=== PATIENT | female | born 1965 | race Caucasian/White ===

== ENCOUNTER → 2020-05-15 08:24 | Outpatient (BNVA) | payer BC, SELFPAY | PROVIDERS: PCP Internal Medicine; Referring Provider Internal Medicine; Visit Provider Internal Medicine | DX: M81.0 Age-related osteoporosis without current pathological fracture (principal); E21.3 Hyperparathyroidism, unspecified; E55.9 Vitamin D deficiency, unspecified; E04.2 Nontoxic multinodular goiter; Z79.899 Other long term (current) drug therapy | CPT/HCPCS: Q3014 ==

== ENCOUNTER → 2020-08-14 08:54 | Outpatient (BNVA) | payer BC, SELFPAY | PROVIDERS: PCP Internal Medicine; Visit Provider Internal Medicine ==

== ENCOUNTER 2020-11-10 07:48 | Inpatient (IN) | payer OTHER, SELFPAY ==
[2020-11-10] VITALS (10 sets, daily range): BP systolic 96–147; BP diastolic 57–72; PULSE 60–102; RESP 16–22; TEMP 36–37.1; O2SAT 90–99; BMI 20.1
--- NOTE | ~2020-11-10 | CT_ITS ---
EXAMINATION: CT ANGIOGRAM OF THE CHEST WITH AND WITHOUT CONTRAST (CT PULMONARY ANGIOGRAM FOR PE) CLINICAL INFORMATION: Reason for Exam pt c sob/cough ? pe COMPARISON: Chest x-ray from earlier the same day TECHNIQUE: Prior to contrast administration, noncontrast localization images were obtained. Subsequently, multidetector volumetric imaging was performed from the thoracic inlet to below the diaphragms following the administration of 65 mL Omnipaque 350 intravenous contrast. No contrast reaction reported Sagittal, coronal, and MIP oblique sagittal reformatted images were obtained on the CT workstation, uploaded to PACS, and reviewed. This CT examination was performed using dose optimization techniques as appropriate, variously including the following: *Automated exposure control *Adjustment of mA and/or kV according to patient size (this includes techniques or standardized protocols for targeted exams where dose is matched to indication/reason for exam; i.e. extremities or head) *Use of iterative reconstruction technique Total exam dose-length product 146 mGy-cm FINDINGS: QUALITY OF STUDY/CONTRAST BOLUS: Satisfactory. PULMONARY ARTERIES: No central or segmental pulmonary emboli. THORACIC AORTA: No aneurysm or dissection. LUNG: There is evidence of emphysema. There is a 0.9 x 1.1 cm right upper lobe nodule axial image 75 series 7. There is a 4 mm right lower lobe nodule axial image 266 series 7. There is a 3 mm peripheral or subpleural right lower lobe nodule axial image 341 series 7. There is a 2 mm peripheral or subpleural right lower lobe nodule axial image 355 series 7. There is subsegmental atelectasis seen in the inferior segment of the lingula. There are scattered areas of mild bronchial wall thickening. PLEURA: No pleural effusion or pneumothorax. MEDIASTINUM: Normal heart size. No pericardial effusion. No hilar or mediastinal lymphadenopathy. No evidence of septal bowing or right heart strain. CHEST WALL/AXILLA: No axillary or internal mammary lymphadenopathy. OSSEOUS STRUCTURES: No acute or suspicious osseous abnormality. There are mild degenerative changes of the spine. UPPER ABDOMEN: Unremarkable. No reflux of contrast into the hepatic veins to suggest elevated right heart pressures. CT/CT angio chest PE protocol IMPRESSION: No evidence of pulmonary embolism. Emphysema. 1 cm right upper lobe nodule worrisome for neoplasm. PET CT scan or tissue sampling should be considered. Scattered areas of mild bronchial wall thickening suggestive of bronchitis. VTE: negative
--- NOTE | ~2020-11-10 | XR_ITS ---
EXAMINATION: XR CHEST CLINICAL INFORMATION: Cough and shortness of breath COMPARISON: None TECHNIQUE: 2 views of the chest were obtained. FINDINGS: The cardiac and mediastinal contours are normal. The lungs are well inflated. There is a 1 cm nodular density projecting over the right lung apex and right clavicle and first rib. This may represent superimposition of bone and vascular structures. No corresponding abnormality is seen on the lateral view. The lungs are otherwise clear. There is no pleural effusion or pneumothorax. There are mild degenerative changes of the spine. XR/XR chest 2V IMPRESSION: Well-inflated lungs. 1 cm nodular density at the right lung apex. This may be related to overlapping bone and vascular structures. Follow-up apical lordotic view of the chest recommended.
--- NOTE | 2020-11-10 08:55 | ECG_ITS ---
Test Reason : SOB Blood Pressure : / mmHG Vent. Rate : 061 BPM Atrial Rate : 061 BPM P-R Int : 126 ms QRS Dur : 076 ms QT Int : 446 ms P-R-T Axes : 072 087 060 degrees QTc Int : 448 ms Normal sinus rhythm Possible Left atrial enlargement Borderline ECG No previous ECGs available Referred By: Urslua Melgar Electronically Signed By:CORRY PSOT MD
--- NOTE | 2020-11-10 09:13 | PHA.MEDREC ---
Pharmacy Consult ? Medication Reconciliation Pharmacy has completed the medication reconciliation. No remarkable issues requiring provider's attention. Martha So, EmmanuelleD
[2020-11-10 09:41] LABS: MANUAL DIFF FLAG NO
[2020-11-10 09:45] LABS: Basophils Percent Auto 0.4 % (0-2); Eosinophils Absolute Auto 0.1 X10*3/uL (0.0-0.4); Eosinophils Percent Auto 0.8 % (0-4); Hemoglobin 14.9 g/dl (12.0-16.0); Imm Gran Abs Auto 0.01 X10*3/uL (0.00-0.03); Imm Gran Pct Auto 0.1 % (0.0-0.4); Lymphocytes Absolute Auto 2.9 X10*3/uL (1.2-4.9); Lymphocytes Percent Auto 34.4 % (20-40); Mean Corpuscular HGB Conc 33.9 g/dl (31.0-35.0); Mean Corpuscular Hemoglobin 30.2 pg (27.0-33.0); Mean Corpuscular Volume 89.2 fL (80-98); Mean Platelet Volume 10.3 fL (9.4-12.3); Monocytes Absolute Auto 0.5 X10*3/uL (0.1-1.2); Monocytes Percent Auto 6.2 % (2-11); Neutrophils Absolute Auto 4.9 X10*3/uL (2.0-8.3); Neutrophils Percent Auto 58.1 % (45-73); Platelet Count 328 X10*3/uL (160-400); Red Blood Count 4.93 X10*6/uL (4.20-5.50); Red Cell Distribution Width 13.6 % (11.0-16.0); White Blood Count 8.4 X10*3/uL (4.8-10.8)
[2020-11-10 09:52] LABS: Prothrombin Time 11.8 SEC (9.9-13.0)
--- NOTE | 2020-11-10 10:13 | ED.SOB ---
HPI - SOB/Dyspnea General Chief Complaint: Dyspnea Stated Complaint: DIFF BREATHING CONGESTION Time Seen by Provider: 11/10/20 08:47 Source: patient and family Mode of arrival: ambulatory Limitations: no limitations History of Present Illness HPI Narrative: 55-year-old female with a past medical history of hyperparathyroidism, multi nodular thyroid, osteoporosis and vitamin-D deficiency who is a daily smoker presenting to the ED with complaints of chest congestion, intermittent productive cough, shortness of breath, orthopnea and night sweats over the past 2 weeks worse since last night. patient reports the symptoms started 2 weeks after her moderna vaccine. She denies any dizziness, lightheadedness, change in vision, nausea / vomiting, chest pain, dyspnea on exertion, palpitations, abdominal pain, back pain, lower extremity edema, diarrhea, constipation, recent travel or sick contacts or any other symptoms complaints or concerns at this time. MD elicited complaint: shortness of breath, cough and pain with inspiration Onset (ago): week(s) ( Two weeks now worsening) Timing: constant and progressively worsening Severity: severe Exacerbating factors: lying flat, movement, coughing, inspiration, talking and deep breaths Relieving factors: rest and upright position Associated symptoms: pain with inspiration, cough and sputum production Treatment prior to arrival: none Related Data Home oxygen amount: none Home Medications Medication Instructions Recorded Confirmed cholecalciferol (vitamin D3) 25 25 mcg PO DAILY 05/15/20 11/10/20 mcg (1,000 unit) capsule guaifenesin [Robitussin] 200 mg PO Q4H PRN 11/10/20 11/10/20 Allergies Allergy/AdvReac Type Severity Reaction Status Date / Time N.K.D.A. Allergy Unknown Unknown Uncoded 08/14/20 09:05 Review of Systems Review of Systems: Constitutional : No Weight loss, No Fever, No Chills, No Night Sweats, No Fatigue, No Malaise ENT/Mouth : No Hearing loss, No Ear Pain, No Nasal Congestion, No Sinus Pain, No Hoarseness, No sore throat, No Rhinorrhea, No Swallowing Difficulty Eyes: No Eye Pain, No Swelling, No Redness, No Foreign Body, No Discharge, No Vision Changes Cardiovascular : Positive SOB, Positive Orthopnea, No Chest pain only chest tighness, no Dyspnea on Exertion, No Edema, No extremity swelling, No Palpitations Respiratory : Positive Cough/Sputum, No Wheezing Gastrointestinal : No Nausea, No Vomiting, No Diarrhea, No abdominal Pain, No Hematochezia, No Melena Genitourinary : No irregular bleeding, No Dysuria, No Urinary Frequency, No Hematuria, No Urinary Incontinence, No Urgency, No Flank Pain, No Urinary Flow Changes, No Hesitancy Musculoskeletal : No joint pain, No Myalgias, No Joint Swelling Skin : No Skin Lesions, No rash Neuro : No Weakness, No Numbness, No Paresthesias, No Loss of Consciousness, No Dizziness, No Headache Psych : No Anxiety/Panic, No Depression, No SI/HI/AH/VH Heme/Lymph: No Bruising, No Bleeding,No Lymphadenopathy Endocrine : No Polyuria, No Polydipsia, No Temperature Intolerance Yes all other systems are reviewed and are negative [facility] Past Medical History Attestation statement: The following information was validated with the patient. Medical History Hyperparathyroidism Multinodular thyroid Osteoporosis Vitamin D deficiency Family History Family History Mother Pancreatic cancer Father COPD (chronic obstructive pulmonary disease) Social History Social History Alcohol intake: never Patient Tobacco Use Status: Current someday Tobacco user Cigarette Packs Per Day: 1 Years Smoked: 40 Use of substances other than those prescribed or required for medical reasons: No Substance Use Type: Marijuana Advance Directives: Yes Advance Directives Information Provided: Yes Advance Directives on File: No Physical Exam Vital Signs: Vital Signs: Last Vital Signs Temp 98.7 F 11/10/20 13:46 Pulse 81 11/10/20 13:46 Resp 20 11/10/20 13:46 BP 115/62 11/10/20 13:46 Pulse Ox 94 11/10/20 13:46 Body Mass Index 20.1 vital signs have been reviewed as normal and appeared to be correct. Blood pressure hypertensive 147/72. Heart rate normal. Respiration rate Tachypneic at 22. Temperature normal. Oxygen saturation hypoxic low 90s on 1 L nasal cannula oxygen now at 97% on 1 L nasal cannula oxygen. Appearance: Alert. Oriented X3. mild respiratory distress. Head: Normal external exam. Normocephalic. Atraumatic. Eyes: PERRLA. EOMI. Conjunctiva and sclera normal. Eyelids normal. ENT: EAC normal. TM's Normal. Pharynx normal. Uvula midline. Moist mucous membranes. No trismus noted. No drooling noted. No muffled voice noted. Neck: Normal inspection. Neck supple. FROM. No adenopathy. Thyroid Normal. No meningeal signs. No neck mass noted. CVS: Normal heart rate and rhythm. Heart sound normal. Pulses normal throughout. No murmurs/rales/gallops. Respiratory: mild respiratory distress with decreased breath sounds and rhonchi noted at the bases. no wheezes/ rales noted at this time. Chest is nontender. Patient is using accessory muscles /tracheal tugging / retractions. Abdomen: Soft and nontender. Bowel sounds normal in all 4 quadrants. No distention noted. No organomegaly noted. No visible injury noted. Back: Full range of motion noted. No rashes/lesion/induration/fluctuance or signs of infection noted. Skin: Skin warm and dry. Normal skin color. Normal skin turgor. No rashes/lesions/lacerations noted. Extremities: No lower extremity edema. no calf tenderness noted. Extremities exhibit normal range of motion. Extremities nontender. Neuro: Oriented X 3. No motor deficit. No sensory deficit. Reflexes normal. Normal steady gait. No focal neuro deficits noted. Vascular: + radial pulses/+ 2 distal pedal pulses/+2 dorsalis pedis b/l. Normal cap refill. No cyanosis noted to upper extremity nails and lower extremity toes nails. Course Course Course Narrative: 8:55am - 55-year-old female with a past medical history of hyperparathyroidism, multi nodular thyroid, osteoporosis and vitamin-D deficiency who is a daily smoker presenting to the ED with complaints of chest congestion, intermittent productive cough, shortness of breath, orthopnea and night sweats over the past 2 weeks worse since last night. Patient reports the symptoms started 2 weeks after her moderna vaccine October 10. Plan: Labs, chest x-ray, EKG, respiratory panel, blood cultures, lactic acid , CTA of chest for PE. provided breathing treatment then re-evaluate. Reevaluation(s) Reevaluation #1: - all labs within normal limits. Patient negative for entire respiratory panel. EKG normal sinus rhythm left atrial enlargement no acute ischemic changes were noted. Chest x-ray obtained and revealed 1 cm nodular density at the right lung apex otherwise no other acute processes were noted. Therefore CTA of chest for PE was obtained which revealed no evidence for PE although revealed emphysema and again 1 cm right upper lobe nodule worrisome for neoplasm. PET CT scan or tissue sampling should be considered. Scattered areas of mild bronchial wall thickening suggestive of bronchitis. - Consulted with the hospitalist Dr. Shepard at this time to admit. Time: 12:55 MDM - SOB/Dyspnea Differential Diagnosis Differential diagnosis: Likely acute exacerbation of chronic obstructive airways disease, congestive heart failure, pneumonia, pulmonary embolism, pleural effusion and sleep apnea Medical Records Attestation: I reviewed the patient's medical records. Lab Data Attestation: I reviewed the patient's lab results. Result diagrams: 11/10/20 09:33 11/10/20 09:33 Labs: Lab Results 11/10/20 11/10/20 11/10/20 Range/Units 09:33 09:33 09:33 WBC 8.4 (4.8-10.8) X10*3/uL RBC 4.93 (4.20-5.50) X10*6/uL Hgb 14.9 (12.0-16.0) g/dl Hct 44.0 (37-47) % MCV 89.2 (80-98) fL MCH 30.2 (27.0-33.0) pg MCHC 33.9 (31.0-35.0) g/dl RDW 13.6 (11.0-16.0) % Plt Count 328 (160-400) X10*3/uL MPV 10.3 (9.4-12.3) fL Immature Gran % (Auto) 0.1 (0.0-0.4) % Neut % (Auto) 58.1 (45-73) % Lymph % (Auto) 34.4 (20-40) % [place] % (Auto) 6.2 (2-11) % Eos % (Auto) 0.8 (0-4) % Baso % (Auto) 0.4 (0-2) % Lymph # (Auto) 2.9 (1.2-4.9) X10*3/uL [place] # (Auto) 0.5 (0.1-1.2) X10*3/uL Eos # (Auto) 0.1 (0.0-0.4) X10*3/uL Baso # (Auto) 0.0 (0.0-0.2) X10*3/uL Abs Immat Gran (auto) 0.01 (0.00-0.03) X10*3/uL Absolute Neuts (auto) 4.9 (2.0-8.3) X10*3/uL Absolute Nucleated RBC 0.000 (0.0-0.012) X10*3/uL Nucleated RBC % (auto) 0.0 (0.0-0.2) /100WBC PT 11.8 (9.9-13.0) SEC INR 1.0 (0.9-1.1) Sodium (135-145) mmol/L Potassium (3.3-5.1) mmol/L Chloride (96-108) mmol/L Carbon Dioxide (22-29) mmol/L Anion Gap (12-20) BUN (9-16) mg/dL Creatinine (0.5-1.4) mg/dL Estim Creat Clear Calc Estimated GFR Random Glucose (60-115) mg/dL Lactic Acid (0.5-2.0) mmol/L Calcium (8.4-10.2) mg/dL Magnesium 2.3 (1.6-2.6) mg/dL Total Bilirubin (0.0-1.0) mg/dL AST (5-31) U/L ALT (0-31) U/L Alkaline Phosphatase (39-117) U/L Troponin I High Sens (<3.5-17.0) ng/L B-Natriuretic Peptide (<100) pg/mL Total Protein (6.5-8.0) g/dL Albumin (3.5-5.0) g/dL Urine Color Urine Appearance Urine pH (5.0-8.0) Ur Specific [place] (1.005-1.025) Urine Protein (NEG-TRACE) MG/DL Urine Glucose (UA) (NEG) MG/DL Urine Ketones (NEG) MG/DL Urine Blood (NEG) Urine Nitrite (NEG) Ur Leukocyte Esterase (NEG) Urine RBC (0) /HPF Urine WBC (0-4) /HPF Ur Squamous Epith Cells /LPF Urine Bacteria /LPF Respiratory Panel [place] Adenovirus (Rapid PCR) (Not Detect.) B.pert (TEM-PCR) (Not Detect.) B.parapertussis DNA PCR (Not Detect.) C. pneumoniae DNA (PCR) (Not Detect.) Coronavirus OC43 (PCR) (Not Detect.) Coronavirus HKU1 (PCR) (Not Detect.) Coronavirus 229E (PCR) (Not Detect.) Coronavirus NL63 (PCR) (Not Detect.) Human Metapneumovir PCR (Not Detect.) Influenza A (RT-PCR) (Not Detect.) Influenza B (RT-PCR) (Not Detect.) M. pneumoniae (PCR) (Not Detect.) Parainfluenza 1 (PCR) (Not Detect.) Parainfluenza 2 (PCR) (Not Detect.) Parainfluenza 3 (PCR) (Not Detect.) Parainfluenza 4 (PCR) (Not Detect.) RSV (PCR) (Not Detect.) Entero/Rhino (PCR) (Not Detect.) SARS-CoV-2 RNA (RT-PCR) (Not Detect.) 11/10/20 11/10/20 11/10/20 Range/Units 09:33 09:33 09:33 WBC (4.8-10.8) X10*3/uL RBC (4.20-5.50) X10*6/uL Hgb (12.0-16.0) g/dl Hct (37-47) % MCV (80-98) fL MCH (27.0-33.0) pg MCHC (31.0-35.0) g/dl RDW (11.0-16.0) % Plt Count (160-400) X10*3/uL MPV (9.4-12.3) fL Immature Gran % (Auto) (0.0-0.4) % Neut % (Auto) (45-73) % Lymph % (Auto) (20-40) % [place] % (Auto) (2-11) % Eos % (Auto) (0-4) % Baso % (Auto) (0-2) % Lymph # (Auto) (1.2-4.9) X10*3/uL [place] # (Auto) (0.1-1.2) X10*3/uL Eos # (Auto) (0.0-0.4) X10*3/uL Baso # (Auto) (0.0-0.2) X10*3/uL Abs Immat Gran (auto) (0.00-0.03) X10*3/uL Absolute Neuts (auto) (2.0-8.3) X10*3/uL Absolute Nucleated RBC (0.0-0.012) X10*3/uL Nucleated RBC % (auto) (0.0-0.2) /100WBC PT (9.9-13.0) SEC INR (0.9-1.1) Sodium 141 (135-145) mmol/L Potassium 4.4 (3.3-5.1) mmol/L Chloride 109 H (96-108) mmol/L Carbon Dioxide 24 (22-29) mmol/L Anion Gap 12 (12-20) BUN 8 L (9-16) mg/dL Creatinine 0.75 (0.5-1.4) mg/dL Estim Creat Clear Calc 67.5 Estimated GFR > 60 Random Glucose 94 (60-115) mg/dL Lactic Acid 0.9 (0.5-2.0) mmol/L Calcium 10.0 (8.4-10.2) mg/dL Magnesium (1.6-2.6) mg/dL Total Bilirubin 0.4 (0.0-1.0) mg/dL AST 21 (5-31) U/L ALT 15 (0-31) U/L Alkaline Phosphatase 111 (39-117) U/L Troponin I High Sens < 3.5 (<3.5-17.0) ng/L B-Natriuretic Peptide 35 (<100) pg/mL Total Protein 7.5 (6.5-8.0) g/dL Albumin 4.5 (3.5-5.0) g/dL Urine Color Urine Appearance Urine pH (5.0-8.0) Ur Specific [place] (1.005-1.025) Urine Protein (NEG-TRACE) MG/DL Urine Glucose (UA) (NEG) MG/DL Urine Ketones (NEG) MG/DL Urine Blood (NEG) Urine Nitrite (NEG) Ur Leukocyte Esterase (NEG) Urine RBC (0) /HPF Urine WBC (0-4) /HPF Ur Squamous Epith Cells /LPF Urine Bacteria /LPF Respiratory Panel [place] Adenovirus (Rapid PCR) (Not Detect.) B.pert (TEM-PCR) (Not Detect.) B.parapertussis DNA PCR (Not Detect.) C. pneumoniae DNA (PCR) (Not Detect.) Coronavirus OC43 (PCR) (Not Detect.) Coronavirus HKU1 (PCR) (Not Detect.) Coronavirus 229E (PCR) (Not Detect.) Coronavirus NL63 (PCR) (Not Detect.) Human Metapneumovir PCR (Not Detect.) Influenza A (RT-PCR) (Not Detect.) Influenza B (RT-PCR) (Not Detect.) M. pneumoniae (PCR) (Not Detect.) Parainfluenza 1 (PCR) (Not Detect.) Parainfluenza 2 (PCR) (Not Detect.) Parainfluenza 3 (PCR) (Not Detect.) Parainfluenza 4 (PCR) (Not Detect.) RSV (PCR) (Not Detect.) Entero/Rhino (PCR) (Not Detect.) SARS-CoV-2 RNA (RT-PCR) (Not Detect.) 11/10/20 11/10/20 Range/Units 10:54 14:53 WBC (4.8-10.8) X10*3/uL RBC (4.20-5.50) X10*6/uL Hgb (12.0-16.0) g/dl Hct (37-47) % MCV (80-98) fL MCH (27.0-33.0) pg MCHC (31.0-35.0) g/dl RDW (11.0-16.0) % Plt Count (160-400) X10*3/uL MPV (9.4-12.3) fL Immature Gran % (Auto) (0.0-0.4) % Neut % (Auto) (45-73) % Lymph % (Auto) (20-40) % [place] % (Auto) (2-11) % Eos % (Auto) (0-4) % Baso % (Auto) (0-2) % Lymph # (Auto) (1.2-4.9) X10*3/uL [place] # (Auto) (0.1-1.2) X10*3/uL Eos # (Auto) (0.0-0.4) X10*3/uL Baso # (Auto) (0.0-0.2) X10*3/uL Abs Immat Gran (auto) (0.00-0.03) X10*3/uL Absolute Neuts (auto) (2.0-8.3) X10*3/uL Absolute Nucleated RBC (0.0-0.012) X10*3/uL Nucleated RBC % (auto) (0.0-0.2) /100WBC PT (9.9-13.0) SEC INR (0.9-1.1) Sodium (135-145) mmol/L Potassium (3.3-5.1) mmol/L Chloride (96-108) mmol/L Carbon Dioxide (22-29) mmol/L Anion Gap (12-20) BUN (9-16) mg/dL Creatinine (0.5-1.4) mg/dL Estim Creat Clear Calc Estimated GFR Random Glucose (60-115) mg/dL Lactic Acid (0.5-2.0) mmol/L Calcium (8.4-10.2) mg/dL Magnesium (1.6-2.6) mg/dL Total Bilirubin (0.0-1.0) mg/dL AST (5-31) U/L ALT (0-31) U/L Alkaline Phosphatase (39-117) U/L Troponin I High Sens (<3.5-17.0) ng/L B-Natriuretic Peptide (<100) pg/mL Total Protein (6.5-8.0) g/dL Albumin (3.5-5.0) g/dL Urine Color YELLOW Urine Appearance CLEAR Urine pH 6.0 (5.0-8.0) Ur Specific [place] <= 1.005 (1.005-1.025) Urine Protein NEG (NEG-TRACE) MG/DL Urine Glucose (UA) NEG (NEG) MG/DL Urine Ketones 5 (NEG) MG/DL Urine Blood TRACE (NEG) Urine Nitrite NEG (NEG) Ur Leukocyte Esterase NEG (NEG) Urine RBC 0-2 (0) /HPF Urine WBC 0 (0-4) /HPF Ur Squamous Epith Cells TRACE /LPF Urine Bacteria NONE /LPF Respiratory Panel [place] See Note Adenovirus (Rapid PCR) Not Detected (Not Detect.) B.pert (TEM-PCR) Not Detected (Not Detect.) B.parapertussis DNA PCR Not Detected (Not Detect.) C. pneumoniae DNA (PCR) Not Detected (Not Detect.) Coronavirus OC43 (PCR) Not Detected (Not Detect.) Coronavirus HKU1 (PCR) Not Detected (Not Detect.) Coronavirus 229E (PCR) Not Detected (Not Detect.) Coronavirus NL63 (PCR) Not Detected (Not Detect.) Human Metapneumovir PCR Not Detected (Not Detect.) Influenza A (RT-PCR) Not Detected (Not Detect.) Influenza B (RT-PCR) Not Detected (Not Detect.) M. pneumoniae (PCR) Not Detected (Not Detect.) Parainfluenza 1 (PCR) Not Detected (Not Detect.) Parainfluenza 2 (PCR) Not Detected (Not Detect.) Parainfluenza 3 (PCR) Not Detected (Not Detect.) Parainfluenza 4 (PCR) Not Detected (Not Detect.) RSV (PCR) Not Detected (Not Detect.) Entero/Rhino (PCR) Not Detected (Not Detect.) SARS-CoV-2 RNA (RT-PCR) Not Detected (Not Detect.) Imaging Data Chest x-ray: Attestation: I personally reviewed and interpreted this imaging study as follows: Radiologist's impression: FINDINGS: The cardiac and mediastinal contours are normal. The lungs are well inflated. There is a 1 cm nodular density projecting over the right lung apex and right clavicle and first rib. This may represent superimposition of bone and vascular structures. No corresponding abnormality is seen on the lateral view. The lungs are otherwise clear. There is no pleural effusion or pneumothorax. There are mild degenerative changes of the spine. XR/XR chest 2V IMPRESSION: Well-inflated lungs. 1 cm nodular density at the right lung apex. This may be related to overlapping bone and vascular structures. Follow-up apical lordotic view of the chest recommended. CTA of chest for PE: Attestation: I personally reviewed and interpreted this imaging study as follows: Radiologist's impression: FINDINGS: QUALITY OF STUDY/CONTRAST BOLUS: Satisfactory. PULMONARY ARTERIES: No central or segmental pulmonary emboli. THORACIC AORTA: No aneurysm or dissection. LUNG: There is evidence of emphysema. There is a 0.9 x 1.1 cm right upper lobe nodule axial image 75 series 7. There is a 4 mm right lower lobe nodule axial image 266 series 7. There is a 3 mm peripheral or subpleural right lower lobe nodule axial image 341 series 7. There is a 2 mm peripheral or subpleural right lower lobe nodule axial image 355 series 7. There is subsegmental atelectasis seen in the inferior segment of the lingula. There are scattered areas of mild bronchial wall thickening. PLEURA: No pleural effusion or pneumothorax. MEDIASTINUM: Normal heart size. No pericardial effusion. No hilar or mediastinal lymphadenopathy. No evidence of septal bowing or right heart strain. CHEST WALL/AXILLA: No axillary or internal mammary lymphadenopathy. OSSEOUS STRUCTURES: No acute or suspicious osseous abnormality. There are mild degenerative changes of the spine. UPPER ABDOMEN: Unremarkable. No reflux of contrast into the hepatic veins to suggest elevated right heart pressures. CT/CT angio chest PE protocol IMPRESSION: No evidence of pulmonary embolism. Emphysema. 1 cm right upper lobe nodule worrisome for neoplasm. PET CT scan or tissue sampling should be considered. Scattered areas of mild bronchial wall thickening suggestive of bronchitis. VTE: negative ECG Data Attestation: I personally reviewed and interpreted this ECG as follows: ECG interpretation date: 11/10/20 ECG interpretation time: 09:14 Interpretation: normal sinus rhythm with a ventricular rate of 61 with left atrial enlargement no acute ischemic changes are noted. No prior EKG in our system to compare to at this time. Critical Care Time Critical Care Time Critical Care Time: Yes Total Critical Care Time: 60 Attestation: I personally attest to this time spent taking care of the patient Discharge Plan Discharge Clinical Impression: Emphysema of lung, Lung nodule, Bronchitis Patient Disposition: Admitted As Inpatient
[2020-11-10 10:14] LABS: Lactic Acid 0.9 mmol/L (0.5-2.0)
[2020-11-10 10:19] LABS: Alanine Aminotransferase 15 U/L (0-31); Albumin Level 4.5 g/dL (3.5-5.0); Alkaline Phosphatase 111 U/L (39-117); Anion Gap 12 (12-20); Aspartate Amino Transferase 21 U/L (5-31); Bilirubin Total 0.4 mg/dL (0.0-1.0); Blood Urea Nitrogen 8 mg/dL (9-16); Carbon Dioxide 24 mmol/L (22-29); Chloride 109 mmol/L (96-108); Creatinine Clr Calc Pharmacy 67.5; Estimated Glomerular Filt Rate > 60; Glucose Random 94 mg/dL (60-115); Magnesium 2.3 mg/dL (1.6-2.6); Potassium 4.4 mmol/L (3.3-5.1); Sodium 141 mmol/L (135-145); Total Protein 7.5 g/dL (6.5-8.0)
[2020-11-10 10:23] LABS: B Type Natriuretic Peptide 35 pg/mL (<100); Troponin-I High Sensitivity < 3.5 ng/L (<3.5-17.0)
[2020-11-10] MEDS: methylPREDNISolone Sod Succ 125 MG/2 ML VIAL IVPUSH (10:48)
[2020-11-10] MEDS: iohexoL 350 MG/ML 100 ML INFUS..BTL IV (10:51)
[2020-11-10 11:06] LABS: Adenovirus PCR Not Detected (Not Detect.); Bordetella parapertussis PCR Not Detected (Not Detect.); Bordetella pertussis PCR Not Detected (Not Detect.); Chlamydia pneumoniae PCR Not Detected (Not Detect.); Coronavirus 229E PCR Not Detected (Not Detect.); Coronavirus HKU1 PCR Not Detected (Not Detect.); Coronavirus NL63 PCR Not Detected (Not Detect.); Coronavirus OC43 PCR Not Detected (Not Detect.); Human metapneumovirus PCR Not Detected (Not Detect.); Influenza A PCR Not Detected (Not Detect.); Influenza B PCR Not Detected (Not Detect.); Mycoplasma pneumoniae PCR Not Detected (Not Detect.); Parainfluenza 1 PCR Not Detected (Not Detect.); Parainfluenza 2 PCR Not Detected (Not Detect.); Parainfluenza 3 PCR Not Detected (Not Detect.); Parainfluenza 4 PCR Not Detected (Not Detect.); RSV PCR Not Detected (Not Detect.); Rhino/Enterovirus PCR Not Detected (Not Detect.); SARS-CoV-2 PCR Not Detected (Not Detect.)
[2020-11-10] MEDS: Albuterol Sulfate (0.083%) 2.5 MG/3 ML VIAL.NEB 10 MG INHALE (11:30)
[2020-11-10] MEDS: Cholecalciferol (Vitamin D3) 25 MCG TABLET PO (12:55)
[2020-11-10] MEDS: cefTRIAXone sodium 2 GM in 0.9 % Sodium Chloride 50 ML IV (13:04)
[2020-11-10 15:03] LABS: Glucose Urine UA NEG (NEG); Leukocyte Esterase Urine NEG (NEG); Nitrite Urine NEG (NEG); Specific Gravity - Urine <= 1.005 (1.005-1.025); Urine Blood TRACE (NEG); Urine Ketones 5 MG/DL (NEG); Urine Protein NEG (NEG-TRACE)
[2020-11-10 15:04] LABS: Appearance Urine CLEAR; Color Urine YELLOW
[2020-11-10 15:12] LABS: RBC Urine 0-2 /HPF (0); Squamous Epithelial Cell Urine TRACE /LPF; WBC Urine 0 /HPF (0-4)
--- NOTE | 2020-11-10 15:16 | PM.IMHP ---
History of Present Illness Date of Service: 11/10/20 Chief Complaint: shortness of breath, PNDs a 55 years old lady with PMH of emphysema, multinodular thyroid, osteoporosis among others who presented to the hospital complaining of worsening shortness of breath and dyspnea for the last 2 weeks. The patient reports that she received a 2nd dose of her mother new vaccine on the 10 of October. Two weeks after that she started feeling shortness of breath that started suddenly mainly when she is in the bed sleeping were she wakes up and started coughing and trying to bring out thick secretions. She denies any fever, chills but feels generalized weakness. Patient reports smoking for almost 40 years. In the emergency CT scan showed no evidence of PE or infiltrate. Showed multiple small nodules with 1 of them of 1 cm. Admitted for further evaluation and treatment. Review of Systems Review of Systems: No fever, chills but reports generalized weakness No chest pain, palpitation PNDs, dyspnea on exertion, No abdominal pain, nausea or vomiting No urinary symptoms No any rash or wounds [facility] Medical History Hyperparathyroidism Multinodular thyroid Osteoporosis Vitamin D deficiency Family History Mother Pancreatic cancer Father COPD (chronic obstructive pulmonary disease) Social History Alcohol intake: never Patient Tobacco Use Status: Current someday Tobacco user Cigarette Packs Per Day: 1 Years Smoked: 40 Use of substances other than those prescribed or required for medical reasons: No Substance Use Type: Marijuana Advance Directives: Yes Advance Directives Information Provided: Yes Advance Directives on File: No Meds Allergies Allergy/AdvReac Type Severity Reaction Status Date / Time N.K.D.A. Allergy Unknown Unknown Uncoded 08/14/20 09:05 Active Medications: Current Medications Generic Name Dose Route Start Last Admin Trade Name Freq PRN Reason Stop Dose Admin Guaifenesin 5 ml 11/10/20 11:45 Guaifenesin 100 Mg/5 Ml Liquid PO Q4H PRN Cough Pharmacy Consult 1 each 11/10/20 08:55 Consult Rx Perform Med Rec MISCELLANE ONCE PRN Consult order Vitamin D 25 mcg 11/10/20 11:45 11/10/20 12:55 Cholecalciferol (Vitamin D3) 25 Mcg Tablet PO 25 mcg DAILY CATALINO Administration Home Medications Medication Instructions Recorded Confirmed Last Taken Type cholecalciferol (vitamin D3) 25 25 mcg PO DAILY 05/15/20 11/10/20 11/09/20 History mcg (1,000 unit) capsule guaifenesin [Robitussin] 200 mg PO Q4H PRN 11/10/20 11/10/20 11/09/20 History Physical Exam Vital Signs and Narrative: Vital Signs: Last Vital Signs Temp 98.7 F 11/10/20 13:46 Pulse 81 11/10/20 13:46 Resp 20 11/10/20 13:46 BP 115/62 11/10/20 13:46 Pulse Ox 94 11/10/20 13:46 Body Mass Index 20.1 Const: Other: Constitutional : Alert, oriented, in mild respiratory distress, on oxygen supplement Neck : Normal inspection, Supple Cardiovascular : RRR, S1 S2, no lower extremity edema Respiratory : decreased bilateral air entry, no crackles, bilateral scattered wheezes Gastrointestinal: soft, lax, Normal bowel sounds, Non tender Skin : Warm/Dry, No rash Neurological : Alert & oriented x3, No focal deficit Results Labs CBC and Chem 7: 11/10/20 09:33 11/10/20 09:33 Labs: Laboratory Results - last 24 hr 11/10/20 11/10/20 11/10/20 09:33 09:33 09:33 MCV 89.2 MCH 30.2 MCHC 33.9 RDW 13.6 Plt Count 328 MPV 10.3 Immature Gran % (Auto) 0.1 Neut % (Auto) 58.1 Lymph % (Auto) 34.4 Stokes % (Auto) 6.2 Eos % (Auto) 0.8 Baso % (Auto) 0.4 Lymph # (Auto) 2.9 Stokes # (Auto) 0.5 Eos # (Auto) 0.1 Baso # (Auto) 0.0 Abs Immat Gran (auto) 0.01 Absolute Neuts (auto) 4.9 Absolute Nucleated RBC 0.000 Nucleated RBC % (auto) 0.0 PT 11.8 INR 1.0 Anion Gap Estim Creat Clear Calc Estimated GFR Random Glucose Lactic Acid Calcium Magnesium 2.3 Total Bilirubin AST ALT Alkaline Phosphatase Troponin I High Sens B-Natriuretic Peptide Total Protein Albumin Urine Color Urine Appearance Urine pH Ur Specific Hickman Urine Protein Urine Glucose (UA) Urine Ketones Urine Blood Urine Nitrite Ur Leukocyte Esterase Urine RBC Urine WBC Ur Squamous Epith Cells Urine Bacteria Respiratory Panel Morrissey Adenovirus (Rapid PCR) B.pert (TEM-PCR) B.parapertussis DNA PCR C. pneumoniae DNA (PCR) Coronavirus OC43 (PCR) Coronavirus HKU1 (PCR) Coronavirus 229E (PCR) Coronavirus NL63 (PCR) Human Metapneumovir PCR Influenza A (RT-PCR) Influenza B (RT-PCR) M. pneumoniae (PCR) Parainfluenza 1 (PCR) Parainfluenza 2 (PCR) Parainfluenza 3 (PCR) Parainfluenza 4 (PCR) RSV (PCR) Entero/Rhino (PCR) SARS-CoV-2 RNA (RT-PCR) 11/10/20 11/10/20 11/10/20 09:33 09:33 09:33 MCV MCH MCHC RDW Plt Count MPV Immature Gran % (Auto) Neut % (Auto) Lymph % (Auto) Stokes % (Auto) Eos % (Auto) Baso % (Auto) Lymph # (Auto) Stokes # (Auto) Eos # (Auto) Baso # (Auto) Abs Immat Gran (auto) Absolute Neuts (auto) Absolute Nucleated RBC Nucleated RBC % (auto) PT INR Anion Gap 12 Estim Creat Clear Calc 67.5 Estimated GFR > 60 Random Glucose 94 Lactic Acid 0.9 Calcium 10.0 Magnesium Total Bilirubin 0.4 AST 21 ALT 15 Alkaline Phosphatase 111 Troponin I High Sens < 3.5 B-Natriuretic Peptide 35 Total Protein 7.5 Albumin 4.5 Urine Color Urine Appearance Urine pH Ur Specific Hickman Urine Protein Urine Glucose (UA) Urine Ketones Urine Blood Urine Nitrite Ur Leukocyte Esterase Urine RBC Urine WBC Ur Squamous Epith Cells Urine Bacteria Respiratory Panel Morrissey Adenovirus (Rapid PCR) B.pert (TEM-PCR) B.parapertussis DNA PCR C. pneumoniae DNA (PCR) Coronavirus OC43 (PCR) Coronavirus HKU1 (PCR) Coronavirus 229E (PCR) Coronavirus NL63 (PCR) Human Metapneumovir PCR Influenza A (RT-PCR) Influenza B (RT-PCR) M. pneumoniae (PCR) Parainfluenza 1 (PCR) Parainfluenza 2 (PCR) Parainfluenza 3 (PCR) Parainfluenza 4 (PCR) RSV (PCR) Entero/Rhino (PCR) SARS-CoV-2 RNA (RT-PCR) 11/10/20 11/10/20 10:54 14:53 MCV MCH MCHC RDW Plt Count MPV Immature Gran % (Auto) Neut % (Auto) Lymph % (Auto) Stokes % (Auto) Eos % (Auto) Baso % (Auto) Lymph # (Auto) Stokes # (Auto) Eos # (Auto) Baso # (Auto) Abs Immat Gran (auto) Absolute Neuts (auto) Absolute Nucleated RBC Nucleated RBC % (auto) PT INR Anion Gap Estim Creat Clear Calc Estimated GFR Random Glucose Lactic Acid Calcium Magnesium Total Bilirubin AST ALT Alkaline Phosphatase Troponin I High Sens B-Natriuretic Peptide Total Protein Albumin Urine Color YELLOW Urine Appearance CLEAR Urine pH 6.0 Ur Specific Hickman <= 1.005 Urine Protein NEG Urine Glucose (UA) NEG Urine Ketones 5 Urine Blood TRACE Urine Nitrite NEG Ur Leukocyte Esterase NEG Urine RBC 0-2 Urine WBC 0 Ur Squamous Epith Cells TRACE Urine Bacteria NONE Respiratory Panel Morrissey See Note Adenovirus (Rapid PCR) Not Detected B.pert (TEM-PCR) Not Detected B.parapertussis DNA PCR Not Detected C. pneumoniae DNA (PCR) Not Detected Coronavirus OC43 (PCR) Not Detected Coronavirus HKU1 (PCR) Not Detected Coronavirus 229E (PCR) Not Detected Coronavirus NL63 (PCR) Not Detected Human Metapneumovir PCR Not Detected Influenza A (RT-PCR) Not Detected Influenza B (RT-PCR) Not Detected M. pneumoniae (PCR) Not Detected Parainfluenza 1 (PCR) Not Detected Parainfluenza 2 (PCR) Not Detected Parainfluenza 3 (PCR) Not Detected Parainfluenza 4 (PCR) Not Detected RSV (PCR) Not Detected Entero/Rhino (PCR) Not Detected SARS-CoV-2 RNA (RT-PCR) Not Detected Imaging Radiologist's Impressions: Impressions Chest X-Ray 11/10/20 08:56 IMPRESSION: Well-inflated lungs. 1 cm nodular density at the right lung apex. This may be related to overlapping bone and vascular structures. Follow-up apical lordotic view of the chest recommended. Chest CTA 11/10/20 10:15 IMPRESSION: No evidence of pulmonary embolism. Emphysema. 1 cm right upper lobe nodule worrisome for neoplasm. PET CT scan or tissue sampling should be considered. Scattered areas of mild bronchial wall thickening suggestive of bronchitis. VTE: negative Assessment and Plan (1) Emphysema of lung: Status: Acute (2) Lung nodule: Status: Acute (3) COPD exacerbation: Status: Acute a 55 years old lady with PMH of emphysema, multinodular thyroid, osteoporosis among others who presented to the hospital complaining of worsening shortness of breath and dyspnea for the last 2 weeks. Hypoxia Acute COPD Exacerbation / bronchitis Needs oxygen supplement to keep O2 sat in 90s CTA negative for PE Start azithromycin, IV steroids Duo nebs ATC Albuterol p.r.n. next Lyme to use cough medication Wean oxygen down as tolerated Pulmonary nodules CTA showed multiple small nodules less than 0.5 cm There is 1 nodule of 1 cm right upper lobe worrisome for neoplasm PET CT scan or tissue sampling should be considered, to refer to PCP DVT PPX Xarelto Quality Stroke Does the patient have a stroke diagnosis?: No VTE Prior VTE?: No VTE Risk Level:: Medical - moderate - high VTE Device Contraindication: Treatment Not Indicated VTE Drug Contraindication: N/A - Med Ordered
[2020-11-10] MEDS: 0.9 % Sodium Chloride Flush 3 ML SYRINGE IVFLUSH ×2 (16:43→21:59)
[2020-11-10] MEDS: Azithromycin 500 MG TABLET PO (17:16)
[2020-11-10] MEDS: methylPREDNISolone Sod Succ 40 MG/ML VIAL IVPUSH (20:15)
[2020-11-10] MEDS: guaiFENesin 100 MG/5 ML LIQUID PO (20:15)
[2020-11-10] MEDS: guaiFENesin LA 600 MG TAB.ER.12H PO (20:15)
[2020-11-10] MEDS: Acetaminophen 325 MG TABLET 650 MG PO (20:15)
[2020-11-10] MEDS: Albuterol/Iprat 2.5/0.5MG 3 ML AMPUL.NEB INHALE (20:22)
[2020-11-11 03:44] VITALS: BP 121/58; PULSE 70; RESP 16; TEMP 36; O2SAT 100
[2020-11-11 07:28] LABS: Anion Gap 15 (12-20); Blood Urea Nitrogen 10 mg/dL (9-16); Calcium 9.9 mg/dL (8.4-10.2); Carbon Dioxide 23 mmol/L (22-29); Chloride 108 mmol/L (96-108); Creatinine Clr Calc Pharmacy 71.3; Estimated Glomerular Filt Rate > 60; Glucose Random 122 mg/dL (60-115); Sodium 141 mmol/L (135-145)
[2020-11-11] MEDS: Albuterol/Iprat 2.5/0.5MG 3 ML AMPUL.NEB INHALE ×2 (07:48→11:33)
[2020-11-11 07:49] VITALS: BP 125/56; PULSE 72; RESP 19; TEMP 36.2; O2SAT 100
[2020-11-11 07:50] VITALS: PULSE 72; O2SAT 99
[2020-11-11] MEDS: methylPREDNISolone Sod Succ 40 MG/ML VIAL IVPUSH (08:49)
[2020-11-11] MEDS: Rivaroxaban 10 MG TABLET PO (08:49)
[2020-11-11] MEDS: guaiFENesin LA 600 MG TAB.ER.12H PO (08:49)
[2020-11-11] MEDS: Cholecalciferol (Vitamin D3) 25 MCG TABLET PO (08:49)
[2020-11-11] MEDS: guaiFENesin 100 MG/5 ML LIQUID PO (08:49)
[2020-11-11] MEDS: 0.9 % Sodium Chloride Flush 3 ML SYRINGE IVFLUSH (08:51)
[2020-11-11] MEDS: Acetaminophen 325 MG TABLET 650 MG PO (08:56)
--- NOTE | 2020-11-11 09:01 | MHC.CM.PN ---
FEMALE 55 DX COPD EXACERBATION HYPOXIA SHE LIVES WITH . SHE IS INDEPENDENT ALL FUNCTIONAL MOBILITY. DP HOME NO SERVICES WITH FAMILY TRANSPORTATION.
[2020-11-11 11:26] VITALS: BP 122/59; PULSE 84; RESP 18; TEMP 36.2; O2SAT 98
[2020-11-11 11:35] VITALS: PULSE 84; O2SAT 98
--- NOTE | 2020-11-11 12:02 | MHC.CM.PN ---
Patient is discharged to home no services. Family providing transportation.
--- NOTE | 2020-11-11 12:05 | P.DS_ITS ---
DS: Providers Provider Date of Service: 11/11/20 Date of admission: 11/10/20 15:15 Primary care physician: Tatiana Rhoades MD DS: Diagnosis Discharge Diagnosis (1) Emphysema of lung: Status: Acute (2) Lung nodule: Status: Acute (3) COPD exacerbation: Status: Acute (4) Hypoxia: Status: Acute DS: Medications Discharge Medications Home Medications: Home Medications Medication Instructions Recorded Confirmed cholecalciferol (vitamin D3) 25 25 mcg PO DAILY 05/15/20 11/10/20 mcg (1,000 unit) capsule guaifenesin 200 mg PO Q4H PRN 11/10/20 11/10/20 Previous Rx's Medication Instructions Recorded albuterol sulfate 2 puff INHALATION Q6H PRN 30 Days 11/11/20 g azithromycin 500 mg PO Q24H 3 Days #3 tab 11/11/20 budesonide 1 inh INHALATION BID #1 ea 11/11/20 guaifenesin [Mucinex] 600 mg PO BID 5 Days #10 tab 11/11/20 nicotine 1 patch TRANSDERMAL DAILY #28 ea 11/11/20 prednisone 40 mg PO DAILY #6 tab 11/11/20 DS: Summary Hospital Course Hospital Course: admission note HPI a 55 years old lady with PMH of emphysema, multinodular thyroid, osteoporosis among others who presented to the hospital complaining of worsening shortness of breath and dyspnea for the last 2 weeks. The patient reports that she received a 2nd dose of her mother new vaccine on the 10 of October. Two weeks after that she started feeling shortness of breath that started suddenly mainly when she is in the bed sleeping were she wakes up and started coughing and trying to bring out thick secretions. She denies any fever, chills but feels generalized weakness. Patient reports smoking for almost 40 years. In the emergency CT scan showed no evidence of PE or infiltrate. Showed multiple small nodules with 1 of them of 1 cm. Admitted for further evaluation and treatment. Hospital course Patient was admitted for treatment of COPD exacerbation and evidence of hypoxia of below 90% on room. Chest x-ray and CT a were negative for any acute PE or infiltrate. Treated mainly with bronchodilator nebulizers, IV steroids and azithromycin with good response over the course of hospital stay as she was weaned off oxygen and was able to ambulate on room air maintaining oxygen s aturation about 96%. Her CTA was also significant for multiple small nodules and 1 enlarged nodule 1 cm concerning for possible malignancy. Patient will need to do a PET scan as outpatient when she follows with her primary care. To be discharged on steroid inhaler, albuterol inhaler, prednisone and azithromycin for the next few days. She was advised to quit smoking completely and nicotine patches were prescribed. Time Spent with Patient Time attestation: Total time spent providing and/or coordinating discharge servi antoni: Discharge coordination time: Greater than 30 minutes Quality: Stroke Does the patient have a stroke diagnosis?: No Physical Exam Vital Signs: Vital Signs: Last Vital Signs Temp 97.1 F 11/11/20 11:26 Pulse 84 11/11/20 11:35 Resp 18 11/11/20 11:26 BP 122/59 L 11/11/20 11:26 Pulse Ox 98 11/11/20 11:26 Body Mass Index 20.1 Const: Other: Constitutional : Alert, oriented, not in distress Neck : Normal inspection, Supple Cardiovascular : RRR, S1 S2, no lower extremity edema Respiratory : fair bilateral air entry, no crackles, no wheezes or rhonchi Gastrointestinal: soft, lax, Normal bowel sounds, Non tender Skin : Warm/Dry, No rash Neurological : Alert & oriented x3, No focal deficit DS: Data Data Completed and Pending Labs on day of discharge: Laboratory Results - last 24 hr 11/10/20 11/10/20 11/11/20 10:54 14:53 06:00 Sodium 141 Potassium 5.0 Chloride 108 Carbon Dioxide 23 Anion Gap 15 BUN 10 Creatinine 0.71 Estim Creat Clear Calc 71.3 Estimated GFR > 60 Random Glucose 122 H Calcium 9.9 Urine Color YELLOW Urine Appearance CLEAR Urine pH 6.0 Ur Specific Russell <= 1.005 Urine Protein NEG Urine Glucose (UA) NEG Urine Ketones 5 Urine Blood TRACE Urine Nitrite NEG Ur Leukocyte Esterase NEG Urine RBC 0-2 Urine WBC 0 Ur Squamous Epith Cells TRACE Urine Bacteria NONE Respiratory Panel Morrissey See Note Adenovirus (Rapid PCR) Not Detected B.pert (TEM-PCR) Not Detected B.parapertussis DNA PCR Not Detected C. pneumoniae DNA (PCR) Not Detected Coronavirus OC43 (PCR) Not Detected Coronavirus HKU1 (PCR) Not Detected Coronavirus 229E (PCR) Not Detected Coronavirus NL63 (PCR) Not Detected Human Metapneumovir PCR Not Detected Influenza A (RT-PCR) Not Detected Influenza B (RT-PCR) Not Detected M. pneumoniae (PCR) Not Detected Parainfluenza 1 (PCR) Not Detected Parainfluenza 2 (PCR) Not Detected Parainfluenza 3 (PCR) Not Detected Parainfluenza 4 (PCR) Not Detected RSV (PCR) Not Detected Entero/Rhino (PCR) Not Detected SARS-CoV-2 RNA (RT-PCR) Not Detected Preliminary micro results at discharge 11/10/20 09:43 Blood Culture - Preliminary Blood - Venous No growth after 24 hours. 11/10/20 09:35 Blood Culture - Preliminary Blood - Venous No growth after 24 hours. Discharge Plan Discharge Patient Disposition: Home, Self-Care Discharge Diagnosis: acute COPD exacerbation Lung nodules Referrals: Tatiana Rhoades MD [Primary Care Provider] - 1 Week Discharge Medications: New azithromycin 500 mg Tablet 500 mg PO Q24H 3 Days Qty: 3 RF: 0 guaifenesin [Mucinex] 600 mg Tablet Extended Release 12hr 600 mg PO BID 5 Days Qty: 10 RF: 0 prednisone 20 mg tablet 40 mg PO DAILY Qty: 6 RF: 0 albuterol sulfate 90 mcg/actuation HFA aerosol inhaler 2 puff inhalation Q6H PRN (Reason: shortness of breath or wheezing) 30 Days R F: 1 budesonide 90 mcg/actuation aerosol powdr breath activated 1 inh inhalation BID Qty: 1 RF: 1 nicotine 14 mg/24 hr patch 24 hour 1 patch transdermal DAILY Qty: 28 RF: 2 Continued guaifenesin 100 mg/5 mL Liquid 200 mg PO Q4H PRN (Reason: Cough) RF: 0 cholecalciferol (vitamin D3) 25 mcg (1,000 unit) capsule 25 mcg PO DAILY RF: 0 Discharge Orders: Discharge Order (Routine); Ordered 11/11/20 Ordered By: Jennie Alejandro Diet: advance to usual diet Activity on Discharge: As tolerated Stand Alone Forms: Patient Portal Discharge page Care Plan Goals: Read below Health Concerns: Read below Plan of Treatment: you were admitted to the hospital for evaluation of difficulty breathing. Found to have low oxygen levels. Treated for COPD exacerbation with IV steroids, bronchodilator nebulizers and antibiotic with good response over the course of hospital Assessment: We advise you to quit smoking completely use nicotine patches as prescribed Continue prednisone for the next few days Start budesonide inhaler twice Daily To use albuterol inhaler as needed To follow-up with your primary care physician regarding further evaluation of the pulmonary nodules seen on the CT scan.
== END 2020-11-11 14:22 | disposition home or self-care (01) | DRG 140 ==
LOC: HO.ED 13:06 → HO.EDOVER 15:30 → HO.S3 15:35
PROVIDERS: Physician Assistant Medical; Admitting Provider Student in an Organized Health Care Education/Training Program; Emergency Provider Emergency Medicine Emergency Medical Services; PCP Internal Medicine; Visit Provider Student in an Organized Health Care Education/Training Program
DX: J43.9 Emphysema, unspecified (principal); E03.9 Hypothyroidism, unspecified; J20.9 Acute bronchitis, unspecified; M81.0 Age-related osteoporosis without current pathological fracture; F17.210 Nicotine dependence, cigarettes, uncomplicated; R09.02 Hypoxemia; R91.1 Solitary pulmonary nodule; Z20.822 Contact with and (suspected) exposure to COVID-19; Z79.899 Other long term (current) drug therapy
CPT/HCPCS: 36415; 71046; 71275; 80048; 80053; 81001; 81003; 83605; 83735; 83880; 84484; 85025; 85610; 87040; 87633; 93005; 94640; 94644; 99285; J0696; J2920; J2930; Q9967

== ENCOUNTER 2020-12-02 01:42 | Emergency (ER) | payer OTHER, SELFPAY ==
--- NOTE | ~2020-12-02 | CT_ITS ---
EXAMINATION: CT ABDOMEN AND PELVIS WITH CONTRAST CLINICAL INFORMATION: Suprapubic and left lower quadrant pain COMPARISON: None TECHNIQUE: Multidetector volumetric images were obtained from the superior aspect of the liver through the pubic symphysis following administration 85 mL of Omnipaque 350 intravenous contrast. Sagittal and coronal reformatted images were obtained on the technologist's workstation. Oral contrast: No This CT examination was performed using dose optimization techniques as appropriate, variously including the following: *Automated exposure control *Adjustment of mA and/or kV according to patient size (this includes techniques or standardized protocols for targeted exams where dose is matched to indication/reason for exam; i.e. extremities or head) *Use of iterative reconstruction technique DLP: 300 mGy-cm FINDINGS: LUNG BASES: The visualized lung bases are unremarkable. LIVER, GALLBLADDER, AND BILIARY TREE: The liver is normal in size, shape, and attenuation. Tiny hypodensity in the left lobe is too small to characterize. No biliary ductal dilatation is present. The gallbladder is unremarkable with no evidence of radiopaque gallstones, gallbladder wall thickening, or obvious pericholecystic inflammatory changes. PANCREAS: Unremarkable. SPLEEN: Unremarkable. ADRENAL GLANDS: Unremarkable. KIDNEYS AND URETERS: The kidneys are normal in size, shape, and attenuation. Bilateral extrarenal pelvises noted with no obstructing calculus seen. No perinephric stranding. BLADDER: Unremarkable. GASTROINTESTINAL TRACT: There is wall thickening of the colon extending from the mid descending colon to the upper rectum, consistent with colitis. There is fluid distention of several distal small bowel loops in the pelvis. Trace pelvic free fluid is noted. Appendix appears nondilated. ABDOMINAL WALL: No significant hernia is appreciated. LYMPH NODES: Normal. VASCULAR: Scattered atherosclerotic calcifications noted. PELVIC VISCERA: Unremarkable. OSSEOUS STRUCTURES: Mild degenerative changes are noted in the spine. CT/CT abdomen pelvis w con IMPRESSION: 1. Colitis extending from the mid descending colon to the upper rectum, which may be infectious or inflammatory. 2. Several distended fluid-filled small bowel loops in the pelvis, which could reflect partial or developing small bowel obstruction. 3. Trace pelvic free fluid, presumably reactive.
[2020-12-02 02:01] VITALS: BP 111/66; PULSE 56; RESP 18; TEMP 37.2; O2SAT 98; BMI 20.1
--- NOTE | 2020-12-02 02:07 | ED_ITS ---
HPI - Abdominal Pain General Chief Complaint: Abdominal Pain Stated Complaint: severe abd pain Time Seen by Provider: 12/02/20 01:58 Source: patient Mode of arrival: ambulatory Limitations: no limitations History of Present Illness HPI narrative: Patient comes emergency room complaining of left lower quadrant pain and suprapubic pain, and foul-smelling diarrhea for 4 days. Patient states she was recently taking antibiotics for bronchitis. Patient denies vomiting, no fever. No UTI symptoms, no URI symptoms. Related Data Home Medications Medication Instructions Recorded Confirmed cholecalciferol (vitamin D3) 25 25 mcg PO DAILY 05/15/20 11/10/20 mcg (1,000 unit) capsule guaifenesin 200 mg PO Q4H PRN 11/10/20 11/10/20 Previous Rx's Medication Instructions Recorded albuterol sulfate 2 puff INHALATION Q6H PRN 30 Days 11/11/20 g azithromycin 500 mg PO Q24H 3 Days #3 tab 11/11/20 budesonide 1 inh INHALATION BID #1 ea 11/11/20 guaifenesin [Mucinex] 600 mg PO BID 5 Days #10 tab 11/11/20 nicotine 1 patch TRANSDERMAL DAILY #28 ea 11/11/20 prednisone 40 mg PO DAILY #6 tab 11/11/20 ondansetron HCl [Zofran] 4 mg PO Q6H PRN #14 tab 12/02/20 tramadol 50 mg PO Q8H PRN #14 tab 12/02/20 vancomycin 125 mg PO QID 10 Days #40 cap 12/02/20 Allergies Allergy/AdvReac Type Severity Reaction Status Date / Time No Known Allergies Allergy Verified 12/02/20 02:03 Review of Systems Review of Systems Constitutional : No Weight loss, No Fever, No Chills, No Night Sweats, No Fatigue, No Malaise ENT/Mouth : No Hearing loss, No Ear Pain, No Nasal Congestion, No Sinus Pain, No Hoarseness, No sore throat, No Rhinorrhea, No Swallowing Difficulty Eyes: No Eye Pain, No Swelling, No Redness, No Foreign Body, No Discharge, No Vision Changes Cardiovascular : No Chest Pain, No SOB, No Dyspnea on Exertion, No Orthopnea, No Edema, No Palpitations Respiratory : No Cough, No Sputum, No Wheezing, No Smoke Exposure, No Dyspnea Gastrointestinal : No Nausea, No Vomiting, complaining of foul-smelling diarrhea, No Constipation, complaining of suprapubic and left lower quadrant abdominal Pain, No Hematochezia, No Melena Genitourinary : no irregular bleeding, No Dysuria, No Urinary Frequency, No He maturia, No Urinary Incontinence, No Urgency, No Flank Pain, No Urinary Flow Changes, No Hesitancy Musculoskeletal : No joint pain, No Myalgias, No Joint Swelling Skin : No Skin Lesions, No rash Neuro : No Weakness, No Numbness, No Paresthesias, No Loss of Consciousness, No Dizziness, No Headache Psych : No Anxiety/Panic, No Depression, No SI/HI/AH/VH, No Social Issues, Heme/Lymph: No Bruising, No Bleeding,No Lymphadenopathy Endocrine : No Polyuria, No Polydipsia, No Temperature Intolerance Physical Exam Vital Signs: Vital Signs: Last Vital Signs Temp 98.9 F 12/02/20 02:01 Pulse 56 12/02/20 02:01 Resp 16 12/02/20 02:15 BP 111/66 12/02/20 02:01 Pulse Ox 98 12/02/20 02:01 Body Mass Index 20.1 Appearance: Alert. Oriented X3. No acute distress. Eyes: Pupils equal, round and reactive to light. ENT: Pharynx normal. Neck: Normal inspection. Neck supple. No lymph nodes noted. No crepitus CVS: Normal heart rate and rhythm. Pulses normal. Normal S1 and S2 Respiratory: No respiratory distress. Breath sounds normal. No Wheezing. No rales Abdomen: Soft , as above per the left lower quadrant, mild positive rebound the left lower quadrant, guarding, No rigidity. No distention. Skin: Skin warm and dry. Normal skin color. Normal skin turgor. Extremities: No lower extremity edema. No lower extremity edema. No Lacerations. No Rash Neuro: Oriented X 3. No motor deficit. No sensory deficit. Moving all e xtermities. No slurred speech. Course Course Course Narrative: At this time, patient is passing copious amounts of diarrhea, small bowel obstruction is not suspected. I discussed with the patient that we could admit her and treat her for C diff versus sending home with oral vancomycin. Patient states she would prefer to go home. Patient states the pain is improved, she will be sent home with oral vancomycin and pain medication. MDM - Abdominal Pain Lab Data Result diagrams: 12/02/20 02:10 12/02/20 02:10 Labs: Lab Results 12/02/20 12/02/20 12/02/20 Range/Units 02:10 02:10 02:10 WBC 14.6 H (4.8-10.8) X10*3/uL RBC 4.26 (4.20-5.50) X10*6/uL Hgb 12.8 (12.0-16.0) g/dl Hct 37.8 (37-47) % MCV 88.7 (80-98) fL MCH 30.0 (27.0-33.0) pg MCHC 33.9 (31.0-35.0) g/dl RDW 13.2 (11.0-16.0) % Plt Count 281 (160-400) X10*3/uL MPV 10.1 (9.4-12.3) fL Immature Gran % (Auto) 0.3 (0.0-0.4) % Neut % (Auto) 73.5 H (45-73) % Lymph % (Auto) 17.8 L (20-40) % [place] % (Auto) 8.1 (2-11) % Eos % (Auto) 0.1 (0-4) % Baso % (Auto) 0.2 (0-2) % Lymph # (Auto) 2.6 (1.2-4.9) X10*3/uL [place] # (Auto) 1.2 (0.1-1.2) X10*3/uL Eos # (Auto) 0.0 (0.0-0.4) X10*3/uL Baso # (Auto) 0.0 (0.0-0.2) X10*3/uL Abs Immat Gran (auto) 0.05 H (0.00-0.03) X10*3/uL Absolute Neuts (auto) 10.7 H (2.0-8.3) X10*3/uL Absolute Nucleated RBC 0.000 (0.0-0.012) X10*3/uL Nucleated RBC % (auto) 0.0 (0.0-0.2) /100WBC Sodium 138 (135-145) mmol/L Potassium 3.6 D (3.3-5.1) mmol/L Chloride 105 (96-108) mmol/L Carbon Dioxide 24 (22-29) mmol/L Anion Gap 13 (12-20) BUN 7 L (9-16) mg/dL Creatinine 0.72 (0.5-1.4) mg/dL Estim Creat Clear Calc 70.3 Estimated GFR > 60 Random Glucose 104 (60-115) mg/dL Calcium 8.9 D (8.4-10.2) mg/dL Total Bilirubin 0.4 (0.0-1.0) mg/dL Direct Bilirubin 0.2 (0.0-0.5) mg/dL AST 12 D (5-31) U/L ALT 7 (0-31) U/L Alkaline Phosphatase 89 (39-117) U/L Total Protein 6.2 L (6.5-8.0) g/dL Albumin 3.7 (3.5-5.0) g/dL Lipase 8 (8-78) U/L Urine Color Urine Appearance Urine pH (5.0-8.0) Ur Specific [place] (1.005-1.025) Urine Protein (NEG-TRACE) MG/DL Urine Glucose (UA) (NEG) MG/DL Urine Ketones (NEG) MG/DL Urine Blood (NEG) Urine Nitrite (NEG) Ur Leukocyte Esterase (NEG) Urine RBC (0) /HPF Urine WBC (0-4) /HPF Ur Squamous Epith Cells /LPF Urine Bacteria /LPF C. difficile Tox B Gene (Negative) C. difficile Toxin A&B (Negative) C. difficile Interpret 12/02/20 12/02/20 Range/Units 03:42 03:42 WBC (4.8-10.8) X10*3/uL RBC (4.20-5.50) X10*6/uL Hgb (12.0-16.0) g/dl Hct (37-47) % MCV (80-98) fL MCH (27.0-33.0) pg MCHC (31.0-35.0) g/dl RDW (11.0-16.0) % Plt Count (160-400) X10*3/uL MPV (9.4-12.3) fL Immature Gran % (Auto) (0.0-0.4) % Neut % (Auto) (45-73) % Lymph % (Auto) (20-40) % [place] % (Auto) (2-11) % Eos % (Auto) (0-4) % Baso % (Auto) (0-2) % Lymph # (Auto) (1.2-4.9) X10*3/uL [place] # (Auto) (0.1-1.2) X10*3/uL Eos # (Auto) (0.0-0.4) X10*3/uL Baso # (Auto) (0.0-0.2) X10*3/uL Abs Immat Gran (auto) (0.00-0.03) X10*3/uL Absolute Neuts (auto) (2.0-8.3) X10*3/uL Absolute Nucleated RBC (0.0-0.012) X10*3/uL Nucleated RBC % (auto) (0.0-0.2) /100WBC Sodium (135-145) mmol/L Potassium (3.3-5.1) mmol/L Chloride (96-108) mmol/L Carbon Dioxide (22-29) mmol/L Anion Gap (12-20) BUN (9-16) mg/dL Creatinine (0.5-1.4) mg/dL Estim Creat Clear Calc Estimated GFR Random Glucose (60-115) mg/dL Calcium (8.4-10.2) mg/dL Total Bilirubin (0.0-1.0) mg/dL Direct Bilirubin (0.0-0.5) mg/dL AST (5-31) U/L ALT (0-31) U/L Alkaline Phosphatase (39-117) U/L Total Protein (6.5-8.0) g/dL Albumin (3.5-5.0) g/dL Lipase (8-78) U/L Urine Color COLORLESS Urine Appearance CLEAR Urine pH 6.0 (5.0-8.0) Ur Specific [place] <= 1.005 (1.005-1.025) Urine Protein NEG (NEG-TRACE) MG/DL Urine Glucose (UA) NEG (NEG) MG/DL Urine Ketones NEG (NEG) MG/DL Urine Blood TRACE (NEG) Urine Nitrite NEG (NEG) Ur Leukocyte Esterase NEG (NEG) Urine RBC 0 (0) /HPF Urine WBC 0 (0-4) /HPF Ur Squamous Epith Cells TRACE /LPF Urine Bacteria NONE /LPF C. difficile Tox B Gene POSITIVE A* (Negative) C. difficile Toxin A&B Positive A* (Negative) C. difficile Interpret SEE NOTE Imaging Data CT scan - abdomen: Radiologist's impression: CT ABDOMEN AND PELVIS WITH CONTRAST CLINICAL INFORMATION: Suprapubic and left lower quadrant pain COMPARISON: None TECHNIQUE: Multidetector volumetric images were obtained from the superior aspect of the liver through the pubic symphysis following administration 85 mL of Omnipaque 350 intravenous contrast. Sagittal and coronal reformatted images were obtained on the technologist's workstation. Oral contrast: No This CT examination was performed using dose optimization techniques as appropriate, variously including the following: *Automated exposure control *Adjustment of mA and/or kV according to patient size (this includes techniques or standardized protocols for targeted exams where dose is matched to indication/reason for exam; i.e. extremities or head) *Use of iterative reconstruction technique DLP: 300 mGy-cm FINDINGS: LUNG BASES: The visualized lung bases are unremarkable. LIVER, GALLBLADDER, AND BILIARY TREE: The liver is normal in size, shape, and attenuation. Tiny hypodensity in the left lobe is too small to characterize. No biliary ductal dilatation is present. The gallbladder is unremarkable with no evidence of radiopaque gallstones, gallbladder wall thickening, or obvious pericholecystic inflammatory changes. PANCREAS: Unremarkable. SPLEEN: Unremarkable. ADRENAL GLANDS: Unremarkable. KIDNEYS AND URETERS: The kidneys are normal in size, shape, and attenuation. Bilateral extrarenal pelvises noted with no obstructing calculus seen. No perinephric stranding. BLADDER: Unremarkable. GASTROINTESTINAL TRACT: There is wall thickening of the colon extending from the mid descending colon to the upper rectum, consistent with colitis. There is fluid distention of several distal small bowel loops in the pelvis. Trace pelvic free fluid is noted. Appendix appears nondilated. ABDOMINAL WALL: No significant hernia is appreciated. LYMPH NODES: Normal. VASCULAR: Scattered atherosclerotic calcifications noted. PELVIC VISCERA: Unremarkable. OSSEOUS STRUCTURES: Mild degenerative changes are noted in the spine. CT/CT abdomen pelvis w con IMPRESSION: 1. Colitis extending from the mid descending colon to the upper rectum, which may be infectious or inflammatory. 2. Several distended fluid-filled small bowel loops in the pelvis, which could reflect partial or developing small bowel obstruction. 3. Trace pelvic free fluid, presumably reactive. Discharge Plan Discharge Clinical Impression: Clostridium difficile colitis Patient Disposition: Home, Self-Care Instructions: C. Diff (Clostridioides Difficile) Infection (ED) Additional Instructions: Please follow-up with your primary care physician tomorrow. If you have any worsening or new symptoms, please return to the emergency room or call 911 Prescriptions: New vancomycin 125 mg capsule 125 mg PO QID 10 Days Qty: 40 RF: 0 ondansetron HCl [Zofran] 4 mg tablet 4 mg PO Q6H PRN (Reason: nausea and vomiting) Qty: 14 RF: 0 tramadol 50 mg tablet 50 mg PO Q8H PRN (Reason: pain) Qty: 14 RF: 0 No Action guaifenesin 100 mg/5 mL Liquid 200 mg PO Q4H PRN (Reason: Cough) RF: 0 azithromycin 500 mg Tablet 500 mg PO Q24H 3 Days Qty: 3 RF: 0 guaifenesin [Mucinex] 600 mg Tablet Extended Release 12hr 600 mg PO BID 5 Days Qty: 10 RF: 0 prednisone 20 mg tablet 40 mg PO DAILY Qty: 6 RF: 0 albuterol sulfate 90 mcg/actuation HFA aerosol inhaler 2 puff inhalation Q6H PRN (Reason: shortness of breath or wheezing) 30 Days RF: 1 budesonide 90 mcg/actuation aerosol powdr breath activated 1 inh inhalation BID Qty: 1 RF: 1 nicotine 14 mg/24 hr patch 24 hour 1 patch transdermal DAILY Qty: 28 RF: 2 cholecalciferol (vitamin D3) 25 mcg (1,000 unit) capsule 25 mcg PO DAILY RF: 0 PMFSH Past Medical History Medical History Emphysema of lung Hyperparathyroidism Lung nodule Multinodular thyroid Osteoporosis Vitamin D deficiency Family History Family History Mother Pancreatic cancer Father COPD (chronic obstructive pulmonary disease) Social History Social History Household Members: Spouse Housing: House Alcohol intake: current Alcohol intake frequency: a few times a week Patient Tobacco Use Status: Current someday Tobacco user Tobacco use type: Cigarette Cigarette Packs Per Day: 1 Cigarettes Per Day: 15 Years Smoked: 40 Use of substances other than those prescribed or required for medical reasons: Yes Substance Use Type: Marijuana Advance Directives: No Advance Directives Information Provided: No Patient : No service: No Current occupational status: employed
[2020-12-02 02:13] LABS: MANUAL DIFF FLAG NO
[2020-12-02 02:14] LABS: Basophils Percent Auto 0.2 % (0-2); Eosinophils Percent Auto 0.1 % (0-4); Hematocrit 37.8 % (37-47); Hemoglobin 12.8 g/dl (12.0-16.0); Imm Gran Abs Auto 0.05 X10*3/uL (0.00-0.03); Imm Gran Pct Auto 0.3 % (0.0-0.4); Lymphocytes Absolute Auto 2.6 X10*3/uL (1.2-4.9); Lymphocytes Percent Auto 17.8 % (20-40); Mean Corpuscular HGB Conc 33.9 g/dl (31.0-35.0); Mean Corpuscular Volume 88.7 fL (80-98); Mean Platelet Volume 10.1 fL (9.4-12.3); Monocytes Absolute Auto 1.2 X10*3/uL (0.1-1.2); Monocytes Percent Auto 8.1 % (2-11); Neutrophils Absolute Auto 10.7 X10*3/uL (2.0-8.3); Neutrophils Percent Auto 73.5 % (45-73); Platelet Count 281 X10*3/uL (160-400); Red Blood Count 4.26 X10*6/uL (4.20-5.50); Red Cell Distribution Width 13.2 % (11.0-16.0); White Blood Count 14.6 X10*3/uL (4.8-10.8)
[2020-12-02 02:15] VITALS: RESP 16
[2020-12-02] MEDS: ondansetron HCL 4 MG/2 ML VIAL IVPUSH (02:15)
[2020-12-02] MEDS: 0.9 % Sodium Chloride 1,000 ML 999 ML IVCONT (02:15)
[2020-12-02] MEDS: Morphine Sulfate 4 MG/ML CARTRIDGE IVPUSH (02:15)
[2020-12-02 02:39] LABS: Alanine Aminotransferase 7 U/L (0-31); Albumin Level 3.7 g/dL (3.5-5.0); Alkaline Phosphatase 89 U/L (39-117); Anion Gap 13 (12-20); Aspartate Amino Transferase 12 U/L (5-31); Bilirubin Direct 0.2 mg/dL (0.0-0.5); Bilirubin Total 0.4 mg/dL (0.0-1.0); Blood Urea Nitrogen 7 mg/dL (9-16); Calcium 8.9 mg/dL (8.4-10.2); Carbon Dioxide 24 mmol/L (22-29); Chloride 105 mmol/L (96-108); Creatinine Clr Calc Pharmacy 70.3; Estimated Glomerular Filt Rate > 60; Glucose Random 104 mg/dL (60-115); Lipase 8 U/L (8-78); Potassium 3.6 mmol/L (3.3-5.1); Sodium 138 mmol/L (135-145); Total Protein 6.2 g/dL (6.5-8.0)
[2020-12-02] MEDS: iohexoL 350 MG/ML 100 ML INFUS..BTL 85 ML IV (03:25)
[2020-12-02 03:48] LABS: Glucose Urine UA NEG (NEG); Leukocyte Esterase Urine NEG (NEG); Nitrite Urine NEG (NEG); Specific Gravity - Urine <= 1.005 (1.005-1.025); Urine Blood TRACE (NEG); Urine Ketones NEG (NEG); Urine Protein NEG (NEG-TRACE)
[2020-12-02 03:50] LABS: Appearance Urine CLEAR; Color Urine COLORLESS
[2020-12-02 04:00] LABS: RBC Urine 0 /HPF (0); Squamous Epithelial Cell Urine TRACE /LPF; WBC Urine 0 /HPF (0-4)
[2020-12-02 04:40] LABS: CDiff Gene PCR POSITIVE (Negative)
[2020-12-02 05:20] LABS: CDiff Toxin Positive (Negative)
[2020-12-02 05:22] LABS: CDIFF Internal ctrl Dots and bkg OK (V)
[2020-12-02] MEDS: vancomycin HCL 125 MG CAPSULE PO (05:59)
[2020-12-02] MEDS: oxyCODONE HCl Immed Release 5 MG TABLET PO (06:00)
== END 2020-12-02 06:06 | disposition home or self-care (01) ==
PROVIDERS: Emergency Provider Emergency Medicine
DX: A04.72 Enterocolitis due to Clostridium difficile, not specified as recurrent (principal); R10.30 Lower abdominal pain, unspecified
CPT/HCPCS: 36415; 74177; 80048; 80076; 81001; 83690; 85025; 87324; 87493; 96361; 96374; 96375; 99284; J2270; J2405; Q9967

== ENCOUNTER → 2020-12-25 14:44 | Outpatient (BNVA) | payer OTHER, MEDICAID, SELFPAY | PROVIDERS: PCP Internal Medicine; Visit Provider Hospitalist | DX: J43.9 Emphysema, unspecified (principal); R91.8 Other nonspecific abnormal finding of lung field; E04.2 Nontoxic multinodular goiter | CPT/HCPCS: 99202 ==

== ENCOUNTER 2021-01-02 08:15 | Outpatient (REF) | payer OTHER, MEDICAID, SELFPAY ==
--- NOTE | ~2021-01-02 | PE_ITS ---
EXAMINATION: Fluorine-18 FDG PET/CT Scan CLINICAL INDICATION: Initial treatment management. Pulmonary nodules. PROCEDURE: 60 minutes following the intravenous administration of 16.9 mCi of fluorine 18 FDG, images from the base of the skull to the mid thighs were obtained using a combined PET/CT scanner with CT scan based attenuation correction. No oral contrast was administered. No intravenous contrast was administered. Transverse, coronal, sagittal, and volume reconstruction projections were obtained. The patient's blood glucose as determined by a finger stick, was 96 mg/dl immediately prior to injection. Total CT exam dose-length product 296.57 mGy-cm * These CT images were obtained using dose optimization techniques as appropriate, variously including the following: Automated exposure control * Adjustment of mA and/or kV according to patient size (this includes techniques or standardized protocols for targeted exams where dose is matched to indication/reason for exam; i.e. extremities or head) * Use of iterative reconstruction technique COMPARISON: No previous PET/CT scan is available for comparison. The diagnostic CT scan of the abdomen and pelvis, dated 12/02/2020, is available for comparison. CTA the chest dated 11/10/2020 is also available for comparison. FINDINGS: (Slice numbers described in this report are numbered superiorly to inferiorly with slice #1 in the head) NECK AND VISUALIZED HEAD: No foci of abnormal FDG activity are noted. The distribution of FDG activity is physiological. There is no cervical lymphadenopathy. THORAX: FDG avid subpleural right apical pulmonary nodule is noted showing SUVmax 4.6, slice 62/267. On the corresponding CT images this measures 1.2 x 1.1 cm in largest transverse dimensions, and approximately 1.2 cm cephalocaudad. This is not appear significantly changed from the diagnostic CT scan dated 11/10/2020. Several additional small subcentimeter nodules visualized on the diagnostic 11/10/2020 CT scan are not apparent on these nondiagnostic CT images. The largest of those, not visualized on this study, was a 0.4 cm right lower lobe nodule. There are no additional nodules visualized on these current nondiagnostic CT images. No additional foci of abnormal FDG activity are present in the chest. There is no mediastinal, supraclavicular, or axillary lymphadenopathy. There is no pleural or pericardial fluid, or pneumothorax. ABDOMEN AND PELVIS: No foci of abnormal FDG activity are present in the abdomen or pelvis. There is mild FDG activity throughout the gastrointestinal tract without a suspicious focal component. There is diverticulosis without evidence of diverticulitis. The hollow viscera are otherwise unremarkable. Colitis extending from the mid descending colon to the upper rectum on the 12/02/[address] scan is not evident on the current study. The liver and spleen are unremarkable except for a few punctate calcifications likely due to granulomatous in both organs. The gallbladder, kidneys, adrenal glands and pancreas are unremarkable with bilateral extrarenal pelves present unchanged from 12/02/2020. There is no retroperitoneal, mesenteric, pelvic or inguinal lymphadenopathy. The pelvic organs are unremarkable. MUSCULOSKELETAL: No foci of abnormal FDG activity are present in the osseous structures. There are mild degenerative changes in the spine, predominantly in the midthoracic spine, but no suspicious sclerotic or lytic lesions are visualized. VASCULAR: Scattered vascular calcifications including coronary are noted. PET/PET CT fusion skull to thigh IMPRESSION: 1. A right apical pulmonary nodule is FDG avid and most likely malignant in etiology. 2. No additional abnormalities suspicious for metastatic or other malignant lesions are noted.
== END 2021-01-02 08:16 | disposition home or self-care (01) ==
LOC: HO.PET 08:15
PROVIDERS: PCP Internal Medicine; Visit Provider Hospitalist
DX: Z13.89 Encounter for screening for other disorder (principal)

== ENCOUNTER → 2021-01-05 10:52 | Outpatient (BNVA) | payer OTHER, SELFPAY | PROVIDERS: PCP Internal Medicine; Visit Provider Surgery | DX: R91.1 Solitary pulmonary nodule (principal); F17.210 Nicotine dependence, cigarettes, uncomplicated; Z79.899 Other long term (current) drug therapy | CPT/HCPCS: 99212 ==

== ENCOUNTER 2021-01-12 09:43 | Outpatient (REF) | payer OTHER, SELFPAY ==
--- NOTE | 2021-01-12 14:38 | PFT_ITS ---
Forced vital capacity and FEV1 are normal. FEV1/FVC ratio is moderately decreased. [id number] is markedly decreased. MVV normal. Post bronchodilator therapy, no significant change. Total lung capacity and residual volume are both moderately increased. Diffusion capacity is moderately decreased. CONCLUSION: [id number] degree of obstructive airway disorder with some air trapping. No significant response to bronchodilator therapy. Clinical correlation recommended. MD KEYON Carrion/ARNULFOL / [id number]
== END 2021-01-12 09:44 | disposition home or self-care (01) ==
LOC: HO.RESP 09:43
PROVIDERS: PCP Internal Medicine; Visit Provider Hospitalist
DX: R06.00 Dyspnea, unspecified (principal); R91.8 Other nonspecific abnormal finding of lung field; J44.9 Chronic obstructive pulmonary disease, unspecified
CPT/HCPCS: 94060; 94727; 94729

== ENCOUNTER 2021-01-20 09:25 | Outpatient (REF) | payer OTHER, SELFPAY ==
[2021-01-20 14:29] LABS: Estimated Average Glucose 111 mg/dL; Hemoglobin A1c % 5.5 %
== END 2021-01-20 09:26 | disposition home or self-care (01) ==
LOC: HO.LAB 09:25
PROVIDERS: PCP Internal Medicine; Visit Provider Internal Medicine
DX: Z01.818 Encounter for other preprocedural examination (principal)
CPT/HCPCS: 36415; 83036

== ENCOUNTER → 2021-01-26 08:04 | Outpatient (REF) | payer OTHER, SELFPAY ==
--- NOTE | 2021-01-26 08:09 | ECG_ITS ---
Test Reason : preop Blood Pressure : / mmHG Vent. Rate : 090 BPM Atrial Rate : 090 BPM P-R Int : 120 ms QRS Dur : 076 ms QT Int : 366 ms P-R-T Axes : 075 089 073 degrees QTc Int : 447 ms Normal sinus rhythm with sinus arrhythmia Normal ECG When compared with ECG of 10-NOV-2020 09:14, No significant change was found Referred By: Tatiana Rhoades Electronically Signed By:GERRI FLORES
== END ==
LOC: HO.CARD 08:04
PROVIDERS: PCP Internal Medicine; Visit Provider Internal Medicine
DX: Z01.818 Encounter for other preprocedural examination (principal)
CPT/HCPCS: 93005

== ENCOUNTER → 2021-02-01 14:35 | Outpatient (BNVA) | payer OTHER, SELFPAY | PROVIDERS: PCP Internal Medicine; Visit Provider Hospitalist | DX: E04.2 Nontoxic multinodular goiter (principal); J43.9 Emphysema, unspecified; R91.8 Other nonspecific abnormal finding of lung field | CPT/HCPCS: 99212 ==

== ENCOUNTER 2021-03-02 09:14 | Outpatient (REF) | payer OTHER, SELFPAY ==
[2021-03-02 09:29] LABS: MANUAL DIFF FLAG NO
[2021-03-02 09:47] LABS: Basophils Percent Auto 0.5 % (0-2); Eosinophils Percent Auto 0.5 % (0-4); Hematocrit 38.2 % (37-47); Hemoglobin 12.8 g/dl (12.0-16.0); Imm Gran Abs Auto 0.02 X10*3/uL (0.00-0.03); Imm Gran Pct Auto 0.2 % (0.0-0.4); Lymphocytes Absolute Auto 3.1 X10*3/uL (1.2-4.9); Lymphocytes Percent Auto 35.4 % (20-40); Mean Corpuscular HGB Conc 33.5 g/dl (31.0-35.0); Mean Corpuscular Hemoglobin 29.8 pg (27.0-33.0); Mean Platelet Volume 9.6 fL (9.4-12.3); Monocytes Absolute Auto 0.6 X10*3/uL (0.1-1.2); Monocytes Percent Auto 6.8 % (2-11); Neutrophils Absolute Auto 4.9 X10*3/uL (2.0-8.3); Neutrophils Percent Auto 56.6 % (45-73); Platelet Count 544 X10*3/uL (160-400); Red Blood Count 4.29 X10*6/uL (4.20-5.50); Red Cell Distribution Width 13.6 % (11.0-16.0); White Blood Count 8.7 X10*3/uL (4.8-10.8)
[2021-03-02 10:09] LABS: Alanine Aminotransferase 19 U/L (0-31); Albumin Level 4.3 g/dL (3.5-5.0); Alkaline Phosphatase 99 U/L (39-117); Anion Gap 11 (12-20); Aspartate Amino Transferase 20 U/L (5-31); Bilirubin Total 0.3 mg/dL (0.0-1.0); Blood Urea Nitrogen 7 mg/dL (9-16); Carbon Dioxide 27 mmol/L (22-29); Chloride 106 mmol/L (96-108); Estimated Glomerular Filt Rate > 60; Glucose Random 91 mg/dL (60-115); Potassium 4.8 mmol/L (3.3-5.1); Sodium 139 mmol/L (135-145); Total Protein 7.2 g/dL (6.5-8.0)
[2021-03-02 10:29] LABS: ~HepC Num1 0.06 S/CO (0.00-0.79); ~Hepatitis C Antibody Nonreactive (Nonreactive)
[2021-03-02 10:35] LABS: HBc Num1 0.05 S/CO (0.00-0.79); HBsAGNum1 0.15 S/CO (0.00-0.99); Hepatitis A Antibody IgM 0.17 Index (0-0.79); Hepatitis B Core Antibody Nonreactive (Nonreactive); Hepatitis B Surface Antigen Negative (Negative); ~Hepatitis A Antibody IgM Nonreactive (Nonreactive); ~Hepatitis B Surface Antibody NONREACTIVE (Nonreactive)
[2021-03-02 10:50] LABS: Total Volume 24 Hour Urine 1700 mL
[2021-03-02 11:03] LABS: Creatinine, 24Hr Urine 0.8 G/Day (1.0-2.0); Creatinine, mg/dL 47.43
[2021-03-02 12:29] LABS: Creatinine (CrCl) 0.71 mg/dL (0.5-1.4); Creatinine Clearance 78.8 mL/min (85-125)
== END 2021-03-02 09:15 | disposition home or self-care (01) ==
LOC: HO.LAB 09:14
PROVIDERS: PCP Internal Medicine; Visit Provider Internal Medicine Medical Oncology
DX: C34.11 Malignant neoplasm of upper lobe, right bronchus or lung (principal)
CPT/HCPCS: 36415; 80053; 82575; 85025; 86704; 86706; 86709; 86803; 87340

== ENCOUNTER → 2021-03-26 11:28 | Outpatient (BNVA) | payer OTHER, SELFPAY | PROVIDERS: PCP Internal Medicine; Visit Provider Internal Medicine | DX: E21.3 Hyperparathyroidism, unspecified (principal); E55.9 Vitamin D deficiency, unspecified; E04.2 Nontoxic multinodular goiter; M81.0 Age-related osteoporosis without current pathological fracture | CPT/HCPCS: 99212 ==

== ENCOUNTER 2021-03-28 12:56 | Outpatient (REF) | payer OTHER, SELFPAY ==
[2021-03-28 14:21] LABS: Alanine Aminotransferase 65 U/L (0-31); Albumin Level 4.2 g/dL (3.5-5.0); Alkaline Phosphatase 86 U/L (39-117); Anion Gap 14 (12-20); Aspartate Amino Transferase 27 U/L (5-31); Bilirubin Total 0.4 mg/dL (0.0-1.0); Blood Urea Nitrogen 15 mg/dL (9-16); Calcium 9.4 mg/dL (8.4-10.2); Carbon Dioxide 26 mmol/L (22-29); Chloride 102 mmol/L (96-108); Estimated Glomerular Filt Rate > 60; Glucose Random 73 mg/dL (60-115); Phosphorus 4.2 mg/dL (2.7-4.5); Potassium 3.9 mmol/L (3.3-5.1); Sodium 138 mmol/L (135-145); Total Protein 6.7 g/dL (6.5-8.0)
[2021-03-28 14:50] LABS: Free T4 (Free Thyroxine) 0.84 ng/dL (0.71-1.85); Thyroid Stimulating Hormone 1.14 uIU/mL (0.32-4.0); Vitamin D 25-OH Total 24.4 ng/mL (>30)
[2021-03-30 13:41] LABS: Calcium (PTHI) 9.5 mg/dL (8.6-10.4); PTHI 91 pg/mL (14-64)
== END 2021-03-28 12:57 | disposition home or self-care (01) ==
LOC: HO.HMGCLDS 12:56
PROVIDERS: PCP Internal Medicine; Visit Provider Internal Medicine
DX: E21.3 Hyperparathyroidism, unspecified (principal); E04.2 Nontoxic multinodular goiter; E55.9 Vitamin D deficiency, unspecified; M81.0 Age-related osteoporosis without current pathological fracture
CPT/HCPCS: 36415; 80053; 82306; 83970; 84100; 84439; 84443

== ENCOUNTER 2021-04-06 09:27 | Outpatient (REF) | payer OTHER, SELFPAY ==
[2021-04-06 11:03] LABS: MANUAL DIFF FLAG NO
[2021-04-06 11:06] LABS: Basophils Percent Auto 0.3 % (0-2); Eosinophils Percent Auto 0.1 % (0-4); Hemoglobin 12.3 g/dl (12.0-16.0); Imm Gran Abs Auto 0.03 X10*3/uL (0.00-0.03); Imm Gran Pct Auto 0.3 % (0.0-0.4); Lymphocytes Absolute Auto 2.2 X10*3/uL (1.2-4.9); Lymphocytes Percent Auto 24.5 % (20-40); Mean Corpuscular HGB Conc 33.2 g/dl (31.0-35.0); Mean Corpuscular Hemoglobin 29.8 pg (27.0-33.0); Mean Corpuscular Volume 89.6 fL (80.0-98.0); Mean Platelet Volume 10.2 fL (9.4-12.3); Monocytes Absolute Auto 0.6 X10*3/uL (0.1-1.2); Monocytes Percent Auto 6.2 % (2-11); Neutrophils Absolute Auto 6.2 x10*3/uL (2.0-8.3); Neutrophils Percent Auto 68.6 % (45-73); Platelet Count 385 X10*3/uL (160-400); Red Blood Count 4.13 X10*6/uL (4.20-5.50); Red Cell Distribution Width 13.7 % (11.0-16.0)
[2021-04-06 12:06] LABS: Free T4 (Free Thyroxine) 0.93 ng/dL (0.71-1.85); Vitamin D 25-OH Total 24.8 ng/mL (>30)
[2021-04-06 12:12] LABS: Alanine Aminotransferase 20 U/L (0-31); Alkaline Phosphatase 100 U/L (39-117); Aspartate Amino Transferase 20 U/L (5-31); Bilirubin Direct < 0.2 mg/dL (0.0-0.5); Bilirubin Total 0.3 mg/dL (0.0-1.0); Calcium 9.3 mg/dL (8.4-10.2); Estimated Glomerular Filt Rate > 60; Phosphorus 3.4 mg/dL (2.7-4.5); Total Protein 6.5 g/dL (6.5-8.0)
== END 2021-04-06 09:28 | disposition home or self-care (01) ==
LOC: HO.HMGCLDS 09:27
PROVIDERS: PCP Internal Medicine; Referring Provider Internal Medicine Medical Oncology; Visit Provider Internal Medicine
DX: C34.11 Malignant neoplasm of upper lobe, right bronchus or lung (principal); E21.3 Hyperparathyroidism, unspecified; E55.9 Vitamin D deficiency, unspecified; M81.0 Age-related osteoporosis without current pathological fracture; E04.2 Nontoxic multinodular goiter
CPT/HCPCS: 36415; 80076; 82040; 82306; 82310; 82565; 84100; 84439; 85025

== ENCOUNTER 2021-04-13 09:21 | Outpatient (REF) | payer OTHER, SELFPAY ==
[2021-04-13 11:54] LABS: MANUAL DIFF FLAG NO
[2021-04-13 12:00] LABS: Basophils Percent Auto 0.4 % (0-2); Eosinophils Percent Auto 0.2 % (0-4); Hematocrit 38.3 % (37.0-47.0); Hemoglobin 12.8 g/dl (12.0-16.0); Imm Gran Abs Auto 0.03 X10*3/uL (0.00-0.03); Imm Gran Pct Auto 0.4 % (0.0-0.4); Lymphocytes Absolute Auto 2.1 X10*3/uL (1.2-4.9); Mean Corpuscular HGB Conc 33.4 g/dl (31.0-35.0); Mean Corpuscular Hemoglobin 30.3 pg (27.0-33.0); Mean Corpuscular Volume 90.5 fL (80.0-98.0); Mean Platelet Volume 10.2 fL (9.4-12.3); Monocytes Absolute Auto 0.5 X10*3/uL (0.1-1.2); Monocytes Percent Auto 5.5 % (2-11); Neutrophils Absolute Auto 5.8 x10*3/uL (2.0-8.3); Neutrophils Percent Auto 68.5 % (45-73); Platelet Count 366 X10*3/uL (160-400); Red Blood Count 4.23 X10*6/uL (4.20-5.50); Red Cell Distribution Width 13.9 % (11.0-16.0); White Blood Count 8.5 X10*3/uL (4.8-10.8)
[2021-04-13 12:19] LABS: Alanine Aminotransferase 17 U/L (0-31); Albumin Level 4.2 g/dL (3.5-5.0); Alkaline Phosphatase 109 U/L (39-117); Anion Gap 13 (12-20); Aspartate Amino Transferase 21 U/L (5-31); Bilirubin Total 0.5 mg/dL (0.0-1.0); Blood Urea Nitrogen 7 mg/dL (9-16); Calcium 9.3 mg/dL (8.4-10.2); Carbon Dioxide 25 mmol/L (22-29); Chloride 106 mmol/L (96-108); Estimated Glomerular Filt Rate > 60; Glucose Random 81 mg/dL (60-115); Potassium 4.7 mmol/L (3.3-5.1); Sodium 139 mmol/L (135-145); Total Protein 6.9 g/dL (6.5-8.0)
== END 2021-04-13 09:22 | disposition home or self-care (01) ==
LOC: HO.HMGCLDS 09:21
PROVIDERS: PCP Internal Medicine Medical Oncology; Visit Provider Internal Medicine Medical Oncology
DX: C34.11 Malignant neoplasm of upper lobe, right bronchus or lung (principal)
CPT/HCPCS: 36415; 80053; 85025

== ENCOUNTER 2021-04-30 08:01 | Outpatient (REF) | payer OTHER, SELFPAY ==
[2021-04-30 11:28] LABS: MANUAL DIFF FLAG NO
[2021-04-30 11:39] LABS: Basophils Percent Auto 0.6 % (0-2); Hematocrit 38.1 % (37.0-47.0); Hemoglobin 12.5 g/dl (12.0-16.0); Imm Gran Abs Auto 0.02 X10*3/uL (0.00-0.03); Imm Gran Pct Auto 0.4 % (0.0-0.4); Lymphocytes Absolute Auto 2.8 X10*3/uL (1.2-4.9); Lymphocytes Percent Auto 51.6 % (20-40); Mean Corpuscular HGB Conc 32.8 g/dl (31.0-35.0); Mean Corpuscular Hemoglobin 29.7 pg (27.0-33.0); Mean Corpuscular Volume 90.5 fL (80.0-98.0); Mean Platelet Volume 9.8 fL (9.4-12.3); Monocytes Absolute Auto 0.7 X10*3/uL (0.1-1.2); Monocytes Percent Auto 13.4 % (2-11); Neutrophils Absolute Auto 1.9 x10*3/uL (2.0-8.3); Platelet Count 358 X10*3/uL (160-400); Red Blood Count 4.21 X10*6/uL (4.20-5.50); Red Cell Distribution Width 14.2 % (11.0-16.0); White Blood Count 5.4 X10*3/uL (4.8-10.8)
[2021-04-30 11:47] LABS: Albumin Level 4.1 g/dL (3.5-5.0)
[2021-04-30 11:55] LABS: Alanine Aminotransferase 23 U/L (0-31); Albumin Level 4.1 g/dL (3.5-5.0); Alkaline Phosphatase 97 U/L (39-117); Anion Gap 11 (12-20); Aspartate Amino Transferase 22 U/L (5-31); Bilirubin Total 0.2 mg/dL (0.0-1.0); Blood Urea Nitrogen 5 mg/dL (9-16); Calcium 9.2 mg/dL (8.4-10.2); Carbon Dioxide 26 mmol/L (22-29); Chloride 107 mmol/L (96-108); Estimated Glomerular Filt Rate > 60; Glucose Random 91 mg/dL (60-115); Phosphorus 3.2 mg/dL (2.7-4.5); Potassium 5.5 mmol/L (3.3-5.1); Sodium 138 mmol/L (135-145); Total Protein 6.7 g/dL (6.5-8.0)
[2021-05-01 11:42] LABS: Calcium (PTHI) 9.1 mg/dL (8.6-10.4); PTHI 120 pg/mL (14-64)
== END 2021-04-30 08:02 | disposition home or self-care (01) ==
LOC: HO.HMGCLDS 08:01
PROVIDERS: Absent Provider Internal Medicine Medical Oncology; PCP Internal Medicine; Visit Provider Internal Medicine
DX: M81.0 Age-related osteoporosis without current pathological fracture (principal); C34.11 Malignant neoplasm of upper lobe, right bronchus or lung; J34.9 Unspecified disorder of nose and nasal sinuses; E04.2 Nontoxic multinodular goiter; G89.12 Acute post-thoracotomy pain; F17.210 Nicotine dependence, cigarettes, uncomplicated
CPT/HCPCS: 36415; 80053; 82040; 83970; 84100; 85025; 99212

== ENCOUNTER 2021-05-31 08:00 | Outpatient (REF) | payer OTHER, SELFPAY ==
[2021-05-31 11:18] LABS: MANUAL DIFF FLAG NO
[2021-05-31 11:36] LABS: Basophils Absolute Auto 0.1 X10*3/uL (0.0-0.2); Basophils Percent Auto 0.8 % (0-2); Eosinophils Percent Auto 0.1 % (0-4); Hematocrit 37.1 % (37.0-47.0); Hemoglobin 11.9 g/dl (12.0-16.0); Imm Gran Abs Auto 0.02 X10*3/uL (0.00-0.03); Imm Gran Pct Auto 0.3 % (0.0-0.4); Lymphocytes Absolute Auto 2.5 X10*3/uL (1.2-4.9); Lymphocytes Percent Auto 31.8 % (20-40); Mean Corpuscular HGB Conc 32.1 g/dl (31.0-35.0); Mean Corpuscular Hemoglobin 29.5 pg (27.0-33.0); Mean Corpuscular Volume 92.1 fL (80.0-98.0); Mean Platelet Volume 9.9 fL (9.4-12.3); Monocytes Absolute Auto 0.7 X10*3/uL (0.1-1.2); Monocytes Percent Auto 8.5 % (2-11); Neutrophils Absolute Auto 4.7 x10*3/uL (2.0-8.3); Neutrophils Percent Auto 58.5 % (45-73); Platelet Count 347 X10*3/uL (160-400); Red Blood Count 4.03 X10*6/uL (4.20-5.50); Red Cell Distribution Width 15.4 % (11.0-16.0)
[2021-05-31 11:58] LABS: Alanine Aminotransferase 16 U/L (0-31); Albumin Level 3.9 g/dL (3.5-5.0); Alkaline Phosphatase 79 U/L (39-117); Anion Gap 12 (12-20); Aspartate Amino Transferase 19 U/L (5-31); Bilirubin Total 0.2 mg/dL (0.0-1.0); Blood Urea Nitrogen 9 mg/dL (9-16); Calcium 8.9 mg/dL (8.4-10.2); Carbon Dioxide 24 mmol/L (22-29); Chloride 108 mmol/L (96-108); Estimated Glomerular Filt Rate > 60; Glucose Random 99 mg/dL (60-115); Potassium 4.6 mmol/L (3.3-5.1); Sodium 139 mmol/L (135-145); Total Protein 6.4 g/dL (6.5-8.0)
== END 2021-05-31 08:01 | disposition home or self-care (01) ==
LOC: HO.HMGCLDS 08:00
PROVIDERS: Visit Provider Internal Medicine Medical Oncology
DX: C34.11 Malignant neoplasm of upper lobe, right bronchus or lung (principal)
CPT/HCPCS: 36415; 80053; 85025

== ENCOUNTER 2021-07-10 09:21 | Outpatient (REF) | payer OTHER, SELFPAY ==
--- NOTE | ~2021-07-10 | MM_ITS ---
EXAMINATION: MM SCREENING DIGITAL BREAST TOMOSYNTHESIS, BILATERAL CLINICAL INFORMATION: Screening. Asymptomatic. The lifetime risk of breast cancer based on the Tyrer-Cuzick Model is 6%. COMPARISON: Mammography: 11/07/2017, 07/13/2015 TECHNIQUE: Digital breast tomosynthesis is performed in both the craniocaudal and mediolateral oblique views along with computer-aided detection (CAD). Synthesized 2D images are generated from the tomosynthesis. FINDINGS: There are scattered areas of fibroglandular density (ACR BI-RADS breast composition Category b). There are no significant masses, abnormal calcifications, or other abnormalities. Parenchymal pattern is similar to prior studies. There are no significant changes. MM/MM tomosynthesis screening BI IMPRESSION: No mammographic evidence of malignancy. ASSESSMENT: BI-RADS 1: Negative RECOMMENDATION: Routine annual mammography screening. This patient's information was entered into a reminder system with a target due date for their next mammogram.
== END 2021-07-10 09:22 | disposition home or self-care (01) ==
LOC: HO.MAMMO 09:21
PROVIDERS: Visit Provider Internal Medicine
DX: Z12.31 Encounter for screening mammogram for malignant neoplasm of breast (principal)
CPT/HCPCS: 77063; 77067

== ENCOUNTER 2021-07-30 09:23 | Outpatient (REF) | payer OTHER, SELFPAY ==
[2021-07-30 11:43] LABS: MANUAL DIFF FLAG NO
[2021-07-30 11:59] LABS: Basophils Percent Auto 0.4 % (0-2); Eosinophils Absolute Auto 0.2 X10*3/uL (0.0-0.4); Eosinophils Percent Auto 3.1 % (0-4); Hematocrit 37.3 % (37.0-47.0); Hemoglobin 12.2 g/dl (12.0-16.0); Imm Gran Abs Auto 0.02 X10*3/uL (0.00-0.03); Imm Gran Pct Auto 0.3 % (0.0-0.4); Lymphocytes Absolute Auto 2.2 X10*3/uL (1.2-4.9); Lymphocytes Percent Auto 29.9 % (20-40); Mean Corpuscular HGB Conc 32.7 g/dl (31.0-35.0); Mean Corpuscular Hemoglobin 30.6 pg (27.0-33.0); Mean Corpuscular Volume 93.5 fL (80.0-98.0); Mean Platelet Volume 10.4 fL (9.4-12.3); Monocytes Absolute Auto 0.6 X10*3/uL (0.1-1.2); Monocytes Percent Auto 7.5 % (2-11); Neutrophils Absolute Auto 4.4 x10*3/uL (2.0-8.3); Neutrophils Percent Auto 58.8 % (45-73); Platelet Count 331 X10*3/uL (160-400); Red Blood Count 3.99 X10*6/uL (4.20-5.50); Red Cell Distribution Width 14.3 % (11.0-16.0); White Blood Count 7.5 X10*3/uL (4.8-10.8)
[2021-07-30 12:05] LABS: Alanine Aminotransferase 16 U/L (0-31); Albumin Level 4.3 g/dL (3.5-5.0); Alkaline Phosphatase 70 U/L (39-117); Anion Gap 12 (12-20); Aspartate Amino Transferase 18 U/L (5-31); Bilirubin Total 0.3 mg/dL (0.0-1.0); Blood Urea Nitrogen 10 mg/dL (9-16); Calcium 9.5 mg/dL (8.4-10.2); Carbon Dioxide 24 mmol/L (22-29); Chloride 106 mmol/L (96-108); Estimated Glomerular Filt Rate > 60; Glucose Random 91 mg/dL (60-115); Potassium 4.8 mmol/L (3.3-5.1); Sodium 137 mmol/L (135-145); Total Protein 6.9 g/dL (6.5-8.0)
[2021-07-30 12:31] LABS: Erythrocyte Sedimentation Rate 14 MM/HR (0-20)
[2021-07-31 15:41] LABS: Calcium (PTHI) 9.6 mg/dL (8.6-10.4); PTHI 30 pg/mL (16-77)
== END 2021-07-30 09:24 | disposition home or self-care (01) ==
LOC: HO.HMGCLDS 09:23
PROVIDERS: Visit Provider Internal Medicine Medical Oncology
DX: C34.11 Malignant neoplasm of upper lobe, right bronchus or lung (principal); E21.3 Hyperparathyroidism, unspecified
CPT/HCPCS: 36415; 80053; 83970; 85025; 85652

== ENCOUNTER → 2021-08-01 09:53 | Outpatient (BNVA) | payer OTHER, SELFPAY | PROVIDERS: PCP Internal Medicine; Visit Provider Hospitalist | DX: J43.9 Emphysema, unspecified (principal); E04.2 Nontoxic multinodular goiter; C34.91 Malignant neoplasm of unspecified part of right bronchus or lung; G89.12 Acute post-thoracotomy pain | CPT/HCPCS: 99212 ==

== ENCOUNTER 2021-08-02 08:39 | Outpatient (REF) | payer OTHER, SELFPAY ==
--- NOTE | ~2021-08-02 | CT_ITS ---
EXAMINATION: CT CHEST WITH CONTRAST CLINICAL INFORMATION: Right upper lobe lung cancer. COMPARISON: Previous chest CTA November 2020. TECHNIQUE: Multidetector volumetric CT imaging of the chest was obtained after the administration of 71 mL of Omnipaque 350 intravenous contrast without immediate adverse reactions. Axial MIP volume rendering provided. Sagittal and coronal reformatted images were obtained. This CT examination was performed using dose optimization techniques as appropriate, variously including the following: *Automated exposure control *Adjustment of mA and/or kV according to patient size (this includes techniques or standardized protocols for targeted exams where dose is matched to indication/reason for exam; i.e. extremities or head) *Use of iterative reconstruction technique DLP: 75 mGy-cm FINDINGS: WAREHOUSE ORDER PICKER: There are new postsurgical changes from right upper lobe lobectomy. LUNGS There is evidence of emphysema. New postsurgical changes from right upper lobe lobectomy. There is a surgical staple line along the pleural fissure. There is triangular-shaped low-attenuation in the right upper chest may represent loculated fluid along the fissure. There is a 6 mm right lower lobe nodule axial image 82 series 7. This measured 5 mm on November 2020 exam and may be minimally increased in size. There is a 5 mm peripheral or subpleural right lower lobe nodule axial image 124 series 7 that is stable. There is question of a tiny 3 mm left upper lobe nodule axial image 56 series 7. This is not seen on prior exam. No endobronchial or endotracheal lesion is seen. MEDIASTINUM: There are several left thyroid nodules. Largest measures 2 cm. No increased uptake in the thyroid gland on PET/CT is seen. There are no enlarged hilar or mediastinal lymph nodes. The heart does not appear enlarged. There is minimal coronary artery calcification. There is no pericardial effusion. The thoracic aorta is normal in caliber. PLEURA: Probable small amount of loculated fluid along the right pleural fissure in the right upper lung. AXILLA: No lymphadenopathy. UPPER ABDOMEN: Unremarkable OSSEOUS STRUCTURES: There are degenerative changes of the spine. CT/CT chest w con IMPRESSION: New postsurgical changes following right upper lobe lobectomy. Small amount of probable loculated fluid along the fissure in the right upper lung. Emphysema. Small pulmonary nodules. Question slight interval increase in size in the central right lower lobe nodule measuring 6 mm compared to 5 mm November 2020 exam. Left thyroid nodules. These did not demonstrate increased uptake on PET CT scan however by size criteria, further evaluation with thyroid ultrasound should be considered. Fleischner guidelines were followed.
[2021-08-02] MEDS: iohexoL 350 MG/ML 100 ML INFUS..BTL 65 ML IV (09:27)
== END 2021-08-02 08:40 | disposition home or self-care (01) ==
LOC: HO.CT 08:39
PROVIDERS: Visit Provider Internal Medicine Medical Oncology
DX: C34.91 Malignant neoplasm of unspecified part of right bronchus or lung (principal)
CPT/HCPCS: 71260; Q9967

== ENCOUNTER → 2021-08-10 08:57 | Outpatient (BNVA) | payer OTHER, SELFPAY | PROVIDERS: PCP Internal Medicine; Visit Provider Surgery | DX: C34.11 Malignant neoplasm of upper lobe, right bronchus or lung (principal); F17.210 Nicotine dependence, cigarettes, uncomplicated; Z92.3 Personal history of irradiation | CPT/HCPCS: 99212 ==

== ENCOUNTER 2021-09-12 07:55 | Outpatient (REF) | payer OTHER, SELFPAY ==
[2021-09-12 11:55] LABS: Alanine Aminotransferase 12 U/L (0-31); Albumin Level 4.3 g/dL (3.5-5.0); Alkaline Phosphatase 68 U/L (39-117); Anion Gap 13 (12-20); Aspartate Amino Transferase 18 U/L (5-31); Bilirubin Total 0.5 mg/dL (0.0-1.0); Blood Urea Nitrogen 7 mg/dL (9-16); Calcium 9.9 mg/dL (8.4-10.2); Carbon Dioxide 26 mmol/L (22-29); Chloride 104 mmol/L (96-108); Estimated Glomerular Filt Rate > 60; Free T4 (Free Thyroxine) 1.18 ng/dL (0.71-1.85); Glucose Random 99 mg/dL (60-115); Phosphorus 3.7 mg/dL (2.7-4.5); Potassium 4.5 mmol/L (3.3-5.1); Sodium 138 mmol/L (135-145); Thyroid Stimulating Hormone 0.08 uIU/mL (0.32-4.0); Total Protein 7.1 g/dL (6.5-8.0); Vitamin D 25-OH Total 33.5 ng/mL (>30)
[2021-09-12 12:53] LABS: Creatinine, mg/dL 41.63
[2021-09-12 14:05] LABS: Creatinine, 24Hr Urine 0.8 G/Day (1.0-2.0); Total Volume 24 Hour Urine 1900 mL
[2021-09-13 13:05] LABS: Calcium (PTHI) 9.3 mg/dL (8.6-10.4); PTHI 80 pg/mL (16-77)
[2021-09-14 17:37] LABS: Calcium, 24 Hr Urine 11 mg/24 h; Calcium/Creatinine Ratio 14 mg/g creat (30-275); Creatinine 24Hr Urine 0.84 g/24 h (0.50-2.15)
[2021-09-15 17:16] LABS: Alkaline Phosphatase Bone 9.5 mcg/L (5.6-29.0)
[2021-09-17 20:31] LABS: N-Telopeptide 12 (see note); NTXCreaRU 36 mg/dL (20-275)
== END 2021-09-12 07:56 | disposition home or self-care (01) ==
LOC: HO.HMGCLDS 07:55
PROVIDERS: PCP Internal Medicine; Visit Provider Internal Medicine
DX: M81.0 Age-related osteoporosis without current pathological fracture (principal); E21.3 Hyperparathyroidism, unspecified; E55.9 Vitamin D deficiency, unspecified
CPT/HCPCS: 36415; 80053; 82306; 82340; 82523; 82570; 83970; 84075; 84100; 84439; 84443

== ENCOUNTER → 2021-09-19 10:29 | Outpatient (BNVA) | payer OTHER, MEDICAID, SELFPAY | PROVIDERS: PCP Internal Medicine; Visit Provider Internal Medicine | DX: Z13.89 Encounter for screening for other disorder (principal) ==

== ENCOUNTER 2021-09-24 09:41 | Outpatient (REF) | payer OTHER, SELFPAY ==
[2021-09-24 12:11] LABS: Free T4 (Free Thyroxine) 0.93 ng/dL (0.71-1.85); Thyroid Stimulating Hormone 0.08 uIU/mL (0.32-4.0)
[2021-09-25 07:06] LABS: Triiodothyronine T3 Total 123 ng/dL (76-181)
[2021-09-25 09:42] LABS: Thyroglobulin Antibodies <1 IU/mL (< or = 1); Thyroid Peroxidase Antibodies <1 IU/mL (<9)
[2021-09-27 14:45] LABS: Thyroid Stimulating Immunoglob <89 % baseline (<140)
[2021-09-27 20:55] LABS: Thyrotropin Receptor Antibody <1.00 IU/L (<=2.00)
== END 2021-09-24 09:42 | disposition home or self-care (01) ==
LOC: HO.HMGCLDS 09:41
PROVIDERS: Visit Provider Internal Medicine
DX: E04.2 Nontoxic multinodular goiter (principal)
CPT/HCPCS: 36415; 83520; 84439; 84443; 84445; 84480; 86376; 86800

== ENCOUNTER → 2021-10-04 10:02 | Outpatient (BNVA) | payer OTHER, SELFPAY | PROVIDERS: PCP Internal Medicine; Visit Provider Hospitalist | DX: J43.9 Emphysema, unspecified (principal) | CPT/HCPCS: 94010; 99211 ==

== ENCOUNTER 2021-10-19 08:26 | Outpatient (REF) | payer OTHER, SELFPAY ==
--- NOTE | ~2021-10-19 | US_ITS ---
EXAMINATION: US THYROID CLINICAL INFORMATION: Thyrotoxicosis, unspecified without thyrotoxic crisis or storm. History of previous thyroid biopsy 2017 COMPARISON: Ultrasound soft tissue head/neck thyroid most recent dated 12/16/2019 and 11/04/2019. TECHNIQUE: Linear transducer grayscale and color Doppler examination with attention to the region of the thyroid. FINDINGS: SIZE: Measurements of the thyroid lobes and nodules are given in sagittal, anteroposterior and transverse dimensions respectively. Right Thyroid Lobe: 5.69 x 1.52 x 1.53 cm, volume 6.93 mL. Previously 5.5 x 1.7 x 1.7 cm, volume 8.3 mL. Parenchyma: The gland echotexture is homogeneous. Thyroid vascularity is increased. Left Thyroid Lobe: 6.28 x 2.31 x 2.6 cm, volume 20.5 mL. Previously 6.2 x 2.2 x 2.7 cm, volume 19.3 mL. Parenchyma: The gland echotexture is heterogeneous. Thyroid vascularity is increased. Isthmus: 0.29 cm in maximum AP dimension. Previously 0.30 cm. There are multiple bilateral nodules. The largest nodules are measured. Estimated total number of nodules greater than or equal to 1 cm: 4. 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 Location: Right inferior. Size: 1.1 x 0.7 x 0.8 cm, volume 0.28 mL. Previously: 1.2 x 0.5 x 0.9 cm, volume 0.28 mL. Nodule characteristics: Composition: Solid/almost completely solid (2). Echogenicity: Hypoechoic (2). Shape: Not taller than wide (0). Margins: Smooth (0). Echogenic Foci: Punctate echogenic foci (3). ACR TI-RADS total points: 7 ACR TI-RADS category: 5 Significant change in size (>/= 20% in 2 dimensions and minimal increase of 2 mm or 50% or greater increase in volume): Change in features: Change in ACR TI-RADS risk category: 2. Location: Right inferior. Size: 0.5 x 0.7 x 0.13 cm, volume 0.71 mL. Previously: 1.4 x 0.64 x 0.9 cm, volume 0.42 mL. Nodule characteristics: Composition: Cystic(0). ACR TI-RADS total points: 0 ACR TI-RADS category: 1 Significant change in size (>/= 20% in 2 dimensions and minimal increase of 2 mm or 50% or greater increase in volume): Change in features: Change in ACR TI-RADS risk category: 3. Location: Left superior. Size: 0.85 x 0.63 x 0.9 cm, volume 0.25 mL. Previously: 0.6 x 0.5 x 0.7 cm, volume 0.11 mL. Nodule characteristics: Composition: Spongiform (0). Echogenicity: Anechoic (0). Shape: Not taller than wide (0). Margins: Smooth (0). Echogenic Foci: None (0). ACR TI-RADS total points: 0 ACR TI-RADS category: 1 Significant change in size (>/= 20% in 2 dimensions and minimal increase of 2 mm or 50% or greater increase in volume): Change in features: Change in ACR TI-RADS risk category: 4. Location: Left mid. Size: 2.8 x 1.8 x 1.9 cm, volume 4.92 mL. Previously: 3.4 x 1.9 x 2.2 cm, volume 7.4 mL. Nodule characteristics: Composition: Mixed cystic and solid (1). Echogenicity: Hypoechoic (2). Shape: Not taller than wide (0). Margins: Smooth (0). Echogenic Foci: Punctate echogenic foci (3). ACR TI-RADS total points: 6 ACR TI-RADS category: 4 Significant change in size (>/= 20% in 2 dimensions and minimal increase of 2 mm or 50% or greater increase in volume): Change in features: Change in ACR TI-RADS risk category: 5. Location: Left inferior. Size: 2.3 x 1.7 x 2.1 cm, volume 4.3 mL. Previously: 2.2 x 1.6 x 2.1 cm, volume 3.9 mL. Nodule characteristics: Composition: Mixed cystic and solid (1). Echogenicity: Hypoechoic (2). Shape: Not taller than wide (0). Margins: Smooth (0). Echogenic Foci: None (0). ACR TI-RADS total points: 3 ACR TI-RADS category: 3 Significant change in size (>/= 20% in 2 dimensions and minimal increase of 2 mm or 50% or greater increase in volume): Change in features: Change in ACR TI-RADS risk category: NODES: No lymphadenopathy is seen in the tissue surrounding the thyroid gland. US/US thyroid IMPRESSION: Heterogeneous hypervascular thyroid gland. The left lobe is enlarged. Multiple bilateral thyroid nodules. Left mid nodule may be slightly decreased in size from previous exam. Otherwise thyroid nodules do not appear appreciably changed. Several nodules meet the TI RADS criteria for fine-needle aspiration.. ACR TI-RADS RECOMMENDATION REFERENCE: Ultrasound-guided fine-needle aspiration, followup ultrasound, no further follow up. * TR1 (0 point) and TR 2 (2 points): No FNA or follow up * TR3 (3 points): FNA if more than or equal to 2.5 cm in maximum dimension, followup ultrasound in 1, 3 and 5 years if 1.5 to 2.4 cm in maximum dimension. * TR4 (4-6 points): FNA if more than or equal to 1.5 cm in maximum dimension, followup ultrasound in 1, 2, 3 and 5 years if 1 to 1.4 cm in maximum dimension. * TR5 (more than or equal to 7 points): FNA if more than or equal to 1 cm in maximum dimension, followup ultrasound every year for 5 years if 0.5 to 0.9 cm in maximum dimension. * TR3, TR4 or TR5 nodules that are below the size threshold for follow up receive no follow up.
== END 2021-10-19 08:27 | disposition home or self-care (01) ==
LOC: HO.HMGCX 08:26
PROVIDERS: PCP Internal Medicine; Visit Provider Internal Medicine
DX: E05.90 Thyrotoxicosis, unspecified without thyrotoxic crisis or storm (principal)
CPT/HCPCS: 76536

== ENCOUNTER → 2021-10-31 10:21 | Outpatient (REF) | payer OTHER, SELFPAY ==
--- NOTE | ~2021-10-31 | NM_ITS ---
EXAMINATION: THYROID UPTAKE AND SCAN CLINICAL INFORMATION: Thyrotoxicosis. COMPARISON: No previous radionuclide thyroid scan is available for comparison. Thyroid ultrasound dated 10/19/2021 is available for comparison. TECHNIQUE: Following the oral administration of 267 microcuries of I-123 sodium iodide, thyroid uptake was performed and expressed as a percentage of the administrated dose. Gamma scintillation camera images of the thyroid in the anterior and right and left anterior oblique views were obtained using a pinhole collimator following the administration of 10 mCi Tc-99m pertechnetate. FINDINGS: The uptake is 8.6% at 4 hours and 16.8% at 24 hours (Normal radioiodine uptake at 24 hours is 10% to 30%). The radioiodine uptake is normal. The radiopertechnetate thyroid scintigram there is marked heterogeneity within the thyroid gland. There is a prominent ovoid shaped focus of markedly increased activity at the lower pole of the left thyroid lobe. This has some medial central photopenia. A much smaller ovoid shaped focus of increased activity is present in the upper pole of the left lobe. There is only very faint activity visualized in the right lobe which has some heterogeneity but no definite focal abnormality. A single anterior radioiodine image obtained at the time of the 24-hour uptake measurement is similar to the radio pertechnetate image. The thyroid ultrasound shows a multinodular thyroid gland. The largest nodule is present in the lower pole of the left lobe measuring 2.3 x 1.7 x 2.1 cm on the ultrasound study and appears to correspond in size and location to the dominant left lower pole nodule described above on this radionuclide thyroid scan. Several additional thyroid nodules are visualized bilaterally on the ultrasound study, but only a small nodule in the upper pole of the left lobe is visualized on this radionuclide scan. NM/NM thyroid w uptake IMPRESSION: These findings are most consistent with a toxic multinodular goiter (Angeles's disease), with a dominant functioning (hot) nodule present in the lower pole of the left lobe. Significant extra nodular suppression is present, most prominently diffusely in the right lobe.
== END ==
LOC: HO.NUCMED 10:21
PROVIDERS: Visit Provider Internal Medicine
DX: E05.90 Thyrotoxicosis, unspecified without thyrotoxic crisis or storm (principal)
CPT/HCPCS: 78014; A9512; A9516

== ENCOUNTER 2021-11-14 10:48 | Outpatient (REF) | payer OTHER, SELFPAY ==
[2021-11-14 14:34] LABS: Free T4 (Free Thyroxine) 0.85 ng/dL (0.71-1.85); Thyroid Stimulating Hormone 0.28 uIU/mL (0.32-4.0)
[2021-11-15 18:27] LABS: Triiodothyronine T3 Total 98 ng/dL (76-181)
== END 2021-11-14 10:49 | disposition home or self-care (01) ==
LOC: HO.HMGCLDS 10:48
PROVIDERS: Visit Provider Internal Medicine
DX: E04.2 Nontoxic multinodular goiter (principal); E05.90 Thyrotoxicosis, unspecified without thyrotoxic crisis or storm
CPT/HCPCS: 36415; 84439; 84443; 84480

== ENCOUNTER 2022-01-28 11:07 | Outpatient (REF) | payer OTHER, SELFPAY ==
[2022-01-28 13:59] LABS: MANUAL DIFF FLAG NO
[2022-01-28 14:08] LABS: Basophils Percent Auto 0.4 % (0-2); Eosinophils Percent Auto 0.1 % (0-4); Hematocrit 43.1 % (37.0-47.0); Hemoglobin 14.5 g/dl (12.0-16.0); Imm Gran Abs Auto 0.02 X10*3/uL (0.00-0.03); Imm Gran Pct Auto 0.2 % (0.0-0.4); Lymphocytes Absolute Auto 2.9 X10*3/uL (1.2-4.9); Lymphocytes Percent Auto 25.9 % (20-40); Mean Corpuscular HGB Conc 33.6 g/dl (31.0-35.0); Mean Corpuscular Hemoglobin 30.4 pg (27.0-33.0); Mean Corpuscular Volume 90.4 fL (80.0-98.0); Mean Platelet Volume 10.8 fL (9.4-12.3); Monocytes Absolute Auto 0.7 X10*3/uL (0.1-1.2); Monocytes Percent Auto 5.8 % (2-11); Neutrophils Absolute Auto 7.5 x10*3/uL (2.0-8.3); Neutrophils Percent Auto 67.6 % (45-73); Platelet Count 343 X10*3/uL (160-400); Red Blood Count 4.77 X10*6/uL (4.20-5.50); Red Cell Distribution Width 13.1 % (11.0-16.0); White Blood Count 11.2 X10*3/uL (4.8-10.8)
[2022-01-28 14:28] LABS: Alanine Aminotransferase 16 U/L (0-31); Albumin Level 4.7 g/dL (3.5-5.0); Alkaline Phosphatase 80 U/L (39-117); Anion Gap 16 (12-20); Aspartate Amino Transferase 19 U/L (5-31); Bilirubin Total 0.3 mg/dL (0.0-1.0); Blood Urea Nitrogen 11 mg/dL (9-16); Calcium 10.2 mg/dL (8.4-10.2); Carbon Dioxide 25 mmol/L (22-29); Chloride 102 mmol/L (96-108); Estimated Glomerular Filt Rate > 60; Glucose Random 90 mg/dL (60-115); Potassium 4.4 mmol/L (3.3-5.1); Sodium 139 mmol/L (135-145); Total Protein 7.6 g/dL (6.5-8.0)
[2022-01-28 14:38] LABS: Thyroid Stimulating Hormone 0.42 uIU/mL (0.32-4.0); Vitamin D 25-OH Total 36.4 ng/mL (>30)
[2022-01-28 15:15] LABS: Erythrocyte Sedimentation Rate 10 MM/HR (0-20)
[2022-01-29 12:47] LABS: Calcium (PTHI) 10.2 mg/dL (8.6-10.4); PTHI 43 pg/mL (16-77)
== END 2022-01-28 11:08 | disposition home or self-care (01) ==
LOC: HO.HMGCLDS 11:07
PROVIDERS: PCP Internal Medicine; Visit Provider Internal Medicine Medical Oncology
DX: C34.11 Malignant neoplasm of upper lobe, right bronchus or lung (principal); R63.6 Underweight; E21.3 Hyperparathyroidism, unspecified; D75.839 Thrombocytosis, unspecified
CPT/HCPCS: 36415; 80053; 82306; 83970; 84443; 85025; 85652

== ENCOUNTER → 2022-01-30 09:47 | Outpatient (BNVA) | payer OTHER, SELFPAY | PROVIDERS: PCP Internal Medicine; Visit Provider Hospitalist | DX: J43.9 Emphysema, unspecified (principal); E04.2 Nontoxic multinodular goiter; C34.91 Malignant neoplasm of unspecified part of right bronchus or lung; G89.12 Acute post-thoracotomy pain | CPT/HCPCS: 99212 ==

== ENCOUNTER 2022-02-04 07:54 | Outpatient (REF) | payer OTHER, SELFPAY ==
--- NOTE | ~2022-02-04 | CT_ITS ---
EXAMINATION: CT CHEST WITH CONTRAST CLINICAL INFORMATION: Right upper lobe lung cancer post right upper lobe lobectomy and chemotherapy COMPARISON: Previous chest CT most recent July 2021 TECHNIQUE: Multidetector volumetric CT imaging of the chest was obtained after the administration of 65 mL of Omnipaque 350 intravenous contrast without immediate adverse reactions. Axial MIP volume rendering provided. Sagittal and coronal reformatted images were obtained. This CT examination was performed using dose optimization techniques as appropriate, variously including the following: *Automated exposure control *Adjustment of mA and/or kV according to patient size (this includes techniques or standardized protocols for targeted exams where dose is matched to indication/reason for exam; i.e. extremities or head) *Use of iterative reconstruction technique DLP: 65 mGy-cm FINDINGS: LUNGS: There is evidence of emphysema. There are stable postsurgical changes following right upper lobe lobectomy. There is some volume loss or atelectasis of the right middle lobe. There is decreasing density along the superior aspect of the right middle lobe along the fissure for example sagittal image 58 series 9. This may represent resolving pleural fluid. There is a 6 mm right lower lobe nodule axial image 23 series 3 that is stable. There is a 5 mm peripheral or subpleural right lower lobe nodule axial image 36 series 3 that is stable. There is a 3 left upper lobe nodule axial image that is stable. There is peripheral or subpleural scarring or atelectasis in the lateral right lower lobe at the right lung base that appears decreased axial image 41 series 3. No new pulmonary nodule. MEDIASTINUM: There is stable left thyroid nodules. No imaging follow-up. There are small mediastinal and bilateral hilar lymph nodes. There are no enlarged hilar or mediastinal lymph nodes are the heart size is normal. There is trace pericardial fluid or thickening that is stable. CORONARY ARTERY CALCIFICATION: None visualized on this study. PLEURA: Question decreased loculated pleural fluid at the right lung apex along the right middle lobe and superior aspect of the fissure. No other pleural effusion or pneumothorax. AXILLA: No lymphadenopathy. UPPER ABDOMEN: Unremarkable OSSEOUS STRUCTURES: There are degenerative changes of the spine. CT/CT chest w IV con IMPRESSION: Emphysema. Stable postsurgical changes following right upper lobe lobectomy. Interval decrease in loculated pleural fluid at the right lung apex. Stable small pulmonary nodules. Stable left thyroid nodules.. Fleischner guidelines were followed.
[2022-02-04] MEDS: iohexoL 350 MG/ML 100 ML INFUS..BTL 65 ML IV (08:55)
== END 2022-02-04 07:55 | disposition home or self-care (01) ==
LOC: HO.CT 07:54
PROVIDERS: Visit Provider Internal Medicine Medical Oncology
DX: C34.11 Malignant neoplasm of upper lobe, right bronchus or lung (principal)
CPT/HCPCS: 71260; Q9967

== ENCOUNTER → 2022-02-15 11:04 | Outpatient (BNVA) | payer OTHER, SELFPAY | PROVIDERS: PCP Internal Medicine; Visit Provider Surgery | DX: C34.91 Malignant neoplasm of unspecified part of right bronchus or lung (principal) | CPT/HCPCS: 99212 ==

== ENCOUNTER 2022-02-21 08:53 | Outpatient (REF) | payer OTHER, SELFPAY ==
--- NOTE | 2022-02-21 11:16 | PFT_ITS ---
INDICATION: COPD. SPIROMETRY: The FEV1 to FVC 61% with an FEV1 of 1.87 L which is 75% predicted, and an FVC of 3.07 L which is 96% predicted. Post bronchodilators, there was a significant response to the FEV1 by 13% and maximum voluntary ventilation 62% predicted. LUNG VOLUMES: Total lung capacity 101% predicted with residual volume of 102% predicted. DIFFUSION CAPACITY: DLCO 51% predicted. COMPARISONS: None. INTERPRETATION: There is an obstructive ventilatory defect consistent with moderate COPD. There is a significant response to bronchodilators noted and there is also moderate decrease in maximum voluntary ventilation secondary to likely deconditioning. Lung volumes are within normal limits. The patient does have a moderate diffusion impairment. Clinical correlation warranted. MD GEOFFREY Connolly/JENNIFER / [id number]
== END 2022-02-21 08:54 | disposition home or self-care (01) ==
LOC: HO.RESP 08:53
PROVIDERS: Visit Provider Hospitalist
DX: J43.9 Emphysema, unspecified (principal)
CPT/HCPCS: 94060; 94727; 94729

== ENCOUNTER → 2022-03-20 12:23 | Outpatient (BNVA) | payer OTHER, SELFPAY | PROVIDERS: PCP Internal Medicine; Visit Provider Internal Medicine | DX: M81.0 Age-related osteoporosis without current pathological fracture (principal); E21.3 Hyperparathyroidism, unspecified; E04.2 Nontoxic multinodular goiter; E55.9 Vitamin D deficiency, unspecified | CPT/HCPCS: 99212 ==

== ENCOUNTER 2022-05-31 06:22 | Outpatient (REF) | payer OTHER, SELFPAY ==
[2022-05-31 12:54] LABS: Cholesterol 266 mg/dL; HDL Cholesterol 95 mg/dL; LDL Cholesterol Calculated 154 mg/dl; Triglycerides 86 mg/dL
== END 2022-05-31 06:23 | disposition home or self-care (01) ==
LOC: HO.HMGCLDS 06:22
PROVIDERS: PCP Internal Medicine; Visit Provider Internal Medicine
DX: Z00.01 Encounter for general adult medical examination with abnormal findings (principal); Z13.220 Encounter for screening for lipoid disorders
CPT/HCPCS: 36415; 80061

== ENCOUNTER 2022-06-04 14:03 | Outpatient (REF) | payer OTHER, SELFPAY ==
[2022-06-07 02:24] LABS: HPV mRNA E6/E7 rflx Not Detected (Not Detected)
== END 2022-06-04 14:04 | disposition home or self-care (01) ==
LOC: HO.LNP 14:03
PROVIDERS: Visit Provider Internal Medicine
DX: Z12.4 Encounter for screening for malignant neoplasm of cervix (principal); Z11.51 Encounter for screening for human papillomavirus (HPV)
CPT/HCPCS: 87624; 88142

== ENCOUNTER 2022-07-11 10:20 | Outpatient (REF) | payer OTHER, SELFPAY ==
[2022-07-11 12:26] LABS: Alanine Aminotransferase 15 U/L (0-31); Albumin Level 4.4 g/dL (3.5-5.0); Alkaline Phosphatase 80 U/L (39-117); Anion Gap 13 (12-20); Aspartate Amino Transferase 19 U/L (5-31); Bilirubin Total 0.3 mg/dL (0.0-1.0); Blood Urea Nitrogen 14 mg/dL (9-16); Calcium 9.1 mg/dL (8.4-10.2); Carbon Dioxide 27 mmol/L (22-29); Chloride 101 mmol/L (96-108); Estimated Glomerular Filt Rate > 60; Glucose Random 84 mg/dL (60-115); Phosphorus 3.3 mg/dL (2.7-4.5); Potassium 4.3 mmol/L (3.3-5.1); Sodium 137 mmol/L (135-145); Total Protein 7.1 g/dL (6.5-8.0)
[2022-07-11 12:27] LABS: Free T4 (Free Thyroxine) 0.83 ng/dL (0.71-1.85); Thyroid Stimulating Hormone 1.41 uIU/mL (0.32-4.0); Vitamin D 25-OH Total 36.9 ng/mL (>30)
[2022-07-15 15:54] LABS: Calcium (PTHI) 9.8 mg/dL (8.6-10.4); PTHI 21 pg/mL (16-77)
== END 2022-07-11 10:21 | disposition home or self-care (01) ==
LOC: HO.HMGCLDS 10:20
PROVIDERS: PCP Internal Medicine; Visit Provider Internal Medicine
DX: E04.2 Nontoxic multinodular goiter (principal); E05.90 Thyrotoxicosis, unspecified without thyrotoxic crisis or storm; E55.9 Vitamin D deficiency, unspecified; E21.3 Hyperparathyroidism, unspecified
CPT/HCPCS: 36415; 80053; 82306; 83970; 84100; 84439; 84443

== ENCOUNTER 2022-07-17 09:40 | Outpatient (REF) | payer OTHER, SELFPAY ==
--- NOTE | ~2022-07-17 | MM_ITS ---
EXAMINATION: MM SCREENING DIGITAL BREAST TOMOSYNTHESIS, BILATERAL CLINICAL INFORMATION: Screening. Asymptomatic. The lifetime risk of breast cancer based on the Tyrer-Cuzick Model is 8%. COMPARISON: Mammography: 07/10/2021, 11/07/2017, 07/13/2015. TECHNIQUE: Digital breast tomosynthesis is performed in both the craniocaudal and mediolateral oblique views along with computer-aided detection (CAD). Synthesized 2D images are generated from the tomosynthesis. FINDINGS: There are scattered areas of fibroglandular density (ACR BI-RADS breast composition Category b). Breast tissue composition borders on heterogeneously dense. There are no significant masses, abnormal calcifications, or other abnormalities. Parenchymal pattern is similar to prior studies. There is no developing density or architectural abnormality. The axilla and skin contours are unremarkable. No significant changes. MM/MM tomosynthesis screening BI IMPRESSION: No mammographic evidence of malignancy. ASSESSMENT: BI-RADS 1: Negative RECOMMENDATION: Routine annual mammography screening. This patient's information was entered into a reminder system with a target due date for their next mammogram.
== END 2022-07-17 09:41 | disposition home or self-care (01) ==
LOC: HO.MAMMO 09:40
PROVIDERS: PCP Internal Medicine; Visit Provider Internal Medicine Medical Oncology
DX: Z12.31 Encounter for screening mammogram for malignant neoplasm of breast (principal)
CPT/HCPCS: 77063; 77067

== ENCOUNTER → 2022-07-18 14:31 | Outpatient (BNVA) | payer OTHER, SELFPAY | PROVIDERS: PCP Internal Medicine; Visit Provider Internal Medicine | DX: E21.3 Hyperparathyroidism, unspecified (principal); M81.0 Age-related osteoporosis without current pathological fracture; E04.2 Nontoxic multinodular goiter; E55.9 Vitamin D deficiency, unspecified; Z79.899 Other long term (current) drug therapy | CPT/HCPCS: 99212 ==

== ENCOUNTER 2022-07-22 09:07 | Outpatient (REF) | payer OTHER, SELFPAY ==
[2022-07-22 11:44] LABS: MANUAL DIFF FLAG NO
[2022-07-22 11:48] LABS: Basophils Absolute Auto 0.1 X10*3/uL (0.0-0.2); Basophils Percent Auto 0.6 % (0-2); Hemoglobin 13.2 g/dl (12.0-16.0); Imm Gran Abs Auto 0.03 X10*3/uL (0.00-0.03); Imm Gran Pct Auto 0.3 % (0.0-0.4); Lymphocytes Absolute Auto 2.4 X10*3/uL (1.2-4.9); Lymphocytes Percent Auto 24.6 % (20-40); Mean Corpuscular Hemoglobin 29.9 pg (27.0-33.0); Mean Corpuscular Volume 90.5 fL (80.0-98.0); Mean Platelet Volume 10.5 fL (9.4-12.3); Monocytes Absolute Auto 0.7 X10*3/uL (0.1-1.2); Monocytes Percent Auto 6.6 % (2-11); Neutrophils Absolute Auto 6.7 x10*3/uL (2.0-8.3); Neutrophils Percent Auto 67.9 % (45-73); Platelet Count 374 X10*3/uL (160-400); Red Blood Count 4.42 X10*6/uL (4.20-5.50); Red Cell Distribution Width 13.4 % (11.0-16.0); White Blood Count 9.9 X10*3/uL (4.8-10.8)
[2022-07-22 12:18] LABS: Alanine Aminotransferase 12 U/L (0-31); Albumin Level 4.1 g/dL (3.5-5.0); Alkaline Phosphatase 74 U/L (39-117); Anion Gap 11 (12-20); Aspartate Amino Transferase 17 U/L (5-31); Bilirubin Total 0.3 mg/dL (0.0-1.0); Blood Urea Nitrogen 12 mg/dL (9-16); Calcium 8.7 mg/dL (8.4-10.2); Carbon Dioxide 29 mmol/L (22-29); Chloride 106 mmol/L (96-108); Estimated Glomerular Filt Rate > 60; Glucose Random 104 mg/dL (60-115); Potassium 4.7 mmol/L (3.3-5.1); Sodium 141 mmol/L (135-145); Total Protein 6.5 g/dL (6.5-8.0)
== END 2022-07-22 09:08 | disposition home or self-care (01) ==
LOC: HO.HMGCLDS 09:07
PROVIDERS: PCP Internal Medicine; Visit Provider Internal Medicine Medical Oncology
DX: C34.11 Malignant neoplasm of upper lobe, right bronchus or lung (principal)
CPT/HCPCS: 36415; 80053; 85025

== ENCOUNTER 2022-07-29 08:43 | Outpatient (REF) | payer OTHER, SELFPAY ==
--- NOTE | ~2022-07-29 | CT_ITS ---
EXAMINATION: CT CHEST WITH CONTRAST CLINICAL INFORMATION: Malignant neoplasm of upper lobe right bronchus. COMPARISON: None available. TECHNIQUE: Multidetector volumetric CT imaging of the chest was obtained after the administration of 50 mL of Omnipaque 350 intravenous contrast without immediate adverse reactions. Axial MIP volume rendering provided. Sagittal and coronal reformatted images were obtained. This CT examination was performed using dose optimization techniques as appropriate, variously including the following: *Automated exposure control *Adjustment of mA and/or kV according to patient size (this includes techniques or standardized protocols for targeted exams where dose is matched to indication/reason for exam; i.e. 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 LUNGS: There is a right upper lobectomy with a thick scar along the right major fissure. There is loss of right lung volume. There is a persistent thickening of superior right major fissure of the lung apex, stable. There is 5 mm nodule right lower lobe axial image 20/4, previously 6 mm, subpleural based 5 mm nodule right lower lobe axial image 33/4 is stable. 3 mm nodule left upper lobe is stable. There is mild centrilobular emphysema. No acute consolidation seen. MEDIASTINUM: There is interval removal of left thyroid lobe. The right thyroid lobe is unremarkable. Central trachea and the bronchi are widely patent. No abnormal size mediastinal or hilar lymph nodes seen. Heart size and the great vessels are normal caliber. No pericardial effusion. There are no coronary artery calcifications. PLEURA: There is no pleural effusion. No pleural mass or thickening. AXILLA: No lymphadenopathy. UPPER ABDOMEN: The liver is diffusely attenuated but normal size and contour. No focal lesion. Visualized spleen, pancreas and bilateral adrenal glands are unremarkable. OSSEOUS STRUCTURES: No grossly lytic or sclerotic process seen. CT/CT chest w IV con IMPRESSION: 1. Postsurgical changes right upper lobe with loss of right lung volume and scarring along the right major fissure. 2. Bilateral pulmonary nodules are stable. No new nodules seen. 3. No abnormal mediastinal or axillary lymphadenopathy. 4. Centrilobular emphysema without acute process. Fleischner guidelines were followed.
[2022-07-29] MEDS: iohexoL 350 MG/ML 100 ML INFUS..BTL IV (09:17)
== END 2022-07-29 08:44 | disposition home or self-care (01) ==
LOC: HO.CT 08:43
PROVIDERS: PCP Internal Medicine; Visit Provider Internal Medicine Medical Oncology
DX: C34.11 Malignant neoplasm of upper lobe, right bronchus or lung (principal)
CPT/HCPCS: 71260; Q9967

== ENCOUNTER → 2022-08-14 09:03 | Outpatient (BNVA) | payer OTHER, SELFPAY | PROVIDERS: PCP Internal Medicine; Visit Provider Hospitalist | DX: J43.9 Emphysema, unspecified (principal); C34.91 Malignant neoplasm of unspecified part of right bronchus or lung; E04.2 Nontoxic multinodular goiter; G89.12 Acute post-thoracotomy pain | CPT/HCPCS: 99212 ==

== ENCOUNTER → 2022-08-16 08:52 | Outpatient (BNVA) | payer OTHER, SELFPAY | PROVIDERS: PCP Internal Medicine; Visit Provider Surgery | DX: C34.91 Malignant neoplasm of unspecified part of right bronchus or lung (principal); R91.8 Other nonspecific abnormal finding of lung field; G89.12 Acute post-thoracotomy pain | CPT/HCPCS: 99212 ==

== ENCOUNTER 2022-10-31 08:43 | Outpatient (REF) | payer OTHER, SELFPAY ==
[2022-10-31 11:16] LABS: MANUAL DIFF FLAG NO
[2022-10-31 11:33] LABS: Basophils Absolute Auto 0.1 X10*3/uL (0.0-0.2); Basophils Percent Auto 0.5 % (0-2); Eosinophils Percent Auto 0.1 % (0-4); Hematocrit 44.6 % (37.0-47.0); Hemoglobin 14.8 g/dl (12.0-16.0); Imm Gran Abs Auto 0.08 X10*3/uL (0.00-0.03); Imm Gran Pct Auto 0.8 % (0.0-0.4); Lymphocytes Absolute Auto 2.6 X10*3/uL (1.2-4.9); Mean Corpuscular HGB Conc 33.2 g/dl (31.0-35.0); Mean Corpuscular Hemoglobin 30.1 pg (27.0-33.0); Mean Corpuscular Volume 90.7 fL (80.0-98.0); Mean Platelet Volume 10.3 fL (9.4-12.3); Monocytes Absolute Auto 0.6 X10*3/uL (0.1-1.2); Monocytes Percent Auto 5.9 % (2-11); Neutrophils Absolute Auto 6.6 x10*3/uL (2.0-8.3); Neutrophils Percent Auto 66.7 % (45-73); Platelet Count 382 X10*3/uL (160-400); Red Blood Count 4.92 X10*6/uL (4.20-5.50); Red Cell Distribution Width 13.7 % (11.0-16.0); White Blood Count 9.9 X10*3/uL (4.8-10.8)
[2022-10-31 11:54] LABS: Alanine Aminotransferase 15 U/L (0-31); Albumin Level 4.5 g/dL (3.5-5.0); Alkaline Phosphatase 76 U/L (39-117); Anion Gap 12 (12-20); Aspartate Amino Transferase 20 U/L (5-31); Bilirubin Total 0.4 mg/dL (0.0-1.0); Blood Urea Nitrogen 10 mg/dL (9-16); Calcium 9.4 mg/dL (8.4-10.2); Carbon Dioxide 27 mmol/L (22-29); Chloride 105 mmol/L (96-108); Estimated Glomerular Filt Rate > 60; Glucose Random 107 mg/dL (60-115); Potassium 4.3 mmol/L (3.3-5.1); Sodium 140 mmol/L (135-145)
[2022-10-31 12:20] LABS: Free T4 (Free Thyroxine) 1.06 ng/dL (0.71-1.85); Thyroid Stimulating Hormone 1.34 uIU/mL (0.32-4.0)
[2022-11-04 14:32] LABS: Calcium (PTHI) 9.5 mg/dL (8.6-10.4); PTHI 25 pg/mL (16-77)
== END 2022-10-31 08:44 | disposition home or self-care (01) ==
LOC: HO.HMGCLDS 08:43
PROVIDERS: PCP Internal Medicine Medical Oncology; Visit Provider Internal Medicine Medical Oncology
DX: C34.11 Malignant neoplasm of upper lobe, right bronchus or lung (principal); R63.6 Underweight; E21.3 Hyperparathyroidism, unspecified
CPT/HCPCS: 36415; 80053; 83970; 84439; 84443; 85025

== ENCOUNTER 2023-01-23 06:53 | Outpatient (REF) | payer OTHER, SELFPAY ==
[2023-01-23 11:37] LABS: MANUAL DIFF FLAG NO
[2023-01-23 11:52] LABS: Basophils Absolute Auto 0.1 X10*3/uL (0.0-0.2); Basophils Percent Auto 0.7 % (0-2); Eosinophils Absolute Auto 0.3 X10*3/uL (0.0-0.4); Eosinophils Percent Auto 3.1 % (0-4); Hematocrit 41.9 % (37.0-47.0); Hemoglobin 13.8 g/dl (12.0-16.0); Imm Gran Abs Auto 0.02 X10*3/uL (0.00-0.03); Imm Gran Pct Auto 0.2 % (0.0-0.4); Lymphocytes Percent Auto 33.6 % (20-40); Mean Corpuscular HGB Conc 32.9 g/dl (31.0-35.0); Mean Corpuscular Hemoglobin 30.3 pg (27.0-33.0); Mean Corpuscular Volume 91.9 fL (80.0-98.0); Mean Platelet Volume 10.6 fL (9.4-12.3); Monocytes Absolute Auto 0.7 X10*3/uL (0.1-1.2); Monocytes Percent Auto 8.1 % (2-11); Neutrophils Absolute Auto 4.8 x10*3/uL (2.0-8.3); Neutrophils Percent Auto 54.3 % (45-73); Platelet Count 368 X10*3/uL (160-400); Red Blood Count 4.56 X10*6/uL (4.20-5.50); Red Cell Distribution Width 13.7 % (11.0-16.0); White Blood Count 8.9 X10*3/uL (4.8-10.8)
[2023-01-23 12:34] LABS: Alanine Aminotransferase 12 U/L (0-31); Albumin Level 4.1 g/dL (3.5-5.0); Alkaline Phosphatase 69 U/L (39-117); Anion Gap 12 (12-20); Aspartate Amino Transferase 17 U/L (5-31); Bilirubin Total 0.3 mg/dL (0.0-1.0); Blood Urea Nitrogen 10 mg/dL (9-16); Calcium 9.1 mg/dL (8.4-10.2); Carbon Dioxide 26 mmol/L (22-29); Chloride 106 mmol/L (96-108); Cholesterol 248 mg/dL (<200); Estimated Glomerular Filt Rate > 60; Glucose Fasting 92 mg/dL (60-99); HDL Cholesterol 79 mg/dL (>40); LDL Cholesterol Calculated 153 mg/dL (<100); Potassium 4.4 mmol/L (3.3-5.1); Sodium 140 mmol/L (135-145); Triglycerides 83 mg/dL (<150)
[2023-01-23 12:37] LABS: Free T4 (Free Thyroxine) 0.91 ng/dL (0.71-1.85); Thyroid Stimulating Hormone 1.58 uIU/mL (0.32-4.0); Vitamin D 25-OH Total 88.8 ng/mL (>30)
[2023-01-27 13:59] LABS: Calcium (PTHI) 9.2 mg/dL (8.6-10.4); PTHI 35 pg/mL (16-77)
== END 2023-01-23 06:54 | disposition home or self-care (01) ==
LOC: HO.HMGCLDS 06:53
PROVIDERS: PCP Internal Medicine; Visit Provider Internal Medicine Medical Oncology
DX: C34.11 Malignant neoplasm of upper lobe, right bronchus or lung (principal); E21.3 Hyperparathyroidism, unspecified
CPT/HCPCS: 36415; 80053; 80061; 82306; 83970; 84439; 84443; 85025

== ENCOUNTER 2023-01-30 09:16 | Outpatient (REF) | payer OTHER, SELFPAY ==
--- NOTE | ~2023-01-30 | CT_ITS ---
EXAMINATION: CT CHEST WITH CONTRAST CLINICAL INFORMATION: Malignant neoplasm right COMPARISON: Previous chest CT scans most recent 2022 TECHNIQUE: Multidetector volumetric CT imaging of the chest was obtained after the administration of 65 mL of Omnipaque 350 intravenous contrast without immediate adverse reactions. Axial MIP volume rendering provided. Sagittal and coronal reformatted images were obtained. This CT examination was performed using dose optimization techniques as appropriate, variously including the following: *Automated exposure control *Adjustment of mA and/or kV according to patient size (this includes techniques or standardized protocols for targeted exams where dose is matched to indication/reason for exam; i.e. extremities or head) *Use of iterative reconstruction technique DLP: 68 mGy-cm FINDINGS: LUNGS: Emphysema. Stable postsurgical changes following right upper lobe lobectomy. Stable 6 mm right lower lobe nodule axial image 74 series 5 Stable 5 mm peripheral or subpleural right lower lobe nodule axial image 120 series 5. Stable 3 mm left upper lobe nodule axial image 89 series 5. Mild bronchial wall thickening the lung bases. MEDIASTINUM: Normal heart size. No pericardial effusion. Mild coronary artery bilateral hilar nodes. PLEURA: There is no pleural effusion. No pleural mass or thickening. AXILLA: No lymphadenopathy. UPPER ABDOMEN: Unremarkable OSSEOUS STRUCTURES: Unremarkable. CT/CT chest w IV con IMPRESSION: Emphysema. Stable postsurgical changes following right upper lobectomy. Stable pulmonary nodules. No new pulmonary nodule. Chest CT follow-up as per protocol. Fleischner guidelines were followed.
[2023-01-30] MEDS: iohexoL 350 MG/ML 100 ML INFUS..BTL 65 ML IV (10:05)
== END 2023-01-30 09:17 | disposition home or self-care (01) ==
LOC: HO.CT 09:16
PROVIDERS: PCP Internal Medicine Medical Oncology; Visit Provider Internal Medicine Medical Oncology
DX: C34.11 Malignant neoplasm of upper lobe, right bronchus or lung (principal)
CPT/HCPCS: 71260; Q9967

== ENCOUNTER 2023-02-07 09:07 | Outpatient (AMB) | payer OTHER, SELFPAY ==
--- NOTE | 2023-02-07 09:18 | A.OFFVIS_ITS ---
Intake Vital Signs 02/07/23 09:31 Height 5 ft 2 in Weight 105 lb BMI 19.2 BP 100/70 Blood Pressure Location Lt brachial Position Sitting Pulse 100 Intake Visit Reasons: CT 6 month follow up Allergies erythromycin base Allergy (Severe, Verified 02/07/23 09:32) Diarrhea and C-Diff Medication List - Last Reconciled 02/07/23 by Abhishek Otero MD acetaminophen mg PO calcium citrate-vitamin D3 200 mg-6.25 mcg (250 unit) (Citracal-D3 Petites) 2 tabs PO BID 30 days cholecalciferol (vitamin D3) 50 mcg PO DAILY 30 days gabapentin Take 1 capsule in the AM and 2 capsules at bedtime; 30 days ondansetron HCl 8 mg PO PRN umeclidinium-vilanterol 62.5-25 mcg/actuation (Anoro Ellipta) 1 inh inhalation DAILY Ventolin HFA 90 mcg/actuation (albuterol sulfate) 2 puffs inhalation Q6H PRN NS HPI CT 6 month follow up HPI Details 57-year-old woman long-time former smoker who I mary ellen ramos met in November after CT sc an showing a 1.2 c m right upper lobe spiculated nodule . She did have a PET scan on which showed i ncreased uptake in the nodule and no increased uptake elsewhere. she underwent Davinci right uppe r lobe wedge with completion right u pper lobectomy and mediastinal lymph adenectomy for sta ge I B adenocarcin tyson with some visc eral pleural invas ion. She did get chemotherapy posto peratively and has been followed wit h serial CT scans since then. She d id have a portion of her thyroid gla nd and parathyroid s removed since ou r last visit and s he said that seems to be going well. Her most recent CT scan compared w ith 6 months ago w as done on 01/31/20 which shows no evidence of recurr ence or new diseas e. There is a pul monary nodule that is stable measuri ng 5 mm in the rig ht lower lobe. Sh e is seeing her on cologist Dr. Villanueva who is planning a six-month follow- up CT scan. She d enies significant shortness of breat h cough or hemopty sis. She denies a ny unintentional w eight loss decreas ed appetite fevers chills or soaking sweats. She meg es any new neurolo gic symptoms. She does still occasi onally have numbne ss and discomfort over her right ant erior chest at see ms to be dependent somewhat on what she is doing on th at particular day. She is on gabape ntin already and d oes not think she needs anything mor e. [facility] Medical History Annual visit for general adult medical examination with abnormal findings Hyperparathyroidism Toxic multinodular goiter Vitamin D deficiency Hyperthyroidism Post-thoracotomy pain syndrome Primary adenocarcinoma of right lung (~2020) Right upper lobe pulmonary nodule Personal history of nicotine dependence Clostridium difficile colitis (~11/2020) Pulmonary nodules/lesions, multiple Emphysema of lung Osteoporosis (~2019) Hyperparathyroidism Vitamin D deficiency Multinodular thyroid Surgical History Hx of partial thyroidectomy History of lobectomy of lung (~2020) S/P thyroid biopsy (~2017) History of colonoscopy (~2018) Family History Mother Pancreatic cancer Father COPD (chronic obstructive pulmonary disease) Social History Housing: House Alcohol intake: former Patient Tobacco Use Status: Former Tobacco user Years Smoked: 35 years e-Cigarette/Vaping Use: Never Used Second Hand Smoke Exposure: No Substance Use Type: Marijuana service: No Current occupational status: disabled Cognitive needs: No Hearing needs: No Vision needs: Yes Physical Exam Vital Signs: Last Vital Signs Pulse 100 02/07/23 09:31 BP 100/70 02/07/23 09:31 BMI result Body Mass Index 19.2 General: No acute distress HEENT: Moist mucous membranes, normocephalic, pupils equal round and reactive to light. Neck: No thyromegaly, supple, no JVD Lymph: No cervical, supraclavicular, or other lymphadenopathy Chest: No chest wall abnormalities or deformities wounds are well healed Heart: Regular rate and rhythm Lungs: Clear to auscultation bilaterally Abdomen: Soft, nontender, normal bowel sounds Extremities: No edema, cyanosis, or clubbing. Full range of motion Neuro: Grossly intact, alert and oriented x3, and nonfocal Skin: Warm and dry no rashes Affect: Normal Assessment & Plan Assessment & Plan (1) Primary adenocarcinoma of right lung: Onset Date: ~2020 Comment: (Stage IB Adenocarcinoma - s/p RUL Lobectomy 02/06/21- s/p chemo compete 06/04/21) Code(s): C34.91 - Malignant neoplasm of unspecified part of right bronchus or lung Plan: 57-year-old woman with stage I lung cancer resected with Davinci right upper lobectomy and mediastinal lymphadenectomy 2 years ago doing quite well from a clinical standpoint without evidence of recurrent or new disease on CT scan or clinically. I did have a discussion with her about the findings on the CT scan which he seemed understand was quite pleased with. She is planning to see her oncologist in 6 months and he is arranging for her to have a CT scan at that time. I did explain the surveillance protocol again and she will follow-up with me in the [facility] office after she has her [address] scan done at [place] at her request. Her oncologist is the [address] scan and she should see me towards the end of July or early August. All questions were answered. (2) Post-thoracotomy pain syndrome: Code(s): G89.12 - Acute post-thoracotomy pain Plan: This is not limiting her in any way but she still has some numbness over the right anterior chest with occasional pain. Coding Level of Care Code Est Pt Level 4 (11633) Diagnoses Primary adenocarcinoma of right lung C34.91 Post-thoracotomy pain syndrome G89.12
[2023-02-07 09:31] VITALS: BP 100/70; PULSE 100; BMI 19.2
== END 2023-02-07 09:54 | disposition home or self-care (01) ==
PROVIDERS: PCP Internal Medicine; Visit Provider Surgery
DX: C34.91 Malignant neoplasm of unspecified part of right bronchus or lung (principal); G89.12 Acute post-thoracotomy pain

== ENCOUNTER → 2023-02-07 09:07 | Outpatient (BNVA) | payer OTHER, SELFPAY | PROVIDERS: Visit Provider Surgery | DX: C34.91 Malignant neoplasm of unspecified part of right bronchus or lung (principal); G89.12 Acute post-thoracotomy pain | CPT/HCPCS: 99212 ==

== ENCOUNTER 2023-02-12 13:03 | Inpatient (IN) | payer OTHER, SELFPAY ==
--- NOTE | ~2023-02-12 | XR_ITS ---
EXAMINATION: XR CHEST CLINICAL INFORMATION: Shortness of breath COMPARISON: CT chest 01/30/2023 Chest radiograph 11/10/2020 TECHNIQUE: Frontal view of the chest was obtained. FINDINGS: The heart and pulmonary vessels appear normal. Patient status post partial pneumonectomy on the right with volume loss in the right hemithorax. There is some increased reticular nodular interstitial prominence on the right. No focal consolidations. No pleural effusions. XR/XR chest 1V IMPRESSION: No acute intrathoracic disease. Status post partial pneumonectomy on the right.
[2023-02-12 13:15] VITALS: BP 135/85; PULSE 125; RESP 26; TEMP 37.3; O2SAT 81; BMI 19.2
--- NOTE | 2023-02-12 13:15 | ED_ITS ---
HPI - General Adult General Chief complaint: Dyspnea Stated complaint: lung cancer / multiple symptoms Time Seen by Provider: 02/12/23 13:28 Source: patient and old records reviewed Mode of arrival: ambulatory Limitations: no limitations History of Present Illness HPI narrative: 57 yo female with PMH of hyperthyroidism, 2020 adenocarcinoma of R lung s/p wedge resection and completed 4 cycles of chemo - recent CT scan which Dr. Villanueva is going to monitor. She comes in with c/o not feeling well x 2 days - has a headache, cough with sputum production, myalgias, subjective fevers. She arrived tachypneic and 84% on arrival - she does not use oxygen at home. She denies travel or sick contacts. She is vaccinated for COVID x 2 and flu. She coughed so hard she vomited and she has had loose stools. She has had c diff with antibiotics before. MD complaint: cough, fevers, not feeling well. Onset (ago): day(s) (2) Radiation: non-radiation Severity: moderate Quality: aching and dull Pain Consistency: intermittent Relieving factors: none Exacerbating factors: movement Associated symptoms: cough, fever/chills, headaches, loss of appetite, malaise, nausea/vomiting and shortness of breath Treatments prior to arrival: none Related Data Home Medications Medication Instructions Recorded Confirmed ondansetron HCl 8 mg tablet 8 mg PO PRN nausea and vomiting 03/26/21 02/07/23 acetaminophen 325 mg tablet mg PO 04/30/21 02/07/23 Previous Rx's Medication Instructions Recorded cholecalciferol (vitamin D3) 50 50 mcg PO DAILY 30 days #30 caps 06/21/22 mcg (2,000 unit) capsule Ventolin HFA 90 mcg/actuation 2 puff inhalation Q6H PRN 08/14/22 aerosol inhaler (albuterol sulfate) shortness of breath or wheezing #18 grams gabapentin 300 mg capsule See Rx Instructions PO BEDTIME 30 08/14/22 days #90 caps umeclidinium 62.5 mcg-vilanterol 1 inh inhalation DAILY #60 ea 08/14/22 25 mcg/actuation powdr for inhalation (Anoro Ellipta) calcium citrate 200 mg 2 tab PO BID 30 days #120 tabs 09/04/22 calcium-vitamin D3 6.25 mcg (250 unit) tablet (Citracal-D3 Petites) Allergies Allergy/AdvReac Type Severity Reaction Status Date / Time erythromycin base Allergy Severe Diarrhea Verified 02/07/23 09:32 and C-Diff Review of Systems 2 Review of Systems: Constitutional : pos Fever, pos Chills ENT/Mouth : No Hoarseness, No sore throat, No Rhinorrhea Eyes: No Redness, No Discharge, No Vision Changes Cardiovascular : No Chest Pain, positive SOB, positive Dyspnea on Exertion, No Edema Respiratory : positive Cough, pos Sputum, noWheezing, Gastrointestinal : No Nausea, No Vomiting, No Diarrhea, No abdominal Pain Genitourinary : No Dysuria, No Hematuria Musculoskeletal : No joint pain, pos Myalgias Skin : No rash Neuro : pos Weakness, No Numbness, pos Headache Psych : No anxiety, depression Heme/Lymph: No Bruising, No Bleeding Endocrine : No Polyuria, No Polydipsia All other systems reviewed and are negative [facility] Past Medical History Attestation statement: The following information was validated with the patient. Medical History Annual visit for general adult medical examination with abnormal findings Hyperparathyroidism Toxic multinodular goiter Vitamin D deficiency Hyperthyroidism Post-thoracotomy pain syndrome Primary adenocarcinoma of right lung (~2020) Right upper lobe pulmonary nodule Personal history of nicotine dependence Clostridium difficile colitis (~11/2020) Pulmonary nodules/lesions, multiple Emphysema of lung Osteoporosis (~2019) Hyperparathyroidism Vitamin D deficiency Multinodular thyroid Surgical History Hx of partial thyroidectomy History of lobectomy of lung (~2020) S/P thyroid biopsy (~2017) History of colonoscopy (~2018) Family History Family History Mother Pancreatic cancer Father COPD (chronic obstructive pulmonary disease) Social History Social History Housing: House Alcohol intake: former Patient Tobacco Use Status: Former Tobacco user Years Smoked: 35 years e-Cigarette/Vaping Use: Never Used Second Hand Smoke Exposure: No Substance Use Type: Marijuana Advance Directives: No Advance Directives Information Provided: Yes service: No Current occupational status: disabled Cognitive needs: No Hearing needs: No Vision needs: Yes Physical Exam ED Vital Signs: Vital Signs - 24 hr 10/04/23 13:15 02/12/23 13:49 02/12/23 14:29 Temperature 99.1 F 98.5 F Pulse Rate 125 H 104 H 113 H Respiratory Rate 26 H 22 H 30 H Blood Pressure 135/85 100/55 L Pulse Oximetry 81 L 91 L Oxygen Delivery Method Room Air Room Air BMI result Body Mass Index 19.2 Appearance: Alert. Oriented X3. Mild acute distress. Eyes: Pupils equal, round and reactive to light. ENT: Pharynx dry MM Neck: Normal inspection. Neck supple. CVS: tachycardic heart rate and rhythm. Pulses normal. Respiratory: Mild respiratory distress - tachypnea. Breath sounds diminished throughout some rhonchi noted Abdomen: Soft and nontender. Skin: Skin warm and dry. Normal skin color. Normal skin turgor. Extremities: No lower extremity edema. No calf ttp Neuro: Oriented X 3. No motor deficit. No sensory deficit. Course Course Course Narrative: RME: 57yo F w/PMHx hyperparathyroid, lung CA s/p lobesctomy, not currently on chemo or radiation, c/o cough, SOB, chest pain, sore throat, headache, myalgias x 2 days. hypoxic 81% on RA, tachypneic, SOB, tachycardic EKG, labs, CXR, COVID/flu/RSV, lactic/blood cultures, ED bronch protocol ordered Patient will be brought back to main immediately Full HPI, ROS and PE to be performed by primary ED provider. Medications Administered Generic Name Dose Route Start Last Admin Trade Name Freq PRN Reason Stop Dose Admin Doxycycline Hyclate 100 mg/ 250 mls @ 166.67 mls/hr 02/12/23 13:58 02/12/23 14:44 Sodium Chloride IV 02/12/23 15:27 166.67 mls/hr ONCE ONE Administration Discontinued Medications Generic Name Dose Route Start Last Admin Trade Name Freq PRN Reason Stop Dose Admin Acetaminophen 650 mg 02/12/23 13:34 02/12/23 14:04 Acetaminophen 325 Mg Tablet PO 02/12/23 13:35 650 mg ONCE ONE Administration Albuterol Sulfate 2.5 mg/ 5 mg 02/12/23 13:45 02/12/23 13:49 Albuterol Sulfate 2.5 mg INHALE 02/12/23 13:46 5 mg ONCE ONE Administration Ceftriaxone Sodium 1 gm/ 50 mls @ 100 mls/hr 02/12/23 13:34 02/12/23 14:06 Sodium Chloride IV 02/12/23 14:03 100 mls/hr ONCE ONE Administration Sodium Chloride 1,428.81 mls @ 1,428.81 mls/hr 02/12/23 13:39 02/12/23 14:46 Ns 30 ml/kg infuse over 1 hr (1428.81 ml) 02/12/23 14:38 Infused IV Infusion .Q1H STA Methylprednisolone Sodium Succinate 60 mg 02/12/23 13:34 02/12/23 13:51 Methylprednisolone Sod Succ 125 Mg/2 Ml Vial IVPUSH 02/12/23 13:35 60 mg ONCE ONE Administration Morphine Sulfate 2 mg 02/12/23 14:35 02/12/23 14:44 Morphine Sulfate 2 Mg/Ml Cartridge IVPUSH 02/12/23 14:36 2 mg ONCE ONE Administration Protocol Ondansetron HCl 4 mg 02/12/23 13:34 02/12/23 14:04 Ondansetron Hcl 4 Mg/2 Ml Vial IVPUSH 02/12/23 13:35 4 mg ONCE ONE Administration Medical Decision Making Medical Decision Making MDM Narrative: 57 yo female with PMH of hyperthyroidism, 2020 adenocarcinoma of R lung s/p wedge resection and completed 4 cycles of chemo here with myalgias, headaches, coughing, sputum, fevers and dyspnea with sat 84% - her symptoms seem infectious could be pneumonia/viral at this time labs, cultures, lactic acid, CXR and start on steroids given hx of inhaler use and reactive airway disease, ceftriaxone, doxycycline for presumed pneumonia, neb ordered. Anticipate admission given hypoxia off of O2. She does not have chest pain and her symptoms seem more infectious in nature - VTE less likely. Differential Diagnosis Differential Diagnoses: The differential diagnosis associated with the presentation includes viral illness, pneumonia Admission/Observation Consideration of admission/observation: Escalation of care including admission/observation considered admission given hypoxia Consult Healthcare Provider Management of the patient was discussed with: Hospitalist (agrees to admit) Lab Data MDM Lab Attestation statement: I reviewed the patient's lab results. 02/12/23 13:40 02/12/23 13:40 Labs: Lab Results 02/12/23 02/12/23 Range/Units 13:40 14:01 WBC 22.1 H (4.8-10.8) X10*3/uL RBC 4.20 (4.20-5.50) X10*6/uL Hgb 12.8 (12.0-16.0) g/dl Hct 36.5 L (37.0-47.0) % MCV 86.9 (80.0-98.0) fL MCH 30.5 (27.0-33.0) pg MCHC 35.1 H (31.0-35.0) g/dl RDW 13.1 (11.0-16.0) % Plt Count 276 (160-400) X10*3/uL MPV 10.0 (9.4-12.3) fL Immature Gran % (Auto) Cancelled Neut % (Auto) Cancelled Lymph % (Auto) Cancelled [place] % (Auto) Cancelled Eos % (Auto) Cancelled Baso % (Auto) Cancelled Lymph # (Auto) Cancelled [place] # (Auto) Cancelled Eos # (Auto) Cancelled Baso # (Auto) Cancelled Abs Immat Gran (auto) Cancelled Absolute Neuts (auto) Cancelled Absolute Nucleated RBC 0.000 (0.0-0.012) X10*3/uL Nucleated RBC % (auto) 0.0 (0.0-0.2) /100WBC Neutrophils % (Manual) 80 H (45-73) % Band Neutrophils % 15 H (3-5) % Lymphocytes % (Manual) 4 L (20-40) % Monocytes % (Manual) 1 L (2-11) % Abs Neuts (Manual) 21.0 H (2.0-8.3) X10*3/uL Lymphocytes # (Manual) 0.9 L (1.2-4.9) X10*3/uL Monocytes # (Manual) 0.2 (0.1-1.2) X10*3/uL Toxic Vacuolation PRESENT Platelet Estimate NORMAL (NORMAL) Plt Morphology Comment NORMAL RBC Morphology NOTED Tay Cells 3+ (>5) /OIF Acanthocytes (Spur) 1+ (0-2) /OIF Smear Tech's Comments MANUAL DIFF PT 13.1 (11.1-13.3) SEC INR 1.1 (0.9-1.1) Sodium 132 L (135-145) mmol/L Potassium 3.8 (3.3-5.1) mmol/L Chloride 98 (96-108) mmol/L Carbon Dioxide 23 (22-29) mmol/L Anion Gap 15 (12-20) BUN 11 (9-16) mg/dL Creatinine 0.72 (0.5-1.4) mg/dL Estim Creat Clear Calc 65.5 Estimated GFR > 60 Random Glucose 125 H (60-115) mg/dL Lactic Acid 2.0 (0.5-2.0) mmol/L Calcium 9.2 (8.4-10.2) mg/dL Magnesium 2.0 (1.6-2.6) mg/dL Total Bilirubin 0.5 (0.0-1.0) mg/dL Direct Bilirubin 0.2 (0.0-0.5) mg/dL AST 16 (5-31) U/L ALT 11 (0-31) U/L Alkaline Phosphatase 86 (39-117) U/L Troponin I High Sens < 2.7 (<3.5-17.0) ng/L B-Natriuretic Peptide 38 (<100) pg/mL Total Protein 7.7 (6.5-8.0) g/dL Albumin 3.9 (3.5-5.0) g/dL Independent Interpretation I performed an independent interpretation of an: EKG and Plain X-Ray Interpretation: Rate: 109 Rhythm: sinus tachycardia [place]: normal Normal P waves. Normal JILL. Normal QRS complex. ST T wave : no ANALILIA, inverted t wave V1-V2 qTC: normal prior studies: no acute ischemia The study has been interpreted contemporaneously by me. . Radiology Impression Discussion of test interpretation with radiology: I have reviewed the radiologist's reading. External Record Review External record reviewed: Inpatient record Critical Care Time Critical Care Time Critical Care Time: Yes Total Critical Care Time: 45 Attestation: treatment of hypoxia with O2, nebs, rapid treatment of pneumonia antibiotics and sepsis protocol 30cc/kg bolus I attest to this time spent taking care of the patient Discharge Plan Discharge Clinical Impression: Hypoxia Pneumonia Qualifiers: Pneumonia type: due to unspecified organism Laterality: right Lung location: l ower lobe of lung Qualified Code(s): J18.9 - Pneumonia, unspecified organism Leukocytosis Qualifiers: Leukocytosis type: bandemia Qualified Code(s): D72.825 - Bandemia Patient Disposition: Admitted As Inpatient
--- NOTE | 2023-02-12 13:17 | ECG_ITS ---
Test Reason : HYPOXIA Blood Pressure : / mmHG Vent. Rate : 109 BPM Atrial Rate : 109 BPM P-R Int : 122 ms QRS Dur : 084 ms QT Int : 322 ms P-R-T Axes : 064 090 061 degrees QTc Int : 433 ms Sinus tachycardia Possible Left atrial enlargement Rightward axis Borderline ECG When compared with ECG of 26-JAN-2021 08:15, No significant change was found Referred By: Nadira Arce Electronically Signed By:GERRI FLORES
[2023-02-12 13:49] VITALS: PULSE 104; RESP 22; O2SAT 99
[2023-02-12] MEDS: Albuterol Sulfate 2.5 MG, Albuterol Sulfate (0.083%) 2.5 MG 5 MG INHALE (13:49)
[2023-02-12 13:50] LABS: Hematocrit 36.5 % (37.0-47.0); Hemoglobin 12.8 g/dl (12.0-16.0); Mean Corpuscular HGB Conc 35.1 g/dl (31.0-35.0); Mean Corpuscular Hemoglobin 30.5 pg (27.0-33.0); Mean Corpuscular Volume 86.9 fL (80.0-98.0); Platelet Count 276 X10*3/uL (160-400); Red Cell Distribution Width 13.1 % (11.0-16.0); White Blood Count 22.1 X10*3/uL (4.8-10.8)
[2023-02-12] MEDS: methylPREDNISolone Sod Succ 125 MG/2 ML VIAL 60 MG IVPUSH (13:51)
[2023-02-12 13:55] LABS: INTERNATIONAL NORM RATIO 1.1 (0.9-1.1); Prothrombin Time 13.1 SEC (11.1-13.3)
[2023-02-12] MEDS: Acetaminophen 325 MG TABLET 650 MG PO ×2 (14:04→22:02)
[2023-02-12] MEDS: ondansetron HCL 4 MG/2 ML VIAL IVPUSH (14:04)
[2023-02-12 14:06] LABS: Alanine Aminotransferase 11 U/L (0-31); Albumin Level 3.9 g/dL (3.5-5.0); Alkaline Phosphatase 86 U/L (39-117); Anion Gap 15 (12-20); Aspartate Amino Transferase 16 U/L (5-31); Bilirubin Direct 0.2 mg/dL (0.0-0.5); Bilirubin Total 0.5 mg/dL (0.0-1.0); Blood Urea Nitrogen 11 mg/dL (9-16); Calcium 9.2 mg/dL (8.4-10.2); Carbon Dioxide 23 mmol/L (22-29); Chloride 98 mmol/L (96-108); Creatinine Clr Calc Pharmacy 65.5; Estimated Glomerular Filt Rate > 60; Glucose Random 125 mg/dL (60-115); Potassium 3.8 mmol/L (3.3-5.1); Sodium 132 mmol/L (135-145); Total Protein 7.7 g/dL (6.5-8.0)
[2023-02-12] MEDS: cefTRIAXone sodium 1 GM in 0.9 % Sodium Chloride 50 ML IV (14:06)
[2023-02-12] MEDS: 0.9 % Sodium Chloride 1,428.81 ML 1428.81 ML IV (14:06)
[2023-02-12 14:09] LABS: B Type Natriuretic Peptide 38 pg/mL (<100)
[2023-02-12 14:18] LABS: SLIDE REVIEW MANUAL DIFF
[2023-02-12 14:24] LABS: Neutrophils Percent Manual 80 % (45-73)
[2023-02-12 14:27] LABS: Band Neutrophils Percent 15 % (3-5); Lymphocytes Absolute Manual 0.9 X10*3/uL (1.2-4.9); Lymphocytes Percent Manual 4 % (20-40); Monocytes Absolute Manual 0.2 X10*3/uL (0.1-1.2); Monocytes Percent Manual 1 % (2-11)
[2023-02-12 14:29] VITALS: BP 100/55; PULSE 113; RESP 30; TEMP 36.9; O2SAT 91
[2023-02-12 14:29] LABS: Acanthocytes 1+ (0-2) /OIF; RBC Morphology NOTED
[2023-02-12 14:30] LABS: Burr Cells 3+ (>5) /OIF; Platelet Estimate NORMAL (NORMAL); Platelet Morphology Comment NORMAL; Toxic Vacuolation PRESENT
[2023-02-12 14:41] LABS: Troponin-I High Sensitivity < 2.7 ng/L (<3.5-17.0)
[2023-02-12] MEDS: Morphine Sulfate 2 MG/ML CARTRIDGE IVPUSH (14:44)
[2023-02-12] MEDS: Doxycycline Hyclate 100 MG in 0.9 % Sodium Chloride 250 ML 166.67 MG IV (14:44)
[2023-02-12 15:33] LABS: Influenza A PCR NEGATIVE (Negative); Influenza B PCR NEGATIVE (Negative); Resp Syncy Virus RNA Qual PCR NEGATIVE (Negative); SARS COV2 PCR INHOUSE NEGATIVE (Negative)
[2023-02-12 15:44] VITALS: BP 113/66; PULSE 104; RESP 18; O2SAT 95
--- NOTE | 2023-02-12 16:08 | PHA.MEDREC ---
Addendum entered by Martha So RPh 02/12/23 16:19: Patient would prefer to use her prescription for Calcium citrate/vit D instead of our formulary medications. Original Note: Pharmacy Consult ? Medication Reconciliation Pharmacy has completed the medication reconciliation. Patient reported medications. Martha So, PharmD
--- NOTE | 2023-02-12 16:20 | P.HPHOSP_ITS ---
History of Present Illness Date of Service: 02/12/23 Chief Complaint: Shortness of breath 57 yo female with PMH of hyperthyroidism, adenocarcinoma of R lung diagnosed in 2020, s/p wedge resection and completed 4 cycles of chemo, recent CT chest January 30 showed emphysema no new pulmonary nodules being followed closely by Dr. Villanueva, presented to [facility] ED due to not feeling well x 2 days, symptoms started Friday evening with intermittent fevers chills, headache, cough with sputum production, myalgias, nausea , diarrhea and dizziness , patient denies recent history of travel, no sick contacts lives at home alone, not on home oxygen in the emergency room patient noted to be tachypneic, tachycardic elevated WBC count of 22,000 with bandemia, pulse ox 81% on room air improved to 95% with 2 L of oxygen , patient treated in the emergency room with IV fluids, IV ceftriaxone and doxycycline, updraft treatment and 1 dose of IV Solu Medrol 60 mg at present patient is feeling better but complaining of persistent headache, nausea burning of eyes and generalized discomfort, chest x-ray showed no acute consolidation but showed some increased reticular nodular interstitial prominence on the right, question early pneumonia /viral infection, will be admitted to [facility] with a diagnosis of sepsis. Review of Systems 2 Review of Systems: General complaining of headache ,dizziness , fever chills. CVS chest pain with coughing, no palpitation. Musculoskeletal myalgias Gastrointestinal + nausea, no vomiting, no abdominal pain, positive diarrhea no urgency, no frequency Skin no rash PMFSH Medical History Annual visit for general adult medical examination with abnormal findings Hyperparathyroidism Toxic multinodular goiter Vitamin D deficiency Hyperthyroidism Post-thoracotomy pain syndrome Primary adenocarcinoma of right lung (~2020) Right upper lobe pulmonary nodule Personal history of nicotine dependence Clostridium difficile colitis (~11/2020) Pulmonary nodules/lesions, multiple Emphysema of lung Osteoporosis (~2019) Hyperparathyroidism Vitamin D deficiency Multinodular thyroid Family History Mother Pancreatic cancer Father COPD (chronic obstructive pulmonary disease) Surgical History Hx of partial thyroidectomy History of lobectomy of lung (~2020) S/P thyroid biopsy (~2017) History of colonoscopy (~2018) Social History Household Members: None Housing: House Do you presently have visiting nurse or other home services: No Alcohol intake: current Alcohol intake frequency: a few times a month Patient Tobacco Use Status: Former Tobacco user Years Smoked: 35 years Smoked in Last 30 Days: No e-Cigarette/Vaping Use: Never Used Second Hand Smoke Exposure: No Use of substances other than those prescribed or required for medical reasons: Yes Substance Use Type: Marijuana Substance Use Frequency: Occasionally Last Used Substance: Weeks (ago) Currently Displaying Signs/Symptoms of Drug Intoxication Withdrawal: No Any prior treatment program specific to substance use: No Have you been hit, kicked, punched, or otherwise hurt by someone within the past year? If so, by whom?: No Do you feel safe in your current relationship?: No Current Relationship Is there a partner from a previous relationship who is making you feel unsafe now?: No Are you made to feel afraid or neglected: No Advance Directives: No Advance Directives Information Provided: Yes Do you have thoughts of harming others: None Do you have a plan to hurt others: No Plan Recently lost weight without trying: No How much weight loss: Not applicable Eating poorly because of decreased appetite: No Nutrition screen score: 0 Nutrition Risks: No Nutritional Risk Patient : No : No Poor oral hygiene: No service: No Current occupational status: disabled Cognitive needs: No Hearing needs: No Vision needs: Yes Meds Allergies Allergy/AdvReac Type Severity Reaction Status Date / Time erythromycin base Allergy Severe Diarrhea Verified 02/07/23 09:32 and C-Diff Active Medications: Current Medications Acetaminophen (Acetaminophen 325 Mg Tablet) 650 mg PO Q6H PRN PRN Reason: Pain, Mild (Pain Scale 1-3) Albuterol/Ipratropium (Albuterol/Iprat 2.5/0.5mg 3 Ml Ampul.Neb) 3 ml INHALE RQID CATALINO Albuterol/Ipratropium (Albuterol/Iprat 2.5/0.5mg 3 Ml Ampul.Neb) 3 ml INHALE Q3H PRN PRN Reason: Shortness of Breath/Wheezing Benzonatate (Benzonatate 100 Mg Capsule) 100 mg PO TID PRN PRN Reason: Cough Enoxaparin Sodium (Enoxaparin Sodium 40 Mg/0.4 Ml Syringe) 40 mg SUBCUT Q24H [facility] Gabapentin (Gabapentin 300 Mg Capsule) 300 mg PO DAILY PRN PRN Reason: NEUROPATHY Gabapentin (Gabapentin 300 Mg Capsule) 600 mg PO BEDTIME [facility] Guaifenesin/Dextromethorphan (Guaifenesin Dm 200/20/10 Ml 10 Ml Syrup) 10 ml PO QID [facility] Doxycycline Hyclate 100 mg/ (Sodium Chloride) 250 mls @ 166.67 mls/hr IV Q12H [facility] Melatonin (Melatonin 3 Mg Tablet) 3 mg PO BEDTIME PRN PRN Reason: Insomnia Methylprednisolone Sodium Succinate (Methylprednisolone Sod Succ 40 Mg/Ml Vial) 40 mg IVPUSH Q12H [facility] Ondansetron HCl (Ondansetron Hcl 4 Mg/2 Ml Vial) 4 mg IVPUSH Q8H PRN PRN Reason: Nausea and Vomiting Sodium Chloride (0.9 % Sodium Chloride Flush 3 Ml Syringe) 3 ml IVFLUSH QSHIFT [facility] Vitamin D (Cholecalciferol (Vitamin D3) 25 Mcg Tablet) 50 mcg PO DAILY [facility] Home Medications Medication Instructions Recorded Confirmed Last Taken Type acetaminophen 325 mg tablet 650 mg PO QID PRN HEADACHE OR PAIN 04/30/21 02/12/23 Unknown History gabapentin 300 mg capsule 300 mg PO DAILY PRN NEUROPATHY 02/12/23 02/12/23 Unknown History gabapentin 300 mg capsule 600 mg PO BEDTIME 02/12/23 02/12/23 Unknown History Physical Exam 2 Vital Signs and Narrative: Vital Signs: Last Vital Signs Temp 98.5 F 02/12/23 14:29 Pulse 104 H 02/12/23 15:44 Resp 18 02/12/23 15:44 BP 113/66 02/12/23 15:44 Pulse Ox 95 02/12/23 15:44 O2 Del Method Nasal Cannula 02/12/23 15:44 O2 Flow Rate 2 02/12/23 15:44 BMI result Body Mass Index 19.2 Const: Other: General frail sick-looking, awake alert x3, no acute distress. HEENT pupil equal round reactive to light and accommodation anicteric sclera Neck supple no JVD. CVS regular rate rhythm, Respiratory lungs clear to auscultation, no respiratory distress, no wheeze, no rhonchi. Gastrointestinal abdomen soft, non tender, bowel sounds audible, no guarding , no rigidity. Extremities no edema. Neuro nonfocal , moving all 4 extremity speech clear. Skin no rash Psych appropriate affect Results Labs 02/13/23 08:47 02/13/23 08:47 Labs: Laboratory Results - last 24 hr 02/12/23 02/12/23 13:40 14:49 MCV 86.9 MCH 30.5 MCHC 35.1 H RDW 13.1 Plt Count 276 MPV 10.0 Immature Gran % (Auto) Cancelled Neut % (Auto) Cancelled Lymph % (Auto) Cancelled [place] % (Auto) Cancelled Eos % (Auto) Cancelled Baso % (Auto) Cancelled Lymph # (Auto) Cancelled [place] # (Auto) Cancelled Eos # (Auto) Cancelled Baso # (Auto) Cancelled Abs Immat Gran (auto) Cancelled Absolute Neuts (auto) Cancelled Absolute Nucleated RBC 0.000 Nucleated RBC % (auto) 0.0 Neutrophils % (Manual) 80 H Band Neutrophils % 15 H Lymphocytes % (Manual) 4 L Monocytes % (Manual) 1 L Abs Neuts (Manual) 21.0 H Lymphocytes # (Manual) 0.9 L Monocytes # (Manual) 0.2 Toxic Vacuolation PRESENT Platelet Estimate NORMAL Plt Morphology Comment NORMAL RBC Morphology NOTED Tay Cells 3+ (>5) Acanthocytes (Spur) 1+ (0-2) Smear Tech's Comments MANUAL DIFF PT 13.1 INR 1.1 Anion Gap 15 Estim Creat Clear Calc 65.5 Estimated GFR > 60 Random Glucose 125 H Lactic Acid 2.0 Calcium 9.2 Magnesium 2.0 Total Bilirubin 0.5 Direct Bilirubin 0.2 AST 16 ALT 11 Alkaline Phosphatase 86 B-Natriuretic Peptide 38 Total Protein 7.7 Albumin 3.9 Influenza Type A (PCR) NEGATIVE Influenza Type B (PCR) NEGATIVE RSV RNA Qual (PCR) NEGATIVE SARS-CoV-2 RNA (RT-PCR) NEGATIVE Imaging Radiologist's Impressions: Impressions Chest X-Ray 02/12/23 14:21 IMPRESSION: No acute intrathoracic disease. Status post partial pneumonectomy on the right. Assessment and Plan (1) Leukocytosis: Qualifiers: Leukocytosis type: bandemia Qualified Code(s): D72.825 - Bandemia Status: Acute (2) Hypoxia: Status: Acute Plan 57 yo female with PMH of hyperthyroidism, adenocarcinoma of R lung diagnosed in 2020, s/p wedge resection and completed 4 cycles of chemo, recent CT chest January 30 showed emphysema no new pulmonary nodules being followed closely by Dr. Villanueva, presented to [facility] ED due to not feeling well x 2 days, symptoms started Friday evening with intermittent fevers chills, headache, cough with sputum production, myalgias, nausea , diarrhea and dizziness , patient denies recent history of travel, no sick contacts lives at home alone, not on home oxygen in the emergency room patient noted to be tachypneic, tachycardic elevated WBC count of 22,000 with bandemia, pulse ox 81% on room air improved to 95% with 2 L of oxygen , patient treated in the emergency room with IV fluids, IV ceftriaxone and doxycycline, updraft treatment and 1 dose of IV Solu Medrol 60 mg at present patient is feeling better but complaining of persistent headache, nausea burning of eyes and generalized discomfort, chest x-ray showed no acute consolidation but showed some increased reticular nodular interstitial prominence on the right, question early pneumonia will be admitted to [facility] with a diagnosis of sepsis. Sepsis likely due to early pneumonia/viral syndrome Noted to be tachypneic tachycardic with leukocytosis Chest x-ray showed right interstitial changes, no consolidation, will check C diff with prior history of C diff infection, check respiratory viral panel. Influenza, COVID and RSV negative [place] [facility] doxy for early pneumonia supportive care with analgesics, antiemetics COPD Mild acute exacerbation placed on DuoNeb, IV steroids Acute hypoxic respiratory failure Due to above continue O2 support wean as tolerated Adeno CA of right lung status post treatment continue outpatient follow-up with Dr. Villanueva. DVT prophylaxis Lovenox subQ Code status full code In my clinical judgment patient will need 2 night inpatient stay due to sepsis requiring IV antibiotics and further workup. Time Spent With Patient Time: Total time managing care of this patient today ____ minutes. Quality Stroke Does the patient have a stroke diagnosis?: No VTE Prior VTE?: No VTE Risk Level:: Medical - moderate - high VTE Device Contraindication: Treatment Not Indicated VTE Drug Contraindication: N/A - Med Ordered
[2023-02-12 19:15] VITALS: BP 99/56; PULSE 82; RESP 18; TEMP 36.9; O2SAT 98
--- NOTE | 2023-02-12 19:15 | PC.NURSE ---
this RN assumed care of the patient at 1900. previous RN scanned in doxycycline antibiotic at 13:58 however never started this infusion. antibiotic found to be sitting on the cart in room unadministered. this RN started the doxycycline antibiotic at 19:15. will call pharmacy to have next dose retimed . pt is resting comfortably on stretcher in no apparent distress, wearing 2L O2 via nasal cannula which she says is not her baseline. pt placed on the 2L on arrival to ED for inc wob/ difficulty breathing at home. pt being admitted to the hospital and bed assigned - however report was not called by previous RN. worklist being updated at this time along with vital signs. this RN will then attempt to all report to RN upstairs. call harris within reach. plan of care ongoing.
[2023-02-12] MEDS: Enoxaparin Sodium 40 MG/0.4 ML SYRINGE SUBCUT (19:20)
--- NOTE | 2023-02-12 19:20 | PC.NURSE ---
URINE / STOOL SAMPLES NEVER COLLECTED PRIOR SHIFT. PT UNABLE TO GO AT THIS TIME. AWARE SAMPLES ARE NEEDED.
--- NOTE | 2023-02-12 19:21 | PC.NURSE ---
sepsis protocol sheet also never completed by previous RN. charge master coordinator's from day and maintenance technician 2nd shift aware.
--- NOTE | 2023-02-12 20:18 | PC.NURSE ---
REPORT CALLED TO SUPPORT ARCHITECT @20:15. PT GOING TO BED [id number]
[2023-02-12] MEDS: guaiFENesin DM 200/20/10 ML 10 ML SYRUP PO (21:03)
[2023-02-12] MEDS: Gabapentin 300 MG CAPSULE 600 MG PO (21:03)
[2023-02-12 21:13] LABS: Appearance Urine Clear; Color Urine Yellow; Glucose Urine UA Negative (Negative); Leukocyte Esterase Urine Negative (Negative); Nitrite Urine Negative (Negative); Specific Gravity - Urine 1.015 (1.005-1.025); UMIC TRIGGER UACC YES; Urine Blood Small (1+) (Negative); Urine Ketones Negative (Negative); Urine Protein 30 (1+) mg/dL (Neg-Trace)
[2023-02-12 21:16] LABS: Bacteria Urine None Seen (None Seen); Hyaline Casts Urine 0-2 /LPF (0-2); WBC Urine 0-5 /HPF (0-5)
[2023-02-12] MEDS: Albuterol/Iprat 2.5/0.5MG 3 ML AMPUL.NEB INHALE (22:05)
[2023-02-12 22:08] VITALS: PULSE 84; RESP 20; O2SAT 99
[2023-02-13] VITALS (8 sets, daily range): BP systolic 94–101; BP diastolic 54–65; PULSE 60–84; RESP 16–20; TEMP 36.1–36.5; O2SAT 95–99
[2023-02-13] MEDS: methylPREDNISolone Sod Succ 40 MG/ML VIAL IVPUSH (01:14)
[2023-02-13] MEDS: 0.9 % Sodium Chloride Flush 3 ML SYRINGE IVFLUSH (01:14)
[2023-02-13] MEDS: Doxycycline Hyclate 100 MG in 0.9 % Sodium Chloride 250 ML 166.67 MG IV ×2 (06:30→19:29)
[2023-02-13] MEDS: Albuterol/Iprat 2.5/0.5MG 3 ML AMPUL.NEB INHALE (08:13)
[2023-02-13 08:57] LABS: Hematocrit 33.4 % (37.0-47.0); Hemoglobin 11.6 g/dl (12.0-16.0); Mean Corpuscular HGB Conc 34.7 g/dl (31.0-35.0); Mean Corpuscular Hemoglobin 30.9 pg (27.0-33.0); Mean Corpuscular Volume 88.8 fL (80.0-98.0); Mean Platelet Volume 10.5 fL (9.4-12.3); Platelet Count 239 X10*3/uL (160-400); Red Blood Count 3.76 X10*6/uL (4.20-5.50); Red Cell Distribution Width 13.1 % (11.0-16.0); White Blood Count 13.6 X10*3/uL (4.8-10.8)
[2023-02-13 08:58] LABS: MRSA Nasal PCR NEGATIVE (Negative); SA Nasal PCR NEGATIVE (Negative)
--- NOTE | 2023-02-13 09:00 | MHC.CM.PN ---
Pt admitted with acute hypoxic respiratory failure. Pt lives at home alone is self-care. HCP completed with pt and now on file. D/C plan is to return home self-care when medically cleared. Pts sons or sister can transport her home. PCP: Dr. Tatiana Rhoades
[2023-02-13] MEDS: Cholecalciferol (Vitamin D3) 25 MCG TABLET 50 MCG PO (09:02)
[2023-02-13] MEDS: guaiFENesin DM 200/20/10 ML 10 ML SYRUP PO (09:03)
[2023-02-13 09:11] LABS: Anion Gap 15 (12-20); Blood Urea Nitrogen 12 mg/dL (9-16); Calcium 8.3 mg/dL (8.4-10.2); Carbon Dioxide 21 mmol/L (22-29); Chloride 107 mmol/L (96-108); Creatinine Clr Calc Pharmacy 74.9; Estimated Glomerular Filt Rate > 60; Glucose Random 167 mg/dL (60-115); Potassium 3.8 mmol/L (3.3-5.1); Sodium 139 mmol/L (135-145)
[2023-02-13 09:57] LABS: Adenovirus PCR Not Detected (Not Detect.); Bordetella parapertussis PCR Not Detected (Not Detect.); Bordetella pertussis PCR Not Detected (Not Detect.); Chlamydia pneumoniae PCR Not Detected (Not Detect.); Coronavirus 229E PCR Not Detected (Not Detect.); Coronavirus HKU1 PCR Not Detected (Not Detect.); Coronavirus NL63 PCR Not Detected (Not Detect.); Coronavirus OC43 PCR Not Detected (Not Detect.); Human metapneumovirus PCR Not Detected (Not Detect.); Influenza A PCR Not Detected (Not Detect.); Influenza B PCR Not Detected (Not Detect.); Mycoplasma pneumoniae PCR Not Detected (Not Detect.); Parainfluenza 1 PCR Not Detected (Not Detect.); Parainfluenza 2 PCR Not Detected (Not Detect.); Parainfluenza 3 PCR Not Detected (Not Detect.); Parainfluenza 4 PCR Not Detected (Not Detect.); RSV PCR Not Detected (Not Detect.); Rhino/Enterovirus PCR Not Detected (Not Detect.)
[2023-02-13 11:40] LABS: SARS-CoV-2 PCR Not Detected (Not Detect.)
--- NOTE | 2023-02-13 13:43 | HO.PM.IMPN ---
Subjective Subjective Date of Service: 02/13/23 Interval History: Feeling better this morning, less shortness of breath and cough, no recurrent fevers, no headaches, no further bouts of diarrhea, no dizziness, no acute issues overnight, tolerating diet. Review of Systems All other systems reviewed and negative. Physical Exam Vital Signs: Vital Signs: Last Vital Signs Temp 97.7 F 02/13/23 07:40 Pulse 73 02/13/23 11:38 Resp 16 02/13/23 11:38 BP 94/54 L 02/13/23 07:40 Pulse Ox 99 02/13/23 07:40 O2 Del Method Room Air 02/13/23 07:40 O2 Flow Rate 2 02/13/23 03:15 BMI result Body Mass Index 19.2 Const: Other: General awake alert x3, no acute distress. Neck supple no JVD. CVS regular rate rhythm, Respiratory lungs clear to auscultation, no respiratory distress, no wheeze, no rhonchi. Gastrointestinal abdomen soft, non tender, bowel sounds audible, no guarding , no rigidity. Extremities no edema. Neuro nonfocal , moving all 4 extremity speech clear. Skin no rash Psych appropriate affect Objective Data Active Medications Acetaminophen (Acetaminophen 325 Mg Tablet) 650 mg PO Q6H PRN PRN Reason: Pain, Mild (Pain Scale 1-3) Last Admin: 02/13/23 11:56 Dose: 650 mg Documented By: BABAR Albuterol/Ipratropium (Albuterol/Iprat 2.5/0.5mg 3 Ml Ampul.Neb) 3 ml INHALE RQID [facility] Last Admin: 02/13/23 11:36 Dose: 3 ml Documented By: NIRMAL Albuterol/Ipratropium (Albuterol/Iprat 2.5/0.5mg 3 Ml Ampul.Neb) 3 ml INHALE Q3H PRN PRN Reason: Shortness of Breath/Wheezing Benzonatate (Benzonatate 100 Mg Capsule) 100 mg PO TID PRN PRN Reason: Cough Calcium Carbonate/Cholecalciferol (Calcium + Vitamin D 250 Mg Tablet) 500 mg PO BID [facility] Enoxaparin Sodium (Enoxaparin Sodium 40 Mg/0.4 Ml Syringe) 40 mg SUBCUT Q24H [facility] Last Admin: 02/12/23 19:20 Dose: 40 mg Documented By: HANNAH Gabapentin (Gabapentin 300 Mg Capsule) 300 mg PO DAILY PRN PRN Reason: NEUROPATHY Gabapentin (Gabapentin 300 Mg Capsule) 600 mg PO BEDTIME [facility] Last Admin: 02/12/23 21:03 Dose: 600 mg Documented By: KLARISSA Guaifenesin/Dextromethorphan (Guaifenesin Dm 200/20/10 Ml 10 Ml Syrup) 10 ml PO QID [facility] Last Admin: 02/13/23 09:03 Dose: 10 ml Documented By: TERESO Doxycycline Hyclate 100 mg/ (Sodium Chloride) 250 mls @ 166.67 mls/hr IV Q12H [facility] Last Infusion: 02/13/23 08:09 Dose: Infused Documented By: TERESO Melatonin (Melatonin 3 Mg Tablet) 3 mg PO BEDTIME PRN PRN Reason: Insomnia Methylprednisolone Sodium Succinate (Methylprednisolone Sod Succ 40 Mg/Ml Vial) 40 mg IVPUSH Q12H [facility] Last Admin: 02/13/23 01:14 Dose: 40 mg Documented By: KLARISSA Ondansetron HCl (Ondansetron Hcl 4 Mg/2 Ml Vial) 4 mg IVPUSH Q8H PRN PRN Reason: Nausea and Vomiting Oxycodone HCl (Oxycodone Hcl Immed Release 5 Mg Tablet) 5 mg PO Q6H PRN PRN Reason: Pain, Moderate(Pain Scale 4-6) Sodium Chloride (0.9 % Sodium Chloride Flush 3 Ml Syringe) 3 ml IVFLUSH QSHIFT [facility] Last Admin: 02/13/23 08:09 Dose: Not Given Documented By: TERESO Non-Admin Reason: Previously Administered Vitamin D (Cholecalciferol (Vitamin D3) 25 Mcg Tablet) 50 mcg PO DAILY [facility] Last Admin: 02/13/23 09:02 Dose: 50 mcg Documented By: TERESO Labs 02/13/23 08:47 02/13/23 08:47 Labs: Laboratory Results - last 24 hr 02/12/23 02/12/23 02/12/23 13:40 14:49 21:03 MCV 86.9 MCH 30.5 MCHC 35.1 H RDW 13.1 Plt Count 276 MPV 10.0 Immature Gran % (Auto) Cancelled Neut % (Auto) Cancelled Lymph % (Auto) Cancelled [place] % (Auto) Cancelled Eos % (Auto) Cancelled Baso % (Auto) Cancelled Lymph # (Auto) Cancelled [place] # (Auto) Cancelled Eos # (Auto) Cancelled Baso # (Auto) Cancelled Abs Immat Gran (auto) Cancelled Absolute Neuts (auto) Cancelled Absolute Nucleated RBC 0.000 Nucleated RBC % (auto) 0.0 Neutrophils % (Manual) 80 H Band Neutrophils % 15 H Lymphocytes % (Manual) 4 L Monocytes % (Manual) 1 L Abs Neuts (Manual) 21.0 H Lymphocytes # (Manual) 0.9 L Monocytes # (Manual) 0.2 Toxic Vacuolation PRESENT Platelet Estimate NORMAL Plt Morphology Comment NORMAL RBC Morphology NOTED [place] Cells 3+ (>5) Acanthocytes (Spur) 1+ (0-2) Smear Tech's Comments MANUAL DIFF PT 13.1 INR 1.1 Anion Gap 15 Estim Creat Clear Calc 65.5 Estimated GFR > 60 Random Glucose 125 H Lactic Acid 2.0 Calcium 9.2 Magnesium 2.0 Total Bilirubin 0.5 Direct Bilirubin 0.2 AST 16 ALT 11 Alkaline Phosphatase 86 B-Natriuretic Peptide 38 Total Protein 7.7 Albumin 3.9 Urine Color Yellow Urine Appearance Clear Urine pH 6.0 Ur Specific [place] 1.015 Urine Protein 30 (1+) H Urine Glucose (UA) Negative Urine Ketones Negative Urine Blood Small (1+) H Urine Nitrite Negative Ur Leukocyte Esterase Negative Urine RBC 6-10 H Urine WBC 0-5 Ur Squamous Epith Cells 6-10 Urine Bacteria None Seen Hyaline Casts 0-2 Nasal Screen MRSA (PCR) Nasal S. aureus Screen Nasal MRSA/S.aureus Interp Respiratory Panel [place] Adenovirus (Rapid PCR) B.pert (TEM-PCR) B.parapertussis DNA PCR C. pneumoniae DNA (PCR) Coronavirus OC43 (PCR) Coronavirus HKU1 (PCR) Coronavirus 229E (PCR) Coronavirus NL63 (PCR) Human Metapneumovir PCR Influenza A (RT-PCR) Influenza Type A (PCR) NEGATIVE Influenza B (RT-PCR) Influenza Type B (PCR) NEGATIVE M. pneumoniae (PCR) Parainfluenza 1 (PCR) Parainfluenza 2 (PCR) Parainfluenza 3 (PCR) Parainfluenza 4 (PCR) RSV (PCR) RSV RNA Qual (PCR) NEGATIVE Entero/Rhino (PCR) SARS-CoV-2 RNA (RT-PCR) NEGATIVE 02/13/23 02/13/23 01:23 08:47 MCV 88.8 MCH 30.9 MCHC 34.7 RDW 13.1 Plt Count 239 MPV 10.5 Immature Gran % (Auto) Neut % (Auto) Lymph % (Auto) [place] % (Auto) Eos % (Auto) Baso % (Auto) Lymph # (Auto) [place] # (Auto) Eos # (Auto) Baso # (Auto) Abs Immat Gran (auto) Absolute Neuts (auto) Absolute Nucleated RBC 0.000 Nucleated RBC % (auto) 0.0 Neutrophils % (Manual) Band Neutrophils % Lymphocytes % (Manual) Monocytes % (Manual) Abs Neuts (Manual) Lymphocytes # (Manual) Monocytes # (Manual) Toxic Vacuolation Platelet Estimate Plt Morphology Comment RBC Morphology [place] Cells Acanthocytes (Spur) Smear Tech's Comments PT INR Anion Gap 15 Estim Creat Clear Calc 74.9 Estimated GFR > 60 Random Glucose 167 H Lactic Acid Calcium 8.3 L D Magnesium Total Bilirubin Direct Bilirubin AST ALT Alkaline Phosphatase B-Natriuretic Peptide Total Protein Albumin Urine Color Urine Appearance Urine pH Ur Specific [place] Urine Protein Urine Glucose (UA) Urine Ketones Urine Blood Urine Nitrite Ur Leukocyte Esterase Urine RBC Urine WBC Ur Squamous Epith Cells Urine Bacteria Hyaline Casts Nasal Screen MRSA (PCR) NEGATIVE Nasal S. aureus Screen NEGATIVE Nasal MRSA/S.aureus Interp SEE NOTE Respiratory Panel [place] See Note Adenovirus (Rapid PCR) Not Detected B.pert (TEM-PCR) Not Detected B.parapertussis DNA PCR Not Detected C. pneumoniae DNA (PCR) Not Detected Coronavirus OC43 (PCR) Not Detected Coronavirus HKU1 (PCR) Not Detected Coronavirus 229E (PCR) Not Detected Coronavirus NL63 (PCR) Not Detected Human Metapneumovir PCR Not Detected Influenza A (RT-PCR) Not Detected Influenza Type A (PCR) Influenza B (RT-PCR) Not Detected Influenza Type B (PCR) M. pneumoniae (PCR) Not Detected Parainfluenza 1 (PCR) Not Detected Parainfluenza 2 (PCR) Not Detected Parainfluenza 3 (PCR) Not Detected Parainfluenza 4 (PCR) Not Detected RSV (PCR) Not Detected RSV RNA Qual (PCR) Entero/Rhino (PCR) Not Detected SARS-CoV-2 RNA (RT-PCR) Not Detected Assessment and Plan (1) Leukocytosis: Status: Acute (2) Hypoxia: Status: Acute (3) Pneumonia: Status: Acute Plan 57 yo female with PMH of hyperthyroidism, adenocarcinoma of R lung diagnosed in 2020, s/p wedge resection and completed 4 cycles of chemo, recent CT chest January 30 showed emphysema no new pulmonary nodules being followed closely by Dr. Villanueva, presented to [place] ED due to not feeling well x 2 days, symptoms started Friday evening with intermittent fevers chills, headache, cough with sputum production, myalgias, nausea , diarrhea and dizziness , patient denies recent history of travel, no sick contacts lives at home alone, not on home oxygen in the emergency room patient noted to be tachypneic, tachycardic elevated WBC count of 22,000 with bandemia, pulse ox 81% on room air improved to 95% with 2 L of oxygen , patient treated in the emergency room with IV fluids, IV ceftriaxone and doxycycline, updraft treatment and 1 dose of IV Solu Medrol 60 mg at present patient is feeling better but complaining of persistent headache, nausea burning of eyes and generalized discomfort, chest x-ray showed no acute consolidation but showed some increased reticular nodular interstitial prominence on the right, question early pneumonia will be admitted to [facility] with a diagnosis of sepsis. Sepsis likely due to early pneumonia/viral syndrome Tachypnea tachycardia resolved WBC trending down , Chest x-ray showed right interstitial changes, no consolidation, no further bout of diarrhea, C diff not collected respiratory viral panel negative Influenza, COVID and RSV negative Continue IV doxy day 2 for early pneumonia continue supportive care with analgesics, antiemetics COPD Mild acute exacerbation on DuoNeb, wean IV steroids. Mild hyperglycemia due to steroids no history of diabetes Mild acute hyponatremia likely due to dehydration resolved status post IV fluid Acute hypoxic respiratory failure oxygenation improved finger oximeter stable on room air [place] CA of right lung status post treatment continue outpatient follow-up with Dr. Villanueva. DVT prophylaxis Lovenox subQ Code status full code In my clinical judgment patient will need continued inpatient stay due to sepsis on IV antibiotic waiting for blood cultures Time Spent With Patient Time: Total time managing care of this patient today ____ minutes. Quality Stroke Does the patient have a stroke diagnosis?: No VTE Prior VTE?: No VTE Risk Level:: Medical - moderate - high VTE Device Contraindication: Treatment Not Indicated VTE Drug Contraindication: N/A - Med Ordered
[2023-02-14] VITALS: BP 110/62; PULSE 68; RESP 16; TEMP 36.1; O2SAT 98
[2023-02-14 03:59] VITALS: BP 98/63; PULSE 74; RESP 16; TEMP 36.4; O2SAT 99
[2023-02-14 07:56] VITALS: BP 106/63; PULSE 66; RESP 16; TEMP 36.4; O2SAT 95
[2023-02-14 07:58] VITALS: PULSE 67; RESP 16; O2SAT 95
--- NOTE | 2023-02-14 11:02 | PM.DS ---
DS: Providers Provider Date of Service: 02/14/23 Date of admission: 02/12/23 16:06 Primary care physician: Tatiana Rhoades MD DS: Diagnosis Discharge Diagnosis (1) Leukocytosis: Status: Acute (2) Hypoxia: Status: Acute (3) Pneumonia: Status: Acute DS: Summary Hospital Course Hospital Course: History of presenting illness: Date of Service: 02/12/23 Chief Complaint: Shortness of breath 57 yo female with PMH of hyperthyroidism, adenocarcinoma of R lung diagnosed in 2020, s/p wedge resection and completed 4 cycles of chemo, recent CT chest January 30 showed emphysema no new pulmonary nodules being followed closely by Dr. Villanueva, presented to [place] ED due to not feeling well x 2 days, symptoms started Friday evening with intermittent fevers chills, headache, cough with sputum production, myalgias, nausea , diarrhea and dizziness , patient denies recent history of travel, no sick contacts lives at home alone, not on home oxygen in the emergency room patient noted to be tachypneic, tachycardic elevated WBC count of 22,000 with bandemia, pulse ox 81% on room air improved to 95% with 2 L of oxygen , patient treated in the emergency room with IV fluids, IV ceftriaxone and doxycycline, updraft treatment and 1 dose of IV Solu Medrol 60 mg at present patient is feeling better but complaining of persistent headache, nausea burning of eyes and generalized discomfort, chest x-ray showed no acute consolidation but showed some increased reticular nodular interstitial prominence on the right, question early pneumonia /viral infection, will be admitted to [facility] with a diagnosis of sepsis. Hospital course Hospital course: Patient admitted with complaints of intermittent fevers, chills, headache, dizziness, cough productive of light yellow colored sputum ,generalized myalgias patient admitted to medical floor with a diagnosis of acute hypoxic respiratory failure with finger oximetry 81% on room air likely due to mild stay acute COPD exacerbation related to early pneumonia/bronchitis, respiratory viral panel negative, influenza, COVID and RSV negative as well, patient treated with IV antibiotics, IV steroids with good response, WBC improved blood cultures x2 is negative patient now on room air with finger oximetry 94 95% therefore she is being discharged home on by doxycycline for 5 days recommend to take cough medication as needed Rest and drink plenty of fluids she is recommended to continue all home inhalers for her COPD. Mild hyperglycemia due to steroids no history of diabetes. Mild acute hyponatremia likely due to dehydration resolved status post IV fluids. [place] CA of right lung status post treatment continue outpatient follow-up with Dr. Villanueva. Time Spent with Patient Time attestation: Total time managing care of this patient today ____ minutes. Discharge coordination time: Greater than 30 minutes Quality: Safe Use of Opioids Does Pt have an Active Cancer Diagnosis on the Problem List?: No Quality: Stroke Does the patient have a stroke diagnosis?: No Physical Exam Vital Signs: Vital Signs: Last Vital Signs Temp 97.5 F 02/14/23 07:56 Pulse 67 02/14/23 07:58 Resp 16 02/14/23 07:58 BP 106/63 02/14/23 07:56 Pulse Ox 95 02/14/23 07:56 O2 Del Method Room Air 02/14/23 07:56 O2 Flow Rate 2 02/13/23 03:15 BMI result Body Mass Index 19.2 Const: Other: General awake alert x3, no acute distress. Neck supple no JVD. CVS regular rate rhythm, Respiratory lungs clear to auscultation, no respiratory distress, no wheeze, no rhonchi. Gastrointestinal abdomen soft, non tender, bowel sounds audible, no guarding , no rigidity. Extremities no edema. Neuro nonfocal , moving all 4 extremity speech clear. Skin no rash Psych appropriate affect DS: Data Data Completed and Pending Labs on day of discharge: Laboratory Results - last 24 hr 02/13/23 01:23 Respiratory Panel [place] See Note Adenovirus (Rapid PCR) Not Detected B.pert (TEM-PCR) Not Detected B.parapertussis DNA PCR Not Detected C. pneumoniae DNA (PCR) Not Detected Coronavirus OC43 (PCR) Not Detected Coronavirus HKU1 (PCR) Not Detected Coronavirus 229E (PCR) Not Detected Coronavirus NL63 (PCR) Not Detected Human Metapneumovir PCR Not Detected Influenza A (RT-PCR) Not Detected Influenza B (RT-PCR) Not Detected M. pneumoniae (PCR) Not Detected Parainfluenza 1 (PCR) Not Detected Parainfluenza 2 (PCR) Not Detected Parainfluenza 3 (PCR) Not Detected Parainfluenza 4 (PCR) Not Detected RSV (PCR) Not Detected Entero/Rhino (PCR) Not Detected SARS-CoV-2 RNA (RT-PCR) Not Detected Preliminary micro results at discharge 02/12/23 14:01 Blood Culture - Preliminary Blood - Venous No growth after 24 hours. 02/12/23 01:00 Blood Culture - Preliminary Blood - Venous No growth after 24 hours. Discharge Plan Discharge Anticipated Discharge Date/Time: 02/14/23 10:57 Patient Disposition: Home, Self-Care Discharge Diagnosis: early pneumonia Mild COPD exacerbation Referrals: Tatiana Rhoades MD [Primary Care Provider] - 1 Week Discharge Medications: New benzonatate 100 mg Capsule 100 mg PO TID PRN (Reason: Cough) Qty: 30 0RF doxycycline hyclate 100 mg capsule 100 mg PO BID Qty: 10 0RF Continued cholecalciferol (vitamin D3) 50 mcg (2,000 unit) capsule 50 mcg PO DAILY 30 Days Qty: 30 11RF calcium citrate-vitamin D3 [Citracal-D3 Petites] 200 mg-6.25 mcg (250 unit) tablet 2 tab PO BID 30 Days Qty: 120 11RF gabapentin 300 mg capsule 300 mg PO DAILY PRN (Reason: NEUROPATHY) gabapentin 300 mg capsule 600 mg PO BEDTIME Rx Instructions: Take 1 capsule in the AM and 2 capsules at bedtime; acetaminophen 325 mg tablet 650 mg PO QID PRN (Reason: HEADACHE OR PAIN) albuterol sulfate [Ventolin HFA] 90 mcg/actuation HFA aerosol inhaler 2 puff inhalation Q6H PRN (Reason: shortness of breath or wheezing) Qty: 18 7RF Anoro Ellipta 62.5-25 mcg/actuation blister with device 1 inh inhalation DAILY Qty: 60 11RF Discharge Orders: Discharge Order (Routine); Ordered 02/14/23 Ordered By: David Shepard Diet: Advance to usual diet Activity on Discharge: As tolerated Stand Alone Forms: Patient Portal Discharge page Care Plan Goals: Take doxycycline 1 tablet twice daily for 5 days take cough medication as needed, rest, take fluids,and vitamin-C Health Concerns: Continue all home medications as before Plan of Treatment: Outpatient follow-up with Assessment: As above
--- NOTE | 2023-02-14 11:26 | MHC.CM.PN ---
Patient is discharged to home today, selfcare. He will self transport home.
--- NOTE | 2023-02-14 11:28 | MHC.CM.PN ---
Patient is discharged to home today self care. She will self transport home.
[2023-02-14 11:50] VITALS: PULSE 64; RESP 16; O2SAT 98
== END 2023-02-14 13:00 | disposition home or self-care (01) | DRG 720 ==
LOC: HO.ED 14:44 → HO.EDOVER 16:13 → HO.S3 16:33
PROVIDERS: Physician Assistant; Admitting Provider Hospitalist; Emergency Provider Emergency Medicine; PCP Internal Medicine; Visit Provider Hospitalist
DX: A41.9 Sepsis, unspecified organism (principal); J96.01 Acute respiratory failure with hypoxia; J18.9 Pneumonia, unspecified organism; E87.1 Hypo-osmolality and hyponatremia; E86.0 Dehydration; J43.9 Emphysema, unspecified; R73.9 Hyperglycemia, unspecified; T38.0X5A Adverse effect of glucocorticoids and synthetic analogues, initial encounter; E03.9 Hypothyroidism, unspecified; Z20.822 Contact with and (suspected) exposure to COVID-19; Z85.118 Personal history of other malignant neoplasm of bronchus and lung; Z92.21 Personal history of antineoplastic chemotherapy; Z90.2 Acquired absence of lung [part of]; Z79.899 Other long term (current) drug therapy
CPT/HCPCS: 0241U; 36415; 71045; 80048; 80076; 81001; 83605; 83735; 83880; 84484; 85007; 85025; 85027; 85610; 87040; 87633; 87640; 87641; 93005; 94640; 99285; J0696; J1650; J2270; J2405; J2920; J2930

== ENCOUNTER → 2023-02-12 16:06 | Outpatient (BNV) | payer OTHER, SELFPAY | PROVIDERS: Admitting Provider Hospitalist; Emergency Provider Emergency Medicine; PCP Internal Medicine; Visit Provider Hospitalist | DX: D72.825 Bandemia (principal); J96.01 Acute respiratory failure with hypoxia; J18.9 Pneumonia, unspecified organism | CPT/HCPCS: 99223; 99233; 99239 ==

== ENCOUNTER 2023-02-21 09:32 | Outpatient (AMB) | payer OTHER, SELFPAY ==
--- NOTE | 2023-02-21 09:37 | A.OFFVIS_ITS ---
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 She started developing worsening respiratory symptoms and cough. Ultimately she was evaluated in the emergency department where she did undergo a CT scan of the chest which demonstrated a 1 cm nodular density in the right upper lobe adjacent to emphysema. The nodule in the is concerning to to his size and her smoking history putting her at high risk for malignancy. While in the hospital the patient was given antibiotics. Unfortunately she did develop C diff colitis she was then seen back in the ER couple weeks later. Patient has had weight loss but she is not sure if it was from the vaccine or the C diff colitis. Patient does have a rescue inhaler which she does not require. 02/01/2021 the patient is here for a pulmonary follow-up visit. since we last spoke the patient did undergo her PET scan demonstrating an active right upper lobe nodular density concerning for cancer. She was referred to thoracic surgery and did undergo pulmonary function studies. Her DLCO is only 50%. However, I reassured her that based on the fact that her emphysema is primarily in the upper lung zone that she should not lose too much lung capacity. However there may be a chance that she may need to rely on supplemental oxygen at least once she recovers. She is currently struggling because she just recently lost her who had been battling liver disease. He was transferred to [place] but he was deemed not a candidate for transplant and he went on hospice home. She understands that her surgery is important in cannot be delayed in therefore is currently scheduled for next week. 04/30/2021 the patient is here for a pulmonary follow-up visit. The patient is status post lobectomy. The pathology was consistent with an invasive adenocarcinoma. The lymph nodes were negative. Unfortunately she appeared to have some pleural invasion. Therefore, the patient was started on chemotherapy and follows closely by her oncologist the patient has been tolerating the chemotherapy well. Patient knows to watch for any worsening respiratory symptoms. she still dealing with the parathyroid issue. Currently she is on medications for calcium. When she is better from her pulmonary issues she will looking to following up with her surgeon regarding her hyperparathyroidism. 08/01/2021 the patient is here for a pulm onary follow-up visit. She continues to do relatively well. She did complete her chemotherapy. She does have a CT scan scheduled for tomorrow. I will have her added to the tumor conference on Friday in order to review her pathology again and also to review her most recent CT scan. She continues to respond well to the gabapentin for the post thoracotomy syndrome and also helps her with sleep. She does well at 600 mg at nighttime. She would also benefit from a little bit in the morning in order to help her with post thoracotomy syndrome. I will resend a prescription to the pharmacy at this time. 01/30/2022 the patient is here for a pulm onary follow-up visit. The patient overall is doing little better. Her chest discomfort has improved with the use of gabapentin. She still struggling with the loss of her . The patient still has shortness of breath. She has been using a rescue inhaler. She would like to hold off on using additional maintenance therapies. We did review her PFTs from 2020 demonstrating COPD in addition to a moderate diffusion impairment. Now that she is status post lung resection and chemotherapy is likely that her respiratory status is a little bit worse. Will have her undergo pulmonary function studies. She does have issues with a thyroid goiter in addition to parathyroid disease. She has been eating up with surgery to figure out about having surgery for this condition. The patient right now will need to be evaluated for preoperative evaluation with pulmonary function studies prior to surgery. The patient is also looking to apply for disability. She is having significant shortness of breath and chest pain. She has a hard time performing her activities of daily living. Will have her undergo a pulmonary function study and 6 minute walk test during on the next month or so. In the meantime to the patient does have a CT scan of the chest from July 2021 demonstrating slight interval increase in the right lower lobe nodule. She does have a CT scan scheduled for the next week or so. She will follow-up with her surgeon after that CT scan. 08/14/2022 the patient is here for a pulmo nessa follow-up visit. Overall the patient is doing better. She is still grieving the loss of her . Her hair is now working back after completing the chemotherapy. She recently had a CT scan of the chest demonstrating stable pulmonary nodules both measure about 4-5 mm in size. They have not changed from her previous although there suspicious in the need to be monitored closely. Therefore should have a repeat CT scan in 6 months time. The patient is having some shortness of breath. She is starting to exercise more regularly. She is using her rescue inhaler all too often. Will go ahead and start her on Anoro in order to provide her maintenance therapy in order for her to increase her exercise capacity and lung capacity. She still having neuropathic pain after having her surgery. She does respond good to the Neurontin. Will go ahead increase her dose a little bit more in order for her to get adequate pain relief in that area. She understands that this may take a long time to recover from. 02/21/2023 the patient is here for hospital follow-up visit. She is feeling better. She was recently hospitalized at the [facility] with worsening respiratory symptoms. She was diagnosed with pneumonia and she was treated with antibiotics in addition to prednisone. The patient now is feeling better. She still has some wheezing on examination. The Anoro inhaler has been helpful. Her last CT scan of the chest was reassuring without any evidence of recurrent cancer. The patient also has pulmonary nodules are be monitor. Her last CT scan was back in November 2022 in therefore will have a CT scan 6 months fr om then. This is being arranged by thoracic surgeon. Otherwise we can order it if it gets delayed. He she also had a chest x-ray demonstrating postoperative changes no clear pneumonia although she did have a lower respiratory infection. The patient does have a cough which is congested in nature. [id number] severity and the patient also has some rhonchi on examination. I do believe that she will benefit from more doxycycline. The patient is concerned about C diff colitis and she is had some in the past but I reassured her that she should be able to tolerate the doxycycline okay. 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 (~2020) Right upper lobe pulmonary nodule Personal history of nicotine dependence Clostridium difficile colitis (~11/2020) Pulmonary nodules/lesions, multiple Emphysema of lung Osteoporosis (~2019) Hyperparathyroidism Vitamin D deficiency Multinodular thyroid Surgical History Hx of partial thyroidectomy History of lobectomy of lung (~2020) S/P thyroid biopsy (~2017) History of colonoscopy (~2018) Family History Mother Pancreatic cancer Father COPD (chronic obstructive pulmonary disease) Social History Household Members: None Housing: House Do you presently have visiting nurse or other home services: No Alcohol intake: current Alcohol intake frequency: a few times a month Patient Tobacco Use Status: Former Tobacco user Years Smoked: 35 years e-Cigarette/Vaping Use: Never Used Second Hand Smoke Exposure: No Substance Use Type: Marijuana service: No Current occupational status: disabled Cognitive needs: No Hearing needs: No Vision needs: Yes Review of Systems Const Denies excessive sweating, Denies fatigue, Denies headache(s), Denies weight gain and Denies weight loss Eyes Denies blurry vision and Denies diplopia ENT Denies change in voice, Denies dysphagia, Denies headache(s) and Denies hoarseness Card Denies chest pain, Denies irregular heart rhythm, Denies dyspnea and Reports other Resp Denies cough and Denies dyspnea GI Denies abdominal pain, Denies change in bowel habits, Denies dysphagia, Denies diarrhea and Denies nausea Musc Denies myalgias, Denies muscle cramps, Denies numbness and Denies tingling Skin/Breast Denies hirsutism and Denies alopecia Neuro Denies headache(s), Denies numbness, Reports radicular pain and Denies tingling Psych Denies anxiety and Denies depression Endo Denies cold intolerance, Denies excessive sweating, Denies fatigue and Denies heat intolerance Vasu/Lymph Denies easy bruising Physical Exam Vital Signs: Last Vital Signs Pulse 87 02/21/23 09:38 BP 100/60 02/21/23 09:38 Pulse Ox 98 02/21/23 09:38 Oxygen Delivery Method Room Air 02/21/23 09:38 BMI result Body Mass Index 19.2 Const General: comfortable HEENT Head: Yes normocephalic Neck Neck: Yes supple Chest Chest palpation & inspection: normal inspection of the chest Resp Effort & Inspection: normal respiratory effort and prolonged expiratory phase Auscultation: rhonchi and diminished lung sounds Cardio Heart sounds: S1 normal heart sound present and S2 normal heart sound present GI Palpation (GI): Soft to palpation Skin General skin exam: no rashes or lesions noted Extrem General: Yes no clubbing, cyanosis or edema Assessment & Plan Assessment & Plan (1) Emphysema of lung: Code(s): J43.9 - Emphysema, unspecified Qualifiers: Emphysema type: centrilobular Qualified Code(s): J43.2 - Centrilobular emphysema (2) Multinodular thyroid: Code(s): E04.2 - Nontoxic multinodular goiter (3) Primary adenocarcinoma of right lung: Onset Date: ~2020 Comment: (Stage IB Adenocarcinoma - s/p RUL Lobectomy 02/06/21- s/p chemo compete 06/04/21) Code(s): C34.91 - Malignant neoplasm of unspecified part of right bronchus or lung (4) Post-thoracotomy pain syndrome: Code(s): G89.12 - Acute post-thoracotomy pain (5) Pneumonia: Code(s): J18.9 - Pneumonia, unspecified organism Qualifiers: Laterality: right Lung location: lower lobe of lung Pneumonia type: due to unspecified organism Qualified Code(s): J18.9 - Pneumonia, unspecified organism Plan short-acting beta agonist as needed CT chest 05/2023 Start doxycycline CXR Gabapentin QHS continue Anoro IRIS as needed Needs Prevnar 20 once better follow-up in 3-4 months Orders: Orders XR chest 2V 02/21/23 J18.9 - Pneumonia, unspecified organism Medications: New benzonatate 200 mg PO BID 30 days PRN 60 caps 5RF cough doxycycline hyclate 100 mg PO BID 7 days 14 caps 0RF Coding Level of Care Code Est Pt Level 4 (35434) Diagnoses Centrilobular emphysema J43.2 Emphysema type: centrilobular Multinodular thyroid E04.2 Primary adenocarcinoma of right lung C34.91 Post-thoracotomy pain syndrome G89.12 Pneumonia J18.9 Laterality: right Lung location: lower lobe of lung Pneumonia type: due to unspecified organism Time Spent (min) 17
[2023-02-21 09:38] VITALS: BP 100/60; PULSE 87; O2SAT 98; BMI 19.2
== END 2023-02-21 10:02 | disposition home or self-care (01) ==
PROVIDERS: PCP Internal Medicine; Visit Provider Hospitalist
DX: J43.2 Centrilobular emphysema (principal); E04.2 Nontoxic multinodular goiter; C34.91 Malignant neoplasm of unspecified part of right bronchus or lung; G89.12 Acute post-thoracotomy pain; J18.9 Pneumonia, unspecified organism
CPT/HCPCS: 99214

== ENCOUNTER → 2023-02-21 09:32 | Outpatient (BNVA) | payer OTHER, SELFPAY | PROVIDERS: Visit Provider Hospitalist | DX: J43.2 Centrilobular emphysema (principal); J18.9 Pneumonia, unspecified organism; E04.2 Nontoxic multinodular goiter; C34.91 Malignant neoplasm of unspecified part of right bronchus or lung; G89.12 Acute post-thoracotomy pain | CPT/HCPCS: 99212 ==

== ENCOUNTER 2023-05-22 09:00 | Outpatient (REF) | payer OTHER, SELFPAY ==
--- NOTE | ~2023-05-22 | XR_ITS ---
EXAMINATION: XR CHEST CLINICAL INFORMATION: Pneumonia COMPARISON: Chest radiograph from 02/12/2023 TECHNIQUE: 2 views of the chest were obtained. FINDINGS: Postsurgical changes status post right upper lobe lobectomy with volume loss of the right hemithorax. No pneumothorax. Trachea is midline. Cardiac mediastinal silhouette is not enlarged. Aorta demonstrates atherosclerotic calcifications. No large pleural effusion. Degenerative changes of the thoracolumbar spine. Soft tissues are unremarkable. XR/XR chest 2V IMPRESSION: Postsurgical changes status post right upper lobe lobectomy with volume loss of the right hemithorax.
== END 2023-05-22 09:01 | disposition home or self-care (01) ==
LOC: HO.HMGCX 09:00
PROVIDERS: PCP Internal Medicine; Visit Provider Hospitalist
DX: J18.9 Pneumonia, unspecified organism (principal)
CPT/HCPCS: 71046

== ENCOUNTER 2023-05-28 08:40 | Outpatient (REF) | payer OTHER, SELFPAY ==
[2023-05-28 09:49] LABS: MANUAL DIFF FLAG NO
[2023-05-28 09:55] LABS: Basophils Absolute Auto 0.1 X10*3/uL (0.0-0.2); Basophils Percent Auto 0.6 % (0-2); Eosinophils Percent Auto 0.2 % (0-4); Hematocrit 40.2 % (37.0-47.0); Hemoglobin 13.7 g/dl (12.0-16.0); Imm Gran Abs Auto 0.02 X10*3/uL (0.00-0.03); Imm Gran Pct Auto 0.2 % (0.0-0.4); Lymphocytes Absolute Auto 2.6 X10*3/uL (1.2-4.9); Lymphocytes Percent Auto 29.7 % (20-40); Mean Corpuscular HGB Conc 34.1 g/dl (31.0-35.0); Mean Corpuscular Hemoglobin 30.3 pg (27.0-33.0); Mean Corpuscular Volume 88.9 fL (80.0-98.0); Mean Platelet Volume 9.6 fL (9.4-12.3); Monocytes Absolute Auto 0.5 X10*3/uL (0.1-1.2); Monocytes Percent Auto 5.9 % (2-11); Neutrophils Absolute Auto 5.6 x10*3/uL (2.0-8.3); Neutrophils Percent Auto 63.4 % (45-73); Platelet Count 352 X10*3/uL (160-400); Red Blood Count 4.52 X10*6/uL (4.20-5.50); Red Cell Distribution Width 13.4 % (11.0-16.0); White Blood Count 8.8 X10*3/uL (4.8-10.8)
[2023-05-28 10:27] LABS: Anion Gap 13 (12-20); Blood Urea Nitrogen 7 mg/dL (9-16); Carbon Dioxide 27 mmol/L (22-29); Chloride 103 mmol/L (96-108); Estimated Glomerular Filt Rate > 60; Glucose Random 91 mg/dL (60-115); Sodium 139 mmol/L (135-145)
[2023-05-28 10:38] LABS: Erythrocyte Sedimentation Rate 10 MM/HR (0-20)
[2023-05-28 10:43] LABS: TSH reflex Free T4 1.02 uIU/mL (0.32-4.0)
== END 2023-05-28 08:41 | disposition home or self-care (01) ==
LOC: HO.LAB 08:40
PROVIDERS: PCP Internal Medicine; Visit Provider Hospitalist
DX: J43.2 Centrilobular emphysema (principal); E05.90 Thyrotoxicosis, unspecified without thyrotoxic crisis or storm; R06.00 Dyspnea, unspecified; C34.91 Malignant neoplasm of unspecified part of right bronchus or lung; G89.12 Acute post-thoracotomy pain; Z23 Encounter for immunization
CPT/HCPCS: 36415; 80048; 84443; 85025; 85652; 90471; 90677; 99212

== ENCOUNTER 2023-05-28 08:40 | Outpatient (AMB) | payer OTHER, SELFPAY ==
[2023-05-28 08:48] VITALS: BP 112/70; PULSE 70; O2SAT 99; BMI 21.0
--- NOTE | 2023-05-28 08:48 | A.OFFVIS_ITS ---
Intake Vital Signs 05/28/23 08:48 Height 5 ft 2 in Weight 114 lb 10.246 oz BMI 21.0 BP 112/70 Blood Pressure Location Lt brachial Position Sitting Pulse 70 Pulse Source Pulse Oximeter Pulse Oximetry (%) 99 Oxygen Delivery Method Room Air Intake Visit Reasons: Dyspnea Allergies erythromycin base Allergy (Severe, Verified 05/28/23 08:52) Diarrhea and C-Diff HPI HPI Comments History of Present Illness Details The patient is a 58-year-old woman with the history of tobacco dependency in addition to a thyroid goiter followed closely by Endocrinology who apparently was in her usual state health until her 2nd dose of the COVID-19 vaccine. She started developing worsening respiratory symptoms and cough. Ultimately she was evaluated in the emergency department where she did undergo a CT scan of the chest which demonstrated a 1 cm nodular density in the right upper lobe adjacent to emphysema. The nodule in the is concerning to to his size and her smoking history putting her at high risk for malignancy. While in the hospital the patient was given antibiotics. Unfortunately she did develop C diff colitis she was then seen back in the ER couple weeks later. Patient has had weight loss but she is not sure if it was from the vaccine or the C diff colitis. Patient does have a rescue inhaler which she does not require. 02/01/2021 the patient is here for a pulmonary follow-up visit. since we last spoke the patient did undergo her PET scan demonstrating an active right upper lobe nodular density concerning for cancer. She was referred to thoracic surgery and did undergo pulmonary function studies. Her DLCO is only 50%. However, I reassured her that based on the fact that her emphysema is primarily in the upper lung zone that she should not lose too much lung capacity. However there may be a chance that she may need to rely on supplemental oxygen at least once she recovers. She is currently struggling because she just recently lost her who had been battling liver disease. He was transferred to [place] but he was deemed not a candidate for transplant and he went on hospice home. She understands that her surgery is important in cannot be delayed in therefore is currently scheduled for next week. 04/30/2021 the patient is here for a pulmonary follow-up visit. The patient is status post lobectomy. The pathology was consistent with an invasive adenocarcinoma. The lymph nodes were negative. Unfortunately she appeared to have some pleural invasion. Therefore, the patient was started on chemotherapy and follows closely by her oncologist the patient has been tolerating the chemotherapy well. Patient knows to watch for any worsening respiratory symptoms. she still dealing with the parathyroid issue. Currently she is on medications for calcium. When she is better from her pulmonary issues she will looking to following up with her surgeon regarding her hyperparathyroidism. 08/01/2021 the patient is here for a pulm onary follow-up visit. She continues to do relatively well. She did complete her chemotherapy. She does have a CT scan scheduled for tomorrow. I will have her added to the tumor conference on Friday in order to review her pathology again and also to review her most recent CT scan. She continues to respond well to the gabapentin for the post thoracotomy syndrome and also helps her with sleep. She does well at 600 mg at nighttime. She would also benefit from a little bit in the morning in order to help her with post thoracotomy syndrome. I will resend a prescription to the pharmacy at this time. 01/30/2022 the patient is here for a pulm onary follow-up visit. The patient overall is doing little better. Her chest discomfort has improved with the use of gabapentin. She still struggling with the loss of her . The patient still has shortness of breath. She has been using a rescue inhaler. She would like to hold off on using additional maintenance therapies. We did review her PFTs from 2020 demonstrating COPD in addition to a moderate diffusion impairment. Now that she is status post lung resection and chemotherapy is likely that her respiratory status is a little bit worse. Will have her undergo pulmonary function studies. She does have issues with a thyroid goiter in addition to parathyroid disease. She has been eating up with surgery to figure out about having surgery for this condition. The patient right now will need to be evaluated for preoperative evaluation with pulmonary function studies prior to surgery. The patient is also looking to apply for disability. She is having significant shortness of breath and chest pain. She has a hard time performing her activities of daily living. Will have her undergo a pulmonary function study and 6 minute walk test during on the next month or so. In the meantime to the patient does have a CT scan of the chest from July 2021 demonstrating slight interval increase in the right lower lobe nodule. She does have a CT scan scheduled for the next week or so. She will follow-up with her surgeon after that CT scan. 08/14/2022 the patient is here for a pulmo nessa follow-up visit. Overall the patient is doing better. She is still grieving the loss of her . Her hair is now working back after completing the chemotherapy. She recently had a CT scan of the chest demonstrating stable pulmonary nodules both measure about 4-5 mm in size. They have not changed from her previous although there suspicious in the need to be monitored closely. Therefore should have a repeat CT scan in 6 months time. The patient is having some shortness of breath. She is starting to exercise more regularly. She is using her rescue inhaler all too often. Will go ahead and start her on Anoro in order to provide her maintenance therapy in order for her to increase her exercise capacity and lung capacity. She still having neuropathic pain after having her surgery. She does respond good to the Neurontin. Will go ahead increase her dose a little bit more in order for her to get adequate pain relief in that area. She understands that this may take a long time to recover from. 02/21/2023 the patient is here for hospital follow-up visit. She is feeling better. She was recently hospitalized at the [facility] with worsening respiratory symptoms. She was diagnosed with pneumonia and she was treated with antibiotics in addition to prednisone. The patient now is feeling better. She still has some wheezing on examination. The Anoro inhaler has been helpful. Her last CT scan of the chest was reassuring without any evidence of recurrent cancer. The patient also has pulmonary nodules are be monitor. Her last CT scan was back in November 2022 in therefore will have a CT scan 6 months from then. This is being arranged by thoracic surgeon. Otherwise we can order it if it gets delayed. He she also had a chest x-ray demonstrating postoperative changes no clear pneumonia although she did have a lower respiratory infection. The patient does have a cough which is congested in nature. [id number]-ro-sqxicytx severity and the patient also has some rhonchi on examination. I do believe that she will benefit from more doxycycline. The patient is concerned about C diff colitis and she is had some in the past but I reassured her that she should be able to tolerate the doxycycline okay. 05/28/2023 the patient is here for pulmon rekha follow-up visit. Overall the patient is feeling better. Her cough is overall better. She completed the course of doxycycline. She continues use her respiratory medicines with good effect. The patient did have repeat chest x-ray demonstrating interval improvement of the airspace disease. She does have some postoperative changes. The patient also concerned about her weight gain. She did have a thyroid surgery. She is wondering her thyroid function is too low. Will go ahead and check her blood work specially since her white count had been elevated. Will go ahead and check her CBC her electrolytes and also her TSH. The patient does have a follow-up with endocrinology. The patient overall is doing very well today she will get her pneumonia vaccine. [facility] Medical History (Updated 05/19/23 @ 06:17 by Tatiana Rhoades MD) Hyperlipidemia Annual visit for general adult medical examination with abnormal findings Hyperparathyroidism Toxic multinodular goiter Vitamin D deficiency Hyperthyroidism Post-thoracotomy pain syndrome Primary adenocarcinoma of right lung (~2020) Right upper lobe pulmonary nodule Personal history of nicotine dependence Clostridium difficile colitis (~11/2020) Pulmonary nodules/lesions, multiple Emphysema of lung Osteoporosis (~2019) Hyperparathyroidism Vitamin D deficiency Multinodular thyroid Surgical History Hx of partial thyroidectomy History of lobectomy of lung (~2020) S/P thyroid biopsy (~2017) History of colonoscopy (~2018) Family History Mother Pancreatic cancer Father COPD (chronic obstructive pulmonary disease) Social History Household Members: None Housing: House Do you presently have visiting nurse or other home services: No Alcohol intake: current Alcohol intake frequency: a few times a month Patient Tobacco Use Status: Former Tobacco user Years Smoked: 35 years e-Cigarette/Vaping Use: Never Used Second Hand Smoke Exposure: No Substance Use Type: Marijuana service: No Current occupational status: disabled Cognitive needs: No Hearing needs: No Vision needs: Yes Review of Systems Const Denies excessive sweating, Denies fatigue, Denies headache(s), Reports weight gain and Denies weight loss Eyes Denies blurry vision and Denies diplopia ENT Denies change in voice, Denies dysphagia, Denies headache(s) and Denies hoarseness Card Denies chest pain, Denies irregular heart rhythm, Denies dyspnea and Reports other Resp Denies cough and Denies dyspnea GI Denies abdominal pain, Denies change in bowel habits, Denies dysphagia, Denies diarrhea and Denies nausea Musc Denies myalgias, Denies muscle cramps, Denies numbness and Denies tingling Skin/Breast Denies hirsutism and Denies alopecia Neuro Denies headache(s), Denies numbness, Reports radicular pain and Denies tingling Psych Denies anxiety and Denies depression Endo Denies cold intolerance, Denies excessive sweating, Denies fatigue and Denies heat intolerance Vasu/Lymph Denies easy bruising Physical Exam Vital Signs: Last Vital Signs Pulse 70 05/28/23 08:48 BP 112/70 05/28/23 08:48 Pulse Ox 99 05/28/23 08:48 Oxygen Delivery Method Room Air 05/28/23 08:48 BMI result Body Mass Index 21.0 Const General: comfortable HEENT Head: Yes normocephalic Neck Neck: Yes supple Chest Chest palpation & inspection: normal inspection of the chest Resp Effort & Inspection: normal respiratory effort Auscultation: no rhonchi and diminished lung sounds Cardio Heart sounds: S1 normal heart sound present and S2 normal heart sound present GI Palpation (GI): Soft to palpation Skin General skin exam: no rashes or lesions noted Extrem General: Yes no clubbing, cyanosis or edema Immunizations pneumoc 20-julio conj-dip cr(PF) 0.5 mL IM syringe Performing Provider: Madhu Vasquez MD Performing Location: [facility] [place] Administered by: Carrie Pelayo LPN on 05/28/23 09:29 Dose Route Admin Location Dispensed Lot Number Expiration Date [facility] Confidential Secretary 0.5 mL IM Left Deltoid 0.5 mL [id number] 07/09/24 9093-8902-08 [employer] VIS Given Date VIS Provided VIS Publication Date 05/28/23 Single Vaccine 22 Eligibility Eligibility Date Funding Source Not [facility] Eligible 05/28/23 Private Results Reviewed Results Reviewed: [facility] [place] [facility] [address] [place] [address] XRay Report Signed Patient: Dorinda Fischer MR#: [id number] : 1965 Acct:[id number] Age/Sex: 57 / F ADM Date: 05/22/23 [facility] [place] Attending Dr: Madhu Vasquez MD Ordering Physician: Madhu Vasquez MD Date of Service: 05/22/23 Procedure(s): XR chest 2V Accession Number(s): [id number] cc: Tatiana Rhoades MD; Madhu Vasquez MD~ EXAMINATION: XR CHEST CLINICAL INFORMATION: Pneumonia COMPARISON: Chest radiograph from 02/12/2023 TECHNIQUE: 2 views of the chest were obtained. FINDINGS: Postsurgical changes status post right upper lobe lobectomy with volume loss of the right hemithorax. No pneumothorax. Trachea is midline. Cardiac mediastinal silhouette is not enlarged. Aorta demonstrates atherosclerotic calcifications. No large pleural effusion. Degenerative changes of the thoracolumbar spine. Soft tissues are unremarkable. XR/XR chest 2V IMPRESSION: Postsurgical changes status post right upper lobe lobectomy with volume loss of the right hemithorax. Dictated By: Vanita Turner MD Signed By: <Electronically signed by Vanita Turner MD in OV> 05/22/23924 DD/ 6 TD/TT: Material Controller: Assessment & Plan Assessment & Plan (1) Emphysema of lung: Code(s): J43.9 - Emphysema, unspecified Qualifiers: Emphysema type: centrilobular Qualified Code(s): J43.2 - Centrilobular emphysema (2) Multinodular thyroid: Code(s): E04.2 - Nontoxic multinodular goiter (3) Primary adenocarcinoma of right lung: Onset Date: ~2020 Comment: (Stage IB Adenocarcinoma - s/p RUL Lobectomy 02/06/21- s/p chemo compete 06/04/21) Code(s): C34.91 - Malignant neoplasm of unspecified part of right bronchus or lung (4) Post-thoracotomy pain syndrome: Code(s): G89.12 - Acute post-thoracotomy pain Plan IRIS as needed CT chest 07/2023 Gabapentin QHS continue Anoro IRIS as needed follow-up in 3-4 months Orders: Orders TSH reflex Free T4 Today E05.90 - Thyrotoxicosis, unspecified without thyrotoxic crisis or storm, J18.9 - Pneumonia, unspecified organism Erythrocyte Sedimentation Rate Today E05.90 - Thyrotoxicosis, unspecified without thyrotoxic crisis or storm, J18.9 - Pneumonia, unspecified organism Complete Blood Count Auto Diff Today E05.90 - Thyrotoxicosis, unspecified without thyrotoxic crisis or storm, J18.9 - Pneumonia, unspecified organism Basic Metabolic Panel Today E05.90 - Thyrotoxicosis, unspecified without thyrotoxic crisis or storm, J18.9 - Pneumonia, unspecified organism Pneumococcal 20 Immunization Today Z23 - Encounter for immunization CT chest wo IV con 08/11/23 C34.91 - Malignant neoplasm of unspecified part of right bronchus or lung Coding Level of Care Code Est Pt Level 4 (60530) Diagnoses Centrilobular emphysema J43.2 Emphysema type: centrilobular Multinodular thyroid E04.2 Primary adenocarcinoma of right lung C34.91 Post-thoracotomy pain syndrome G89.12 Time Spent (min) 17
== END 2023-05-28 09:09 | disposition home or self-care (01) ==
PROVIDERS: PCP Internal Medicine; Visit Provider Hospitalist
DX: J43.2 Centrilobular emphysema (principal); E04.2 Nontoxic multinodular goiter; C34.91 Malignant neoplasm of unspecified part of right bronchus or lung; G89.12 Acute post-thoracotomy pain
CPT/HCPCS: 99214

== ENCOUNTER 2023-06-17 06:17 | Outpatient (REF) | payer OTHER, SELFPAY ==
[2023-06-17 11:12] LABS: MANUAL DIFF FLAG NO
[2023-06-17 11:29] LABS: Basophils Absolute Auto 0.1 X10*3/uL (0.0-0.2); Basophils Percent Auto 0.7 % (0-2); Eosinophils Absolute Auto 0.2 X10*3/uL (0.0-0.4); Eosinophils Percent Auto 2.2 % (0-4); Hematocrit 42.1 % (37.0-47.0); Hemoglobin 13.9 g/dl (12.0-16.0); Imm Gran Abs Auto 0.02 X10*3/uL (0.00-0.03); Imm Gran Pct Auto 0.2 % (0.0-0.4); Lymphocytes Absolute Auto 2.9 X10*3/uL (1.2-4.9); Lymphocytes Percent Auto 26.8 % (20-40); Mean Corpuscular Volume 90.9 fL (80.0-98.0); Mean Platelet Volume 10.4 fL (9.4-12.3); Monocytes Absolute Auto 0.7 X10*3/uL (0.1-1.2); Monocytes Percent Auto 6.9 % (2-11); Neutrophils Absolute Auto 6.8 x10*3/uL (2.0-8.3); Neutrophils Percent Auto 63.2 % (45-73); Platelet Count 370 X10*3/uL (160-400); Red Blood Count 4.63 X10*6/uL (4.20-5.50); Red Cell Distribution Width 13.5 % (11.0-16.0); White Blood Count 10.7 X10*3/uL (4.8-10.8)
[2023-06-17 12:08] LABS: Alanine Aminotransferase 15 U/L (0-31); Albumin Level 4.1 g/dL (3.5-5.0); Alkaline Phosphatase 74 U/L (39-117); Anion Gap 12 (12-20); Aspartate Amino Transferase 19 U/L (5-31); Bilirubin Total 0.2 mg/dL (0.0-1.0); Blood Urea Nitrogen 13 mg/dL (9-16); Calcium 8.9 mg/dL (8.4-10.2); Carbon Dioxide 27 mmol/L (22-29); Chloride 106 mmol/L (96-108); Cholesterol 259 mg/dL (<200); Estimated Glomerular Filt Rate > 60; Free T4 (Free Thyroxine) 0.89 ng/dL (0.71-1.85); Glucose Fasting 78 mg/dL (60-99); HDL Cholesterol 90 mg/dL (>40); Iron 92 mcg/dL (30-160); LDL Cholesterol Calculated 151 mg/dL (<100); Percent Iron Saturation 29 % (15-50); Potassium 4.3 mmol/L (3.3-5.1); Sodium 141 mmol/L (135-145); Thyroid Stimulating Hormone 2.34 uIU/mL (0.32-4.0); Total Iron Binding Capacity 316 mcg/dL (228-428); Total Protein 7.1 g/dL (6.5-8.0); Triglycerides 90 mg/dL (<150); Unsaturated Iron Binding 224 ug/dL; Vitamin D 25-OH Total 103.6 ng/mL (>30)
== END 2023-06-17 06:18 | disposition home or self-care (01) ==
LOC: HO.HMGCLDS 06:17
PROVIDERS: PCP Internal Medicine; Visit Provider Internal Medicine
DX: Z00.01 Encounter for general adult medical examination with abnormal findings (principal); D72.825 Bandemia; E04.2 Nontoxic multinodular goiter; M81.0 Age-related osteoporosis without current pathological fracture; E21.3 Hyperparathyroidism, unspecified; E55.9 Vitamin D deficiency, unspecified; E78.5 Hyperlipidemia, unspecified
CPT/HCPCS: 36415; 80053; 80061; 82306; 83540; 84439; 84443; 85025

== ENCOUNTER 2023-07-15 07:47 | Outpatient (REF) | payer OTHER, SELFPAY ==
[2023-07-15 12:11] LABS: Alanine Aminotransferase 11 U/L (0-31); Albumin Level 4.1 g/dL (3.5-5.0); Alkaline Phosphatase 69 U/L (39-117); Anion Gap 12 (12-20); Aspartate Amino Transferase 16 U/L (5-31); Bilirubin Total 0.2 mg/dL (0.0-1.0); Blood Urea Nitrogen 12 mg/dL (9-16); Calcium 9.1 mg/dL (8.4-10.2); Carbon Dioxide 28 mmol/L (22-29); Chloride 104 mmol/L (96-108); Estimated Glomerular Filt Rate > 60; Glucose Random 94 mg/dL (60-115); Phosphorus 3.5 mg/dL (2.7-4.5); Potassium 4.5 mmol/L (3.3-5.1); Sodium 139 mmol/L (135-145); Total Protein 7.2 g/dL (6.5-8.0)
[2023-07-15 12:31] LABS: Free T4 (Free Thyroxine) 0.85 ng/dL (0.71-1.85); Thyroid Stimulating Hormone 1.57 uIU/mL (0.32-4.0); Vitamin D 25-OH Total 88.5 ng/mL (>30)
[2023-07-22 22:38] LABS: N-Telopeptide 32 (see note); NTXCreaRU 61 mg/dL (20-275)
== END 2023-07-15 07:48 | disposition home or self-care (01) ==
LOC: HO.HMGCLDS 07:47
PROVIDERS: PCP Internal Medicine; Visit Provider Internal Medicine
DX: M81.0 Age-related osteoporosis without current pathological fracture (principal); E04.2 Nontoxic multinodular goiter; E55.9 Vitamin D deficiency, unspecified
CPT/HCPCS: 36415; 80053; 82306; 82523; 84100; 84439; 84443

== ENCOUNTER 2023-07-22 06:27 | Outpatient (REF) | payer OTHER, SELFPAY ==
[2023-07-22 11:07] LABS: MANUAL DIFF FLAG NO
[2023-07-22 11:31] LABS: Basophils Absolute Auto 0.1 X10*3/uL (0.0-0.2); Basophils Percent Auto 0.9 % (0-2); Eosinophils Absolute Auto 0.2 X10*3/uL (0.0-0.4); Eosinophils Percent Auto 2.3 % (0-4); Hematocrit 41.3 % (37.0-47.0); Hemoglobin 13.7 g/dl (12.0-16.0); Imm Gran Abs Auto 0.02 X10*3/uL (0.00-0.03); Imm Gran Pct Auto 0.2 % (0.0-0.4); Lymphocytes Absolute Auto 3.6 X10*3/uL (1.2-4.9); Lymphocytes Percent Auto 40.7 % (20-40); Mean Corpuscular HGB Conc 33.2 g/dl (31.0-35.0); Mean Corpuscular Hemoglobin 30.2 pg (27.0-33.0); Mean Corpuscular Volume 91.2 fL (80.0-98.0); Mean Platelet Volume 10.8 fL (9.4-12.3); Monocytes Absolute Auto 0.7 X10*3/uL (0.1-1.2); Monocytes Percent Auto 8.4 % (2-11); Neutrophils Absolute Auto 4.2 x10*3/uL (2.0-8.3); Neutrophils Percent Auto 47.5 % (45-73); Platelet Count 344 X10*3/uL (160-400); Red Blood Count 4.53 X10*6/uL (4.20-5.50); Red Cell Distribution Width 13.8 % (11.0-16.0); White Blood Count 8.7 X10*3/uL (4.8-10.8)
[2023-07-22 12:03] LABS: Alanine Aminotransferase 13 U/L (0-31); Albumin Level 4.1 g/dL (3.5-5.0); Alkaline Phosphatase 68 U/L (39-117); Anion Gap 11 (12-20); Aspartate Amino Transferase 17 U/L (5-31); Bilirubin Total 0.3 mg/dL (0.0-1.0); Blood Urea Nitrogen 10 mg/dL (9-16); Calcium 8.9 mg/dL (8.4-10.2); Carbon Dioxide 28 mmol/L (22-29); Chloride 107 mmol/L (96-108); Cholesterol 246 mg/dL (<200); Estimated Glomerular Filt Rate > 60; Glucose Fasting 85 mg/dL (60-99); HDL Cholesterol 88 mg/dL (>40); LDL Cholesterol Calculated 140 mg/dL (<100); Potassium 4.4 mmol/L (3.3-5.1); Sodium 142 mmol/L (135-145); Triglycerides 92 mg/dL (<150)
[2023-07-22 12:04] LABS: Free T4 (Free Thyroxine) 0.87 ng/dL (0.71-1.85); Thyroid Stimulating Hormone 2.55 uIU/mL (0.32-4.0)
== END 2023-07-22 06:28 | disposition home or self-care (01) ==
LOC: HO.HMGCLDS 06:27
PROVIDERS: PCP Internal Medicine; Visit Provider Internal Medicine Medical Oncology
DX: C34.11 Malignant neoplasm of upper lobe, right bronchus or lung (principal); E21.3 Hyperparathyroidism, unspecified; R63.6 Underweight
CPT/HCPCS: 36415; 80053; 80061; 84439; 84443; 85025

== ENCOUNTER 2023-07-23 08:54 | Outpatient (AMB) | payer OTHER, SELFPAY ==
[2023-07-23 08:58] VITALS: BP 118/64; PULSE 88; BMI 20.8
--- NOTE | 2023-07-23 08:58 | MHC.OFFVIS ---
Intake Vital Signs 07/23/23 08:58 Height 5 ft 2 in Weight 113 lb 12.136 oz BMI 20.8 BP 118/64 Blood Pressure Location Lt brachial Position Sitting Pulse 88 Pulse Source Pulse Oximeter Intake Visit Reasons: F/U Osteoporosis-confirmed Intake Note: Patient present today for Osteoporosis follow up visit. Previously seen by Dr. Giron on 07/18/22. 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 Required: No Accompanied by: Self / Same As Patient Allergies erythromycin base Allergy (Severe, Verified 07/23/23 09:03) Diarrhea and C-Diff Medication List - Last Reconciled 07/23/23 by Yobani Hinojosa MD acetaminophen 650 mg PO QID PRN benzonatate 100 mg PO TID PRN benzonatate 200 mg PO BID PRN 30 days calcium citrate-vitamin D3 200 mg-6.25 mcg (250 unit) (Citracal-D3 Petites) 2 tabs PO BID 30 days cholecalciferol (vitamin D3) 50 mcg PO DAILY gabapentin 600 mg PO BEDTIME umeclidinium-vilanterol 62.5-25 mcg/actuation (Anoro Ellipta) 1 inh inhalation DAILY Ventolin HFA 90 mcg/actuation (albuterol sulfate) 2 puffs inhalation Q6H PRN NS HPI HPI Comments History of Present Illness Details 58 YO F who is seen in F/U for a NTMNG now S/P a L hemithyroidectomy and Hyperparathyroidism with Osteoporosis, now S/P a 3 gland parathyroidectomy. 1) MNG: She underwent FNA biopsy by Dr. Duckworth of her LLP 1.8 cm nodule, and her LMP 4.0 cm nodule 12/11/17. Cytology for both nodules was Benign. She had a repeat thyroid US 11/04/2019 which reported significant growth of these nodules, as well as multiple other nodules meeting indication for FNA biopsy. 12/16/2019 I repeated the thyroid US myself and visualized the LLP nodule, measuring 1.9 cm and not meeting indication for repeat FNA biopsy as this nodule had not significantly grown in size. The LMP nodule measured 2.5 cm, and also did not meet indication for repeat FNA biopsy as it had significantly shrank from prior. No additional nodules meeting indication for FNA biopsy were visualized. She was referred to Dr. Desai to discuss a L thyroid lobectomy. She was recommended for this, however surgery was put on hold due to her recent diagnosis of lung cancer. She did reestablish care with Dr. Desai 03/08/2022 and did undergo her surgical L thyroid lobectomy and parathyroidectomy 06/05/2022. Official surgical pathology was benign. She reports feeling well today and has no complaints. Her most recent labs show TSH at goal. She is not on any thyroid hormone replacement. 2) Hyperparathyroidism: At her initial visit with me she was noted to have high normal calcium, higher than expected for her age. She underwent biochemical evaluation for hyperparathyroidism 05/10/2019 with Total Calcium 10.3, Albumin 4.8, PTH 44, and Vitamin d 41.7. Labs were repeated 11/09/2019 with Total Calcium 9.7, Albumin 4.3, Vitamin D 25.8, PTH 31, WNL. 24 hour urine calcium was 95, but this was an inadequate collection with a Cr of only 0.8. She did have a DEXA scan which revealed Osteoporosis of the spine and hip, and Osteopenia of the distal forearm. Labs were repeated 12/30/2019 with Calcium 10.1, PTH 38, Vitamin D 27.9 and Albumin 4.6. 24 hour urine collection was WNL as detailed below. She was referred to Dr. Desai who does suspect normocalcemic normohormonal hyperparathyroidism, and did visualize a R inferior parathyroid adenoma on US. He did order a Sestamibi scan, which did not localize. He does recommend a L thyroid lobectomy with parathyroid exploration. She underwent a 3 gland parathyroidectomy (bilateral inferior and L superior) 06/05/2022. Intraoperative PTH declined from 47-13 indicating cure. Labs have remained WNL since that time. She was given 1 dose of IV Reclast by her Oncologist in April 2021. She denies any body aches, constipation, abdominal pain. Denies any history of kidney stones. Fractured her collar bone at the age of 4. This was traumatic. Denies any fragility fractures. She takes Calcium carbonate 1250 mg PO daily. Takes Vitamin D 1000 IU daily. Menopause was age 50. She does still have hot flashes. Menarche was age 13 and she had 3 pregnancies. DEXA 12/06/2019: FINDINGS: AP SPINE L1-L4: BMD 0.857 g/cm2, Z-score -1.4, T-score -2.7, osteoporosis. LEFT FEMUR, NECK: BMD 0.659 g/cm2, Z-score -1.4, T-score -2.7, osteoporosis. LEFT FEMUR, TOTAL: BMD 0.754 g/cm2, Z-score -1.0, T-score -2.0, osteopenia. LEFT FOREARM RADIUS 33%: BMD 0.736 g/cm2, Z-score -1.3, T-score -1.6, osteopenia. Thyroid US 11/04/2019: Right Thyroid Lobe: 5.5 x 1.7 x 1.7 cm, volume 8.3 mL. Previously 5.3 x 2.1 x 1.7 cm, volume 9.7 mL. Parenchyma: The gland echotexture is homogeneous. Thyroid vascularity is increased. Left Thyroid Lobe: 6.2 x 2.2 x 2.7 cm, volume 19.3 mL. Previously 6.7 x 2.5 x 3.3 cm, volume 28.9 mL. Parenchyma: The gland echotexture is heterogeneous. Thyroid vascularity is increased. Isthmus: 0.3 cm in maximum AP dimension. Previously 0.2 cm. RIGHT THYROID LOBE: There are 3 nodules seen. 1. Location: Superior. Size: 0.4 x 0.2 x 0.3 cm. Previous: 0.4 x 0.2 x 0.3 cm. Nodule characteristics: Hypoechoic and cystic, smooth margin, no calcification and minimal peripheral flow.. 2. Location: Middle/inferior. Size: 1.2 x 0.5 x 0.9 cm. Previous: 1.2 x 0.5 x 1.2 cm. Nodule characteristics: Heterogeneous, smooth margin, calcification and positive intranodular flow.. 3. Location: Inferior. Size: 0.6 x 0.3 x 0.5 cm. Previous: 0.6 x 0.3 x 0.4 cm. Nodule characteristics: Heterogeneous, smooth margin, calcification and positive intranodular flow. ISTHMUS: There is 1 nodule seen. 1. Location: Right lower isthmus. Size: 1.4 x 0.6 x 0.9 cm. Previous: New since the previous study. Nodule characteristics: Hypoechoic and cystic, smooth margin, no calcification and no intranodular flow. LEFT THYROID LOBE: There are 3 nodules seen. 1. Location: Middle. Size: 0.6 x 0.5 x 0.7 cm. Previous: Not measured on the previous study. Nodule characteristics: Heterogeneous, smooth margin, no calcification and positive intranodular flow. 2. Location: Middle/inferior. Size: 3.4 x 1.9 x 2.2 cm. Previous: 3.1 x 1.9 x 2.7 cm. Nodule characteristics: Heterogeneous, smooth margin, calcification and positive intranodular flow. 3. Location: Inferior. Size: 2.2 x 1.6 x 2.1 cm. Previous: 2.4 x 1.2 x 1.3 cm. Nodule characteristics: Heterogeneous, smooth margins with hypoechoic rind, no calcification and positive intranodular flow. NODES: No lymphadenopathy is seen in the tissue surrounding the thyroid gland. Labs: Laboratory Tests 07/11/22 07/11/22 10:33 10:33 Creatinine 0.79 Estimated GFR > 60 Calcium 9.1 D Albumin 4.4 25-OH Vitamin D To jesus 36.9 TSH 1.41 Free T4 0.83 PTH Intact 21 Calcium (PTH Intac t) 9.8 She is status post left lobectomy and parathyroidectomy with removal 3 parathyroid glands . She complains of several nonspecific symptoms including weight gain, hair loss and fatigue [facility] Medical History (Updated 05/19/23 @ 06:17 by Tatiana Rhoades MD) Hyperlipidemia Annual visit for general adult medical examination with abnormal findings Hyperparathyroidism Toxic multinodular goiter Vitamin D deficiency Hyperthyroidism Post-thoracotomy pain syndrome Primary adenocarcinoma of right lung (~2020) Right upper lobe pulmonary nodule Personal history of nicotine dependence Clostridium difficile colitis (~11/2020) Pulmonary nodules/lesions, multiple Emphysema of lung Osteoporosis (~2019) Hyperparathyroidism Vitamin D deficiency Multinodular thyroid Surgical History Hx of partial thyroidectomy History of lobectomy of lung (~2020) S/P thyroid biopsy (~2017) History of colonoscopy (~2018) Family History Mother Pancreatic cancer Father COPD (chronic obstructive pulmonary disease) Social History Household Members: None Housing: House Do you presently have visiting nurse or other home services: No Alcohol intake: current Alcohol intake frequency: a few times a month Patient Tobacco Use Status: Former Tobacco user Years Smoked: 35 years e-Cigarette/Vaping Use: Never Used Second Hand Smoke Exposure: No Substance Use Type: Marijuana service: No Current occupational status: disabled Cognitive needs: No Hearing needs: No Vision needs: Yes Physical Exam Vital Signs: Last Vital Signs Pulse 88 07/23/23 08:58 BP 118/64 07/23/23 08:58 BMI result Body Mass Index 20.8 Const Other: Healed scar status post left lobectomy and parathyroidectomy. Right lobe was without the presence of any palpable nodules Assessment & Plan Assessment & Plan (1) Hyperparathyroidism: Code(s): E21.3 - Hyperparathyroidism, unspecified Plan: Status post parathyroidectomy with normalization of calcium (2) Osteoporosis: Onset Date: ~2019 Code(s): M81.0 - Age-related osteoporosis without current pathological fracture Plan: This 58-year-old white female with a history of primary hyperparathyroidism and osteoporosis status post parathyroidectomy with normalization of calcium. Currently on vitamin-D supplementation. Plan is to repeat a DEXA bone density of the hip, spine and distal forearm about 6 months' time. Depending upon the above will need to observe or consider anti resorptive therapy (3) Multinodular thyroid: Code(s): E04.2 - Nontoxic multinodular goiter Plan: Status post left lobectomy. Appears clinically biochemically euthyroid. Right lobe contains the presence of subcentimeter nodule. (4) Weight gain: Code(s): R63.5 - Abnormal weight gain Plan: Will check 24 hour urine free cortisol and creatinine to rule out Cesar's although doubt is responsible for symptoms Orders: Orders Creatinine, 24 Hr Group Today R63.5 - Abnormal weight gain Cortisol, Free 24Hr Urine Today R63.5 - Abnormal weight gain Free T4 (Free Thyroxine) 2 Months E04.2 - Nontoxic multinodular goiter, E05.20 - Thyrotoxicosis with toxic multinodular goiter without thyrotoxic crisis or storm Thyroid Stimulating Hormone 2 Months E04.2 - Nontoxic multinodular goiter, E05.20 - Thyrotoxicosis with toxic multinodular goiter without thyrotoxic crisis or storm XR DEXA axial skeleton Today M81.0 - Age-related osteoporosis without current pathological fracture Medications: Refilled calcium citrate-vitamin D3 200 mg-6.25 mcg (250 unit) (Citracal-D3 Petites) 2 tabs PO BID 30 days 120 tabs 11RF M81.0 - Age-related osteoporosis without current pathological fracture Coding Level of Care Code Est Pt Level 3 (38690) Diagnoses Hyperparathyroidism E21.3 Osteoporosis M81.0 Multinodular thyroid E04.2 Weight gain R63.5
== END 2023-07-23 09:49 | disposition home or self-care (01) ==
PROVIDERS: PCP Internal Medicine; Visit Provider Internal Medicine Endocrinology, Diabetes & Metabolism
DX: E21.3 Hyperparathyroidism, unspecified (principal); M81.0 Age-related osteoporosis without current pathological fracture; E04.2 Nontoxic multinodular goiter; R63.5 Abnormal weight gain
CPT/HCPCS: 99213

== ENCOUNTER → 2023-07-23 08:54 | Outpatient (BNVA) | payer OTHER, SELFPAY | PROVIDERS: Visit Provider Internal Medicine Endocrinology, Diabetes & Metabolism | DX: M81.0 Age-related osteoporosis without current pathological fracture (principal); E21.3 Hyperparathyroidism, unspecified; E04.2 Nontoxic multinodular goiter; R63.5 Abnormal weight gain; E05.20 Thyrotoxicosis with toxic multinodular goiter without thyrotoxic crisis or storm; Z79.899 Other long term (current) drug therapy | CPT/HCPCS: 99212 ==

== ENCOUNTER 2023-08-01 06:15 | Outpatient (REF) | payer OTHER, SELFPAY ==
[2023-08-01 11:05] LABS: Creatinine, mg/dL 32.87
[2023-08-01 14:22] LABS: Creatinine, 24Hr Urine 0.9 G/Day (1.0-2.0); Total Volume 24 Hour Urine 2750 mL
[2023-08-07 16:24] LABS: Cortisol Free, 24 Hr Urine 26.1 mcg/24 h (4.0-50.0); Creatinine, 24 Hr Urine 0.99 g/24 h (0.50-2.15); Total Volume, 24 Hr Urine 2750 mL
== END 2023-08-01 06:16 | disposition home or self-care (01) ==
LOC: HO.HMGCLNP 06:15
PROVIDERS: Visit Provider Internal Medicine Endocrinology, Diabetes & Metabolism
DX: R63.5 Abnormal weight gain (principal)
CPT/HCPCS: 82530; 82570

== ENCOUNTER 2023-08-29 06:17 | Outpatient (REF) | payer OTHER, SELFPAY ==
[2023-08-29 10:31] LABS: MANUAL DIFF FLAG NO
[2023-08-29 10:47] LABS: Basophils Absolute Auto 0.1 X10*3/uL (0.0-0.2); Basophils Percent Auto 0.6 % (0-2); Eosinophils Absolute Auto 0.3 X10*3/uL (0.0-0.4); Eosinophils Percent Auto 2.9 % (0-4); Hematocrit 42.5 % (37.0-47.0); Imm Gran Abs Auto 0.03 X10*3/uL (0.00-0.03); Imm Gran Pct Auto 0.3 % (0.0-0.4); Lymphocytes Absolute Auto 2.7 X10*3/uL (1.2-4.9); Lymphocytes Percent Auto 29.8 % (20-40); Mean Corpuscular HGB Conc 32.9 g/dl (31.0-35.0); Mean Corpuscular Hemoglobin 30.6 pg (27.0-33.0); Mean Corpuscular Volume 92.8 fL (80.0-98.0); Mean Platelet Volume 11.1 fL (9.4-12.3); Monocytes Absolute Auto 0.6 X10*3/uL (0.1-1.2); Monocytes Percent Auto 6.2 % (2-11); Neutrophils Absolute Auto 5.5 x10*3/uL (2.0-8.3); Neutrophils Percent Auto 60.2 % (45-73); Platelet Count 338 X10*3/uL (160-400); Red Blood Count 4.58 X10*6/uL (4.20-5.50)
[2023-08-29 11:49] LABS: Erythrocyte Sedimentation Rate 11 MM/HR (0-20)
[2023-08-29 11:51] LABS: Alanine Aminotransferase 19 U/L (0-31); Albumin Level 4.2 g/dL (3.5-5.0); Alkaline Phosphatase 70 U/L (39-117); Anion Gap 12 (12-20); Aspartate Amino Transferase 21 U/L (5-31); Bilirubin Total 0.3 mg/dL (0.0-1.0); Blood Urea Nitrogen 10 mg/dL (9-16); Calcium 9.3 mg/dL (8.4-10.2); Carbon Dioxide 28 mmol/L (22-29); Chloride 107 mmol/L (96-108); Cholesterol 254 mg/dL (<200); Estimated Glomerular Filt Rate > 60; Glucose Fasting 98 mg/dL (60-99); HDL Cholesterol 83 mg/dL (>40); LDL Cholesterol Calculated 148 mg/dL (<100); Potassium 4.4 mmol/L (3.3-5.1); Sodium 143 mmol/L (135-145); Total Protein 7.2 g/dL (6.5-8.0); Triglycerides 117 mg/dL (<150)
[2023-08-29 11:58] LABS: Free T4 (Free Thyroxine) 0.87 ng/dL (0.71-1.85); Thyroid Stimulating Hormone 1.39 uIU/mL (0.32-4.0)
[2023-08-29 15:00] LABS: Parathyroid Hormone Intact 38.6 pg/mL (8.7-77.1)
== END 2023-08-29 06:18 | disposition home or self-care (01) ==
LOC: HO.HMGCLDS 06:17
PROVIDERS: PCP Internal Medicine; Visit Provider Internal Medicine Medical Oncology
DX: C34.11 Malignant neoplasm of upper lobe, right bronchus or lung (principal); R63.6 Underweight; E21.3 Hyperparathyroidism, unspecified
CPT/HCPCS: 36415; 80053; 80061; 83970; 84439; 84443; 84481; 85025; 85652

== ENCOUNTER 2023-08-29 08:22 | Outpatient (REF) | payer OTHER, SELFPAY | END 2023-08-29 08:23 | disposition home or self-care (01) | LOC: HO.MAMMO 08:22 | PROVIDERS: PCP Internal Medicine; Visit Provider Internal Medicine | DX: Z12.31 Encounter for screening mammogram for malignant neoplasm of breast (principal) | CPT/HCPCS: 77063; 77067 ==

== ENCOUNTER → 2023-08-29 08:30 | Outpatient (BNV) | payer OTHER, SELFPAY | PROVIDERS: PCP Internal Medicine; Visit Provider Radiology Diagnostic Radiology | DX: Z12.31 Encounter for screening mammogram for malignant neoplasm of breast (principal) | CPT/HCPCS: 77063; 77067 ==

== ENCOUNTER 2023-09-09 08:17 | Outpatient (REF) | payer OTHER, SELFPAY ==
--- NOTE | ~2023-09-09 | CT_ITS ---
EXAMINATION: CT CHEST WITH CONTRAST CLINICAL INFORMATION: Right lung cancer COMPARISON: Previous CTs, most recent, 01/30/2023 TECHNIQUE: Multidetector volumetric CT imaging of the chest was obtained after the administration of 65 mL of Omnipaque 350 intravenous contrast without immediate adverse reactions. Axial MIP volume rendering provided. Sagittal and coronal reformatted images were obtained. This CT examination was performed using dose optimization techniques as appropriate, variously including the following: *Automated exposure control *Adjustment of mA and/or kV according to patient size (this includes techniques or standardized protocols for targeted exams where dose is matched to indication/reason for exam; i.e. extremities or head) *Use of iterative reconstruction technique DLP: 94 mGy-cm FINDINGS: CADASTRAL ENGINEER: Unchanged left hemidiaphragmatic tenting and right hemithorax volume loss. LUNGS: Trachea and bronchi are patent. Stable right hemithorax following right upper lobectomy. Underlying centrilobular emphysema. Dependent left lower lobe atelectasis. Unchanged right lower lobe scarring/atelectasis. Stable 6 mm RLL nodule, 7:71. No change 5 mm subpleural RLL nodule, 7:150 Stable 3mm REAGAN, 7:72. No new or enlarging pulmonary nodules. MEDIASTINUM: Unchanged solid right thyroid lobe. No pathologic adenopathy. No pericardial effusion. Nonaneurysmal aorta with atherosclerotic risk patients. Nonenlarged pulmonary arteries with no central filling defects. PLEURA: There is no pleural effusion. No pleural mass or thickening. AXILLA: No lymphadenopathy. UPPER ABDOMEN: Diffuse hypodensity to liver parenchyma. OSSEOUS STRUCTURES: No suspicious lesions. CT/CT chest w IV con IMPRESSION: Stable post right upper lobectomy changes and unchanged pulmonary nodules. No new or enlarging pulmonary nodules. Fleischner guidelines were followed.
[2023-09-09] MEDS: iohexoL 350 MG/ML 100 ML INFUS..BTL IV (08:48)
== END 2023-09-09 08:18 | disposition home or self-care (01) ==
LOC: HO.CT 08:17
PROVIDERS: PCP Internal Medicine; Referring Provider Hospitalist; Visit Provider Internal Medicine Medical Oncology
DX: C34.91 Malignant neoplasm of unspecified part of right bronchus or lung (principal)
CPT/HCPCS: 71260; Q9967

== ENCOUNTER 2023-09-10 09:14 | Outpatient (AMB) | payer OTHER, SELFPAY ==
[2023-09-10 09:21] VITALS: PULSE 75; O2SAT 100; BMI 20.5
--- NOTE | 2023-09-10 09:21 | A.OFFVIS_ITS ---
Vital Signs 09/10/23 09:21 Height 5 ft 2 in Weight 112 lb BMI 20.5 Pulse 75 Pulse Source Pulse Oximeter Pulse Oximetry (%) 100 Oxygen Delivery Method Room Air Intake Visit Reasons: Dyspnea Cryptographic Technician Required: No Allergies erythromycin base Allergy (Severe, Verified 09/10/23 09:22) Diarrhea and C-Diff HPI Comments Details: The patient is a 58-year-old woman with the history of tobacco dependency in addition to a thyroid goiter followed closely by Endocrinology who apparently was in her usual state health until her 2nd dose of the COVID-19 vaccine. She started developing worsening respiratory symptoms and cough. Ultimately she was evaluated in the emergency department where she did undergo a CT scan of the chest which demonstrated a 1 cm nodular density in the right upper lobe adjacent to emphysema. The nodule in the is concerning to to his size and her smoking history putting her at high risk for malignancy. While in the hospital the patient was given antibiotics. Unfortunately she did develop C diff colitis she was then seen back in the ER couple weeks later. Patient has had weight loss but she is not sure if it was from the vaccine or the C diff colitis. Patient does have a rescue inhaler which she does not require. 02/01/2021 the patient is here for a pulmonary follow-up visit. since we last spoke the patient did undergo her PET scan demonstrating an active right upper lobe nodular density concerning for cancer. She was referred to thoracic surgery and did undergo pulmonary function studies. Her DLCO is only 50%. However, I reassured her that based on the fact that her emphysema is primarily in the upper lung zone that she should not lose too much lung capacity. However there may be a chance that she may need to rely on supplemental oxygen at least once she recovers. She is currently struggling because she just recently lost her who had been battling liver disease. He was transferred to [place] but he was deemed not a candidate for transplant and he went on hospice home. She understands that her surgery is important in cannot be delayed in therefore is currently scheduled for next week. 04/30/2021 the patient is here for a pulmonary follow-up visit. The patient is status post lobectomy. The pathology was consistent with an invasive adenocarcinoma. The lymph nodes were negative. Unfortunately she appeared to have some pleural invasion. Therefore, the patient was started on chemotherapy and follows closely by her oncologist the patient has been tolerating the chemotherapy well. Patient knows to watch for any worsening respiratory symptoms. she still dealing with the parathyroid issue. Currently she is on medications for calcium. When she is better from her pulmonary issues she will looking to following up with her surgeon regarding her hyperparathyroidism. 08/01/2021 the patient is here for a pulmonary follow-up visit. She continues to do relatively well. She did complete her chemotherapy. She does have a CT scan scheduled for tomorrow. I will have her added to the tumor conference on Friday in order to review her pathology again and also to review her most recent CT scan. She continues to respond well to the gabapentin for the post thoracotomy syndrome and also helps her with sleep. She does well at 600 mg at nighttime. She would also benefit from a little bit in the morning in order to help her with post thoracotomy syndrome. I will resend a prescription to the pharmacy at this time. 01/30/2022 the patient is here for a pulmonary follow-up visit. The patient anali arroyo is doing little better. Her chest discomfort has improved with the use of gabapentin. She still struggling with the loss of her . The patient still has shortness of breath. She has been using a rescue inhaler. She would like to hold off on using additional maintenance therapies. We did review her PFTs from 2020 demonstrating COPD in addition to a moderate diffusion impairment. Now that she is status post lung resection and chemotherapy is likely that her respiratory status is a little bit worse. Will have her undergo pulmonary function studies. She does have issues with a thyroid goiter in addition to parathyroid disease. She has been eating up with surgery to figure out about having surgery for this condition. The patient right now will need to be evaluated for preoperative evaluation with pulmonary function studies prior to surgery. The patient is also looking to apply for disability. She is having significant shortness of breath and chest pain. She has a hard time performing her activities of daily living. Will have her undergo a pulmonary function study and 6 minute walk test during on the next month or so. In the meantime to the patient does have a CT scan of the chest from July 2021 demonstrating slight interval increase in the right lower lobe nodule. She does have a CT scan scheduled for the next week or so. She will follow-up with her surgeon after that CT scan. 08/14/2022 the patient is here for a pulmonary follow-up visit. Overall the patient is doing better. She is still grieving the loss of her . Her hair is now working back after completing the chemotherapy. She recently had a CT scan of the chest demonstrating stable pulmonary nodules both measure about 4-5 mm in size. They have not changed from her previous although there suspicious in the need to be monitored closely. Therefore should have a repeat CT scan in 6 months time. The patient is having some shortness of breath. She is starting to exercise more regularly. She is using her rescue inhaler all too often. Will go ahead and start her on Anoro in order to provide her maintenance therapy in order for her to increase her exercise capacity and lung capacity. She still having neuropathic pain after having her surgery. She does respond good to the Neurontin. Will go ahead increase her dose a little bit more in order for her to get adequate pain relief in that area. She understands that this may take a long time to recover from. 02/21/2023 the patient is here for hospital follow-up visit. She is feeling better. She was recently hospitalized at the [facility] with worsening respiratory symptoms. She was diagnosed with pneumonia and she was treated with antibiotics in addition to prednisone. The patient now is feeling better. She still has some wheezing on examination. The Anoro inhaler has been helpful. Her last CT scan of the chest was reassuring without any evidence of recurrent cancer. The patient also has pulmonary nodules are be monitor. Her last CT scan was back in November 2022 in therefore will have a CT scan 6 months from then. This is being arranged by thoracic surgeon. Otherwise we can order it if it gets delayed. He she also had a chest x-ray demonstrating postoperative changes no clear pneumonia although she did have a lower respiratory infection. The patient does have a cough which is congested in nature. [id number] severity and the patient also has some rhonchi on examination. I do believe that she will benefit from more doxycycline. The patient is concerned about C diff colitis and she is had some in the past but I reassured her that she should be able to tolerate the doxycycline okay. 05/28/2023 the patient is here for pulmonary follow-up visit. Overall the patient is feeling better. Her cough is overall better. She completed the course of doxycycline. She continues use her respiratory medicines with good effect. The patient did have repeat chest x-ray demonstrating interval improvement of the airspace disease. She does have some postoperative changes. The patient also concerned about her weight gain. She did have a thyroid surgery. She is wondering her thyroid function is too low. Will go ahead and check her blood work specially since her white count had been elevated. Will go ahead and check her CBC her electrolytes and also her TSH. The patient does have a follow-up with endocrinology. The patient overall is doing very well today she will get her pneumonia vaccine. 09/10/2023 the patient is here for a pulmonary follow-up visit. She continues do well. She is starting to exercise more regularly. Her weight seems to be stable after her thyroid surgery. The patient did have a recent CT scan of the chest which I personally reviewed. It appears that her postoperative changes are stable on her right hemithorax. She does have some nodular densities over following. They appear stable when compared to her previous CT scan from the fa ll 2022. I do not see any significant changes. The with a history of lung cancer back in 2020 in her pulmonary nodules she will require CT scans every 6 months for the next 5 years. The patient will follow-up after next CT scan. 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 (~2020) Right upper lobe pulmonary nodule Personal history of nicotine dependence Clostridium difficile colitis (~11/2020) Pulmonary nodules/lesions, multiple Emphysema of lung Osteoporosis (~2019) Hyperparathyroidism Vitamin D deficiency Multinodular thyroid Surgical History Hx of partial thyroidectomy History of lobectomy of lung (~2020) S/P thyroid biopsy (~2017) History of colonoscopy (~2018) Family History Mother Pancreatic cancer Father COPD (chronic obstructive pulmonary disease) Social History Household Members: None Housing: House Do you presently have visiting nurse or other home services: No Alcohol intake: current Alcohol intake frequency: a few times a month Patient Tobacco Use Status: Former Tobacco user Years Smoked: 35 years e-Cigarette/Vaping Use: Never Used Second Hand Smoke Exposure: No Substance Use Type: Marijuana service: No Current occupational status: disabled Cognitive needs: No Hearing needs: No Vision needs: Yes Review of Systems Const Denies excessive sweating, Denies fatigue, Denies headache(s), Reports weight gain and Denies weight loss Eyes Denies blurry vision and Denies diplopia ENT Denies change in voice, Denies dysphagia, Denies headache(s) and Denies hoarseness Card Denies chest pain, Denies irregular heart rhythm, Denies dyspnea and Reports other Resp Denies cough and Denies dyspnea GI Denies abdominal pain, Denies change in bowel habits, Denies dysphagia, Denies diarrhea and Denies nausea Musc Denies myalgias, Denies muscle cramps, Denies numbness and Denies tingling Skin/Breast Denies hirsutism and Denies alopecia Neuro Denies headache(s), Denies numbness, Reports radicular pain and Denies tingling Psych Denies anxiety and Denies depression Endo Denies cold intolerance, Denies excessive sweating, Denies fatigue and Denies heat intolerance Vasu/Lymph Denies easy bruising Physical Exam Vital Signs: Last Vital Signs Pulse 75 09/10/23 09:21 Pulse Ox 100 09/10/23 09:21 Oxygen Delivery Method Room Air 09/10/23 09:21 BMI result Body Mass Index 20.5 Const General: comfortable HEENT Head: Yes normocephalic Neck Neck: Yes supple Chest Chest palpation & inspection: normal inspection of the chest Resp Effort & Inspection: normal respiratory effort Auscultation: no rhonchi and diminished lung sounds Cardio Heart sounds: S1 normal heart sound present and S2 normal heart sound present GI Palpation (GI): Soft to palpation Skin General skin exam: no rashes or lesions noted Extrem General: Yes no clubbing, cyanosis or edema Assessment & Plan Assessment & Plan (1) Emphysema of lung: Code(s): J43.9 - Emphysema, unspecified Category: Medical Qualifiers: Emphysema type: centrilobular Qualified Code(s): J43.2 - Centrilobular emphysema (2) Multinodular thyroid: Code(s): E04.2 - Nontoxic multinodular goiter Category: Medical (3) Primary adenocarcinoma of right lung: Onset Date: ~2020 Comment: (Stage IB Adenocarcinoma - s/p RUL Lobectomy 02/06/21- s/p chemo compete 06/04/21) Code(s): C34.91 - Malignant neoplasm of unspecified part of right bronchus or lung Category: Medical (4) Post-thoracotomy pain syndrome: Code(s): G89.12 - Acute post-thoracotomy pain Category: Medical (5) Pulmonary nodules/lesions, multiple: Code(s): R91.8 - Other nonspecific abnormal finding of lung field Category: Medical Plan IRIS as needed CT chest in 6 months Gabapentin QHS continue Anoro IRIS as needed follow-up in 6 months Orders: Orders CT chest wo IV con 03/12/24 C34.91 - Malignant neoplasm of unspecified part of right bronchus or lung Medications: Refilled gabapentin Take 1 capsule in the AM and 2 capsules at bedtime; 600 mg (2 x 300 mg) PO BEDTIME 60 caps 11RF Coding Level of Care Code Est Pt Level 4 (91802) Diagnoses Centrilobular emphysema J43.2 Emphysema type: centrilobular Multinodular thyroid E04.2 Primary adenocarcinoma of right lung C34.91 Post-thoracotomy pain syndrome G89.12 Pulmonary nodules/lesions, multiple R91.8 Time Spent (min) 18
== END 2023-09-10 09:42 | disposition home or self-care (01) ==
PROVIDERS: PCP Internal Medicine; Visit Provider Hospitalist
DX: J43.2 Centrilobular emphysema (principal); E04.2 Nontoxic multinodular goiter; C34.91 Malignant neoplasm of unspecified part of right bronchus or lung; G89.12 Acute post-thoracotomy pain; R91.8 Other nonspecific abnormal finding of lung field
CPT/HCPCS: 99214

== ENCOUNTER → 2023-09-10 09:14 | Outpatient (BNVA) | payer OTHER, SELFPAY | PROVIDERS: PCP Internal Medicine; Visit Provider Hospitalist | DX: J43.2 Centrilobular emphysema (principal); E04.2 Nontoxic multinodular goiter; G89.12 Acute post-thoracotomy pain; R91.8 Other nonspecific abnormal finding of lung field; C34.91 Malignant neoplasm of unspecified part of right bronchus or lung; Z87.891 Personal history of nicotine dependence | CPT/HCPCS: 99212 ==

== ENCOUNTER 2023-10-29 09:34 | Outpatient (REF) | payer OTHER, SELFPAY ==
[2023-10-29 13:12] LABS: Free T4 (Free Thyroxine) 0.91 ng/dL (0.71-1.85); Thyroid Stimulating Hormone 0.79 uIU/mL (0.32-4.0)
== END 2023-10-29 09:35 | disposition home or self-care (01) ==
LOC: HO.HMGCLDS 09:34
PROVIDERS: PCP Internal Medicine; Visit Provider Internal Medicine Endocrinology, Diabetes & Metabolism
DX: E04.2 Nontoxic multinodular goiter (principal); E05.20 Thyrotoxicosis with toxic multinodular goiter without thyrotoxic crisis or storm
CPT/HCPCS: 36415; 84439; 84443

== ENCOUNTER 2023-12-03 06:33 | Outpatient (REF) | payer MEDICARE, MEDICAID, SELFPAY ==
[2023-12-03 10:16] LABS: MANUAL DIFF FLAG NO
[2023-12-03 10:19] LABS: Basophils Absolute Auto 0.1 X10*3/uL (0.0-0.2); Basophils Percent Auto 0.6 % (0-2); Eosinophils Absolute Auto 0.3 X10*3/uL (0.0-0.4); Eosinophils Percent Auto 2.7 % (0-4); Hematocrit 42.2 % (37.0-47.0); Hemoglobin 14.1 g/dl (12.0-16.0); Imm Gran Abs Auto 0.04 X10*3/uL (0.00-0.03); Imm Gran Pct Auto 0.4 % (0.0-0.4); Lymphocytes Absolute Auto 3.4 X10*3/uL (1.2-4.9); Lymphocytes Percent Auto 34.8 % (20-40); Mean Corpuscular HGB Conc 33.4 g/dl (31.0-35.0); Mean Corpuscular Hemoglobin 30.9 pg (27.0-33.0); Mean Corpuscular Volume 92.3 fL (80.0-98.0); Mean Platelet Volume 10.8 fL (9.4-12.3); Monocytes Absolute Auto 0.8 X10*3/uL (0.1-1.2); Monocytes Percent Auto 7.7 % (2-11); Neutrophils Absolute Auto 5.3 x10*3/uL (2.0-8.3); Neutrophils Percent Auto 53.8 % (45-73); Platelet Count 343 X10*3/uL (160-400); Red Blood Count 4.57 X10*6/uL (4.20-5.50); Red Cell Distribution Width 13.8 % (11.0-16.0); White Blood Count 9.9 X10*3/uL (4.8-10.8)
[2023-12-03 11:08] LABS: Alanine Aminotransferase 19 U/L (0-31); Albumin Level 4.1 g/dL (3.5-5.0); Alkaline Phosphatase 72 U/L (39-117); Anion Gap 12 (12-20); Aspartate Amino Transferase 23 U/L (5-31); Bilirubin Total 0.3 mg/dL (0.0-1.0); Blood Urea Nitrogen 7 mg/dL (9-16); Calcium 9.1 mg/dL (8.4-10.2); Carbon Dioxide 26 mmol/L (22-29); Chloride 110 mmol/L (96-108); Cholesterol 233 mg/dL (<200); Estimated Glomerular Filt Rate > 60; Glucose Fasting 89 mg/dL (60-99); HDL Cholesterol 78 mg/dL (>40); LDL Cholesterol Calculated 134 mg/dL (<100); Potassium 4.8 mmol/L (3.3-5.1); Sodium 143 mmol/L (135-145); Total Protein 6.8 g/dL (6.5-8.0); Triglycerides 108 mg/dL (<150)
== END 2023-12-03 06:34 | disposition home or self-care (01) ==
LOC: HO.HMGCLDS 06:33
PROVIDERS: PCP Internal Medicine; Visit Provider Internal Medicine Medical Oncology
DX: R63.6 Underweight (principal); E21.3 Hyperparathyroidism, unspecified
CPT/HCPCS: 36415; 80053; 80061; 85025

== ENCOUNTER 2023-12-30 08:32 | Outpatient (REF) | payer MEDICARE, MEDICAID, SELFPAY ==
--- NOTE | ~2023-12-30 | MM_ITS ---
EXAMINATION: BONE DENSITOMETRY CLINICAL INDICATION: Age-related osteoporosis without current pathological fracture. COMPARISON: Baseline BD dated 12/01/2019. TECHNIQUE: Using a e(ye)BRAIN DXA System (software version: 13.1) manufactured by [employer], dual-energy x-ray absorptiometry was performed of the lumbar spine, left hip and left forearm radius 33%. The images are of good technical quality. Summary results are attached. FINDINGS: LEFT FEMUR, NECK: Current: BMD 0.736 g/cm2, Z-score -0.7, T-score -2.2, osteopenia. Baseline: BMD 0.659 g/cm2. LEFT FEMUR, TOTAL: Current: BMD 0.781 g/cm2, Z-score -0.6, T-score -1.8, osteopenia, 3.6% increase from baseline (<5% change is not significant). Baseline: BMD 0.754 g/cm2. AP SPINE L1-L4: Current: BMD 0.962 g/cm2, Z-score -0.3, T-score -1.8, osteopenia, 12.3% increase from baseline (<5% change is not significant). Baseline: BMD 0.857 g/cm2. LEFT FOREARM RADIUS 33%: BMD 0.694 g/cm2, Z-score -1.4, T-score -2.1, osteopenia, 5.7% decrease from baseline (<5% change is not significant). Baseline: BMD 0.736 g/cm2. IDENTIFIED RISK FACTORS: Osteoporosis, hyperparathyroidism, low body weight, low calcium intake,secondary osteoporosis (hyperthyroidism), menopause. HISTORY OF FRACTURE: None listed. MEDICATIONS: Calcium supplements or multivitamin, vitamin D. MM/XR DEXA axial skeleton IMPRESSION: 1. DIAGNOSIS: Osteopenia based on the lowest T-score value of -2.2 in the femoral neck applying World Health Organization criteria. 2. 10-YEAR FRACTURE RISK PREDICTION, FRAX: Major osteoporotic fracture (clinical spine, forearm, hip or shoulder) 8.2%. Hip fracture 1.3%. 3. Treatment Recommendations: NOF guidelines recommend consideration for treatment in postmenopausal women and men age 50 and older presenting with the following: -A hip or vertebral (clinical or morphometric) fracture. -T-score less than or equal to -2.5 at the femoral neck or spine after appropriate evaluation to exclude secondary causes. -Low bone mass at the hip or spine and a 10-year fracture probability by FRAX of greater than or equal to 3% for hip fracture or greater than or equal to 20% for major osteoporotic fracture based on the [place] adapted WHO algorithm. 4. Other Recommendations: All treatment decisions require clinical judgment and consideration of individual patient factors, including patient preferences, comorbidities, previous drug use, risk factors not captured in the FRAX model (e.g. frailty, falls, vitamin D deficiency, increased bone turnover, interval significant decline in bone density) and possible under or overestimation of fracture risk by FRAX. Additional medical evaluation for secondary cause of low bone mineral density may be appropriate. FUTURE SCAN RECOMMENDATION: People with diagnosed cases of osteoporosis or at high risk for fracture should have regular bone mineral density tests. For patients eligible for Medicare, routine testing is allowed once every 2 years. The testing frequency can be increased to one year for patients who have rapidly progressing disease, those who are receiving or discontinuing medical therapy to restore bone mass, or have additional risk factors. Electronically signed by: Coleman Medel MD 01/07/2024 08:50 AM EDT
== END 2023-12-30 08:33 | disposition home or self-care (01) ==
LOC: HO.MAMMO 08:32
PROVIDERS: PCP Internal Medicine; Visit Provider Internal Medicine Endocrinology, Diabetes & Metabolism
DX: M81.0 Age-related osteoporosis without current pathological fracture (principal)
CPT/HCPCS: 77080

== ENCOUNTER 2024-02-09 10:27 | Outpatient (AMB) | payer MEDICARE, MEDICAID, SELFPAY ==
--- NOTE | 2024-02-09 10:29 | MHC.OFFVIS ---
Vital Signs 02/09/24 10:33 Height 5 ft 2.9 in Weight 108 lb 11.006 oz BMI 19.3 BP 94/64 Blood Pressure Location Rt brachial Position Sitting Pulse 81 Pulse Source Pulse Oximeter Intake Visit Reasons: f/u osteoporosis/parathyroidectomy/ LVM Intake Note: Patient present today for Osteoporosis follow up. Dry Mop Maker Required: No Accompanied by: Self / Same As Patient Allergies erythromycin base Allergy (Severe, Verified 02/09/24 10:33) Diarrhea and C-Diff Medication List - Last Reconciled 02/09/24 by Yobani Hinojosa MD acetaminophen 650 mg PO QID PRN calcium citrate-vitamin D3 200 mg-6.25 mcg (250 unit) (Citracal-D3 Petites) 2 tabs PO BID 30 days cholecalciferol (vitamin D3) 50 mcg PO DAILY gabapentin 600 mg (2 x 300 mg) PO BEDTIME 30 days umeclidinium-vilanterol 62.5-25 mcg/actuation (Anoro Ellipta) 1 inh inhalation DAILY Ventolin HFA 90 mcg/actuation (albuterol sulfate) 2 puffs inhalation Q6H PRN NS HPI Comments Details: 58 YO F who is seen in F/U for a NTMNG now S/P a L hemithyroidectomy and Hyperparathyroidism with Osteoporosis, now S/P a 3 gland parathyroidectomy. 1) MNG: She underwent FNA biopsy by Dr. Duckworth of her LLP 1.8 cm nodule, and her LMP 4.0 cm nodule 12/11/17. Cytology for both nodules was Benign. She had a repeat thyroid US 11/04/2019 which reported significant growth of these nodules, as well as multiple other nodules meeting indication for FNA biopsy. 12/16/2019 I repeated the thyroid US myself and visualized the LLP nodule, measuring 1.9 cm and not meeting indication for repeat FNA biopsy as this nodule had not significantly grown in size. The LMP nodule measured 2.5 cm, and also did not meet indication for repeat FNA biopsy as it had significantly shrank from prior. No additional nodules meeting indication for FNA biopsy were visualized. She was referred to Dr. Desai to discuss a L thyroid lobectomy. She was recommended for this, however surgery was put on hold due to her recent diagnosis of lung cancer. She did reestablish care with Dr. Desai 03/08/2022 and did undergo her surgical L thyroid lobectomy and parathyroidectomy 06/05/2022. Official surgical pathology was benign. She reports feeling well today and has no complaints. Her most recent labs show TSH at goal. She is not on any thyroid hormone replacement. 2) Hyperparathyroidism: At her initial visit with me she was noted to have high normal calcium, higher than expected for her age. She underwent biochemical evaluation for hyperparathyroidism 05/10/2019 with Total Calcium 10.3, Albumin 4.8, PTH 44, and Vitamin d 41.7. Labs were repeated 11/09/2019 with Total Calcium 9.7, Albumin 4.3, Vitamin D 25.8, PTH 31, WNL. 24 hour urine calcium was 95, but this was an inadequate collection with a Cr of only 0.8. She did have a DEXA scan which revealed Osteoporosis of the spine and hip, and Osteopenia of the distal forearm. Labs were repeated 12/30/2019 with Calcium 10.1, PTH 38, Vitamin D 27.9 and Albumin 4.6. 24 hour urine collection was WNL as detailed below. She was referred to Dr. Desai who does suspect normocalcemic normohormonal hyperparathyroidism, and did visualize a R inferior parathyroid adenoma on US. He did order a Sestamibi scan, which did not localize. He does recommend a L thyroid lobectomy with parathyroid exploration. She underwent a 3 gland parathyroidectomy (bilateral inferior and L superior) 06/05/2022. Intraoperative PTH declined from 47-13 indicating cure. Labs have remained WNL since that time. She was given 1 dose of IV Reclast by her Oncologist in April 2021. She denies any body aches, constipation, abdominal pain. Denies any history of kidney stones. Fractured her collar bone at the age of 4. This was traumatic. Denies any fragility fractures. She takes Calcium carbonate 1250 mg PO daily. Takes Vitamin D 1000 IU daily. Menopause was age 50. She does still have hot flashes. Menarche was age 13 and she had 3 pregnancies. DEXA 12/06/2019: FINDINGS: AP SPINE L1-L4: BMD 0.857 g/cm2, Z-score -1.4, T-score -2.7, osteoporosis. LEFT FEMUR, NECK: BMD 0.659 g/cm2, Z-score -1.4, T-score -2.7, osteoporosis. LEFT FEMUR, TOTAL: BMD 0.754 g/cm2, Z-score -1.0, T-score -2.0, osteopenia. LEFT FOREARM RADIUS 33%: BMD 0.736 g/cm2, Z-score -1.3, T-score -1.6, osteopenia. Thyroid US 11/04/2019: Right Thyroid Lobe: 5.5 x 1.7 x 1.7 cm, volume 8.3 mL. Previously 5.3 x 2.1 x 1.7 cm, volume 9.7 mL. Parenchyma: The gland echotexture is homogeneous. Thyroid vascularity is increased. Left Thyroid Lobe: 6.2 x 2.2 x 2.7 cm, volume 19.3 mL. Previously 6.7 x 2.5 x 3.3 cm, volume 28.9 mL. Parenchyma: The gland echotexture is heterogeneous. Thyroid vascularity is increased. Isthmus: 0.3 cm in maximum AP dimension. Previously 0.2 cm. RIGHT THYROID LOBE: There are 3 nodules seen. 1. Location: Superior. Size: 0.4 x 0.2 x 0.3 cm. Previous: 0.4 x 0.2 x 0.3 cm. Nodule characteristics: Hypoechoic and cystic, smooth margin, no calcification and minimal peripheral flow.. 2. Location: Middle/inferior. Size: 1.2 x 0.5 x 0.9 cm. Previous: 1.2 x 0.5 x 1.2 cm. Nodule characteristics: Heterogeneous, smooth margin, calcification and positive intranodular flow.. 3. Location: Inferior. Size: 0.6 x 0.3 x 0.5 cm. Previous: 0.6 x 0.3 x 0.4 cm. Nodule characteristics: Heterogeneous, smooth margin, calcification and positive intranodular flow. ISTHMUS: There is 1 nodule seen. 1. Location: Right lower isthmus. Size: 1.4 x 0.6 x 0.9 cm. Previous: New since the previous study. Nodule characteristics: Hypoechoic and cystic, smooth margin, no calcification and no intranodular flow. LEFT THYROID LOBE: There are 3 nodules seen. 1. Location: Middle. Size: 0.6 x 0.5 x 0.7 cm. Previous: Not measured on the previous study. Nodule characteristics: Heterogeneous, smooth margin, no calcification and positive intranodular flow. 2. Location: Middle/inferior. Size: 3.4 x 1.9 x 2.2 cm. Previous: 3.1 x 1.9 x 2.7 cm. Nodule characteristics: Heterogeneous, smooth margin, calcification and positive intranodular flow. 3. Location: Inferior. Size: 2.2 x 1.6 x 2.1 cm. Previous: 2.4 x 1.2 x 1.3 cm. Nodule characteristics: Heterogeneous, smooth margins with hypoechoic rind, no calcification and positive intranodular flow. NODES: No lymphadenopathy is seen in the tissue surrounding the thyroid gland. Labs: Laboratory Tests 07/11/22 07/11/22 10:33 10:33 Creatinine 0.79 Estimated GFR > 60 Calcium 9.1 D Albumin 4.4 25-OH Vitamin D Total 36.9 TSH 1.41 Free T4 0.83 PTH Intact 21 Calcium (PTH Intact) 9.8 She is status post left lobectomy and parathyroidectomy with removal 3 parathyroid glands . FORMERLY [facility], [facility]–1983 Medical History (Updated 05/19/23 @ 06:17 by Tatiana Rhoades MD) Hyperlipidemia Annual visit for general adult medical examination with abnormal findings Hyperparathyroidism Toxic multinodular goiter Vitamin D deficiency Hyperthyroidism Post-thoracotomy pain syndrome Primary adenocarcinoma of right lung (~2020) Right upper lobe pulmonary nodule Personal history of nicotine dependence Clostridium difficile colitis (~11/2020) Pulmonary nodules/lesions, multiple Emphysema of lung Osteoporosis (~2019) Hyperparathyroidism Vitamin D deficiency Multinodular thyroid Surgical History Hx of partial thyroidectomy History of lobectomy of lung (~2020) S/P thyroid biopsy (~2017) History of colonoscopy (~2018) Family History Mother Pancreatic cancer Father COPD (chronic obstructive pulmonary disease) Social History Household Members: None Housing: House Do you presently have visiting nurse or other home services: No Alcohol intake: current Alcohol intake frequency: a few times a month Patient Tobacco Use Status: Former Tobacco user Years Smoked: 35 years e-Cigarette/Vaping Use: Never Used Second Hand Smoke Exposure: No Substance Use Type: Marijuana service: No Current occupational status: disabled Cognitive needs: No Hearing needs: No Vision needs: Yes Physical Exam Vital Signs: BMI result Body Mass Index 19.3 Const Other: Healed scar status post left lobectomy and parathyroidectomy. Right lobe was without the presence of any palpable nodules Assessment & Plan Assessment & Plan (1) Hyperparathyroidism: Code(s): E21.3 - Hyperparathyroidism, unspecified Category: Medical Plan: Status post parathyroidectomy with normalization of calcium (2) Osteoporosis: Onset Date: ~2019 Code(s): M81.0 - Age-related osteoporosis without current pathological fracture Category: Medical Plan: This 58-year-old white female with a history of primary hyperparathyroidism and osteoporosis status post parathyroidectomy with normalization of calcium. Currently on vitamin-D supplementation. DEXA bone density showed low bone mass but no evidence of osteoporosis Plan is to continue calcium and vitamin-D supplementation. She will be returned to the care of her primary care provider who can reassess DEXA bone density about 2 years time. Should bone density decline in the osteoporotic range, discussion of treatment options could be undertaken such as use of bisphosphonate with the patient returned back to endocrinology for management of this (3) Multinodular thyroid: Code(s): E04.2 - Nontoxic multinodular goiter Category: Medical Plan: Status post left lobectomy. Appears clinically and biochemically euthyroid. Right lobe contains the presence of subcentimeter nodule. Will have patient follow-up with Dr. Anderson in next 6 months for repeat ultrasound of left lobe (4) Weight gain: Code(s): R63.5 - Abnormal weight gain Plan: No clear endocrine etiology behind patient's symptoms. 24 hour urine for cortisol is normal. Symptoms have improved Coding Level of Care Code Est Pt Level 3 (04088) Diagnoses Hyperparathyroidism E21.3 Osteoporosis M81.0 Multinodular thyroid E04.2 Weight gain R63.5
[2024-02-09 10:33] VITALS: BP 94/64; PULSE 81; BMI 19.3
== END 2024-02-09 10:59 | disposition home or self-care (01) ==
PROVIDERS: PCP Internal Medicine; Visit Provider Internal Medicine Endocrinology, Diabetes & Metabolism
DX: E21.3 Hyperparathyroidism, unspecified (principal); M81.0 Age-related osteoporosis without current pathological fracture; E04.2 Nontoxic multinodular goiter; R63.5 Abnormal weight gain
CPT/HCPCS: 99213

== ENCOUNTER → 2024-02-09 10:27 | Outpatient (BNVA) | payer MEDICARE, MEDICAID, SELFPAY | PROVIDERS: PCP Internal Medicine; Visit Provider Internal Medicine Endocrinology, Diabetes & Metabolism | DX: E21.3 Hyperparathyroidism, unspecified (principal); E04.2 Nontoxic multinodular goiter; M81.0 Age-related osteoporosis without current pathological fracture; R63.5 Abnormal weight gain | CPT/HCPCS: 99212 ==

== ENCOUNTER 2024-02-11 08:22 | Outpatient (AMB) | payer MEDICARE, MEDICAID, SELFPAY ==
[2024-02-11 08:30] VITALS: BP 92/68; PULSE 77; O2SAT 99; BMI 19.0
--- NOTE | 2024-02-11 08:30 | MHC.PC.OV ---
Vital Signs 02/11/24 08:30 Height 5 ft 2 in Weight 104 lb BMI 19.0 BP 92/68 Blood Pressure Location Lt brachial Position Sitting Pulse 77 Pulse Source Pulse Oximeter Pulse Oximetry (%) 99 Oxygen Delivery Method Room Air Intake Visit Reasons: Annual PE Intake Note: Pt is here today for her PE: Last mammogram 08/29/23, papsmear 06/04/22, colonoscopy 02/03/19 Allergies erythromycin base Allergy (Severe, Verified 02/11/24 08:49) Diarrhea and C-Diff Medication List - Last Reconciled 02/11/24 by Tatiana Rhoades MD acetaminophen 650 mg PO QID PRN calcium citrate-vitamin D3 200 mg-6.25 mcg (250 unit) (Citracal-D3 Petites) 2 tabs PO BID 30 days cholecalciferol (vitamin D3) 50 mcg PO DAILY gabapentin 600 mg (2 x 300 mg) PO BEDTIME 30 days umeclidinium-vilanterol 62.5-25 mcg/actuation (Anoro Ellipta) 1 inh inhalation DAILY Ventolin HFA 90 mcg/actuation (albuterol sulfate) 2 puffs inhalation Q6H PRN NS Tobacco use date assessed: 02/11/24 Dental Screening Dental Screen Date: 02/11/24 Did you have a dental visit in the last 12 months?: No Did you have a dental problem in the last 6 months where you did not have access to dental care?: No Was dental information given to patient?: No HPI Annual PE HPI Details 58year-old lady with history of primary adenosis carcinoma of right lung, followed by Oncology, has osteoporosis, multinodular thyroid and hyperparathyroidism, here today for her physical exam. She is up-to-date with her screening mammogram, last done 08/29/23, had her cervical screening, with last papsmear done 06/04/22, and had a screening colonoscopy 02/03/19 showed normal findings, repeat due in 2028. history of primary hyperparathyroidism and osteoporosis status post parathyroidectomy with normalization of calcium. Currently on vitamin-D supplementation. DEXA bone density showed low bone mass but no evidence of osteoporosis PFSH Medical History (Updated 02/12/24 @ 14:34 by Tatiana Rhoades MD) Leukocytosis Immunization due Hyperlipidemia Annual visit for general adult medical examination with abnormal findings Hyperparathyroidism Toxic multinodular goiter Vitamin D deficiency Hyperthyroidism Post-thoracotomy pain syndrome Primary adenocarcinoma of right lung (~2020) Right upper lobe pulmonary nodule Personal history of nicotine dependence Clostridium difficile colitis (~11/2020) Pulmonary nodules/lesions, multiple Emphysema of lung Osteoporosis (~2019) Hyperparathyroidism Vitamin D deficiency Multinodular thyroid Surgical History Hx of partial thyroidectomy History of lobectomy of lung (~2020) S/P thyroid biopsy (~2017) History of colonoscopy (~2018) Family History Mother Pancreatic cancer Father COPD (chronic obstructive pulmonary disease) Social History Household Members: None Housing: House Do you presently have visiting nurse or other home services: No Alcohol intake: current Alcohol intake frequency: a few times a month Patient Tobacco Use Status: Former Tobacco user Years Smoked: 35 years e-Cigarette/Vaping Use: Never Used Second Hand Smoke Exposure: No Substance Use Type: Marijuana service: No Current occupational status: disabled Cognitive needs: No Hearing needs: No Vision needs: Yes Questionnaire PHQ-9 Over the last 2 weeks, how often have you been bothered by any of the following problems? 1. Little interest or pleasure in doing things: not at all 2. Feeling down, depressed, or hopeless: not at all 3. Trouble falling or staying asleep, or sleeping too much: several days 4. Feeling tired or having little energy: several days 5. Poor appetite or overeating: not at all 6. Feeling bad about yourself - or that you are a failure or have let yourself or your family down: not at all 7. Trouble concentrating on things, such as reading the newspaper or watching television: not at all 8. Moving or speaking so slowly that other people could have noticed. Or the opposite - being so fidgety or restless that you have been moving around a lot more than usual: not at all 9. Thoughts that you would be better off or of hurting yourself in some way: not at all Total score: 2 Depression Screening Interpretation: Negative Depression Screening Done: Yes 99690 - PHQ-9 Billing: Yes Source: Developed by Drs. Yobani Cordero, Jeremías John and colleagues, with an educational leonela from [employer]. Thrive Questionnaire Date Thrive assessed: 02/11/24 I am a: Patient What is your living situation today?: I have a steady place to live Within the past 12 months, did the food you bought not last and you didn't have the money to get more?: Never true Within the past 12 months, did you worry whether your food would run out before you got money to buy more?: Never true Do you have trouble paying for medicines?: No Do you have trouble getting transportation to medical appointments?: No Do you have trouble paying your heating and electricity bill?: No Do you have trouble taking care of your child, family member or friend?: No Do you have trouble with day-to-day activities such as bathing, preparing meals, shopping, managing finances, etc.?: No Are you interested in more education?: No Please select the resources that you would like help with: None Currently or been in a relationship where the following occur: No concerns reported THRIVE Score: 0 AUDIT C Alcohol Use Questionnaire (AUDIT-C) 1. How often do you have a drink containing alcohol?: 2-4 times a month 2. How many drinks containing alcohol do you have on a typical day when you are drinking?: 1 or 2 3. How often do you have six or more drinks on one occasion?: Never Total Score: 2 SUSAN-7 AMB Questionnaire SUSAN-7 Date SUSAN - 7 assessed: 02/11/24 Feeling nervous, anxious, or on edge: 0 = Not at all Not being able to stop or control worryin = Not at all Worrying too much about different things: 0 = Not at all Trouble relaxin = Not at all Being so restless that it is hard to sit still: 0 = Not at all Becoming easily annoyed or irritable: 0 = Not at all Feeling afraid as if something awful might happen: 0 = Not at all Total SUSAN-7 score (0-4 normal; 5-9 mild; 10-14 moderate; 15-21 severe): 0 Source: Developed by Joelle Esteban Kurt Kroenke and colleagues, with an educational leonela from [employer]. SUSAN-7 Assessment Billing SUSAN-7 Assessment Tool: SUSAN-7 Assessment 69913 Review of Systems Const Denies excessive sweating, Denies fatigue and Denies headache(s) Eyes Denies blurry vision and Denies diplopia ENT Reports Normal hearing present, Denies change in voice, Denies dysphagia, Denies headache(s) and Denies hoarseness Card Denies chest pain, Denies irregular heart rhythm, Denies dyspnea and Reports other Resp Denies cough and Denies dyspnea GI Denies abdominal pain, Denies change in bowel habits, Denies dysphagia, Denies diarrhea and Denies nausea Reports no additional complaints Musc Denies myalgias, Denies muscle cramps, Denies numbness and Denies tingling Skin/Breast Denies hirsutism and Denies alopecia Neuro Reports Normal hearing present, Denies headache(s), Denies numbness, Reports radicular pain, Denies Sensory deficit (Neuro) and Denies tingling Psych Denies anxiety and Denies depression Endo Denies cold intolerance, Denies excessive sweating, Denies fatigue and Denies heat intolerance Vasu/Lymph Denies easy bruising Aller/Immun Reports no additional complaints Physical exam (Primary Care) Vital Signs: Last Vital Signs Pulse 77 02/11/24 08:30 BP 92/68 02/11/24 08:30 Pulse Ox 99 02/11/24 08:30 Oxygen Delivery Method Room Air 02/11/24 08:30 BMI result Body Mass Index 19.0 Tobacco/Smoking Status: Tobacco use Status Tobacco use date assessed 02/11/24 02/11/24 08:33 Patient Tobacco Use Status Former Tobacco user 02/11/24 08:33 Tobacco use type 02/09/24 10:57 e-Cigarette/Vaping Use Never Used 02/11/24 08:33 PHQ-9: PHQ-9 Score PHQ-9: Total score 2 02/12/24 14:33 Depression Screening Interpretation: Negative Thrive Assessment: Date of Thrive Assessment Date Thrive assessed 02/11/24 02/11/24 08:33 Currently or been in a relationship where the following occur: No concerns reported Advance Care Planning discussion: Exists, not on file Const General: cooperative, no acute distress and alert Orientation/consciousness: patient oriented x3 Limitations: no limitations HENMT Head: Yes normocephalic Ears: hearing grossly normal bilaterally, external ears normal, TM's normal bilaterally and EAC's normal General nose exam: Normal external nose present Face and sinus: Yes face symmetric Mouth: oropharynx normal and moist mucous membranes Eyes Conjunctivae: conjunctivae normal Sclerae: sclerae normal Pupils: Equal, round and reactive pupils present EOM: EOMs intact bilaterally Neck Neck: Yes full ROM and Yes no lymphadenopathy Chest Breast/axilla inspection: normal inspection of the breasts Breast/axilla palpation: normal palpation of the breasts Resp Effort & Inspection: normal respiratory effort and able to speak in complete sentences Auscultation: clear to auscultation bilaterally Cardio Jugular venous distension: no JVD Rate: regular rate Rhythm: regular rhythm Heart sounds: S1 normal heart sound present and S2 normal heart sound present GI Inspection: Yes normal to inspection Palpation (GI): Soft to palpation Auscultation: normal bowel sounds General: Yes no CVA tenderness Back/Spine/Pelvis Back: no CVA tenderness and No back tenderness Skin General skin exam: no rashes or lesions noted Hair: patchy alopecia Neuro General: patient oriented x3, gait normal, moves all extremities, no focal motor deficits and CN's II-XI intact bilaterally Cranial nerves: Yes Equal, round and reactive pupils present and Yes Normal hearing present Cognition (Neuro): normal cognition Gait exam (Neuro): Normal gait present Motor exam (neuro): 5/5 motor strength present throughout Sensory Exam: No Sensory deficit (Neuro) Extrem General: Yes normal to inspection, Yes full ROM, Yes no pedal edema and Yes normal gait Psych Appearance: grossly normal and well kempt Mental Status: mental status grossly normal Speech and movement: Normal speech and movement present Attitude: cooperative Thought process: Normal thought process present Thought content: Normal thought content present Office Procedures Flu Questionnaire Does the patient have a severe egg allergy?: No Does the patient have severe life threatening allergies?: No Does the patient have a fever or illness today?: No Has the patient ever had Guillain-[place] Syndrome?: No Has the patient ever had any past reaction to a flu shot?: No Immunizations Fluarix Triv [id number] (PF) 45 mcg (15 mcg x 3)/0.5 mL IM syringe Performing Provider: Tatiana Rhoades MD [place] Location[place] [facility] Administered by: Raisa Robledo CMA on 02/11/24 09:20 Dose Route Admin Location Dispensed Lot Number Expiration Date NDC Field Hand 0.5 mL IM Right Deltoid 0.5 mL [id number] 11/08/24 44951-936-67 [id number] VIS Given Date VIS Provided VIS Publication Date 02/11/24 Single Vaccine 20 Eligibility Eligibility Date Funding Source Not VFC Eligible 02/11/24 Private Results Reviewed Results Reviewed: Name: Dorinda Fischer Age/Sex: 58/F : 1965 Unit#: [id number] Attend Dr: Yobani Villanueva MD Re12/03/23 Status: DEP REF Location: [facility] Disch: SPEC : [id number] RUI: 12/03/23 STATUS: COMP REQ : [id number] RECD: 12/03/23-[address]: Yobani Villanueva MD COMP: 12/03/23 ENTERED: 12/03/[address]: Tatiana Rhoades MD ORDERED: CBC Auto Diff Test Result Flag Reference WBC 9.9 4.8-10.8 X10*3/uL RBC 4.57 4.20-5.50 X10*6/uL HGB 14.1 12.0-16.0 g/dl HCT 42.2 37.0-47.0 % MCV 92.3 80.0-98.0 fL MCH 30.9 27.0-33.0 pg MCHC 33.4 31.0-35.0 g/dl RDW 13.8 11.0-16.0 % PLT 343 160-400 X10*3/uL MPV 10.8 9.4-12.3 fL Neut Pct Auto 53.8 45-73 % ImGran Pct Auto 0.4 0.0-0.4 % Lymp Pct Auto 34.8 20-40 % [place] Pct Auto 7.7 2-11 % Eos Pct Auto 2.7 0-4 % Baso Pct Auto 0.6 0-2 % NRBC Pct Auto 0.0 0.0-0.2 /100WBC ANC Neut Abs # 5.3 2.0-8.3 x10*3/uL ImGran Abs Auto 0.04 H 0.00-0.03 X10*3/uL Lymph Abs Auto 3.4 1.2-4.9 X10*3/uL [place] Abs Auto 0.8 0.1-1.2 X10*3/uL Eos Abs Auto 0.3 0.0-0.4 X10*3/uL Baso Abs Auto 0.1 0.0-0.2 X10*3/uL NRBC Abs Auto 0.000 0.0-0.012 X10*3/uL Name: Dorinda Fischer Age/Sex: 58/F : 1965 Unit#: [id number] Attend Dr: Yobani Villanueva MD Re12/03/23 Status: DEP [facility] Disch: SPEC : [id number] RUI: 12/03/23 STATUS: COMP REQ : [id number] RECD: 12/03/23-[address]: Yobani Villanueva MD COMP: 12/03/238 ENTERED: 12/03/[address]: Tatiana Rhoades MD ORDERED: CMP Fast, Lipid Panel Test Result Flag Reference Sodium 143 135-145 mmol/L Potassium 4.8 3.3-5.1 mmol/L CL 110 H 96-108 mmol/L CO2 26 22-29 mmol/L Gap 12 12-20 BUN 7 L 9-16 mg/dL Creat 0.83 0.5-1.4 mg/dL EGFR > 60 NOTE: For -L[place]uan[place] individuals, multiply the result by 1.210. Chronic Kidney Disease: Estimated GFR < 60 mL/min/1.73m2 Severe Kidney Disease: Estimated GFR < 15 mL/min/1.73m2 FBS 89 60-99 mg/dL CA 9.1 8.4-10.2 mg/dL Total Bili 0.3 0.0-1.0 mg/dL AST (GOT) 23 5-31 U/L ALT (GPT) 19 0-31 U/L Protein, Total 6.8 6.5-8.0 g/dL Alb 4.1 3.5-5.0 g/dL Triglyceride 108 <150 mg/dL Desirable Triglyceride: less than 150 mg/dL Borderline High Triglyceride 150-199 mg/dL High Triglyceride: 200-499 mg/dL Very High Triglyceride: greater than or equal to 5OO mg/dL Cholesterol 233 H <200 mg/dL Desirable Cholesterol: less than 200 mg/dL Borderline High Cholesterol: 200-239 mg/dL High Cholesterol: greater than 239 mg/dL LDL Calculated 134 H <100 mg/dL Desirable LDL: less than 100 mg/dL Near Optimal/Above Optimal LDL: 110-129 mg/dL Borderline High LDL: 130-159 mg/dL High LDL: 160-189 mg/dL Very High LDL: greater than or equal to 190 mg/dL HDL 78 >40 mg/dL Desirable HDL: greater than 40 mg/dL Note: This HDL assay may give artificially low results in patients with liver disease. Alk Phos 72 39-117 U/L Coding Level of Care Code Est Pt Prev Care 40-64y(11601) Diagnoses Annual visit for general adult medical examination with abnormal findings Z00.01 Hyperlipidemia E78.5 Centrilobular emphysema J43.2 Emphysema type: centrilobular Osteoporosis M81.0 Additional Codes SUSAN-7 Assessment Billing - SUSAN-7 Assessment Tool: SUSAN-7 Assessment 09078 ([id number]) Vital Signs *Quality* - Advance Care Planning discussion: Exists, not on file ([id number]) Assessment & Plan Assessment & Plan (1) Annual visit for general adult medical examination with abnormal findings: Code(s): Z00.01 - Encounter for general adult medical examination with abnormal findings Category: Medical Plan: Will check appropriate labs. Recommended dental visit every 6 months and regular eye exams, at least every 2 years. Take adequate calcium in diet and vitamin-D 3 at 2000 IU per cap once a day, in addition to weight-bearing exercises to help maintain good muscle tone and weight control. Instructed to do self-breast exam, and recommended to get yearly mammogram, She is up-to-date with her screening mammogram, last done 08/29/23, had her cervical screening, with last papsmear done 06/04/22, and had a screening colonoscopy 02/03/19 showed normal findings, repeat due in 2028. Reminded to get her COVID booster, flu vaccine given today (2) Hyperlipidemia: Code(s): E78.5 - Hyperlipidemia, unspecified Category: Medical Plan: recent fasting lipids showed elevated LDL cholesterol at 134 mg/dL. Reinforced importance of following low-cholesterol diet and getting regular exercise. (3) Emphysema of lung: Code(s): J43.9 - Emphysema, unspecified Category: Medical Qualifiers: Emphysema type: centrilobular Qualified Code(s): J43.2 - Centrilobular emphysema Plan: Continue Anoro Ellipta and Ventolin inhaler as needed for episodes of bronchospasm and wheezing (4) Osteoporosis: Onset Date: ~2019 Code(s): M81.0 - Age-related osteoporosis without current pathological fracture Category: Medical Plan: Continued on vitamin-D 3 supplements, followed by endocrine clinic Orders: Orders Influenza [id number] Immunization 02/11/24 Z23 - Encounter for immunization
== END 2024-02-11 10:04 | disposition home or self-care (01) ==
PROVIDERS: PCP Internal Medicine; Visit Provider Internal Medicine
DX: Z00.00 Encounter for general adult medical examination without abnormal findings (principal); E78.5 Hyperlipidemia, unspecified; J43.2 Centrilobular emphysema; M81.0 Age-related osteoporosis without current pathological fracture; Z23 Encounter for immunization

== ENCOUNTER → 2024-02-11 08:22 | Outpatient (BNVA) | payer MEDICARE, MEDICAID, SELFPAY | PROVIDERS: PCP Internal Medicine; Visit Provider Internal Medicine | DX: Z00.01 Encounter for general adult medical examination with abnormal findings (principal); Z23 Encounter for immunization; E78.5 Hyperlipidemia, unspecified; J43.2 Centrilobular emphysema; M81.0 Age-related osteoporosis without current pathological fracture | CPT/HCPCS: 90471; 90656; 96127; 99396 ==

== ENCOUNTER 2024-03-09 06:08 | Outpatient (REF) | payer MEDICARE, MEDICAID, SELFPAY ==
[2024-03-09 10:14] LABS: MANUAL DIFF FLAG NO
[2024-03-09 10:19] LABS: Basophils Absolute Auto 0.1 X10*3/uL (0.0-0.2); Basophils Percent Auto 0.7 % (0-2); Eosinophils Percent Auto 0.2 % (0-4); Hemoglobin 13.7 g/dl (12.0-16.0); Imm Gran Abs Auto 0.02 X10*3/uL (0.00-0.03); Imm Gran Pct Auto 0.2 % (0.0-0.4); Lymphocytes Absolute Auto 3.2 X10*3/uL (1.2-4.9); Lymphocytes Percent Auto 32.5 % (20-40); Mean Corpuscular HGB Conc 33.4 g/dl (31.0-35.0); Mean Corpuscular Hemoglobin 31.1 pg (27.0-33.0); Mean Corpuscular Volume 93.2 fL (80.0-98.0); Mean Platelet Volume 10.7 fL (9.4-12.3); Monocytes Absolute Auto 0.7 X10*3/uL (0.1-1.2); Monocytes Percent Auto 6.8 % (2-11); Neutrophils Absolute Auto 5.9 x10*3/uL (2.0-8.3); Neutrophils Percent Auto 59.6 % (45-73); Platelet Count 341 X10*3/uL (160-400); Red Cell Distribution Width 13.7 % (11.0-16.0); White Blood Count 9.9 X10*3/uL (4.8-10.8)
[2024-03-09 10:57] LABS: Alanine Aminotransferase 24 U/L (0-31); Alkaline Phosphatase 64 U/L (39-117); Anion Gap 11 (12-20); Aspartate Amino Transferase 32 U/L (5-31); Bilirubin Total 0.3 mg/dL (0.0-1.0); Blood Urea Nitrogen 11 mg/dL (9-16); Calcium 8.6 mg/dL (8.4-10.2); Carbon Dioxide 26 mmol/L (22-29); Chloride 109 mmol/L (96-108); Cholesterol 244 mg/dL (<200); Estimated Glomerular Filt Rate > 60; Glucose Fasting 93 mg/dL (60-99); HDL Cholesterol 75 mg/dL (>40); LDL Cholesterol Calculated 142 mg/dL (<100); Potassium 4.2 mmol/L (3.3-5.1); Sodium 142 mmol/L (135-145); Total Protein 6.8 g/dL (6.5-8.0); Triglycerides 136 mg/dL (<150)
[2024-03-09 11:26] LABS: Free T4 (Free Thyroxine) 1.05 ng/dL (0.71-1.85); Thyroid Stimulating Hormone 1.93 uIU/mL (0.32-4.0)
== END 2024-03-09 06:09 | disposition home or self-care (01) ==
LOC: HO.HMGCLDS 06:08
PROVIDERS: PCP Internal Medicine; Visit Provider Internal Medicine Medical Oncology
DX: R63.6 Underweight (principal); C34.11 Malignant neoplasm of upper lobe, right bronchus or lung; E04.2 Nontoxic multinodular goiter; E21.3 Hyperparathyroidism, unspecified; D75.839 Thrombocytosis, unspecified
CPT/HCPCS: 36415; 80053; 80061; 84439; 84443; 85025

== ENCOUNTER 2024-03-15 09:45 | Outpatient (REF) | payer MEDICARE, MEDICAID, SELFPAY ==
--- NOTE | ~2024-03-15 | CT_ITS ---
EXAMINATION: CT CHEST WITH CONTRAST CLINICAL INFORMATION: Right brachial neoplasm. COMPARISON: Most recent CT chest dated 09/09/2023. TECHNIQUE: Multidetector volumetric CT imaging of the chest was obtained after the administration of 65 mL of Omnipaque 350 intravenous contrast without immediate adverse reactions. Axial MIP volume rendering provided. Sagittal and coronal reformatted images were obtained. This CT examination was performed using dose optimization techniques as appropriate, variously including the following: *Automated exposure control *Adjustment of mA and/or kV according to patient size (this includes techniques or standardized protocols for targeted exams where dose is matched to indication/reason for exam; i.e. extremities or head) *Use of iterative reconstruction technique DLP: 181 mGy-cm FINDINGS: EXHIBIT DISPLAY REPRESENTATIVE: Unremarkable. LUNGS: Postsurgical change consistent with right upper lobectomy are redemonstrated. [id number] emphysematous changes are redemonstrated. Stable 0.6 cm nodule within the right lower lobe (axial image 71/195). Stable left upper lobe 0.3 cm nodule (axial image 87/195). No new pulmonary nodule or mass. No focal airspace consolidation. The central airways are patent. MEDIASTINUM: No cardiomegaly. Mild rightward shift of the mediastinum is unchanged. No thoracic aortic dilatation or dissection. No superior mediastinal or hilar lymphadenopathy. Unremarkable right thyroid. Coronary artery calcifications are not present. PLEURA: There is no pleural effusion. No pleural mass or thickening. AXILLA: No lymphadenopathy. UPPER ABDOMEN: Subcentimeter hepatic hypodensities are unchanged. Otherwise, the visualized upper abdominal structures are unremarkable. OSSEOUS STRUCTURES: Unremarkable. CT/CT chest w IV con IMPRESSION: 1. Postsurgical changes consistent with right upper lobectomy are redemonstrated. Emphysematous changes are redemonstrated. 2. Stable bilateral pulmonary nodules measuring up to 0.6 cm within the right lower lobe. No new pulmonary nodule, mass, or airspace consolidation. 3. No new or increasing lymphadenopathy. Fleischner guidelines were followed. Electronically signed by: Josias Germain MD 03/15/2024 01:45 PM [facility] [place] Workstation: [id number]
[2024-03-15] MEDS: iohexoL 350 MG/ML 100 ML INFUS..BTL 65 ML IV (10:40)
== END 2024-03-15 09:46 | disposition home or self-care (01) ==
LOC: HO.CT 09:45
PROVIDERS: PCP Internal Medicine; Visit Provider Internal Medicine Medical Oncology
DX: C34.11 Malignant neoplasm of upper lobe, right bronchus or lung (principal)
CPT/HCPCS: 71260; Q9967

== ENCOUNTER 2024-03-19 09:10 | Outpatient (AMB) | payer MEDICARE, MEDICAID, SELFPAY ==
--- NOTE | 2024-03-19 09:12 | MHC.OFFVIS ---
Vital Signs 03/19/24 09:14 Height 5 ft 2 in Weight 106 lb 14.787 oz BMI 19.6 BP 108/62 Blood Pressure Location Rt brachial Position Sitting Pulse 80 Pulse Source Pulse Oximeter Pulse Oximetry (%) 98 Oxygen Delivery Method Room Air Intake Visit Reasons: Dyspnea Bacon De Rinder Required: No Mortgage Servicing Specialist: Mortgage Servicing Specialist offered & declined Accompanied by: Self / Same As Patient Allergies erythromycin base Allergy (Severe, Verified 03/19/24 09:13) Diarrhea and C-Diff Medication List - Last Reconciled 03/19/24 by Estephanie Mosqueda LPN acetaminophen 650 mg PO QID PRN calcium citrate-vitamin D3 200 mg-6.25 mcg (250 unit) (Citracal-D3 Petites) 2 tabs PO BID 30 days cholecalciferol (vitamin D3) 50 mcg PO DAILY gabapentin 600 mg (2 x 300 mg) PO BEDTIME 30 days umeclidinium-vilanterol 62.5-25 mcg/actuation (Anoro Ellipta) 1 inh inhalation DAILY Ventolin HFA 90 mcg/actuation (albuterol sulfate) 2 puffs inhalation Q6H PRN NS HPI Comments Details: The patient is a 58-year-old woman with the history of tobacco dependency in addition to a thyroid goiter followed closely by Endocrinology who apparently was in her usual state health until her 2nd dose of the COVID-19 vaccine. She started developing worsening respiratory symptoms and cough. Ultimately she was evaluated in the emergency department where she did undergo a CT scan of the chest which demonstrated a 1 cm nodular density in the right upper lobe adjacent to emphysema. The nodule in the is concerning to to his size and her smoking history putting her at high risk for malignancy. While in the hospital the patient was given antibiotics. Unfortunately she did develop C diff colitis she was then seen back in the ER couple weeks later. Patient has had weight loss but she is not sure if it was from the vaccine or the C diff colitis. Patient does have a rescue inhaler which she does not require. 02/01/2021 the patient is here for a pulmonary follow-up visit. since we last spoke the patient did undergo her PET scan demonstrating an active right upper lobe nodular density concerning for cancer. She was referred to thoracic surgery and did undergo pulmonary function studies. Her DLCO is only 50%. However, I reassured her that based on the fact that her emphysema is primarily in the upper lung zone that she should not lose too much lung capacity. However there may be a chance that she may need to rely on supplemental oxygen at least once she recovers. She is currently struggling because she just recently lost her who had been battling liver disease. He was transferred to [place] but he was deemed not a candidate for transplant and he went on hospice home. She understands that her surgery is important in cannot be delayed in therefore is currently scheduled for next week. 04/30/2021 the patient is here for a pulmonary follow-up visit. The patient is status post lobectomy. The pathology was consistent with an invasive adenocarcinoma. The lymph nodes were negative. Unfortunately she appeared to have some pleural invasion. Therefore, the patient was started on chemotherapy and follows closely by her oncologist the patient has been tolerating the chemotherapy well. Patient knows to watch for any worsening respiratory symptoms. she still dealing with the parathyroid issue. Currently she is on medications for calcium. When she is better from her pulmonary issues she will looking to following up with her surgeon regarding her hyperparathyroidism. 08/01/2021 the patient is here for a pulmonary follow-up visit. She continues to do relatively well. She did complete her chemotherapy. She does have a CT scan scheduled for tomorrow. I will have her added to the tumor conference on Friday in order to review her pathology again and also to review her most recent CT scan. She continues to respond well to the gabapentin for the post thoracotomy syndrome and also helps her with sleep. She does well at 600 mg at nighttime. She would also benefit from a little bit in the morning in order to help her with post thoracotomy syndrome. I will resend a prescription to the pharmacy at this time. 01/30/2022 the patient is here for a pulmonary follow-up visit. The patient overall is doing little better. Her chest discomfort has improved with the use of gabapentin. She still struggling with the loss of her . The patient still has shortness of breath. She has been using a rescue inhaler. She would like to hold off on using additional maintenance therapies. We did review her PFTs from 2020 demonstrating COPD in addition to a moderate diffusion impairment. Now that she is status post lung resection and chemotherapy is likely that her respiratory status is a little bit worse. Will have her undergo pulmonary function studies. She does have issues with a thyroid goiter in addition to parathyroid disease. She has been eating up with surgery to figure out about having surgery for this condition. The patient right now will need to be evaluated for preoperative evaluation with pulmonary function studies prior to surgery. The patient is also looking to apply for disability. She is having significant shortness of breath and chest pain. She has a hard time performing her activities of daily living. Will have her undergo a pulmonary function study and 6 minute walk test during on the next month or so. In the meantime to the patient does have a CT scan of the chest from July 2021 demonstrating slight interval increase in the right lower lobe nodule. She does have a CT scan scheduled for the next week or so. She will follow-up with her surgeon after that CT scan. 08/14/2022 the patient is here for a pulmonary follow-up visit. Overall the patient is doing better. She is still grieving the loss of her . Her hair is now working back after completing the chemotherapy. She recently had a CT scan of the chest demonstrating stable pulmonary nodules both measure about 4-5 mm in size. They have not changed from her previous although there suspicious in the need to be monitored closely. Therefore should have a repeat CT scan in 6 months time. The patient is having some shortness of breath. She is starting to exercise more regularly. She is using her rescue inhaler all too often. Will go ahead and start her on Anoro in order to provide her maintenance therapy in order for her to increase her exercise capacity and lung capacity. She still having neuropathic pain after having her surgery. She does respond good to the Neurontin. Will go ahead increase her dose a little bit more in order for her to get adequate pain relief in that area. She understands that this may take a long time to recover from. 02/21/2023 the patient is here for hospital follow-up visit. She is feeling better. She was recently hospitalized at the [facility] with worsening respiratory symptoms. She was diagnosed with pneumonia and she was treated with antibiotics in addition to prednisone. The patient now is feeling better. She still has some wheezing on examination. The Anoro inhaler has been helpful. Her last CT scan of the chest was reassuring without any evidence of recurrent cancer. The patient also has pulmonary nodules are be monitor. Her last CT scan was back in November 2022 in therefore will have a CT scan 6 months from then. This is being arranged by thoracic surgeon. Otherwise we can order it if it gets delayed. He she also had a chest x-ray demonstrating postoperative changes no clear pneumonia although she did have a lower respiratory infection. The patient does have a cough which is congested in nature. [id number] severity and the patient also has some rhonchi on examination. I do believe that she will benefit from more doxycycline. The patient is concerned about C diff colitis and she is had some in the past but I reassured her that she should be able to tolerate the doxycycline okay. 05/28/2023 the patient is here for pulmonary follow-up visit. Overall the patient is feeling better. Her cough is overall better. She completed the course of doxycycline. She continues use her respiratory medicines with good effect. The patient did have repeat chest x-ray demonstrating interval improvement of the airspace disease. She does have some postoperative changes. The patient also concerned about her weight gain. She did have a thyroid surgery. She is wondering her thyroid function is too low. Will go ahead and check her blood work specially since her white count had been elevated. Will go ahead and check her CBC her electrolytes and also her TSH. The patient does have a follow-up with endocrinology. The patient overall is doing very well today she will get her pneumonia vaccine. 09/10/2023 the patient is here for a pulmonary follow-up visit. She continues do well. She is starting to exercise more regularly. Her weight seems to be stable after her thyroid surgery. The patient did have a recent CT scan of the chest which I personally reviewed. It appears that her postoperative changes are stable on her right hemithorax. She does have some nodular densities over following. They appear stable when compared to her previous CT scan from the fall 2022. I do not see any significant changes. The with a history of lung cancer back in 2020 in her pulmonary nodules she will require CT scans every 6 months for the next 5 years. The patient will follow-up after next CT scan. 03/19/2024 the patient is here for a pulmonary follow-up visit. Overall she is doing very well. She is exercising regularly and eating well. She feels healthy. This is reassuring. She still has the neuropathy issue in the post thoracotomy syndrome pain on the right side. She does take gabapentin with good effect. She did recently have a CT scan of the chest in 03/15/2024 which I personally reviewed. Third nodular densities are stable. There appeared to be calcified suggesting potentially previous infection. Will go ahead and check her TB test. She can do that in next 6 months. Clinically she is doing well denies any coughing. She does use the Anoro daily. The rescue inhaler less than 2 times a week. She will continue getting CT scans every 6 months for 5 years after her cancer surgery and then after that she can have CT scans yearly. Will follow-up in a year's time. If she has any issues prior to that she will call for an earlier assessment. [facility] Medical History (Updated 03/19/24 @ 09:32 by Madhu Vasquez MD) Pulmonary nodule Leukocytosis Immunization due Hyperlipidemia Annual visit for general adult medical examination with abnormal findings Hyperparathyroidism Toxic multinodular goiter Vitamin D deficiency Hyperthyroidism Post-thoracotomy pain syndrome Primary adenocarcinoma of right lung (~2020) Right upper lobe pulmonary nodule Personal history of nicotine dependence Clostridium difficile colitis (~11/2020) Pulmonary nodules/lesions, multiple Emphysema of lung Osteoporosis (~2019) Hyperparathyroidism Vitamin D deficiency Multinodular thyroid Surgical History Hx of partial thyroidectomy History of lobectomy of lung (~2020) S/P thyroid biopsy (~2017) History of colonoscopy (~2018) Family History Mother Pancreatic cancer Father COPD (chronic obstructive pulmonary disease) Social History (Updated 03/19/24 @ 09:14 by Estephanie Mosqueda LPN) Household Members: None Housing: House Do you presently have visiting nurse or other home services: No Alcohol intake: current Alcohol intake frequency: a few times a month Patient Tobacco Use Status: Former Tobacco user Years Smoked: 35 years e-Cigarette/Vaping Use: Never Used Second Hand Smoke Exposure: No Substance Use Type: Marijuana service: No Current occupational status: disabled Cognitive needs: No Hearing needs: No Vision needs: Yes Review of Systems Const Denies excessive sweating, Denies fatigue, Denies headache(s), Reports weight gain and Denies weight loss Eyes Denies blurry vision and Denies diplopia ENT Denies change in voice, Denies dysphagia, Denies headache(s) and Denies hoarseness Card Denies chest pain, Denies irregular heart rhythm, Denies dyspnea and Reports other Resp Denies cough and Denies dyspnea GI Denies abdominal pain, Denies change in bowel habits, Denies dysphagia, Denies diarrhea and Denies nausea Musc Denies myalgias, Denies muscle cramps, Denies numbness and Denies tingling Skin/Breast Denies hirsutism and Denies alopecia Neuro Denies headache(s), Denies numbness, Reports radicular pain and Denies tingling Psych Denies anxiety and Denies depression Endo Denies cold intolerance, Denies excessive sweating, Denies fatigue and Denies heat intolerance Vasu/Lymph Denies easy bruising Physical Exam Vital Signs: Last Vital Signs Pulse 80 03/19/24 09:14 BP 108/62 03/19/24 09:14 Pulse Ox 98 03/19/24 09:14 Oxygen Delivery Method Room Air 03/19/24 09:14 BMI result Body Mass Index 19.6 Const General: comfortable HEENT Head: Yes normocephalic Neck Neck: Yes supple Chest Chest palpation & inspection: normal inspection of the chest Resp Effort & Inspection: normal respiratory effort Auscultation: no rhonchi and diminished lung sounds Cardio Heart sounds: S1 normal heart sound present and S2 normal heart sound present GI Palpation (GI): Soft to palpation Skin General skin exam: no rashes or lesions noted Extrem General: Yes no clubbing, cyanosis or edema Assessment & Plan Assessment & Plan (1) Emphysema of lung: Code(s): J43.9 - Emphysema, unspecified Category: Medical Qualifiers: Emphysema type: centrilobular Qualified Code(s): J43.2 - Centrilobular emphysema (2) Multinodular thyroid: Code(s): E04.2 - Nontoxic multinodular goiter Category: Medical (3) Primary adenocarcinoma of right lung: Onset Date: ~2020 Comment: (Stage IB Adenocarcinoma - s/p RUL Lobectomy 02/06/21- s/p chemo compete 06/04/21) Code(s): C34.91 - Malignant neoplasm of unspecified part of right bronchus or lung Category: Medical (4) Post-thoracotomy pain syndrome: Code(s): G89.12 - Acute post-thoracotomy pain Category: Medical (5) Pulmonary nodules/lesions, multiple: Code(s): R91.8 - Other nonspecific abnormal finding of lung field Category: Medical Plan IRIS as needed CT chest in 6 months x5 yrs Gabapentin QHS continue Anoro IRIS as needed follow-up in 8-12 months Orders: Orders T Spot TB 03/19/24 R91.1 - Solitary pulmonary nodule Coding Level of Care Code Est Pt Level 4 (19512) Diagnoses Centrilobular emphysema J43.2 Emphysema type: centrilobular Multinodular thyroid E04.2 Primary adenocarcinoma of right lung C34.91 Post-thoracotomy pain syndrome G89.12 Pulmonary nodules/lesions, multiple R91.8 Time Spent (min) 17
[2024-03-19 09:14] VITALS: BP 108/62; PULSE 80; O2SAT 98; BMI 19.6
== END 2024-03-19 09:38 | disposition home or self-care (01) ==
PROVIDERS: PCP Internal Medicine; Visit Provider Hospitalist
DX: J43.2 Centrilobular emphysema (principal); E04.2 Nontoxic multinodular goiter; C34.91 Malignant neoplasm of unspecified part of right bronchus or lung; G89.12 Acute post-thoracotomy pain; R91.8 Other nonspecific abnormal finding of lung field
CPT/HCPCS: 99214

== ENCOUNTER → 2024-03-19 09:10 | Outpatient (BNVA) | payer MEDICARE, MEDICAID, SELFPAY | PROVIDERS: PCP Internal Medicine; Visit Provider Hospitalist | DX: G89.12 Acute post-thoracotomy pain (principal); R91.8 Other nonspecific abnormal finding of lung field; J43.2 Centrilobular emphysema; E04.2 Nontoxic multinodular goiter; C34.91 Malignant neoplasm of unspecified part of right bronchus or lung | CPT/HCPCS: 99212 ==

== ENCOUNTER 2024-08-10 08:52 | Outpatient (AMB) | payer MEDICARE, MEDICAID, SELFPAY ==
--- NOTE | 2024-08-10 08:55 | A.OFFVIS_ITS ---
Vital Signs 08/10/24 08:59 Height 5 ft 2 in Weight 108 lb 0.424 oz BMI 19.8 BP 116/62 Blood Pressure Location Rt brachial Position Sitting Pulse 78 Pulse Source Pulse Oximeter Pulse Oximetry (%) 99 Oxygen Delivery Method Room Air Intake Visit Reasons: parathyroidectomy Intake Note: Former Patient presents here today to re-establish treatment for post-parathyr oidectomy: Bridges Supervisor Required: No Accompanied by: Self / Same As Patient Allergies erythromycin base Allergy (Severe, Verified 08/10/24 09:00) Diarrhea and C-Diff Medication List - Last Reconciled 08/10/24 by Alise Anderson MD acetaminophen 650 mg PO QID PRN calcium citrate-vitamin D3 200 mg-6.25 mcg (250 unit) 2 tabs PO BID cholecalciferol (vitamin D3) 50 mcg PO DAILY gabapentin 600 mg (2 x 300 mg) PO BEDTIME 30 days umeclidinium-vilanterol 62.5-25 mcg/actuation (Anoro Ellipta) 1 inh inhalation DAILY Ventolin HFA 90 mcg/actuation (albuterol sulfate) 2 puffs inhalation Q6H PRN NS HPI Comments Details: 59 YO F who is seen in F/U for a 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 06/05/[address] Collette Desai at [facility]. Today here for follow up of right-sided thyroid nodules. 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 Duckworth of her LLP 1.8 cm nodule, and her LMP 4.0 cm nodule 12/11/17. Cytology for both nodules was Benign. She had a repeat thyroid US 11/04/2019 which reported significant growth of these nodules, as well as multiple other nodules meeting indication for FNA biopsy. 12/16/2019 Dr. Giron repeated the thyroid US herself and visualized the LLP nodule, measuring 1.9 cm and not meeting indication for repeat FNA biopsy as this nodule had not significantly grown in size. The LMP nodule measured 2.5 cm, and also did not meet indication for repeat FNA biopsy as it had significantly shrank from prior. No additional nodules meeting indication for FNA biopsy were visualized. However in 2021 she was noted to have low TSH levels with normal free T4, c oncerning for subclinical hyperthyroidism, with TSH levels less than 0.1 requiring treatment. She underwent thyroid uptake and scan in October 2021 which showed left-sided toxic adenoma. She was referred to Dr. Desai to discuss a L thyroid lobectomy. She was recommended for this, however surgery was put on hold due to her recent diagnosis of lung cancer. She did reestablish care with Dr. Desai 03/08/2022 and did undergo her surgical L thyroid lobectomy and parathyroidectomy 06/05/2022. Official surgical pathology was benign. Interval history She follows now for right-sided thyroid nodules US thyroid last done 10/31 right inferior 1,1 cm solid hypoechoic with echogenic foci Tr 5 category and another right inferior subcentimeter cyst , she has not had any ultrasound of the thyroid after that. She reports feeling well today and has no complaints. no compressive symptoms Her most recent labs show TSH at goal from Feb 2024 . She is not on any thyroid hormone replacement. She has a history of [id number] right lung cancer status post resection in 2020 as well as chemotherapy, follows with pulmonology. No radiation therapy was given. 2) Hyperparathyroidism and osteoporosis status post 3 gland resection May 2022 At her initial visit with endocrinology was noted to have high normal calcium, higher than expected for her age. She underwent biochemical evaluation for hyperparathyroidism 05/10/2019 with Total Calcium 10.3, Albumin 4.8, PTH 44, and Vitamin d 41.7. Labs were repeated 11/09/2019 with Total Calcium 9.7, Albumin 4.3, Vitamin D 25.8, PTH 31, WNL. 24 hour urine calcium was 95, but this was an inadequate collection with a Cr of only 0.8. She did have a DEXA scan in 2019 which revealed Osteoporosis of the spine and hip, and Osteopenia of the distal forearm. Labs were repeated 12/30/2019 with Calcium 10.1, PTH 38, Vitamin D 27.9 and Albumin 4.6. 24 hour urine collection was WNL . She was referred to Dr. Desai who does suspect normocalcemic normohormonal hyperparathyroidism, and did visualize a R inferior parathyroid adenoma on US. He did order a Sestamibi scan, which did not localize. He recommended a L thyroid lobectomy with parathyroid exploration. She underwent a 3 gland parathyroidectomy (bilateral inferior and L superior) 06/05/2022. Intraoperative PTH declined from 47-13 indicating cure. Labs have remained WNL since that time. She was given 1 dose of IV Reclast by her Oncologist in April 2021. She denies any body aches, constipation, abdominal pain. Denies any history of kidney stones. Fractured her collar bone at the age of 4. This was traumatic. Denies any fragility fractures. Menopause was age 50. Menarche was age 13 and she had 3 pregnancies. Interval history She takes Calcium citrate 500 mg b.i.d.. Takes Vitamin D 2000 IU daily. No fragility fractures DEXA scan done in December 2023 showed osteopenia of the spine with T-score of-1.8 with 12.3% increase in bone density compared to 2019, showed osteopenia of the left femoral neck with T-score of-2.2, osteopenia of the left femur total with T-score of-1.8 with 3.6% increase in bone density, as well as osteopenia of the left forearm with T-score of-2.1 with 5.7% decrease from baseline. Physical exam General: sitting comfortably in no acute distress HEENT: normocephalic/atraumatic, Neck: supple Cardiac: normal heart sounds Pulm: normal breath sounds B/L, no added breath sounds Abd: not distended, no tenderness Extremities: no edema, no signs of myxedema Labs: Laboratory Tests 07/11/22 07/11/22 10:33 10:33 Creatinine 0.79 Estimated GFR > 60 Calcium 9.1 D Albumin 4.4 25-OH Vitamin D Total 36.9 TSH 1.41 Free T4 0.83 PTH Intact 21 Calcium (PTH Intact) 9.8 Laboratory Tests 09/29/18 04/30/19 03/28/21 10:38 11:00 13:08 Creatinine Estimated GFR Calcium Albumin Free T4 0.90 0.92 0.84 TSH 1.14 04/06/21 09/12/21 09/24/21 09:38 08:05 09:50 Creatinine Estimated GFR Calcium Albumin Free T4 0.93 1.18 0.93 TSH 0.08 L 0.08 L 11/14/21 01/28/22 07/11/22 10:55 11:15 10:33 Creatinine Estimated GFR Calcium Albumin Free T4 0.85 0.83 TSH 0.28 L 0.42 1.41 10/31/22 01/23/23 05/28/23 08:55 07:05 09:48 Creatinine Estimated GFR Calcium Albumin Free T4 1.06 0.91 TSH 1.34 1.58 1.02 06/17/23 07/15/23 07/22/23 06:23 07:50 06:40 Creatinine Estimated GFR Calcium Albumin Free T4 0.89 0.85 0.87 TSH 2.34 1.57 2.55 08/29/23 10/29/23 03/09/24 06:39 09:38 06:38 Creatinine 0.88 Estimated GFR > 60 Calcium 8.6 Albumin 4.0 Free T4 0.87 0.91 1.05 TSH 1.39 0.79 1.93 BONE DENSITOMETRY 12/30/23 CLINICAL INDICATION: Age-related osteoporosis without current pathological fracture. COMPARISON: Baseline BD dated 12/01/2019. TECHNIQUE: Using a [employer] DXA System (software version: 13.1) manufactured by [employer], dual-energy x-ray absorptiometry was performed of the lumbar spine, left hip and left forearm radius 33%. The images are of good technical quality. Summary results are attached. FINDINGS: LEFT FEMUR, NECK: Current: BMD 0.736 g/cm2, Z-score -0.7, T-score -2.2, osteopenia. Baseline: BMD 0.659 g/cm2. LEFT FEMUR, TOTAL: Current: BMD 0.781 g/cm2, Z-score -0.6, T-score -1.8, osteopenia, 3.6% increase from baseline (<5% change is not significant). Baseline: BMD 0.754 g/cm2. AP SPINE L1-L4: Current: BMD 0.962 g/cm2, Z-score -0.3, T-score -1.8, osteopenia, 12.3% increase from baseline (<5% change is not significant). Baseline: BMD 0.857 g/cm2. LEFT FOREARM RADIUS 33%: BMD 0.694 g/cm2, Z-score -1.4, T-score -2.1, osteopenia, 5.7% decrease from baseline (<5% change is not significant). Baseline: BMD 0.736 g/cm2. IDENTIFIED RISK FACTORS: Osteoporosis, hyperparathyroidism, low body weight, low calcium intake,secondary osteoporosis (hyperthyroidism), menopause. HISTORY OF FRACTURE: None listed. MEDICATIONS: Calcium supplements or multivitamin, vitamin D. MM/XR DEXA axial skeleton IMPRESSION: 1. DIAGNOSIS: Osteopenia based on the lowest T-score value of -2.2 in the femoral neck applying World Health Organization criteria. 2. 10-YEAR FRACTURE RISK PREDICTION, FRAX: Major osteoporotic fracture (clinical spine, forearm, hip or shoulder) 8.2%. Hip fracture 1.3%. DEXA 12/06/2019: FINDINGS: AP SPINE L1-L4: BMD 0.857 g/cm2, Z-score -1.4, T-score -2.7, osteoporosis. LEFT FEMUR, NECK: BMD 0.659 g/cm2, Z-score -1.4, T-score -2.7, osteoporosis. LEFT FEMUR, TOTAL: BMD 0.754 g/cm2, Z-score -1.0, T-score -2.0, osteopenia. LEFT FOREARM RADIUS 33%: BMD 0.736 g/cm2, Z-score -1.3, T-score -1.6, osteopenia. THYROID UPTAKE AND SCAN 11/01/21 CLINICAL INFORMATION: Thyrotoxicosis. COMPARISON: No previous radionuclide thyroid scan is available for comparison. Thyroid ultrasound dated 10/19/2021 is available for comparison. TECHNIQUE: Following the oral administration of 267 microcuries of I-123 sodium iodide, thyroid uptake was performed and expressed as a percentage of the administrated dose. Gamma scintillation camera images of the thyroid in the anterior and right and left anterior oblique views were obtained using a pinhole collimator following the administration of 10 mCi Tc-99m pertechnetate. FINDINGS: The uptake is 8.6% at 4 hours and 16.8% at 24 hours (Normal radioiodine uptake at 24 hours is 10% to 30%). The radioiodine uptake is normal. The radiopertechnetate thyroid scintigram there is marked heterogeneity within the thyroid gland. There is a prominent ovoid shaped focus of markedly increased activity at the lower pole of the left thyroid lobe. This has some medial central photopenia. A much smaller ovoid shaped focus of increased activity is present in the upper pole of the left lobe. There is only very faint activity visualized in the right lobe which has some heterogeneity but no definite focal abnormality. A single anterior radioiodine image obtained at the time of the 24-hour uptake measurement is similar to the radio pertechnetate image. The thyroid ultrasound shows a multinodular thyroid gland. The largest nodule is present in the lower pole of the left lobe measuring 2.3 x 1.7 x 2.1 cm on the ultrasound study and appears to correspond in size and location to the dominant left lower pole nodule described above on this radionuclide thyroid scan. Several additional thyroid nodules are visualized bilaterally on the ultrasound study, but only a small nodule in the upper pole of the left lobe is visualized on this radionuclide scan. NM/NM thyroid w uptake IMPRESSION: These findings are most consistent with a toxic multinodular goiter (Angeles's disease), with a dominant functioning (hot) nodule present in the lower pole of the left lobe. Significant extra nodular suppression is present, most prominently diffusely in the right lobe. US THYROID 10/19/21 CLINICAL INFORMATION: Thyrotoxicosis, unspecified without thyrotoxic crisis or storm. History of previous thyroid biopsy 2017 COMPARISON: Ultrasound soft tissue head/neck thyroid most recent dated 12/16/2019 and 11/04/2019. TECHNIQUE: Linear transducer grayscale and color Doppler examination with attention to the region of the thyroid. FINDINGS: SIZE: Measurements of the thyroid lobes and nodules are given in sagittal, anteroposterior and transverse dimensions respectively. Right Thyroid Lobe: 5.69 x 1.52 x 1.53 cm, volume 6.93 mL. Previously 5.5 x 1.7 x 1.7 cm, volume 8.3 mL. Parenchyma: The gland echotexture is homogeneous. Thyroid vascularity is increased. Left Thyroid Lobe: 6.28 x 2.31 x 2.6 cm, volume 20.5 mL. Previously 6.2 x 2.2 x 2.7 cm, volume 19.3 mL. Parenchyma: The gland echotexture is heterogeneous. Thyroid vascularity is increased. Isthmus: 0.29 cm in maximum AP dimension. Previously 0.30 cm. There are multiple bilateral nodules. The largest nodules are measured. Estimated total number of nodules greater than or equal to 1 cm: 4. Travel Specialist nodules are described as follows: 1. Location: Right inferior. Size: 1.1 x 0.7 x 0.8 cm, volume 0.28 mL. Previously: 1.2 x 0.5 x 0.9 cm, volume 0.28 mL. Nodule characteristics: Composition: Solid/almost completely solid (2). Echogenicity: Hypoechoic (2). Shape: Not taller than wide (0). Margins: Smooth (0). Echogenic Foci: Punctate echogenic foci (3). ACR TI-RADS total points: 7 ACR TI-RADS category: 5 Significant change in size (>/= 20% in 2 dimensions and minimal increase of 2 mm or 50% or greater increase in volume): Change in features: Change in ACR TI-RADS risk category: 2. Location: Right inferior. Size: 0.5 x 0.7 x 0.13 cm, volume 0.71 mL. Previously: 1.4 x 0.64 x 0.9 cm, volume 0.42 mL. Nodule characteristics: Composition: Cystic(0). ACR TI-RADS total points: 0 ACR TI-RADS category: 1 Significant change in size (>/= 20% in 2 dimensions and minimal increase of 2 mm or 50% or greater increase in volume): Change in features: Change in ACR TI-RADS risk category: 3. Location: Left superior. Size: 0.85 x 0.63 x 0.9 cm, volume 0.25 mL. Previously: 0.6 x 0.5 x 0.7 cm, volume 0.11 mL. Nodule characteristics: Composition: Spongiform (0). Echogenicity: Anechoic (0). Shape: Not taller than wide (0). Margins: Smooth (0). Echogenic Foci: None (0). ACR TI-RADS total points: 0 ACR TI-RADS category: 1 Significant change in size (>/= 20% in 2 dimensions and minimal increase of 2 mm or 50% or greater increase in volume): Change in features: Change in ACR TI-RADS risk category: 4. Location: Left mid. Size: 2.8 x 1.8 x 1.9 cm, volume 4.92 mL. Previously: 3.4 x 1.9 x 2.2 cm, volume 7.4 mL. Nodule characteristics: Composition: Mixed cystic and solid (1). Echogenicity: Hypoechoic (2). Shape: Not taller than wide (0). Margins: Smooth (0). Echogenic Foci: Punctate echogenic foci (3). ACR TI-RADS total points: 6 ACR TI-RADS category: 4 Significant change in size (>/= 20% in 2 dimensions and minimal increase of 2 mm or 50% or greater increase in volume): Change in features: Change in ACR TI-RADS risk category: 5. Location: Left inferior. Size: 2.3 x 1.7 x 2.1 cm, volume 4.3 mL. Previously: 2.2 x 1.6 x 2.1 cm, volume 3.9 mL. Nodule characteristics: Composition: Mixed cystic and solid (1). Echogenicity: Hypoechoic (2). Shape: Not taller than wide (0). Margins: Smooth (0). Echogenic Foci: None (0). ACR TI-RADS total points: 3 ACR TI-RADS category: 3 Significant change in size (>/= 20% in 2 dimensions and minimal increase of 2 mm or 50% or greater increase in volume): Change in features: Change in ACR TI-RADS risk category: NODES: No lymphadenopathy is seen in the tissue surrounding the thyroid gland. US/US thyroid IMPRESSION: Heterogeneous hypervascular thyroid gland. The left lobe is enlarged. Multiple bilateral thyroid nodules. Left mid nodule may be slightly decreased in size from previous exam. Otherwise thyroid nodules do not appear appreciably changed. Several nodules meet the TI RADS criteria for fine-needle aspiration.. Thyroid US 11/04/2019: Right Thyroid Lobe: 5.5 x 1.7 x 1.7 cm, volume 8.3 mL. Previously 5.3 x 2.1 x 1.7 cm, volume 9.7 mL. Parenchyma: The gland echotexture is homogeneous. Thyroid vascularity is increased. Left Thyroid Lobe: 6.2 x 2.2 x 2.7 cm, volume 19.3 mL. Previously 6.7 x 2.5 x 3.3 cm, volume 28.9 mL. Parenchyma: The gland echotexture is heterogeneous. Thyroid vascularity is increased. Isthmus: 0.3 cm in maximum AP dimension. Previously 0.2 cm. RIGHT THYROID LOBE: There are 3 nodules seen. 1. Location: Superior. Size: 0.4 x 0.2 x 0.3 cm. Previous: 0.4 x 0.2 x 0.3 cm. Nodule characteristics: Hypoechoic and cystic, smooth margin, no calcification and minimal peripheral flow.. 2. Location: Middle/inferior. Size: 1.2 x 0.5 x 0.9 cm. Previous: 1.2 x 0.5 x 1.2 cm. Nodule characteristics: Heterogeneous, smooth margin, calcification and positive intranodular flow.. 3. Location: Inferior. Size: 0.6 x 0.3 x 0.5 cm. Previous: 0.6 x 0.3 x 0.4 cm. Nodule characteristics: Heterogeneous, smooth margin, calcification and positive intranodular flow. ISTHMUS: There is 1 nodule seen. 1. Location: Right lower isthmus. Size: 1.4 x 0.6 x 0.9 cm. Previous: New since the previous study. Nodule characteristics: Hypoechoic and cystic, smooth margin, no calcification and no intranodular flow. LEFT THYROID LOBE: There are 3 nodules seen. 1. Location: Middle. Size: 0.6 x 0.5 x 0.7 cm. Previous: Not measured on the previous study. Nodule characteristics: Heterogeneous, smooth margin, no calcification and positive intranodular flow. 2. Location: Middle/inferior. Size: 3.4 x 1.9 x 2.2 cm. Previous: 3.1 x 1.9 x 2.7 cm. Nodule characteristics: Heterogeneous, smooth margin, calcification and positive intranodular flow. 3. Location: Inferior. Size: 2.2 x 1.6 x 2.1 cm. Previous: 2.4 x 1.2 x 1.3 cm. Nodule characteristics: Heterogeneous, smooth margins with hypoechoic rind, no calcification and positive intranodular flow. NODES: No lymphadenopathy is seen in the tissue surrounding the thyroid gland. [facility] Medical History (Updated 08/10/24 @ 09:38 by Alise Anderson MD) Osteopenia Pulmonary nodule Leukocytosis Immunization due Hyperlipidemia Annual visit for general adult medical examination with abnormal findings Hyperparathyroidism Toxic multinodular goiter Vitamin D deficiency Hyperthyroidism Post-thoracotomy pain syndrome Primary adenocarcinoma of right lung (~2020) Right upper lobe pulmonary nodule Personal history of nicotine dependence Clostridium difficile colitis (~11/2020) Pulmonary nodules/lesions, multiple Emphysema of lung Osteoporosis (~2019) Hyperparathyroidism Vitamin D deficiency Multinodular thyroid Surgical History Hx of partial thyroidectomy History of lobectomy of lung (~2020) S/P thyroid biopsy (~2017) History of colonoscopy (~2018) Family History Mother Pancreatic cancer Father COPD (chronic obstructive pulmonary disease) Social History Household Members: None Housing: House Do you presently have visiting nurse or other home services: No Alcohol intake: current Alcohol intake frequency: a few times a month Patient Tobacco Use Status: Former Tobacco user Years Smoked: 35 years e-Cigarette/Vaping Use: Never Used Second Hand Smoke Exposure: No Substance Use Type: Marijuana service: No Current occupational status: disabled Cognitive needs: No Hearing needs: No Vision needs: Yes Assessment & Plan Assessment & Plan (1) Toxic multinodular goiter: Code(s): E05.20 - Thyrotoxicosis with toxic multinodular goiter without thyrotoxic crisis or storm Category: Medical Plan: 59-year-old female with a history of left toxic adenoma status post left lobectomy in May [address] Mccauley I to be with [facility] now here for follow up of right-sided thyroid nodules. She has not on any thyroid hormone replacement. Last thyroid labs from February 2024 were normal. No compressive symptoms. She has a history of right non small-cell lung cancer status post resection in 2020 as well as chemotherapy, did not require radiation therapy.US thyroid last done 10/31 right inferior 1,1 cm solid hypoechoic with echogenic foci Tr 5 category and another right inferior subcentimeter cyst , she has not had any ultrasound of the thyroid after that. Plan: -ordered ultrasound of the thyroid to be done now -ordered TSH and free T4 to be done now -follow up in 6 weeks to discuss results (2) Osteopenia: Code(s): M85.80 - Other specified disorders of bone density and structure, unspecified site Category: Medical Qualifiers: Osteopenia location: multiple sites Qualified Code(s): M85.89 - Other specified disorders of bone density and structure, multiple sites Plan: 59-year-old female with a history of normocalcemic but high normal calcium level with inappropriately normal PTH levels, who had history of osteoporosis diagnosed in 2019, status post 3 gland parathyroid resection in May 2022 with significant decline in PTH levels indicative of cure, who on most recent bone density done in December 2023 shows improvement in bone density in the spine and hip with significant accrual of bone. DEXA scan done in December 2023 showed osteopenia of the spine with T-score of-1.8 with 12.3% increase in bone density compared to 2019, showed osteopenia of the left femoral neck with T-score of- 2.2, osteopenia of the left femur total with T-score of-1.8 with 3.6% increase in bone density, as well as osteopenia of the left forearm with T-score of-2.1 with 5.7% decrease from baseline. Next bone density would be due December 2025. She is on 2000 units of vitamin-D daily, previously vitamin-D levels were noted to be elevated back in 2022, no repeat vitamin-D levels done. We will repeat this now. We will also repeat her calcium levels, she is on calcium citrate 500 mg twice daily. Plan: -ordered calcium, albumin, phosphorus vitamin-D, BMP, PTH levels -continue calcium and vitamin-D as it is for now -weight-bearing exercise -next bone density would be due December 2025 Plan I spent 30 minutes in reviewing the record, seeing the patient and documenting in the medical record. Orders: Orders Free T4 (Free Thyroxine) Today E05.20 - Thyrotoxicosis with toxic multinodular goiter without thyrotoxic crisis or storm US thyroid Today E05.20 - Thyrotoxicosis with toxic multinodular goiter without thyrotoxic crisis or storm Phosphorus Today E21.3 - Hyperparathyroidism, unspecified, M81.0 - Age-related osteoporosis without current pathological fracture Vitamin D 25-OH Total Today E21.3 - Hyperparathyroidism, unspecified, M81.0 - Age-related osteoporosis without current pathological fracture Parathyroid Hormone Intact Today E21.3 - Hyperparathyroidism, unspecified, M81.0 - Age-related osteoporosis without current pathological fracture Thyroid Stimulating Hormone Today E05.20 - Thyrotoxicosis with toxic multinodular goiter without thyrotoxic crisis or storm Albumin Level Today E21.3 - Hyperparathyroidism, unspecified, M81.0 - Age- related osteoporosis without current pathological fracture Calcium Today E21.3 - Hyperparathyroidism, unspecified, M81.0 - Age-related osteoporosis without current pathological fracture Basic Metabolic Panel Today E21.3 - Hyperparathyroidism, unspecified, M81.0 - Age-related osteoporosis without current pathological fracture Patient Instructions: do blood work Do US of thyroid , someone will call you to schedule this Follow up in 6 weeks to discuss results Coding Level of Care Code Est Pt Level 4 (55646) Diagnoses Toxic multinodular goiter E05.20 Osteopenia of multiple sites M85.89 Osteopenia location: multiple sites Time Spent (min) 30
[2024-08-10 08:59] VITALS: BP 116/62; PULSE 78; O2SAT 99; BMI 19.8
--- OUTSIDE RECORDS SUMMARY | 2024-08-10 09:26 | XMS_ITS ---
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 Name Role Phone Tatiana Rhoades MD Primary Care Provider Yobani Saunders Unavailable [phone] Rousou do not use, DO NOT USE [...] Date Provider Diagnosis Yobani Villanueva III, MD [address] [place] [address] [address] [place], [place] [address] 12/10/2023 Yobani Villanueva Underweight R63.6 ; Malignant [...] Base) MCG/ACT Inhalation Vitamin D3 50 MCG (1999 [...] Next Appt Details Follow Up: Mid February, Reas on: ov review labs and ct scan chest Provider Name:Yobani Villanueva, 10/27/2024 11:00:00 AM, [address] [place] [address] [address] [place] [address], [place], [address], Progress Notes * Dorinda FISCHER EDOB:1965 ( 58 yo F)Acc No.[id number]:12/10/2023 Progress Notes Patient:?Amado Dorinda E Provider:?Yobani Villanueva MD :1965???Age:58 Y???Sex:Female D ate:12/10/2023 Address:[address] [place] [address] [id number] Pcp:Tatiana Rhoades MD Subjective: * Chief Complaints: * ???Adenocarcinoma of the rig ht lungOsteoporosisEmphysemaCOPDHyperparathyroidism * HPI: ???COVID-19 Screening:? 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 ?Questions?Have you experienced fever, chills, cough, sore throat, shortness of breath, difficulty breathing, muscle aches, loss of taste or smell??No ?Have you been exposed to the virus within the last 10 days??No ?Have you travelled internationally in the last 10 days??No ?Have you been exposed to COVID-19 in the past??No * ROS:?General/Constitutional:?pain?only normal aches and pains.?Chills?denies.?Fatigue?admits.?Fever?denies.?ENT:?Decreased hearing?denies.?Respiratory:?Cough?denies.?Cardiovascular:?Chest pain with exertion?denies.?Dyspnea on exertion?with prolonged activity.?Shortness of breath?that is moderate.?Gastrointestinal:?Constipation?occasional.?Decreased appetite?denies.?Diarrhea?denies.?Heartburn?denies.?Nausea?denies.?Rectal bleeding?denies.?Vomiting?denies.?Hematology:?bruising?denies.?petechiae?denies.?Swollen glands?none have been noted.?Genitourinary:?Frequent urination?at night.?Musculoskeletal:?Muscle aches?denies.?Painful joints?denies.?Sciatica?denies.?Weakness?denies.?Skin:?Itching?denies.?Rash?denies.?Skin lesion(s)?denies.?Neurologic:?Difficulty speaking?denies.?Dizziness?denies.?Headache?denies.?Low back pain?denies.?Psychiatric:?Depressed mood?denies.? * Medical History:? * Surgical History:?VATS with Lobectomy Bronch 01/2021Front left lobe and 3 Parathyroid removed 06/05/2022Thyroidectomy removal 75% by Dr Desai 06/05/2022nodule under skin on neck excision benign results 05/13/2023 * Hospitalization/Major Diagno stic Procedure:?lobectomy 01/2021Thyroidectomy 75 % remove 06/05/2022 * Family History:?Father: dece ased 62 yrs.?Mother: 76 yrs, diagnosed with Cancer.?1 brother(s) , 1 sister(s) - healthy. 2 son(s) - healthy. .? Mother Dx with Cancer. Father unknown. patient has one brother and a sister well and healthy. Patient has 2 sons well and healthy. * Social History:?Tobacco Use:?Tobacco Use/Smoking?Patient is a?former smoker ?How long has it been since you last smoked??1-5 years ?Additional Findings: Tobacco Non-User?Ex-cigarette smoker ???She was born and raised in [facility]. 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 She recently stopped smoking. She does not drink alcohol or take drugs. She is not currently working as she is recovering from the thoracotomy. Her two sons are grown and she lives alone. Her of cirrhosis of the liver at [facility] awaiting a transplant on January 31, 2021 one week before her lung cancer surgery. She continues to grieve. Josias is oldest and works at [employer], engaged to [employer]. 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 * Medications:?TakingCalcium C itrate+D3 Petites 200-6.25 MG-MCG Tablet Oral Vitamin D3 50 MCG (1999) Capsule TAKE 1 CAPSULE BY MOUTH DAILY [...] Tablet Oral Taking Vitamin D3 50 MCG (1999) Capsule TAKE 1 CAPSULE BY MOUTH DAILY Oral Taking Ventolin HFA 108 (90 Base) MCG/ACT Aerosol Solution Inhalation Taking Anoro Ellipta 62.5-25 MCG/ACT Aerosol Powder Breath Activated Inhalation Taking Gabapentin 300 MG Capsule 1 capsule Orally Once a dayTaking CVS Acetaminophen 325 MG Tablet TAKE 3 TABLETS BY MOUTH EVERY 6 HOURS Oral Medication List reviewed and reconciled with the patient * Allergies:?Erythromycin: All ergyno[Allergies Verified] Objective: * Vitals:?Ht: 63, Wt: 108, BMI :19.13, BP: 131/69, HR: 59, Temp: 97.6, Wt-k.99. * ???Past Orders: Lab:[facility] * Order Date 12/03/2023 08/29/2023 07/22/2023 [...] mmol/L) 4.4 (Ref Range: 3.3-5.1 mmol/L) Chloride 110?H (Ref Range: 96-108 mmol/L) 107 (Ref Range: 96-108 mmol/L) 107 (Ref Range: 96-108 mmol/L) Carbon Dioxide 26 (Ref Range: 22-29 mmol/L) 28 (Ref Range: 22-29 mmol/L) 28 (Ref Range: 22-29 mmol/L) Anion Gap 12 (Ref Range: 12-20) 12 (Ref Range: 12-20) 11?L (Ref Range: 12-20) Blood Urea Nitrogen 7?L (Ref Range: 9-16 mg/dL) 10 (Ref Range: [...] 20-40 %) 29.8 (Ref Range: 20-40 %) 40.7?H (Ref Range: 20-40 %) Monocytes Percent Auto [...] Range: 2.0-8.3 x10*3/uL) Imm Gran Abs Auto 0.04?H (Ref Range: 0.00-0.03 X10*3/uL) 0.03 (Ref Range: [...] mg/dL) 92 (Ref Range: <150 mg/dL) Cholesterol 233?H (Ref Range: <200 mg/dL) 254?H (Ref Range: <200 mg/dL) 246?H (Ref Range: <200 mg/dL) LDL Cholesterol Calculated 134?H (Ref Range: <100 mg/dL) 148?H (Ref Range: <100 mg/dL) 140?H (Ref Range: <100 mg/dL) HDL Cholesterol 78 (Ref Range: >40 mg/dL) 83 (Ref Range: >40 mg/dL) 88 (Ref Range: >40 mg/dL) * Examination: ???General Examination: ?GENERAL APPEARANCE:?pleasant, well nourished, well developed, in no acute distress, calm and relaxed , underweight , woman.?HEAD:?atraumatic, normocephalic.?EYES:?eomi, perrla, anicteric, conjugate.?EARS:?normal.?NOSE:?septum intact.?ORAL CAVITY:?normal, unremarkable.?NECK/THYROID:?no jugular venous distention, no carotid bruit, thyroid normal.?LYMPH NODES:?no enlarged lymph nodes,spleen normal.?SKIN:?no suspicious lesions, anicteric.?HEART:?no clicks, gallops, murmurs, or rubs, regular rhythm, S1, S2 normal, no s3, or vascular bruits.?LUNGS:?, diminished breath sounds throughout , no wheezes, rales, rhonchi , good air movement.?BREASTS:?not examined.?ABDOMEN:?bowel sounds normal, no ascites, no organomegaly, no mass.?RECTAL EXAM:?not examined.?MUSCULOSKELETAL:?extremities unremarkable, no clubbing, cyanosis or edema.?PERIPHERAL PULSES:?normal.?NEUROLOGIC:?alert and oriented, cranial nerves 2-12 grossly intact, deep tendon reflexes 2+ symmetrical, motor strength normal upper and lower extremities, sensory exam intact.?PSYCH:?alert, oriented.? Assessment: * Assessment: 1.?Underweight - R63.6 (Prim rekha), She has lost 5 pounds in her body mass index is now underweight. Her nutritional status seems adequate. Her weight will be carefully followed.?2.?Malignant neoplasm of upper lobe, right bronchus or lung - C34.11, There is no sign of relapse over new primary today. Her next office visit and surveillance CT scan were arranged.?3.?Multinodular goiter - E04.2, She remains under the care of Dr. Hinojosa change in her medication was necessary today.?4.?Hyperparathyroidism - E21.3, Her calcium level has been normal after her parathyroid surgery.?5.?Thrombocytosis - D75.839, This was a reactive process and is no longer present.?6.?Pulmonary emphysema, unspecified emphysema type - J43.9, This is a finding on the CT scan. She has stopped smoking and will be observed carefully.?7.?Chronic obstructive pulmonary disease, unspecified COPD type - J44.9, She has stopped smoking and she is asymptomatic at this time after the lobectomy. There has been no recent exacerbation of dyspnea.?8.?Other osteoporosis without current pathological fracture - M81.8, She has undergone a [place]-thyroidectomy. Her PTH level is now normal. Her calcium level is normal. 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 Plan: * Treatment: 2.?Malignant neoplasm of upp er lobe, right bronchus or lung?LAB: PROFILE, FASTING (COMPREHENSIVE METABOLIC) ?LAB: TSH (THYROID STIMULATING HORMONE) ?LAB: CBC w DIFF ?LAB: Lipid Panel ?LAB: Free T4 (Free Thyroxine) ?Imaging: CT CHEST WITH CONTRAST 3.?Multinodular goiter?LAB: PROFILE, FASTING (COMPREHENSIVE METABOLIC) ?LAB: TSH (THYROID STIMULATING HORMONE) ?LAB: CBC w DIFF ?LAB: Lipid Panel ?LAB: Free T4 (Free Thyroxine) 4.?Hyperparathyroidism?LAB: PROFILE, FASTING (COMPREHENSIVE METABOLIC) ?LAB: TSH (THYROID STIMULATING HORMONE) ?LAB: CBC w DIFF ?LAB: Lipid Panel ?LAB: Free T4 (Free Thyroxine) 5.?Thrombocytosis?LAB: PROFILE, FASTING (COMPREHENSIVE METABOLIC) ?LAB: TSH (THYROID STIMULATING HORMONE) ?LAB: CBC w DIFF ?LAB: Lipid Panel ?LAB: Free T4 (Free Thyroxine) * Procedure Codes:? * Preventive Medicine:? ??Counseling:?Care goal follow-up plan:?Counseling for abnormal BMI given?Yes ?Below Normal BMI Follow-up?Dietary education for weight gain ?Smoking/Tobacco Use?Patient counseled on the dangers of tobacco use and urged to quit.?12/10/2023 ??COPD Care Plan:?Patient Lifestyle Goals?Be able to be more active with friends and family, Reduce number of ED and hospitalizations, Relieve symptoms and improve quality of life.?Treatment Goals?Eat a nutritious diet and increase water consumption to 6-8 glasses a day, Eat 4-5 small meals throughout the day, Exercise to help whole body, including lungs.?Barriers?no barriers.?Self-Managment Goals?Get an air purifier for the rooms you are in the most, Eat a healthy diet, Exercise at least 3xs per week for at least 30 mins.? * Follow Up:?Mid February (Reas on: ov review labs and ct scan chest) * Images: * Sign off status: Completed true * Provider:?Yobani Villanueva MD Date:?11/11 Generated for Essence berrios/Siri/Mounika on:?08/10/2024 09:26 AM EDT History and Physical Notes * HPI (History of Present Illness) Category Sub-Category Detail Notes COVID-19 Screening Questions Have you had any new onset fever, chills, cough, congestion, sore throat, shortness of breath, muscle aches?: No Have you been exposed to the virus withi n the last 10 days?: No Have you travelled internationally in [facility] last 10 days?: No Have you been [...]
--- OUTSIDE RECORDS SUMMARY | 2024-08-10 09:27 | XMS_ITS | Clinical Summary ---
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 Name Role Phone Tatiana Rhoades MD Primary Care Provider [phone] Social History Tobacco Use Types Packs/Day Years Used Date Smoking Tobacco: Never Assessed Comments Unknown Sex and Gender Information Value Date Recorded Sex Assigned at Not on file Legal Sex Female 9:24 PM EST Gender Identity Not on file Sexual Orientation Not on file Plan of Treatment Health Maintenance Due Date Last Done Comments Breast Cancer Screening 1965 DTaP,Tdap,and Td Vaccines (1 - Tdap) 1985 Hepatitis B Vaccines (1 of 3 - 19+ 3-dose series) 1985 Cervical Cancer Screening: P ap Smear 1987 Pneumococcal Vaccine: 50+ Ye ars (1 of 1 - PCV) 2016 Zoster Vaccines (1 of 2) 2016 Colorectal Cancer Screening: Colonoscopy 04/13/2022 Depression Screening 04/13/2022 HIV Screening 04/13/2022 Hepatitis C Screening 04/13/2022 Social Influencers of Health Screening 04/13/2022 COVID-19 Vaccine (2023-2 5 season) 2024 Influenza Vaccine (#1) 2024 HIB Vaccines Aged Out No longer eligi ble based on patient's age to complete this topic HPV Vaccines Aged Out No longer eligi ble based on patient's age to complete this topic Hepatitis A Vaccines Aged Out No long er eligible based on patient's age to complete this topic IPV Vaccines Aged Out No longer eligi ble based on patient's age to complete this topic MMR Vaccines Aged Out No longer eligi ble based on patient's age to complete this topic Meningococcal ACWY Vaccine Aged Out N o longer eligible based on patient's age to complete this topic Meningococcal B Vacine Aged Out No lo nger eligible based on patient's age to complete this topic Pneumococcal Vaccine: Pediat rics (0 to 5 Years) and At-Risk Patients (6 to 64 Years) Aged Out No longer eligible b ased on patient's age to complete this topic RSV Immunization Patients Un kayleigh 20 months Aged Out No longer eligible b ased on patient's age to complete this topic Varicella Vaccines Aged Out No longer eligible based on patient's age to complete this topic Care Teams Mill House Supervisor Relationship Specialty Start Date End Date Tatiana Rhoades MD [address] [place] [address] PCP - General Internal Medicine 08/28/21
--- OUTSIDE RECORDS SUMMARY | 2024-08-10 09:27 | XMS_ITS ---
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 She denies any back pain. She is aware of the need for medications. Vital Signs Temperature 98.1 degrees Fahrenheit 07/22/19 25 Blood pressure systolic 113 mm Hg 07/22/19 25 Blood pressure diastolic 66 mm Hg 025 Heart Rate 68 /min 07/21/2024 Height 63 in 07/21/2024 Weight 108 lbs 07/21/2024 BMI 19.13 kg/m2 07/21/2024 Encounters Encounter Location Date Provider Diagnosis Yobani Villanueva III, MD [address] [place] [address] [place] [address] 07/21/2024 Yobani Villanueva Underweight R63.6 ; Malignant [...] She is under the care of an event attendant. This problem has been addressed and she [...] Up: 3 Months, Reason: OV Provider Name:Yobani Villanueva, 10/27/2024 11:00:00 AM, [address] [place] [address] , [place] [place] [address], [place], [address], Progress Notes * ISABELLDorinda EDOB:1965 ( 59 yo F)Acc No.[id number]:07/21/2024 Progress Notes Patient:?Dorinda FISCHER Provider:?Yobani Villanueva MD :1965???Age:59 Y???Sex:Female D ate:07/21/2024 Address:[address] [place] [address] [facility] [id number] Pcp:Tatiana Rhoades MD Subjective: * Chief Complaints: * ???Non-small cell carcinoma right upper lobe of lungMultinodular goiterCOPDEmphysemaHyperparathyroidismOsteoporosis * HPI: ???COVID-19 Screening:? She returns for ongoing surveillance after surgery and chemotherapy for a stage I non-small cell carcinoma the right upper lobe.? Her breathing is stable if she does not exert herself.? Her appetite is good.? She has gained weight.? Her most recent CT imaging shows remission continues.? She has been compliant with her medication for thyroid ddisease osteoporosis and hyperparathyroidism.? She remains under the care of endocrinology.? She is up-to-date with mammography and gynecology. ?Questions?Have you had any new onset fever, chills, cough, congestion, sore throat, shortness of breath, muscle aches??No * ROS:?General/Constitutional:?pain?only normal aches and pains.?Chills?denies.?Fatigue?admits.?Fever?denies.?ENT:?Decreased hearing?denies.?Respiratory:?Cough?denies.?Cardiovascular:?Chest pain with exertion?denies.?Dyspnea on exertion?denies.?Shortness of breath?with exertion.?Gastrointestinal:?Constipation?occasional.?Decreased appetite?denies.?Diarrhea?denies.?Heartburn?denies.?Nausea?denies.?Rectal bleeding?denies.?Vomiting?denies.?Hematology:?bruising?denies.?petechiae?denies.?Swollen glands?none have been noted.?Genitourinary:?Frequent urination?denies.?Musculoskeletal:?Muscle aches?denies.?Painful joints?denies.?Sciatica?denies.?Weakness?denies.?Skin:?Itching?denies.?Rash?denies.?Skin lesion(s)?denies.?Neurologic:?Difficulty speaking?denies.?Dizziness?denies.?Headache?denies.?Low back pain?denies.?Psychiatric:?Depressed mood?denies.? * Medical History:? * Surgical History:?VATS with Lobectomy Bronch 01/2021Front left lobe and 3 Parathyroid removed 06/05/2022Thyroidectomy removal 75% by Dr Desai 06/05/2022nodule under skin on neck excision benign results 4Right upper lobectomy in january 2021 due to lung cancer. 01/2021 * Hospitalization/Major Diagno stic Procedure:?lobectomy 01/2021Thyroidectomy 75 % remove 06/05/2022No history * Family History:?Father: dece ased 62 yrs.?Mother: [...] smoker ???She was born and raised in [facility]. She has been working in a [...] grieve. Josias is oldest and works at [employer], engaged to [employer]. Viktor works at [employer] making [employer] for [employer], [employer] with Kitty DUFF. * Medications:?TakingCalcium C itrate+D3 [...] Vitals:?Ht: 63, Wt: 108, BMI :19.13, BP: 113/66, HR: 68, Temp: 98.1, Wt-k.99. * Examination: ???General Examination: ?GENERAL APPEARANCE:?pleasant, well nourished, well developed, in no acute distress, calm and relaxed, underweight, woman.?HEAD:?atraumatic, normocephalic.?EYES:?eomi, perrla, anicteric, conjugate.?EARS:?normal.?NOSE:?septum intact.?ORAL CAVITY:?normal, unremarkable.?NECK/THYROID:?no jugular venous distention, no carotid bruit, thyroid normal.?LYMPH NODES:?no enlarged lymph nodes,spleen normal.?SKIN:?no suspicious lesions, anicteric.?HEART:?no clicks, gallops, murmurs, or rubs, regular rhythm, S1, S2 normal, no s3, or vascular bruits.?LUNGS:?clear to auscultation, Small thoracotomy scar is well-healed right chest.?BREASTS:??no masses palpable bilaterally.?ABDOMEN:?bowel sounds normal, no ascites, no organomegaly, no mass.?RECTAL EXAM:?not examined.?MUSCULOSKELETAL:?extremities unremarkable, no clubbing, cyanosis or edema.?PERIPHERAL PULSES:?normal.?NEUROLOGIC:?alert and oriented, cranial nerves 2-12 grossly intact, deep tendon reflexes 2+ symmetrical, motor strength normal upper and lower extremities, sensory exam intact.?PSYCH:?alert, oriented, cognitive function intact, cooperative with exam, good eye contact, speech clear, thought process logical, goal directed.? Assessment: * Assessment: 1.?Malignant neoplasm of upp er lobe, right bronchus or lung - C34.11 (Primary)???Notes :She remains in remission with no sign of relapse.? A CT scan will be done at six-month intervals one more time and then on a yearly basis.? She is doing quite well.???2.?Underweight - R63.6???Notes :Her weight is stable with a body mass index of 19.? Nutrition is not an issue.? She appears to be euthyroid.???3.?Hyperparathyroidism - E21.3???Notes :Her calcium remains normal.? She is under the care of an event attendant.? This problem has been addressed and she is stable.???4.?Osteoporosis - M81.0???Notes :She has been compliant with her medication patient.? She denies any back pain.? She is aware of the need for medications.???5.?Former smoker - Z87.891???Notes :She is highly motivated not to smoke. We discussed strategies for abstinence in times of stress and illness likely present.??? Plan: * Treatment: 2.?Underweight? Continue Calcium Citrate+D3 Petites Tablet, 200-6.25 MG-MCG, Oral;?Continue Vitamin D3 Capsule, 50 MCG (2000 UT), TAKE 1 CAPSULE BY MOUTH DAILY, Oral;?Continue Ventolin HFA Aerosol Solution, 108 (90 Base) MCG/ACT, Inhalation;?Continue Anoro Ellipta Aerosol Powder Breath Activated, 62.5-25 MCG/ACT, Inhalation;?Continue Gabapentin Capsule, 300 MG, 1 capsule, Orally, Once a day; Continue CVS Acetaminophen Tablet, 325 MG, TAKE 3 TABLETS BY MOUTH EVERY 6 HOURS, Oral.?LAB: PROFILE, FASTING (COMPREHENSIVE METABOLIC) ?LAB: CBC w DIFF ?LAB: Lipid Panel ?LAB: Vitamin D 25-OH Total ?LAB: Parathyroid Hormone Intact 3.?Hyperparathyroidism?LAB: PROFILE, FASTING (COMPREHENSIVE METABOLIC) ?LAB: CBC w DIFF ?LAB: Lipid Panel ?LAB: Vitamin D 25-OH Total ?LAB: Parathyroid Hormone Intact 4.?Osteoporosis?LAB: PROFILE, FASTING (COMPREHENSIVE METABOLIC) ?LAB: CBC w DIFF ?LAB: Lipid Panel ?LAB: Vitamin D 25-OH Total ?LAB: Parathyroid Hormone Intact * Procedure Codes:? * Preventive Medicine:? ??Counseling:?Care goal follow-up plan:?Counseling for abnormal BMI given?Yes ?Below Normal BMI Follow-up?Dietary education for weight gain, Dietary management education, guidance, and counseling ?Smoking/Tobacco Use?Patient counseled on the dangers of tobacco use and urged to quit.?07/21/2024 ??COPD Care Plan:?Patient Lifestyle Goals?Reduce number of ED and hospitalizations, Relieve symptoms and improve quality of life.?Treatment Goals?Eat a nutritious diet and increase water consumption to 6-8 glasses a day, Exercise to help whole body, including lungs.?Barriers?no barriers.?Self-Managment Goals?Get an air purifier for the rooms you are in the most, Eat a healthy diet.? * Follow Up:?3 Months (Reason: OV) * Images: * Sign off status: Completed true * Provider:?Yobani Villanueva MD Date:?07/10 Generated for Essence berrios/Siri/Sabineitting on:?08/10/2024 09:26 AM EDT History and Physical [...]
--- OUTSIDE RECORDS SUMMARY | 2024-08-10 09:27 | XMS_ITS ---
Author Organization Yobani Villanueva III, MD Address [address] [place] [address] [place] [address] Care Team Providers Care Basketballs And Footballs Reverser Name Role Phone Tatiana Rhoades MD Primary Care Provider Yobani Saunders Unavailable [phone] Rousou do not use, DO NOT USE Unavailable [phone] Allergies Allergen (clinical drug ingredient) Drug/Non Drug [...] Date Provider Diagnosis Yobani Villanueva III, MD [address] [place] [address] DR CORNELL MEHNAZ, SHARDA [id number] 03/23/2024 Yobani Villanueva Underweight R63.6 ; Malignant [...] Up: 4 Months, Reason: ov Provider Name:Yobani Machadone, 10/27/2024 11:00:00 AM, [address] [place] [address] ANALILIA CAMPBELL, SHAR[place], [phone], Progress Notes * Dorinda FISCHRE EDOB:1965 ( 58 yo F)Acc No.[id number]:03/23/2024 Progress Notes Patient:?Dorinda FISCHER Provider:?Yobani Villanueva MD :1965???Age:58 Y???Sex:Female D ate:03/23/2024 Address:[address] [place] [address] J[address] JETT [id number] Pcp:Tatiana Rhoades MD Subjective: * Chief Complaints: * ???Adenocarcinoma of the rig ht lung in remissionOsteoporosisHyperparathyroidismCOPDEmphysema * HPI: ???COVID-19 Screening:?Questions?Have you experienced fever, chills, cough, sore throat, shortness of breath, difficulty breathing, muscle aches, loss of taste or smell??No ?Have you been exposed to the virus within the last 10 days??No ?Have you travelled internationally in the last 10 days??No ?Have you been exposed to COVID-19 in the past??No ???:? The patient, a 58-year-old female, presented with [...] and sluggishness. She has been seeing an human services supervisor for this issue. The patient also reported having multiple spots on her skin, which she is concerned might be skin cancer. She is scheduled to see a chef assistant for a full body examination. * ROS:?General/Constitutional:?pain?Right thoracic chest wall incisions.?Chills?denies.?Fatigue?admits.?Fever?denies.?ENT:?Decreased hearing?denies.?Respiratory:?Cough?non-productive.?Cardiovascular:?Chest pain with exertion?denies.?Dyspnea on exertion?denies.?Shortness of breath?denies.?Gastrointestinal:?Constipation?denies.?Decreased appetite?denies.?Diarrhea?denies.?Heartburn?denies.?Nausea?denies.?Rectal bleeding?denies.?Vomiting?denies.?Hematology:?bruising?denies.?petechiae?denies.?Swollen glands?none have been noted.?Genitourinary:?Frequent urination?at night.?Musculoskeletal:?Muscle aches?denies.?Painful joints?denies.?Sciatica?denies.?Weakness?denies.?Skin:?Itching?denies.?Rash?denies.?Skin lesion(s)?denies.?Neurologic:?Difficulty speaking?denies.?Dizziness?denies.?Headache?denies.?Low back pain?denies.?Psychiatric:?Depressed mood?denies.? * Medical History:? * Surgical History:?VATS with Lobectomy Bronch 01/2021Front left lobe and 3 Parathyroid removed 06/05/2022Thyroidectomy removal 75% by Dr Desai 01/25/2023nodule under skin on neck excision benign results [...] ???She was born and raised in [place]. 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 She recently stopped smoking. She does not drink alcohol or take drugs. She is not currently working as she is recovering from the thoracotomy. Her two sons are grown and she lives alone. Her of cirrhosis of the liver at [facility] awaiting a transplant on January 31, 2021 one week before her lung cancer surgery. She continues to grieve. Josias is oldest and works at [employer], engaged to [employer]. Viktor works at [employer] making [employer] with Kitty DUFF. * Medications:?TakingCalcium C itrate+D3 [...] ergyno[Allergies Verified] Objective: * Vitals:?Ht: 63, Wt: 106, BMI :18.78, BP: 110/75, HR: 79, Temp: 97.0, Wt-k.08. * ???Past Orders: Lab:Complete Blood Count Aut o Diff * Collection Date 03/09/2024 12/03/2023 08/29/2023 Collection Time 06:38 AM 06:47 AM 06:39 AM Order Date 03/09/2024 12/03/2023 08/29/2023 White Blood Count 9.9 (Ref Range: 4.8-10.8 [...] Abs Auto 0.02 (Ref Range: 0.00-0.03 X10*3/uL) 0.04?H (Ref Range: 0.00-0.03 X10*3/uL) 0.03 (Ref [...] mg/dL) 117 (Ref Range: <150 mg/dL) Cholesterol 244?H (Ref Range: <200 mg/dL) 233?H (Ref Range: <200 mg/dL) 254?H (Ref Range: <200 mg/dL) LDL Cholesterol Calculated 142?H (Ref Range: <100 mg/dL) 134?H (Ref Range: <100 mg/dL) 148?H (Ref Range: <100 mg/dL) HDL Cholesterol 75 (Ref Range: >40 mg/dL) 78 (Ref Range: >40 mg/dL) 83 (Ref Range: >40 mg/dL) * Lab:Comprehensive [facility]. Nguyen l Fast * Collection Date 03/09/2024 12/03/2023 08/29/2023 Collection Time 06:38 AM 06:47 AM 06:39 AM Order Date 03/09/2024 12/03/2023 08/29/2023 Sodium 142 (Ref Range: 135-145 mmol/L) 143 (Ref Range: 135-145 mmol/L) 143 (Ref Range: 135-145 mmol/L) Bilirubin Total 0.3 (Ref Range: 0.0-1.0 mg/dL) 0.3 (Ref Range: 0.0-1.0 mg/dL) 0.3 (Ref Range: 0.0-1.0 mg/dL) Aspartate Amino Transferase 32?H (Ref Range: 5-31 U/L) 23 (Ref Range: [...] mmol/L) 4.4 (Ref Range: 3.3-5.1 mmol/L) Chloride 109?H (Ref Range: 96-108 mmol/L) 110?H (Ref Range: 96-108 mmol/L) 107 (Ref Range: 96-108 mmol/L) Carbon Dioxide 26 (Ref Range: 22-29 mmol/L) 26 (Ref Range: 22-29 mmol/L) 28 (Ref Range: 22-29 mmol/L) Anion Gap 11?L (Ref Range: 12-20) 12 (Ref Range: 12-20) 12 (Ref Range: 12-20) Blood Urea Nitrogen 11 (Ref Range: 9-16 mg/dL) 7?L (Ref Range: 9-16 mg/dL) 10 (Ref [...] 9.3 (Ref Range: 8.4-10.2 mg/dL) * Examination: ???General Examination: ?GENERAL APPEARANCE:?pleasant, well nourished, well developed, in no acute distress, calm and relaxed, underweight, woman.?HEAD:?atraumatic, normocephalic.?EYES:?eomi, perrla, anicteric, conjugate.?EARS:?normal.?NOSE:?septum intact.?ORAL CAVITY:?normal, unremarkable.?NECK/THYROID:?no jugular venous distention, no carotid bruit, thyroid normal,? ?hemithyroidectomy scar.?LYMPH NODES:?no enlarged lymph nodes,spleen normal.?SKIN:?no suspicious lesions, anicteric.?HEART:?no clicks, gallops, murmurs, or rubs, regular rhythm, S1, S2 normal, no s3, or vascular bruits.?LUNGS:?, diminished breath sounds throughout, no wheezes, rales, rhonchi, good air movement.?BREASTS:?Not examined.?ABDOMEN:?bowel sounds normal, no ascites, no organomegaly, no mass, Underweight.?RECTAL EXAM:?not examined.?MUSCULOSKELETAL:?extremities unremarkable, no clubbing, cyanosis or edema.?PERIPHERAL PULSES:?normal.?NEUROLOGIC:?alert and oriented, cranial nerves 2-12 grossly intact, deep tendon reflexes 2+ symmetrical, motor strength normal upper and lower extremities, sensory exam intact.?PSYCH:?alert, oriented, thought process logical, goal directed, speech clear, cognitive function intact, good eye contact.? Assessment: * Assessment: 1.?Malignant neoplasm of upp er lobe, right bronchus or lung - C34.11 (Primary)???Notes :There is no sign of relapse over new primary today. Her next office visit and surveillance CT scan were arranged.???2.?Underweight - R63.6???Notes :She has lost 5 pounds in her body mass index is now underweight. Her nutritional status seems adequate. Her weight will be carefully followed.???3.?Hyperparathyroidism - E21.3???Notes :Her calcium level has been normal after her parathyroid surgery.???4.?Chronic obstructive pulmonary disease, unspecified COPD type - J44.9???Notes :She has stopped smoking and she is asymptomatic at this time after the lobectomy. There has been no recent exacerbation of dyspnea.???5.?Pulmonary emphysema, unspecified emphysema type - J43.9???Notes :This is a finding on the CT scan. She has stopped smoking and will be observed carefully.???6.?Former smoker - Z87.891???Notes :She is highly motivated not to smoke. We discussed strategies for abstinence in times of stress and illness likely present.??? Plan: * Treatment: * Procedure Codes:? * Preventive Medicine:? ??Counseling:?Care goal follow-up plan:?Counseling for abnormal BMI given?Yes ?Below Normal BMI Follow-up?Dietary education for weight gain ?Smoking/Tobacco Use?Patient counseled on the dangers of tobacco use and urged to quit.?03/23/2024 ??COPD Care Plan:?Patient Lifestyle Goals?Reduce number of ED and hospitalizations, Relieve symptoms and improve quality of life, Be able to be more active with friends and family.?Treatment Goals?Eat a nutritious diet and increase water consumption to 6-8 glasses a day, Eat 4-5 small meals throughout the day, Exercise to help whole body, including lungs.?Barriers?no barriers.?Self-Managment Goals?Get an air purifier for the rooms you are in the most, Eat a healthy diet.? * Follow Up:?4 Months (Reason: ov) * Images: * Sign off status: Completed true * Provider:?Yobani Villanueva MD Date:?03/12 Generated for Essence berrios/Siri/eTransmitting on:?08/10/2024 09:27 AM EDT History and Physical Notes * HPI (History of Present Illness) Category Sub-Category Detail Notes COVID-19 Screening Questions Have you had any new onset fever, chills, cough, congestion, sore throat, shortness of breath, muscle aches?: No Have you been exposed to the virus withi n the last 10 days?: No Have you travelled internationally in [facility] last 10 days?: No Have [...]
== END 2024-08-10 09:25 | disposition home or self-care (01) ==
LOC: HO.ENCR 08:53
PROVIDERS: PCP Internal Medicine; Visit Provider Student in an Organized Health Care Education/Training Program
DX: E05.20 Thyrotoxicosis with toxic multinodular goiter without thyrotoxic crisis or storm (principal); M85.89 Other specified disorders of bone density and structure, multiple sites
CPT/HCPCS: 99214

== ENCOUNTER 2024-08-10 08:52 | Outpatient (REF) | payer MEDICARE, MEDICAID, SELFPAY ==
--- OUTSIDE RECORDS SUMMARY | 2024-08-10 10:45 | XMS_ITS | Clinical Summary ---
Author Organization [facility] it Address [address] [place] [address] Care Team Providers Care Sewing Inspector Name Role Phone Tatiana Rhoades MD Primary Care Provider Social History Tobacco Use Types Packs/Day Years [...] age to complete this topic Care Teams Sewing Inspector Relationship Specialty Start Date End Date Tatiana Rhoades MD [address] [place] [address] PCP - General Internal Medicine 08/28/21
--- OUTSIDE RECORDS SUMMARY | 2024-08-10 10:45 | XMS_ITS | Patient Health Record ---
Author Organization Yobani Villanueva III, MD Address [address] [place] [address] [address] [place] [address] Care Team Providers Care Promotions Director Name Role Phone Verona CHEN, Tatiana Primary Care Provider Yobani Saunders Unavailable [phone] Rousou do not use, DO NOT USE Unavailable Allergies Allergen (clinical drug ingredient) Drug/Non Drug Allergy documented on EMR Reaction Allergy Type Onset Date Status erythromycin Erythromycin Unknown Drug Allergy A ctive Results Component Value Reference Range Notes Lipid Panel Reviewed date:09/03/2023 10:03:46 AM Interpretation: Performing Lab:[facility], [address] [place] [phone] Notes/Report: Triglycerides 117 <150 mg/dL Desirable Triglyceride: less than 150 mg/dL Borderline High Triglyceride 150-199 mg/dL High Triglyceride: 200-499 mg/dL Very High Triglyceride: greater than or equal to 5OO mg/dL Cholesterol 254 <200 mg/dL Desirable Cholesterol: less than 200 mg/dL Borderline High Cholesterol: 200-239 mg/dL High Cholesterol: greater than 239 mg/dL LDL Cholesterol Calculated 148 <100 mg/dL Desirable LDL: less than 100 mg/dL Near Optimal/Above Optimal LDL: 110-129 mg/dL Borderline High LDL: 130-159 mg/dL High LDL: 160-189 mg/dL Very High LDL: greater than or equal to 190 mg/dL HDL Cholesterol 83 >40 mg/dL Desirable HDL: greater than 40 mg/dL Note: This HDL assay may give artificially low results in patients with liver disease. Complete Blood Count Auto Di ff Reviewed date:09/03/2023 10:03:46 AM Interpretation: Performing Lab:[facility], [address] [place] [phone] Notes/Report: White Blood Count 9.0 4.8-10.8 X10*3/uL Red Blood Count 4.58 4.20-5.50 X10*6/uL Hemoglobin 14.0 12.0-16.0 g/dl Hematocrit 42.5 37.0-47.0 % Mean Corpuscular Volume 92.8 80.0-98.0 fL Mean Corpuscular Hemoglobin 30.6 27.0-33.0 pg Mean Corpuscular HGB Conc 32.9 31.0-35.0 g/dl Red Cell Distribution Width 14.0 11.0-16.0 % Platelet Count 338 160-400 X10*3/uL Mean Platelet Volume 11.1 9.4-12.3 fL Neutrophils Percent Auto 60.2 45-73 % Imm Gran Pct Auto 0.3 0.0-0.4 % Lymphocytes Percent Auto 29.8 20-40 % Monocytes Percent Auto 6.2 2-11 % Eosinophils Percent Auto 2.9 0-4 % Basophils Percent Auto 0.6 0-2 % NRBC Pct Auto 0.0 0.0-0.2 /100WBC Neutrophils Absolute Auto 5.5 2.0-8.3 x10*3/u L Imm Gran Abs Auto 0.03 0.00-0.03 X10*3/uL Lymphocytes Absolute Auto 2.7 1.2-4.9 X10*3/u L Monocytes Absolute Auto 0.6 0.1-1.2 X10*3/uL Eosinophils Absolute Auto 0.3 0.0-0.4 X10*3/u L Basophils Absolute Auto 0.1 0.0-0.2 X10*3/uL NRBC Abs Auto 0.000 0.0-0.012 X10*3/uL Erythrocyte Sedimentation Ra te Reviewed date:09/03/2023 10:03:46 AM Interpretation: Performing Lab:[facility], [address] [place] [phone] Notes/Report: Erythrocyte Sedimentation Rate 11 0-20 MM/HR Patients with polycythemia and many hemoglobin abnormalities may have depressed sed rates whereas patients with anemia may have elevated sed rates. Comprehensive [place]. Panel Fa Reviewed date:09/03/2023 10:03:46 AM Interpretation: Performing Lab:[facility], [address] [place] [phone] Notes/Report: Sodium 143 135-145 mmol/L Potassium 4.4 3.3-5.1 mmol/L Chloride 107 96-108 mmol/L Carbon Dioxide 28 22-29 mmol/L Anion Gap 12 12-20 Blood Urea Nitrogen 10 9-16 mg/dL Creatinine 0.81 0.5-1.4 mg/dL Estimated Glomerular Filt Rate > 60 NOTE: For -British individuals, multiply the result by 1.210. Chronic Kidney Disease: Estimated GFR < 60 mL/min/1.73m2 Severe Kidney Disease: Estimated GFR < 15 mL/min/1.73m2 Glucose Fasting 98 60-99 mg/dL Calcium 9.3 8.4-10.2 mg/dL Bilirubin Total 0.3 0.0-1.0 mg/dL Aspartate Amino Transferase 21 5-31 U/L Alanine Aminotransferase 19 0-31 U/L Total Protein 7.2 6.5-8.0 g/dL Albumin Level 4.2 3.5-5.0 g/dL Alkaline Phosphatase 70 39-117 U/L Free T4 (Free Thyroxine) Reviewed date:09/03/2023 10:03:46 AM Interpretation: Performing Lab:[facility], [address] [place] [phone] Notes/Report: Free T4 (Free Thyroxine) 0.87 0.71-1.85 ng/dL Thyroid Stimulating Hormone Reviewed date:09/03/2023 10:03:46 AM Interpretation: Performing Lab:[facility], [address] [place] [phone] Notes/Report: Thyroid Stimulating Hormone 1.39 0.32-4.0 uIU/ mL TSH 3rd Generation ([facility]) Triiodothyronine T3 Free Reviewed date:09/03/2023 10:03:46 AM Interpretation: Performing Lab:[facility], [address] [place] [phone] Notes/Report: Triiodothyronine T3 Free 3.0 2.3-4.2 pg/mL THIS TEST WAS PERFORMED AT: [email or web address] [address] [place] [phone] ARY NAGEL MD Parathyroid Hormone Intact Reviewed date:09/03/2023 10:03:46 AM Interpretation: Performing Lab:[facility], [address] [place] [phone] Notes/Report: Parathyroid Hormone Intact 38.6 8.7-77.1 pg/mL Complete Blood Count Auto Di ff Reviewed date:12/03/2023 12:58:01 PM Interpretation: Performing Lab:[facility], [address] [place] [phone] Notes/Report: White Blood Count 9.9 4.8-10.8 X10*3/uL Red Blood Count 4.57 4.20-5.50 X10*6/uL Hemoglobin 14.1 12.0-16.0 g/dl Hematocrit 42.2 37.0-47.0 % Mean Corpuscular Volume 92.3 80.0-98.0 fL Mean Corpuscular Hemoglobin 30.9 27.0-33.0 pg Mean Corpuscular HGB Conc 33.4 31.0-35.0 g/dl Red Cell Distribution Width 13.8 11.0-16.0 % Platelet Count 343 160-400 X10*3/uL Mean Platelet Volume 10.8 9.4-12.3 fL Neutrophils Percent Auto 53.8 45-73 % Imm Gran Pct Auto 0.4 0.0-0.4 % Lymphocytes Percent Auto 34.8 20-40 % Monocytes Percent Auto 7.7 2-11 % Eosinophils Percent Auto 2.7 0-4 % Basophils Percent Auto 0.6 0-2 % NRBC Pct Auto 0.0 0.0-0.2 /100WBC Neutrophils Absolute Auto 5.3 2.0-8.3 x10*3/u L Imm Gran Abs Auto 0.04 0.00-0.03 X10*3/uL Lymphocytes Absolute Auto 3.4 1.2-4.9 X10*3/u L Monocytes Absolute Auto 0.8 0.1-1.2 X10*3/uL Eosinophils Absolute Auto 0.3 0.0-0.4 X10*3/u L Basophils Absolute Auto 0.1 0.0-0.2 X10*3/uL NRBC Abs Auto 0.000 0.0-0.012 X10*3/uL Comprehensive [place]. Panel Fa st Reviewed date:12/03/2023 12:58:01 PM Interpretation: Performing Lab:[facility], [address] [place] [phone] Notes/Report: Sodium 143 135-145 mmol/L Potassium 4.8 3.3-5.1 mmol/L Chloride 110 96-108 mmol/L Carbon Dioxide 26 22-29 mmol/L Anion Gap 12 12-20 Blood Urea Nitrogen 7 9-16 mg/dL Creatinine 0.83 0.5-1.4 mg/dL Estimated Glomerular Filt Rate > 60 NOTE: For -British individuals, multiply the result by 1.210. Chronic Kidney Disease: Estimated GFR < 60 mL/min/1.73m2 Severe Kidney Disease: Estimated GFR < 15 mL/min/1.73m2 Glucose Fasting 89 60-99 mg/dL Calcium 9.1 8.4-10.2 mg/dL Bilirubin Total 0.3 0.0-1.0 mg/dL Aspartate Amino Transferase 23 5-31 U/L Alanine Aminotransferase 19 0-31 U/L Total Protein 6.8 6.5-8.0 g/dL Albumin Level 4.1 3.5-5.0 g/dL Alkaline Phosphatase 72 39-117 U/L Lipid Panel Reviewed date:12/03/2023 12:58:01 PM Interpretation: Performing Lab:[facility], [address] [place] [phone] Notes/Report: Triglycerides 108 <150 mg/dL Desirable Triglyceride: less than 150 mg/dL Borderline High Triglyceride 150-199 mg/dL High Triglyceride: 200-499 mg/dL Very High Triglyceride: greater than or equal to 5OO mg/dL Cholesterol 233 <200 mg/dL Desirable Cholesterol: less than 200 mg/dL Borderline High Cholesterol: 200-239 mg/dL High Cholesterol: greater than 239 mg/dL LDL Cholesterol Calculated 134 <100 mg/dL Desirable LDL: less than 100 mg/dL Near Optimal/Above Optimal LDL: 110-129 mg/dL Borderline High LDL: 130-159 mg/dL High LDL: 160-189 mg/dL Very High LDL: greater than or equal to 190 mg/dL HDL Cholesterol 78 >40 mg/dL Desirable HDL: greater than 40 mg/dL Note: This HDL assay may give artificially low results in patients with liver disease. Complete Blood Count Auto Di ff Reviewed date:03/15/2024 05:37:47 AM Interpretation: Performing Lab:[facility], [address] [place] [phone] Notes/Report: White Blood Count 9.9 4.8-10.8 X10*3/uL Red Blood Count 4.40 4.20-5.50 X10*6/uL Hemoglobin 13.7 12.0-16.0 g/dl Hematocrit 41.0 37.0-47.0 % Mean Corpuscular Volume 93.2 80.0-98.0 fL Mean Corpuscular Hemoglobin 31.1 27.0-33.0 pg Mean Corpuscular HGB Conc 33.4 31.0-35.0 g/dl Red Cell Distribution Width 13.7 11.0-16.0 % Platelet Count 341 160-400 X10*3/uL Mean Platelet Volume 10.7 9.4-12.3 fL Neutrophils Percent Auto 59.6 45-73 % Imm Gran Pct Auto 0.2 0.0-0.4 % Lymphocytes Percent Auto 32.5 20-40 % Monocytes Percent Auto 6.8 2-11 % Eosinophils Percent Auto 0.2 0-4 % Basophils Percent Auto 0.7 0-2 % NRBC Pct Auto 0.0 0.0-0.2 /100WBC Neutrophils Absolute Auto 5.9 2.0-8.3 x10*3/u L Imm Gran Abs Auto 0.02 0.00-0.03 X10*3/uL Lymphocytes Absolute Auto 3.2 1.2-4.9 X10*3/u L Monocytes Absolute Auto 0.7 0.1-1.2 X10*3/uL Eosinophils Absolute Auto 0.0 0.0-0.4 X10*3/u L Basophils Absolute Auto 0.1 0.0-0.2 X10*3/uL NRBC Abs Auto 0.000 0.0-0.012 X10*3/uL Comprehensive [place]. Panel Fa st Reviewed date:03/15/2024 05:37:47 AM Interpretation: Performing Lab:[address] [phone] Notes/Report: Sodium 142 135-145 mmol/L Potassium 4.2 3.3-5.1 mmol/L Chloride 109 96-108 mmol/L Carbon Dioxide 26 22-29 mmol/L Anion Gap 11 12-20 Blood Urea Nitrogen 11 9-16 mg/dL Creatinine 0.88 0.5-1.4 mg/dL Estimated Glomerular Filt Rate > 60 NOTE: For -British individuals, multiply the result by 1.210. Chronic Kidney Disease: Estimated GFR < 60 mL/min/1.73m2 Severe Kidney Disease: Estimated GFR < 15 mL/min/1.73m2 Glucose Fasting 93 60-99 mg/dL Calcium 8.6 8.4-10.2 mg/dL Bilirubin Total 0.3 0.0-1.0 mg/dL Aspartate Amino Transferase 32 5-31 U/L Alanine Aminotransferase 24 0-31 U/L Total Protein 6.8 6.5-8.0 g/dL Albumin Level 4.0 3.5-5.0 g/dL Alkaline Phosphatase 64 39-117 U/L Lipid Panel Reviewed date:03/15/2024 05:37:47 AM Interpretation: Performing Lab:[address] [phone] Notes/Report: Triglycerides 136 <150 mg/dL Desirable Triglyceride: less than 150 mg/dL Borderline High Triglyceride 150-199 mg/dL High Triglyceride: 200-499 mg/dL Very High Triglyceride: greater than or equal to 5OO mg/dL Cholesterol 244 <200 mg/dL Desirable Cholesterol: less than 200 mg/dL Borderline High Cholesterol: 200-239 mg/dL High Cholesterol: greater than 239 mg/dL LDL Cholesterol Calculated 142 <100 mg/dL Desirable LDL: less than 100 mg/dL Near Optimal/Above Optimal LDL: 110-129 mg/dL Borderline High LDL: 130-159 mg/dL High LDL: 160-189 mg/dL Very High LDL: greater than or equal to 190 mg/dL HDL Cholesterol 75 >40 mg/dL Desirable HDL: greater than 40 mg/dL Note: This HDL assay may give artificially low results in patients with liver disease. Free T4 (Free Thyroxine) Reviewed date:03/15/2024 05:37:47 AM Interpretation: Performing Lab:[address], [place] [address] Notes/Report: Free T4 (Free Thyroxine) 1.05 0.71-1.85 ng/dL Thyroid Stimulating Hormone Reviewed date:03/15/2024 05:37:47 AM Interpretation: Performing Lab:[facility], [address] [place] [phone] Notes/Report: Thyroid Stimulating Hormone 1.93 0.32-4.0 uIU/ mL TSH 3rd Generation ([facility]) Reason For Referral No Information Medications Medication SIG (Take, Route, Frequency, Duration) Notes Start Date End Date Status Gabapentin 300 MG 1 capsule Orally Onc e a day Active [facility] Acetaminophen 325 MG TAKE 3 TABLETS BY MOUTH EVERY 6 HOURS Oral Active Anoro Ellipta 62.5-25 MCG/ACT Inhalation Active Vitamin D3 50 MCG (2000 UT) TAKE 1 CAPSU LE BY MOUTH DAILY Oral Active Ventolin HFA 108 (90 Base) MCG/ACT Inhalation Active Calcium Citrate+D3 Petites 200-6.25 MG-MCG Oral Active Immunizations Vaccine Route Administration Date Status Comme nts Td (adult) Unknown 05/03/2015 Administered Tdap Unknown 08/27/2017 Administered COVID- 19 Vaccine Unknown 09/08/2020 Administered COVID- 19 Vaccine Unknown 10/10/2020 Administered Social History Tobacco Use: Social History Observation Description Date Details (start date - stop date) Former Smoker NA - NA Sex Assigned At : Social History Observation Description Sex Assigned At Female Tobacco Use/Smoking Question Answer Notes Patient is a former smoker How long has it been since you last smoked? 1-5 years Additional Findings: Tobacco Non-User Ex-cigaret te smoker Alcohol Screen Question Answer Notes Did you have a drink containing alcohol in the p ast year? No Points 0 Interpretation Negative Problems Problem Type SNOMED Code ICD Code Onset Dates Problem Status W/U Status Risk Notes Problem 0595596 Former smoker (Z87.891) Active confirmed She is highly motivated not to smoke. We discussed strategies for abstinence in times of stress and illness likely present. Problem 813775065 Underweight (R63.6) Active confirmed Her weight is stable with a body mass index of 19. Nutrition is not an issue. She appears to be euthyroid. Problem Malignant neoplasm of upper lobe, bronchus or lung (884758243) Malignant neoplasm of upper lobe, right bronchus or lung (C34.11) Active confirmed She remains in remission with no sign of relapse. A CT scan will be done at six-month intervals one more time and then on a yearly basis. She is doing quite well. Problem [id number] Other osteoporos is without current pathological fracture (M81.8) Active confirmed She has undergone a [place]-thyroide ctomy. Her PTH level is now normal. Her calcium level is normal. Her thyroid functions are in the euthyroid range. Problem 19885462 Chronic obstruct phani pulmonary disease, unspecified COPD type (J44.9) Active confirmed She has stopped smoking and she is asymptomatic at this time after the lobectomy. There has been no recent exacerbation of dyspnea. Problem Osteoporosis (56339007) Osteoporosis (M81.0) Active confirmed She has been compliant with her medication patient. She denies any back pain. She is aware of the need for medications. Problem 74021065 Hyperparathyroid ism (E21.3) Active confirmed Her calcium remains normal. She is under the care of an endocrinologi st. This problem has been addressed and she is stable. Problem 76435940 Pulmonary emphys john, unspecified emphysema type (J43.9) Active confirmed This is a finding on the CT scan. She has stopped smoking and will be observed carefully. Problem 971790260 Multinodular goi ter (E04.2) Active confirmed She remains under the care of Dr. Hinojosa change in her medication was necessary today. Problem 324631763 Neurothekeoma (D36.10) Active confirmed The scar in the left neck is well healed and there is no sign of recurrence Vital Signs Heart Rate 68 /min 07/21/2024 Temperature 98.1 degrees Fahrenheit 07/21/2024 Blood pressure diastolic 66 mm Hg 07/21/2024 Height 63 in 07/21/2024 Blood pressure systolic 113 mm Hg 07/21/2024 Weight 108 lbs 07/21/2024 BMI 19.13 kg/m2 07/21/2024 Encounters Encounter Location Date Provider Diagnosis Yobani Villanueva III, MD [address] [place] [address] [place] [address] 08/22/2023 Yobani Villanueva Malignant neoplasm o f upper lobe, right bronchus or lung C34.11 ; Underweight R63.6 ; Hyperparathyroidism E21.3 ; Former smoker Z87.891 ; Multinodular goiter E04.2 ; Pulmonary emphysema, unspecified emphysema type J43.9 ; Chronic obstructive pulmonary disease, unspecified COPD type J44.9 and Other osteoporosis without current pathological fracture M81.8 Yobani Villanueva III, MD [address] [place] [address] [place] [address] 09/16/2023 Yobani Villanueva Underweight R63.6 ; Hyperparathyroidism E21.3 ; Former smoker Z87.891 ; Malignant neoplasm of upper lobe, right bronchus or lung C34.11 ; Multinodular goiter E04.2 ; Pulmonary emphysema, unspecified emphysema type J43.9 ; Chronic obstructive pulmonary disease, unspecified COPD type J44.9 and Other osteoporosis without current pathological fracture M81.8 Yobani Villanueva III, MD [address] [place] [address] [place] [address] 12/10/2023 Yobani Villanueva Underweight R63.6 ; Malignant neoplasm of upper lobe, right bronchus or lung C34.11 ; Multinodular goiter E04.2 ; Hyperparathyroidism E21.3 ; Thrombocytosis D75.839 ; Pulmonary emphysema, unspecified emphysema type J43.9 ; Chronic obstructive pulmonary disease, unspecified COPD type J44.9 ; Other osteoporosis without current pathological fracture M81.8 and Neurothekeoma D36.10 Yobani Villanueva III, MD [address] [place] [address] [place] [address] 03/23/2024 Yobani Villanueva Underweight R63.6 ; Malignant neoplasm of upper lobe, right bronchus or lung C34.11 ; Hyperparathyroidism E21.3 ; Chronic obstructive pulmonary disease, unspecified COPD type J44.9 ; Pulmonary emphysema, unspecified emphysema type J43.9 and Former smoker Z87.891 Yobani Villanueva III, MD [address] [place] [address] [place] [address] 07/21/2024 Yobani Villanueva Underweight R63.6 ; Malignant neoplasm of upper lobe, right bronchus or lung C34.11 ; Hyperparathyroidism E21.3 ; Osteoporosis M81.0 and Former smoker Z87.891 Yobani Villanueva III, MD [address] [place] [address] [place] [address] 09/16/2023 Yobani Villanueva Assessments Encounter Date Diagnosis (ICD Code) Assessment Notes Treatment Notes Treatment Clinical Notes 08/22/2023 Underweight (ICD-10 - R63.6) She has gained 2 pounds since her last visit and her body mass index is 19. 08/22/2023 Malignant neoplasm o f upper lobe, right bronchus or lung (ICD-10 - C34.11) A CT scan of the chest will be done next month after comprehensive blood work. This will be followed by a repeat office visit. There is no sign of recurrent cancer at this time. There is no sign of a new primary. 09/16/2023 Underweight (ICD-10 - R63.6) Her body mass index is now 20 and this problem has resolved. 09/16/2023 Hyperparathyroidism (ICD-10 - E21.3) Her calcium is now in the normal range. 12/10/2023 Underweight (ICD-10 - R63.6) She has [...] and surveillance CT scan were arranged. 03/23/2024 Underweight (ICD-10 - R63.6) She has lost 5 pounds in her body mass index is now underweight. Her nutritional status seems adequate. Her weight will be carefully followed. 03/23/2024 Malignant neoplasm o f upper lobe, right bronchus or lung (ICD-10 - C34.11) There is no sign of relapse over new primary today. Her next office visit and surveillance CT scan were arranged. 07/21/2024 Underweight (ICD-10 - R63.6) Her weight [...] yearly basis. She is doing quite well. 08/22/2023 Hyperparathyroidism (ICD-10 - E21.3) She has undergone resection of a parathyroid adenoma. Her calcium is now normal. 09/16/2023 Former smoker (ICD-1 0 - Z87.891) She is highly motivated not to smoke. We discussed strategies for abstinence in times of stress and illness likely present. 12/10/2023 Multinodular goiter (ICD-10 - E04.2) She remains under the care of Dr. Hinojosa change in her medication was necessary today. 03/23/2024 Hyperparathyroidism (ICD-10 - E21.3) Her calcium level has been normal after her parathyroid surgery. 07/21/2024 Hyperparathyroidism (ICD-10 - E21.3) Her calcium remains normal. She is under the care of an service promoter salesperson. This problem has been addressed and she is stable. 08/22/2023 Former smoker (ICD-1 0 - Z87.891) She [...] the final reading of her CT scan. 12/10/2023 Hyperparathyroidism (ICD-10 - E21.3) Her calcium level has been normal after her parathyroid surgery. 03/23/2024 Chronic obstructive pulmonary disease, unspecified COPD type (ICD-10 - J44.9) She has stopped smoking and she is asymptomatic at this time after the lobectomy. There has been no recent exacerbation of dyspnea. 07/21/2024 Osteoporosis (ICD-10 - M81.0) She has been compliant with her medication patient. She denies any back pain. She is aware of the need for medications. 08/22/2023 Multinodular goiter (ICD-10 - E04.2) She is under the care of an service promoter salesperson for hyperparathyroidism and a multinodular goiter. 09/16/2023 Multinodular goiter (ICD-10 - E04.2) She is under the care of an service promoter salesperson for hyperparathyroidism and a multinodular goiter. 12/10/2023 Thrombocytosis (ICD- 10 - D75.839) This was a reactive process and is no longer present. 03/23/2024 Pulmonary emphysema, unspecified emphysema type (ICD-10 - J43.9) This is a finding on the CT scan. She has stopped smoking and will be observed carefully. 07/21/2024 Former smoker (ICD-1 0 - Z87.891) She is highly motivated not to smoke. We discussed strategies for abstinence in times of stress and illness likely present. 08/22/2023 Pulmonary emphysema, unspecified emphysema type (ICD-10 - J43.9) This is a finding on the CT scan. She has stopped smoking and will be observed carefully. 09/16/2023 Pulmonary emphysema, unspecified emphysema type (ICD-10 - J43.9) This is a finding on the CT scan. She has stopped smoking and will be observed carefully. 12/10/2023 Pulmonary emphysema, unspecified emphysema type (ICD-10 - J43.9) This is a finding on the CT scan. She has stopped smoking and will be observed carefully. 03/23/2024 Former smoker (ICD-1 0 - Z87.891) She is highly motivated not to smoke. We discussed strategies for abstinence in times of stress and illness likely present. 08/22/2023 Chronic obstructive pulmonary disease, unspecified COPD type (ICD-10 - J44.9) She has stopped smoking and she is asymptomatic at this time after the lobectomy. There has been no recent exacerbation of dyspnea. 09/16/2023 Chronic obstructive pulmonary disease, unspecified COPD type (ICD-10 - J44.9) She has stopped smoking and she is asymptomatic at this time after the lobectomy. There has been no recent exacerbation of dyspnea. 12/10/2023 Chronic obstructive pulmonary disease, unspecified COPD type (ICD-10 - J44.9) She has stopped smoking and she is asymptomatic at this time after the lobectomy. There has been no recent exacerbation of dyspnea. 08/22/2023 Other osteoporosis without current pathological fracture (ICD-10 - M81.8) She has undergone a [place]-thyroidectomy. Her PTH level is now normal. Her calcium level is normal. Her thyroid functions are in the euthyroid range. 09/16/2023 Other osteoporosis without current pathological fracture (ICD-10 - M81.8) She has undergone a [place]-thyroidectomy. Her PTH level is now normal. Her calcium level is normal. Her thyroid functions are in the euthyroid range. 12/10/2023 Other osteoporosis without current pathological fracture (ICD-10 - M81.8) She has undergone a [place]-thyroidectomy. Her PTH level is now normal. Her calcium level is normal. Her thyroid functions are in the euthyroid range. 12/10/2023 Neurothekeoma (ICD-1 0 - D36.10) The scar in the left neck is well healed and there is no sign of recurrence Plan Of Treatment Pending Test Test Name Order Date PROFILE, FASTING (COMPREHENSIVE METABOLI C) 04/21/2023 PROFILE, FASTING (COMPREHENSIVE METABOLI C) 08/22/2023 PROFILE, FASTING (COMPREHENSIVE METABOLI C) 12/10/2023 PROFILE, FASTING (COMPREHENSIVE METABOLI C) 07/21/2024 PROFILE, FASTING (COMPREHENSIVE METABOLI C) 09/16/2023 PROFILE, FASTING (COMPREHENSIVE METABOLI C) 11/07/2022 PROFILE, RANDOM (COMPREHENSIVE METABOLIC ) 04/16/2021 PROFILE, RANDOM (COMPREHENSIVE METABOLIC ) 06/14/2022 PROFILE, RANDOM (COMPREHENSIVE METABOLIC ) 05/07/2021 PROFILE, RANDOM (COMPREHENSIVE METABOLIC ) 12/20/2021 PROFILE, RANDOM (COMPREHENSIVE METABOLIC ) 08/14/2022 PROFILE, RANDOM (COMPREHENSIVE METABOLIC ) 07/13/2021 LIPID PANEL 11/07/2022 FREE T4 (FT4) 08/14/2022 FREE T4 (FT4) 11/07/2022 FREE T4 (FT4) 04/21/2023 FREE T4 (FT4) 08/22/2023 TSH (THYROID STIMULATING HORMONE) 2022 TSH (THYROID STIMULATING HORMONE) 2022 TSH (THYROID STIMULATING HORMONE) 2022 TSH (THYROID STIMULATING HORMONE) 2023 TSH (THYROID STIMULATING HORMONE) 2023 TSH (THYROID STIMULATING HORMONE) 2021 CBC w DIFF 12/20/2021 CBC w DIFF 07/13/2021 CBC w DIFF 04/16/2021 CBC w DIFF 08/14/2022 CBC w DIFF 11/07/2022 CBC w DIFF 07/21/2024 CBC w DIFF 12/10/2023 CBC w DIFF 06/14/2022 CBC w DIFF 05/07/2021 SED RATE (ESR) 12/20/2021 SED RATE (ESR) 07/13/2021 SED RATE (ESR) 08/22/2023 FREE T3 (FT3) 08/22/2023 CT CHEST WITH CONTRAST 12/10/2023 CT CHEST WITH CONTRAST 07/21/2024 VITAMIN D 25-OH TOTAL 11/07/2022 PARATHYROID HORMONE INTACT 12/20/2021 PARATHYROID HORMONE INTACT 07/13/2021 PARATHYROID HORMONE INTACT 08/14/2022 PARATHYROID HORMONE INTACT 11/07/2022 CBC WITH AUTO DIFF 08/22/2023 CBC WITH AUTO DIFF 04/21/2023 CBC WITH AUTO DIFF 09/16/2023 Calcium 08/22/2023 Lipid Panel 09/16/2023 Lipid Panel 07/21/2024 Lipid Panel 04/21/2023 Lipid Panel 12/10/2023 Vitamin D 25-OH Total 12/20/2021 Vitamin D 25-OH Total 07/21/2024 Free T4 (Free Thyroxine) 12/10/2023 PTHI 08/22/2023 CT chest w con 04/21/2023 Parathyroid Hormone Intact 07/21/2024 Next Appt Details Provider Name:Yobani Villanueva, 10/27/2024 11:00:00 AM, [address] [place] [address] ANALILIA CAMPBELL, [place], [address], Insurance Providers Payer Name Payer Address Payer Phone Subscriber Number Group Number Insured Name Patient Relationship to Insured Coverage Start Date Coverage End Date MEDICARE NGS [address] [place] [address] [id number] Dorinda Fischer Self - patient is the insured [place] [address] [place], [place] [id number] [phone] [id number] Dorinda Fischer Self - patient is the insured Medical (General) History Medical History History ICD Code Stage IB [id number] 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 01/2021 nodule under skin on neck excision benig n results 05/13/2023 Thyroidectomy removal 75% by Dr Desai 0 06/05/2022 Front left lobe and 3 Parathyroid remove d 06/05/2022 VATS with Lobectomy Bronch 01/2021 Hospitalization History Reason Date(Month/Year) No history Thyroidectomy 75 % remove 06/05/2022 lobectomy 01/2021
[2024-08-10 11:10] LABS: Parathyroid Hormone Intact 16.9 pg/mL (8.7-77.1)
[2024-08-10 11:26] LABS: Albumin Level 4.4 g/dL (3.5-5.0); Anion Gap 12 (12-20); Blood Urea Nitrogen 9 mg/dL (9-16); Calcium 9.8 mg/dL (8.4-10.2); Carbon Dioxide 28 mmol/L (22-29); Chloride 106 mmol/L (96-108); Estimated Glomerular Filt Rate > 60; Glucose Random 83 mg/dL (60-115); Phosphorus 3.1 mg/dL (2.7-4.5); Potassium 4.3 mmol/L (3.3-5.1); Sodium 142 mmol/L (135-145)
[2024-08-10 11:29] LABS: Free T4 (Free Thyroxine) 0.98 ng/dL (0.71-1.85); Thyroid Stimulating Hormone 1.07 uIU/mL (0.32-4.0); Vitamin D 25-OH Total 89.1 ng/mL (>30)
== END 2024-08-10 08:53 | disposition home or self-care (01) ==
LOC: HO.LAB 08:52
PROVIDERS: PCP Internal Medicine; Visit Provider Student in an Organized Health Care Education/Training Program
DX: E05.20 Thyrotoxicosis with toxic multinodular goiter without thyrotoxic crisis or storm (principal); M81.0 Age-related osteoporosis without current pathological fracture; E21.3 Hyperparathyroidism, unspecified; Z90.89 Acquired absence of other organs; Z98.890 Other specified postprocedural states
CPT/HCPCS: 36415; 80048; 82040; 82306; 83970; 84100; 84439; 84443; 99212

== ENCOUNTER 2024-09-02 08:52 | Outpatient (REF) | payer MEDICARE, MEDICAID, SELFPAY ==
--- NOTE | ~2024-09-02 | US_ITS ---
EXAMINATION: US THYROID HISTORY: E05.20 - Thyrotoxicosis with toxic multinodular goiter without thyrotoxicosis... TECHNIQUE: Real-time grayscale ultrasound imaging was performed and images were reviewed. COMPARISON: Comparison is made with the prior examination dated 10/19/2021. FINDINGS: SIZE: The right thyroid lobe measures 5.6 x 1.8 x 1.6 cm. The left thyroid lobe is surgically absent. The isthmus measures 3 mm. FLOW: Flow to the gland is increased. ECHOGENICITY: The echotexture of the gland is homogeneous. NODULES: Multiple cysts are seen in the right thyroid lobe all less than a centimeter in size. There is a single solid nodule noted which is described below: Nodule #: 1 Location: Right lower pole measuring 10 x 8 x 11 mm (previously 11 x 7 x 8 mm). Shape: Wider than tall (0 points) Margins: Smooth (0 points) Echotexture: Indeterminate (1 point) Composition: Mostly solid (2 points) Calcifications: Punctate calcifications (3 points) Total points: 6 TIRADS: TR4: Moderately suspicious. US/US thyroid IMPRESSION: 10 x 8 x 11 mm moderately suspicious right thyroid nodule which may be minimally larger than on the prior study. Continued follow-up is recommended per ACR TI-RADS guidelines. ACR TI-RADS Guidelines TR1 (0 points): Benign, No follow-up or biopsy required TR2 (2 points): Not Suspicious, No biopsy or follow up indicated TR3 (3 points): Mildly Suspicious, FNA if >= 2.5 cm, Follow if >= 1.5 cm TR4 (4-6 points): Moderately Suspicious, FNA if >= 1.5 cm, Follow if >= 1.0 cm TR5 (>=7 points): Highly Suspicious, FNA if >= 1.0 cm, Follow if >= 0.5 cm Electronically signed by: Yobani Stanton MD 09/03/2024 12:59 PM EDT
--- OUTSIDE RECORDS SUMMARY | 2024-09-02 09:26 | XMS_ITS ---
Author Organization Yobani Villanueva III, MD Address [address] [place] [address] Care Team Providers Care Obiee Obia Solution Architect Name Role Phone Tatiana Rhoades MD Primary Care Provider Yobani Saunders Unavailable [phone] Rousou do not use, DO NOT USE [...] Date Provider Diagnosis Yobani Villanueva III, MD [address] [place] [address] [address] [place], [place] [address] 12/10/2023 Yobani Villanueva Underweight R63.6 ; Malignant [...] chest Provider Name:Yobani Villanueva, 10/27/2024 11:00:00 AM, [address] [place] [address] [address] [place] [address], [place], [address], Progress Notes * Dorinda FISCHER EDOB:1965 ( 58 yo F)Acc No.[id number]:12/10/2023 Progress Notes Patient:?Amado Dorinda E Provider:?Yobani Villanueva MD :1965???Age:58 Y???Sex:Female D ate:12/10/2023 Address:[address] [place] [address] [place]-[id number] Pcp:Tatiana Rhoades MD Subjective: [...] smoker ???She was born and raised in [facility]. 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 She recently stopped smoking. She does not drink alcohol or take drugs. She is not currently working as she is recovering from the thoracotomy. Her two sons are grown and she lives alone. Her of cirrhosis of the liver at [facility] awaiting a transplant on January 31, 2021 one week before her lung cancer surgery. She continues to grieve. Josias is oldest and works at [employer], engaged to [employer]. 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 * Medications:?TakingCalcium C itrate+D3 [...] Temp: 97.6, Wt-k.99. * ???Past Orders: Lab:[facility] [place]. [facility] [facility] Fast * Order Date 12/03/2023 [...] Provider:?Yobani Villanueva MD Date:?11/11 Generated for Essence berrios/Siri/eTeleazar on:?09/02/2024 09:25 AM EDT History and Physical Notes * HPI (History of Present Illness) Category Sub-Category Detail Notes COVID-19 Screening Questions Have you had any new onset fever, chills, cough, congestion, sore throat, shortness of breath, muscle aches?: No Have you been exposed to the virus withi n the last 10 days?: No Have you travelled internationally in [facility] last 10 days?: No [...]
--- OUTSIDE RECORDS SUMMARY | 2024-09-02 09:26 | XMS_ITS ---
Author Organization Yobani Villanueva III, MD Address [address] [place] [address] Care Team Providers Care Ramp Flight Attendant Name Role Phone Tatiana Rhoades MD Primary Care Provider Yobani Saunders Unavailable [phone] Rousou do not use, DO NOT USE [...] Status W/U Status Risk Notes Problem Osteoporosis (60158379) Osteoporosis (M81.0) Active confirmed She has been [...] Date Provider Diagnosis Yobani Villanueva III, MD [address] [place] [address] [place] [address] 07/21/2024 Yobani Villanueva Underweight R63.6 ; Malignant [...] She is under the care of an sandstone splitter. This problem has been addressed and she [...] OV Provider Name:Yobani Villanueva, 10/27/2024 11:00:00 AM, [address] [place] [address] , [place] [address], [place], [address], Progress Notes * ISABELLDorinda EDOB:1965 ( 59 yo F)Acc No.[id number]:07/21/2024 Progress Notes Patient:?Dorinda FISCHER Provider:?Yobani Villanueva MD :1965???Age:59 Y???Sex:Female D ate:07/21/2024 Address:[address] [place] [address] [facility] [place] [id number] Pcp:Tatiana Rhoades MD Subjective: * Chief Complaints: [...] smoker ???She was born and raised in [facility]. 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 She recently stopped smoking. She does not drink alcohol or take drugs. She is not currently working as she is recovering from the thoracotomy. Her two sons are grown and she lives alone. Her of cirrhosis of the liver at [facility] awaiting a transplant on January 31, 2021 one week before her lung cancer surgery. She continues to grieve. Josias is oldest and works at [employer], engaged to [employer]. Viktor works at [employer] making [employer] for [employer], [employer] with Kitty DUFF. * Medications:?TakingCalcium C itrate+D3 [...] She is under the care of an sandstone splitter.? This problem has been addressed and she [...] Villanueva MD Date:?07/10 Generated for Essence berrios/Siri/Sabineitting on:?09/02/2024 09:26 AM EDT History and Physical Notes [...]
--- OUTSIDE RECORDS SUMMARY | 2024-09-02 09:26 | XMS_ITS | Patient Health Record ---
Author Organization Yobani Villanueva III, MD Address [address] [place] [address] Care Team Providers Care Music Theory Teacher Name Role Phone Verona CHEN, Tatiana Primary Care Provider Yobani Saunders Unavailable [phone] Rousou do not use, DO NOT USE Unavailable Allergies Allergen (clinical drug ingredient) Drug/Non Drug Allergy documented on EMR Reaction Allergy Type Onset Date Status erythromycin Erythromycin Unknown Drug Allergy A ctive Results Component Value Reference Range Notes Complete Blood Count Auto Di ff Reviewed date:12/03/2023 12:58:01 PM Interpretation: Performing Lab:[facility], [address] [place] [phone] Notes/Report: White Blood Count 9.9 4.8-10.8 X10*3/uL [...] NRBC Abs Auto 0.000 0.0-0.012 X10*3/uL Comprehensive [place]. Panel Fa st Reviewed date:12/03/2023 12:58:01 PM Interpretation: Performing Lab:[facility], [address] [place] [phone] Notes/Report: Sodium 143 135-145 mmol/L Potassium 4.8 3.3-5.1 mmol/L Chloride 110 96-108 mmol/L Carbon Dioxide 26 22-29 mmol/L Anion Gap 12 12-20 Blood Urea Nitrogen 7 9-16 mg/dL Creatinine 0.83 0.5-1.4 mg/dL Estimated Glomerular Filt Rate > 60 NOTE: For -[place]ierra Leone[place] individuals, multiply the result by 1.210. Chronic [...] Panel Reviewed date:12/03/2023 12:58:01 PM Interpretation: Performing Lab:[facility], [address] [place] [phone] Notes/Report: Triglycerides 108 <150 mg/dL Desirable Triglyceride: [...] ff Reviewed date:03/15/2024 05:37:47 AM Interpretation: Performing Lab:[facility], [address] [place] [phone] Notes/Report: White Blood Count 9.9 4.8-10.8 X10*3/uL [...] NRBC Abs Auto 0.000 0.0-0.012 X10*3/uL Comprehensive [place]. Panel Fa st Reviewed date:03/15/2024 05:37:47 AM Interpretation: Performing Lab:[address] [address] Notes/Report: Sodium 142 135-145 mmol/L Potassium 4.2 3.3-5.1 mmol/L Chloride 109 96-108 mmol/L Carbon Dioxide 26 22-29 mmol/L Anion Gap 11 12-20 Blood Urea Nitrogen 11 9-16 mg/dL Creatinine 0.88 0.5-1.4 mg/dL Estimated Glomerular Filt Rate > 60 NOTE: For -[place] individuals, multiply the result by 1.210. Chronic [...] Panel Reviewed date:03/15/2024 05:37:47 AM Interpretation: Performing Lab:[address] [address] Notes/Report: Triglycerides 136 <150 mg/dL Desirable Triglyceride: [...] Thyroxine) Reviewed date:03/15/2024 05:37:47 AM Interpretation: Performing Lab:[address] [address] Notes/Report: Free T4 (Free Thyroxine) 1.05 0.71-1.85 ng/dL Thyroid Stimulating Hormone Reviewed date:03/15/2024 05:37:47 AM Interpretation: Performing Lab:[address] [address] Notes/Report: Thyroid Stimulating Hormone 1.93 0.32-4.0 uIU/ [...] Problem Status W/U Status Risk Notes Problem 2904612 Former smoker (Z87.891) Active confirmed She is highly motivated not to smoke. We discussed strategies for abstinence in times of stress and illness likely present. Problem 211040975 Underweight (R63.6) Active confirmed Her weight is stable with a body mass index of 19. Nutrition is not an issue. She appears to be euthyroid. Problem Malignant neoplasm of upper lobe, bronchus or lung (490646828) Malignant neoplasm of upper lobe, right bronchus or lung (C34.11) Active confirmed She remains in remission with no sign of relapse. A CT scan will be done at six-month intervals one more time and then on a yearly basis. She is doing quite well. Problem 89864285 Other osteoporos is without current pathological fracture (M81.8) Active confirmed She has undergone a [place]-thyroide ctomy. Her PTH level is now normal. Her calcium level is normal. Her thyroid functions are in the euthyroid range. Problem 00925619 Chronic obstruct phani pulmonary disease, unspecified COPD type (J44.9) Active confirmed She has stopped smoking and she is asymptomatic at this time after the lobectomy. There has been no recent exacerbation of dyspnea. Problem Osteoporosis (70569175) Osteoporosis (M81.0) Active confirmed She has been compliant with her medication patient. She denies any back pain. She is aware of the need for medications. Problem 95064246 Hyperparathyroid ism (E21.3) Active confirmed Her calcium remains normal. She is under the care of an endocrinologi st. This problem has been addressed and she is stable. Problem 31694937 Pulmonary emphys john, unspecified emphysema type (J43.9) Active confirmed This is a finding on the CT scan. She has stopped smoking and will be observed carefully. Problem 640292749 Multinodular goi ter (E04.2) Active confirmed She remains under the care of Dr. Hinojosa change in her medication was necessary today. Problem 336329535 Neurothekeoma (D36.10) Active confirmed The scar in [...] Date Provider Diagnosis Yobani Villanueva III, MD [address] [place] [address] [place] [address] 09/16/2023 Yobani Villanueva Underweight R63.6 ; Hyperparathyroidism E21.3 ; Former smoker Z87.891 ; Malignant neoplasm of upper lobe, right bronchus or lung C34.11 ; Multinodular goiter E04.2 ; Pulmonary emphysema, unspecified emphysema type J43.9 ; Chronic obstructive pulmonary disease, unspecified COPD type J44.9 and Other osteoporosis without current pathological fracture M81.8 Yobani Villanueva III, MD [address] [place] [address] [place] [address] 12/10/2023 Yobani Villanueva Underweight R63.6 ; Malignant neoplasm of upper lobe, right bronchus or lung C34.11 ; Multinodular goiter E04.2 ; Hyperparathyroidism E21.3 ; Thrombocytosis D75.839 ; Pulmonary emphysema, unspecified emphysema type J43.9 ; Chronic obstructive pulmonary disease, unspecified COPD type J44.9 ; Other osteoporosis without current pathological fracture M81.8 and Neurothekeoma D36.10 Yobani Villanueva III, MD [address] [place] [address] [place] [address] 03/23/2024 Yobani Villanueva Underweight R63.6 ; Malignant neoplasm of upper lobe, right bronchus or lung C34.11 ; Hyperparathyroidism E21.3 ; Chronic obstructive pulmonary disease, unspecified COPD type J44.9 ; Pulmonary emphysema, unspecified emphysema type J43.9 and Former smoker Z87.891 Yobani Villanueva III, MD [address] [place] [address] [place] [address] 07/21/2024 Yobani Villanueva Underweight R63.6 ; Malignant neoplasm of upper lobe, right bronchus or lung C34.11 ; Hyperparathyroidism E21.3 ; Osteoporosis M81.0 and Former smoker Z87.891 Yobani Villanueva III, MD [address] [place] [address] [address], [place] [address] 09/16/2023 Yobani Villanueva Assessments Encounter Date Diagnosis [...] yearly basis. She is doing quite well. 09/16/2023 Former smoker (ICD-1 0 - Z87.891) [...] She is under the care of an semiconductor wafers saw operator. This problem has been addressed and she is stable. 09/16/2023 Malignant neoplasm o f upper lobe, [...] is aware of the need for medications. 09/16/2023 Multinodular goiter (ICD-10 - E04.2) She is under the care of an semiconductor wafers saw operator for hyperparathyroidism and a multinodular goiter. 12/10/2023 [...] of stress and illness likely present. 09/16/2023 Pulmonary emphysema, unspecified emphysema type (ICD-10 [...] of stress and illness likely present. 09/16/2023 Chronic obstructive pulmonary disease, unspecified COPD [...] STIMULATING HORMONE) 2023 TSH (THYROID STIMULATING HORMONE) 2022 TSH (THYROID [...] Panel 09/16/2023 Lipid Panel 07/21/2024 Lipid Panel 12/10/2023 Lipid Panel 04/21/2023 Vitamin D 25-OH Total 12/20/2021 Vitamin D 25-OH Total 07/21/2024 Free T4 (Free Thyroxine) 12/10/2023 PTHI 08/22/2023 CT chest w con 04/21/2023 Parathyroid Hormone Intact 07/21/2024 Next Appt Details Provider Name:Yobani Vlilanueva, 10/27/2024 11:00:00 AM, [address] [place] [address] [address], [place], [address], Insurance Providers Payer Name Payer Address Payer Phone Subscriber Number Group Number Insured Name Patient Relationship to Insured Coverage Start Date Coverage End Date MEDICARE NGS [address] [facility] [place] [address] [phone] [id number] Dorinda Fischer Self - patient is the insured MEDICAID [place] [address] [place], [place] [id number] Dorinda Fischer Self - patient is the insured Medical (General) History Medical History History ICD Code Stage IB [id number] adenocarcinoma of the upper lobe right lung [...]
--- OUTSIDE RECORDS SUMMARY | 2024-09-02 09:26 | XMS_ITS | Clinical Summary ---
Author Organization [facility] ity Address [address] [place] [address] Care Team Providers Care Gristmill Operator Name Role Phone Tatiana Rhoades MD [...] Vaccine (2023-2 5 season) 2024 Influenza Vaccine (Season Ended) 2025 HIB Vaccines Aged Out No longer eligi [...] age to complete this topic Meningococcal B Vaccine Aged Out No l onger eligible based on patient's age to complete [...] age to complete this topic Care Teams Gristmill Operator Relationship Specialty Start Date End Date Tatiana Rhoades MD [address] [place] [address] PCP - General Internal Medicine 08/28/21
--- OUTSIDE RECORDS SUMMARY | 2024-09-02 09:27 | XMS_ITS ---
Author Organization Yobani Villanueva III, MD Address [address] [place] [address] Care Team Providers Care Dye Can Operator Name Role Phone Tatiana Rhoades MD Primary Care Provider Yobani Saunders Unavailable [phone] Rousou do not use, DO NOT USE [...] Date Provider Diagnosis Yobani Villanueva III, MD [address] [place] [address] [address] [place], [place] [address] 03/23/2024 Yobani Villanueva Underweight R63.6 ; Malignant [...] ov Provider Name:Yobani Machadone, 10/27/2024 11:00:00 AM, [address] [place] [address] [address], [place], [address], Progress Notes * Dorinda FISCHER EDOB:1965 ( 58 yo F)Acc No.[id number]:03/23/2024 Progress Notes Patient:?Dorinda FISCHER Provider:?Yobani Villanueva MD :1965???Age:58 Y???Sex:Female D ate:03/23/2024 Address:[address] [place] [address] [address] [phone] Pcp:Tatiana Rhoades MD Subjective: * Chief Complaints: [...] and sluggishness. She has been seeing an optometrist president/practice owner for this issue. The patient also reported having multiple spots on her skin, which she is concerned might be skin cancer. She is scheduled to see a social science research assistant for a full body examination. * [...] smoker ???She was born and raised in [facility]. She has been working in a [...] grieve. Josias is oldest and works at [employer], engaged to [employer]. Viktor works at [employer] making [employer] with Kitty DUFF. * Medications:?TakingCalcium C itrate+D3 [...] 83 (Ref Range: >40 mg/dL) * Lab:Comprehensive [place]. Nguyen l Fast * Collection Date 03/09/2024 [...] Villanueva MD Date:?03/12 Generated for Essence berrios/Siri/eTransmitting on:?09/02/2024 09:26 AM EDT History and Physical Notes * HPI (History of Present Illness) Category Sub-Category Detail Notes COVID-19 Screening Questions Have you had any new onset fever, chills, cough, congestion, sore throat, shortness of breath, muscle aches?: No Have you been exposed to the virus withi n the last 10 days?: No Have you travelled internationally in [facility] last [facility] days?: No Have you [...]
== END 2024-09-02 08:53 | disposition home or self-care (01) ==
LOC: HO.HMGCX 08:52
PROVIDERS: PCP Internal Medicine; Visit Provider Student in an Organized Health Care Education/Training Program
DX: E05.20 Thyrotoxicosis with toxic multinodular goiter without thyrotoxic crisis or storm (principal)
CPT/HCPCS: 76536

== ENCOUNTER → 2024-09-02 08:55 | Outpatient (BNV) | payer MEDICARE, MEDICAID, SELFPAY | PROVIDERS: PCP Internal Medicine; Visit Provider Radiology Diagnostic Radiology | DX: E04.1 Nontoxic single thyroid nodule (principal) | CPT/HCPCS: 76536 ==

== ENCOUNTER 2024-10-05 09:54 | Outpatient (REF) | payer MEDICARE, MEDICAID, SELFPAY ==
[2024-10-05 12:07] LABS: Blood Urea Nitrogen 8 mg/dL (9-16); Estimated Glomerular Filt Rate > 60
== END 2024-10-05 09:55 | disposition home or self-care (01) ==
LOC: HO.LAB 09:54
PROVIDERS: PCP Internal Medicine; Visit Provider Internal Medicine Medical Oncology
DX: Z01.812 Encounter for preprocedural laboratory examination (principal); R63.6 Underweight; J44.9 Chronic obstructive pulmonary disease, unspecified
CPT/HCPCS: 36415; 82565; 84520; 99212

== ENCOUNTER 2024-10-05 09:54 | Outpatient (AMB) | payer MEDICARE, MEDICAID, SELFPAY ==
[2024-10-05 09:56] VITALS: BP 108/72; PULSE 65; O2SAT 95; BMI 20.1
--- NOTE | 2024-10-05 09:56 | A.OFFVIS_ITS ---
Vital Signs 10/05/24 09:56 Height 5 ft 2 in Weight 109 lb 12.643 oz BMI 20.1 BP 108/72 Blood Pressure Location Lt brachial Position Sitting Pulse 65 Pulse Source Pulse Oximeter Pulse Oximetry (%) 95 Oxygen Delivery Method Room Air Intake Visit Reasons: parathyroidectomy Intake Note: Patient present today for parathyroidectomy office visit. 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 Accompanied by: Self / Same As Patient Allergies erythromycin base Allergy (Severe, Verified 10/05/24 10:00) Diarrhea and C-Diff Medication List - Last Reconciled 10/05/24 by Alise Anderson MD acetaminophen 650 mg PO QID PRN calcium citrate-vitamin D3 200 mg-6.25 mcg (250 unit) 2 tabs PO BID cholecalciferol (vitamin D3) 50 mcg PO DAILY gabapentin 600 mg (2 x 300 mg) PO BEDTIME 30 days umeclidinium-vilanterol 62.5-25 mcg/actuation (Anoro Ellipta) 1 inh inhalation DAILY Ventolin HFA 90 mcg/actuation (albuterol sulfate) 2 puffs inhalation Q6H PRN NS HPI Comments Details: 59 YO F who is seen in F/U for a 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 06/05/[address] Collette Desai at [facility]. Today here for follow up of right-sided thyroid nodules. 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 Duckworth of her LLP 1.8 cm nodule, and her LMP 4.0 cm nodule 12/11/17. Cytology for both nodules was Benign. She had a repeat thyroid US 11/04/2019 which reported significant growth of these nodules, as well as multiple other nodules meeting indication for FNA biopsy. 12/16/2019 Dr. Giron repeated the thyroid US herself and visualized the LLP nodule, measuring 1.9 cm and not meeting indication for repeat FNA biopsy as this nodule had not significantly grown in size. The LMP nodule measured 2.5 cm, and also did not meet indication for repeat FNA biopsy as it had significantly shrank from prior. No additional nodules meeting indication for FNA biopsy were visualized. However in 2021 she was noted to have low TSH levels with normal free T4, concerning for subclinical hyperthyroidism, with TSH levels less than 0.1 requiring treatment. She underwent thyroid uptake and scan in October 2021 which showed left-sided toxic adenoma. She was referred to Dr. Desai to discuss a L thyroid lobectomy. She was recommended for this, however surgery was put on hold due to her recent diagnosis of lung cancer. She did reestablish care with Dr. Desai 03/08/2022 and did undergo her surgical L thyroid lobectomy and parathyroidectomy 06/05/2022. Official surgical pathology was benign. She follows now for right-sided thyroid nodules US thyroid last done 10/31 right inferior 1,1 cm solid hypoechoic with echogenic foci Tr 5 category and another right inferior subcentimeter cyst , she has not had any ultrasound of the thyroid after that. Interval history She reports feeling well today and has no complaints. no compressive symptoms 09/02/2024: Underwent ultrasound of the thyroid which showed multiple subcentimeter right-sided cyst along with a dominant right lower pole 1 cm solid, isoechoic thyroid nodule with punctate echogenic calcifications. This remained stable in size compared to ultrasound in 2021. She has never had a biopsy of this thyroid nodule. Per TI-RADS guidelines it does not meet criteria for biopsy given its a TR 4 nodule, however per MELVA guidelines, this would be an intermediate suspicion nodule with a 20-50% risk of malignancy per the MELVA guide lines that are currently being worked on and would warrant a biopsy when it is between 1-2 cm. Her most recent labs show TSH at goal from August 2024 . She is not on any thyroid hormone replacement. She has a history of [id number] right lung cancer status post resection in 2020 as well as chemotherapy, follows with pulmonology. No radiation therapy was given. 2) Hyperparathyroidism and osteoporosis status post 3 gland resection May 2022 At her initial visit with endocrinology was noted to have high normal calcium, higher than expected for her age. She underwent biochemical evaluation for hyperparathyroidism 05/10/2019 with Total Calcium 10.3, Albumin 4.8, PTH 44, and Vitamin d 41.7. Labs were repeated 11/09/2019 with Total Calcium 9.7, Albumin 4.3, Vitamin D 25.8, PTH 31, WNL. 24 hour urine calcium was 95, but this was an inadequate collection with a Cr of only 0.8. She did have a DEXA scan in 2019 which revealed Osteoporosis of the spine and hip, and Osteopenia of the distal forearm. Labs were repeated 12/30/2019 with Calcium 10.1, PTH 38, Vitamin D 27.9 and Albumin 4.6. 24 hour urine collection was WNL . She was referred to Dr. Desai who does suspect normocalcemic normohormonal hyperparathyroidism, and did visualize a R inferior parathyroid adenoma on US. He did order a Sestamibi scan, which did not localize. He recommended a L thyroid lobectomy with parathyroid exploration. She underwent a 3 gland parathyroidectomy (bilateral inferior and L superior) 06/05/2022. Intraoperative PTH declined from 47-13 indicating cure. Labs have remained WNL since that time. She was given 1 dose of IV Reclast by her Oncologist in April 2021. She denies any body aches, constipation, abdominal pain. Denies any history of kidney stones. Fractured her collar bone at the age of 4. This was traumatic. Denies any fragility fractures. Menopause was age 50. Menarche was age 13 and she had 3 pregnancies. Interval history She takes Calcium citrate 500 mg b.i.d.. Takes Vitamin D 2000 IU daily. No fragility fractures DEXA scan done in December 2023 showed osteopenia of the spine with T-score of-1.8 with 12.3% increase in bone density compared to 2019, showed osteopenia of the left femoral neck with T-score of-2.2, osteopenia of the left femur total with T-score of-1.8 with 3.6% increase in bone density, as well as osteopenia of the left forearm with T-score of-2.1 with 5.7% decrease from baseline. Labs done in August 2024 showed normal calcium, phosphorus, vitamin-D elevated at 89, normal PTH. Physical exam General: sitting comfortably in no acute distress HEENT: normocephalic/atraumatic, Neck: supple Cardiac: normal heart sounds Pulm: normal breath sounds B/L, no added breath sounds Abd: not distended, no tenderness Extremities: no edema, no signs of myxedema Labs: Laboratory Tests 07/11/22 07/11/22 10:33 10:33 Creatinine 0.79 Estimated GFR > 60 Calcium 9.1 D Albumin 4.4 25-OH Vitamin D Total 36.9 TSH 1.41 Free T4 0.83 PTH Intact 21 Calcium (PTH Intact) 9.8 Laboratory Tests 09/29/18 04/30/19 03/28/21 10:38 11:00 13:08 Creatinine Estimated GFR Calcium Albumin Free T4 0.90 0.92 0.84 TSH 1.14 04/06/21 09/12/21 09/24/21 09:38 08:05 09:50 Creatinine Estimated GFR Calcium Albumin Free T4 0.93 1.18 0.93 TSH 0.08 L 0.08 L 11/14/21 01/28/22 07/11/22 10:55 11:15 10:33 Creatinine Estimated GFR Calcium Albumin Free T4 0.85 0.83 TSH 0.28 L 0.42 1.41 10/31/22 01/23/23 05/28/23 08:55 07:05 09:48 Creatinine Estimated GFR Calcium Albumin Free T4 1.06 0.91 TSH 1.34 1.58 1.02 06/17/23 07/15/23 07/22/23 06:23 07:50 06:40 Creatinine Estimated GFR Calcium Albumin Free T4 0.89 0.85 0.87 TSH 2.34 1.57 2.55 08/29/23 10/29/23 03/09/24 06:39 09:38 06:38 Creatinine 0.88 Estimated GFR > 60 Calcium 8.6 Albumin 4.0 Free T4 0.87 0.91 1.05 TSH 1.39 0.79 1.93 Laboratory Tests 07/15/23 08/10/24 07:50 09:38 Creatinine 0.76 Estimated GFR > 60 Calcium 9.8 D Phosphorus 3.1 Albumin 4.4 25-OH Vitamin D Total 88.5 89.1 TSH 1.07 Free T4 0.98 PTH Intact 16.9 EXAMINATION: US THYROID 09/04/23 HISTORY: E05.20 - Thyrotoxicosis with toxic multinodular goiter without thyrotoxicosis... TECHNIQUE: Real-time grayscale ultrasound imaging was performed and images were reviewed. COMPARISON: Comparison is made with the prior examination dated 10/19/2021. FINDINGS: SIZE: The right thyroid lobe measures 5.6 x 1.8 x 1.6 cm. The left thyroid lobe is surgically absent. The isthmus measures 3 mm. FLOW: Flow to the gland is increased. ECHOGENICITY: The echotexture of the gland is homogeneous. NODULES: Multiple cysts are seen in the right thyroid lobe all less than a centimeter in size. There is a single solid nodule noted which is described below: Nodule #: 1 Location: Right lower pole measuring 10 x 8 x 11 mm (previously 11 x 7 x 8 mm). Shape: Wider than tall (0 points) Margins: Smooth (0 points) Echotexture: Indeterminate (1 point) Composition: Mostly solid (2 points) Calcifications: Punctate calcifications (3 points) Total points: 6 TIRADS: TR4: Moderately suspicious. US/US thyroid IMPRESSION: 10 x 8 x 11 mm moderately suspicious right thyroid nodule which may be minimally larger than on the prior study. Continued follow-up is recommended per ACR TI-RADS guidelines. BONE DENSITOMETRY 12/30/23 CLINICAL INDICATION: Age-related osteoporosis without current pathological fracture. COMPARISON: Baseline BD dated 12/01/2019. TECHNIQUE: Using a ChallengePost DXA System (software version: 13.1) manufactured by [employer], dual-energy x-ray absorptiometry was performed of the lumbar spine, left hip and left forearm radius 33%. The images are of good technical quality. Summary results are attached. FINDINGS: LEFT FEMUR, NECK: Current: BMD 0.736 g/cm2, Z-score -0.7, T-score -2.2, osteopenia. Baseline: BMD 0.659 g/cm2. LEFT FEMUR, TOTAL: Current: BMD 0.781 g/cm2, Z-score -0.6, T-score -1.8, osteopenia, 3.6% increase from baseline (<5% change is not significant). Baseline: BMD 0.754 g/cm2. AP SPINE L1-L4: Current: BMD 0.962 g/cm2, Z-score -0.3, T-score -1.8, osteopenia, 12.3% increase from baseline (<5% change is not significant). Baseline: BMD 0.857 g/cm2. LEFT FOREARM RADIUS 33%: BMD 0.694 g/cm2, Z-score -1.4, T-score -2.1, osteopenia, 5.7% decrease from baseline (<5% change is not significant). Baseline: BMD 0.736 g/cm2. IDENTIFIED RISK FACTORS: Osteoporosis, hyperparathyroidism, low body weight, low calcium intake,secondary osteoporosis (hyperthyroidism), menopause. HISTORY OF FRACTURE: None listed. MEDICATIONS: Calcium supplements or multivitamin, vitamin D. MM/XR DEXA axial skeleton IMPRESSION: 1. DIAGNOSIS: Osteopenia based on the lowest T-score value of -2.2 in the femoral neck applying World Health Organization criteria. 2. 10-YEAR FRACTURE RISK PREDICTION, FRAX: Major osteoporotic fracture (clinical spine, forearm, hip or shoulder) 8.2%. Hip fracture 1.3%. DEXA 12/06/2019: FINDINGS: AP SPINE L1-L4: BMD 0.857 g/cm2, Z-score -1.4, T-score -2.7, osteoporosis. LEFT FEMUR, NECK: BMD 0.659 g/cm2, Z-score -1.4, T-score -2.7, osteoporosis. LEFT FEMUR, TOTAL: BMD 0.754 g/cm2, Z-score -1.0, T-score -2.0, osteopenia. LEFT FOREARM RADIUS 33%: BMD 0.736 g/cm2, Z-score -1.3, T-score -1.6, osteopenia. THYROID UPTAKE AND SCAN 11/01/21 CLINICAL INFORMATION: Thyrotoxicosis. COMPARISON: No previous radionuclide thyroid scan is available for comparison. Thyroid ultrasound dated 10/19/2021 is available for comparison. TECHNIQUE: Following the oral administration of 267 microcuries of I-123 sodium iodide, thyroid uptake was performed and expressed as a percentage of the administrated dose. Gamma scintillation camera images of the thyroid in the anterior and right and left anterior oblique views were obtained using a pinhole collimator following the administration of 10 mCi Tc-99m pertechnetate. FINDINGS: The uptake is 8.6% at 4 hours and 16.8% at 24 hours (Normal radioiodine uptake at 24 hours is 10% to 30%). The radioiodine uptake is normal. The radiopertechnetate thyroid scintigram there is marked heterogeneity within the thyroid gland. There is a prominent ovoid shaped focus of markedly increased activity at the lower pole of the left thyroid lobe. This has some medial central photopenia. A much smaller ovoid shaped focus of increased activity is present in the upper pole of the left lobe. There is only very faint activity visualized in the right lobe which has some heterogeneity but no definite focal abnormality. A single anterior radioiodine image obtained at the time of the 24-hour uptake measurement is similar to the radio pertechnetate image. The thyroid ultrasound shows a multinodular thyroid gland. The largest nodule is present in the lower pole of the left lobe measuring 2.3 x 1.7 x 2.1 cm on the ultrasound study and appears to correspond in size and location to the dominant left lower pole nodule described above on this radionuclide thyroid scan. Several additional thyroid nodules are visualized bilaterally on the ultrasound study, but only a small nodule in the upper pole of the left lobe is visualized on this radionuclide scan. NM/NM thyroid w uptake IMPRESSION: These findings are most consistent with a toxic multinodular goiter (Angeles's disease), with a dominant functioning (hot) nodule present in the lower pole of the left lobe. Significant extra nodular suppression is present, most prominently diffusely in the right lobe. US THYROID 10/19/21 CLINICAL INFORMATION: Thyrotoxicosis, unspecified without thyrotoxic crisis or storm. History of previous thyroid biopsy 2018 COMPARISON: Ultrasound soft tissue head/neck thyroid most recent dated 12/16/2019 and 11/04/2019. TECHNIQUE: Linear transducer grayscale and color Doppler examination with attention to the region of the thyroid. FINDINGS: SIZE: Measurements of the thyroid lobes and nodules are given in sagittal, anteroposterior and transverse dimensions respectively. Right Thyroid Lobe: 5.69 x 1.52 x 1.53 cm, volume 6.93 mL. Previously 5.5 x 1.7 x 1.7 cm, volume 8.3 mL. Parenchyma: The gland echotexture is homogeneous. Thyroid vascularity is increased. Left Thyroid Lobe: 6.28 x 2.31 x 2.6 cm, volume 20.5 mL. Previously 6.2 x 2.2 x 2.7 cm, volume 19.3 mL. Parenchyma: The gland echotexture is heterogeneous. Thyroid vascularity is increased. Isthmus: 0.29 cm in maximum AP dimension. Previously 0.30 cm. There are multiple bilateral nodules. The largest nodules are measured. Estimated total number of nodules greater than or equal to 1 cm: 4. [employer]per nodules are described as follows: 1. Location: Right inferior. Size: 1.1 x 0.7 x 0.8 cm, volume 0.28 mL. Previously: 1.2 x 0.5 x 0.9 cm, volume 0.28 mL. Nodule characteristics: Composition: Solid/almost completely solid (2). Echogenicity: Hypoechoic (2). Shape: Not taller than wide (0). Margins: Smooth (0). Echogenic Foci: Punctate echogenic foci (3). ACR TI-RADS total points: 7 ACR TI-RADS category: 5 Significant change in size (>/= 20% in 2 dimensions and minimal increase of 2 mm or 50% or greater increase in volume): Change in features: Change in ACR TI-RADS risk category: 2. Location: Right inferior. Size: 0.5 x 0.7 x 0.13 cm, volume 0.71 mL. Previously: 1.4 x 0.64 x 0.9 cm, volume 0.42 mL. Nodule characteristics: Composition: Cystic(0). ACR TI-RADS total points: 0 ACR TI-RADS category: 1 Significant change in size (>/= 20% in 2 dimensions and minimal increase of 2 mm or 50% or greater increase in volume): Change in features: Change in ACR TI-RADS risk category: 3. Location: Left superior. Size: 0.85 x 0.63 x 0.9 cm, volume 0.25 mL. Previously: 0.6 x 0.5 x 0.7 cm, volume 0.11 mL. Nodule characteristics: Composition: Spongiform (0). Echogenicity: Anechoic (0). Shape: Not taller than wide (0). Margins: Smooth (0). Echogenic Foci: None (0). ACR TI-RADS total points: 0 ACR TI-RADS category: 1 Significant change in size (>/= 20% in 2 dimensions and minimal increase of 2 mm or 50% or greater increase in volume): Change in features: Change in ACR TI-RADS risk category: 4. Location: Left mid. Size: 2.8 x 1.8 x 1.9 cm, volume 4.92 mL. Previously: 3.4 x 1.9 x 2.2 cm, volume 7.4 mL. Nodule characteristics: Composition: Mixed cystic and solid (1). Echogenicity: Hypoechoic (2). Shape: Not taller than wide (0). Margins: Smooth (0). Echogenic Foci: Punctate echogenic foci (3). ACR TI-RADS total points: 6 ACR TI-RADS category: 4 Significant change in size (>/= 20% in 2 dimensions and minimal increase of 2 mm or 50% or greater increase in volume): Change in features: Change in ACR TI-RADS risk category: 5. Location: Left inferior. Size: 2.3 x 1.7 x 2.1 cm, volume 4.3 mL. Previously: 2.2 x 1.6 x 2.1 cm, volume 3.9 mL. Nodule characteristics: Composition: Mixed cystic and solid (1). Echogenicity: Hypoechoic (2). Shape: Not taller than wide (0). Margins: Smooth (0). Echogenic Foci: None (0). ACR TI-RADS total points: 3 ACR TI-RADS category: 3 Significant change in size (>/= 20% in 2 dimensions and minimal increase of 2 mm or 50% or greater increase in volume): Change in features: Change in ACR TI-RADS risk category: NODES: No lymphadenopathy is seen in the tissue surrounding the thyroid gland. US/US thyroid IMPRESSION: Heterogeneous hypervascular thyroid gland. The left lobe is enlarged. Multiple bilateral thyroid nodules. Left mid nodule may be slightly decreased in size from previous exam. Otherwise thyroid nodules do not appear appreciably changed. Several nodules meet the TI RADS criteria for fine-needle aspiration.. Thyroid US 11/04/2019: Right Thyroid Lobe: 5.5 x 1.7 x 1.7 cm, volume 8.3 mL. Previously 5.3 x 2.1 x 1.7 cm, volume 9.7 mL. Parenchyma: The gland echotexture is homogeneous. Thyroid vascularity is increased. Left Thyroid Lobe: 6.2 x 2.2 x 2.7 cm, volume 19.3 mL. Previously 6.7 x 2.5 x 3.3 cm, volume 28.9 mL. Parenchyma: The gland echotexture is heterogeneous. Thyroid vascularity is increased. Isthmus: 0.3 cm in maximum AP dimension. Previously 0.2 cm. RIGHT THYROID LOBE: There are 3 nodules seen. 1. Location: Superior. Size: 0.4 x 0.2 x 0.3 cm. Previous: 0.4 x 0.2 x 0.3 cm. Nodule characteristics: Hypoechoic and cystic, smooth margin, no calcification and minimal peripheral flow.. 2. Location: Middle/inferior. Size: 1.2 x 0.5 x 0.9 cm. Previous: 1.2 x 0.5 x 1.2 cm. Nodule characteristics: Heterogeneous, smooth margin, calcification and positive intranodular flow.. 3. Location: Inferior. Size: 0.6 x 0.3 x 0.5 cm. Previous: 0.6 x 0.3 x 0.4 cm. Nodule characteristics: Heterogeneous, smooth margin, calcification and positive intranodular flow. ISTHMUS: There is 1 nodule seen. 1. Location: Right lower isthmus. Size: 1.4 x 0.6 x 0.9 cm. Previous: New since the previous study. Nodule characteristics: Hypoechoic and cystic, smooth margin, no calcification and no intranodular flow. LEFT THYROID LOBE: There are 3 nodules seen. 1. Location: Middle. Size: 0.6 x 0.5 x 0.7 cm. Previous: Not measured on the previous study. Nodule characteristics: Heterogeneous, smooth margin, no calcification and positive intranodular flow. 2. Location: Middle/inferior. Size: 3.4 x 1.9 x 2.2 cm. Previous: 3.1 x 1.9 x 2.7 cm. Nodule characteristics: Heterogeneous, smooth margin, calcification and positive intranodular flow. 3. Location: Inferior. Size: 2.2 x 1.6 x 2.1 cm. Previous: 2.4 x 1.2 x 1.3 cm. Nodule characteristics: Heterogeneous, smooth margins with hypoechoic rind, no calcification and positive intranodular flow. NODES: No lymphadenopathy is seen in the tissue surrounding the thyroid gland. [facility] Medical History (Updated 10/05/24 @ 10:15 by Alise Anderson MD) Multinodular thyroid Osteopenia Pulmonary nodule Leukocytosis Immunization due Hyperlipidemia Annual visit for general adult medical examination with abnormal findings Hyperparathyroidism Toxic multinodular goiter Vitamin D deficiency Hyperthyroidism Post-thoracotomy pain syndrome Primary adenocarcinoma of right lung (~2020) Right upper lobe pulmonary nodule Personal history of nicotine dependence Clostridium difficile colitis (~11/2020) Pulmonary nodules/lesions, multiple Emphysema of lung Osteoporosis (~2019) Hyperparathyroidism Vitamin D deficiency Surgical History Hx of partial thyroidectomy History of lobectomy of lung (~2020) S/P thyroid biopsy (~2017) History of colonoscopy (~2018) Family History Mother Pancreatic cancer Father COPD (chronic obstructive pulmonary disease) Social History Household Members: None Housing: House Do you presently have visiting nurse or other home services: No Alcohol intake: current Alcohol intake frequency: a few times a month Patient Tobacco Use Status: Former Tobacco user Years Smoked: 35 years e-Cigarette/Vaping Use: Never Used Second Hand Smoke Exposure: No Substance Use Type: Marijuana service: No Current occupational status: disabled Cognitive needs: No Hearing needs: No Vision needs: Yes Physical Exam Vital Signs: Last Vital Signs Pulse 65 10/05/24 09:56 BP 108/72 10/05/24 09:56 Pulse Ox 95 10/05/24 09:56 Oxygen Delivery Method Room Air 10/05/24 09:56 BMI result Body Mass Index 20.1 Assessment & Plan Assessment & Plan (1) Toxic multinodular goiter: Code(s): E05.20 - Thyrotoxicosis with toxic multinodular goiter without thyrotoxic crisis or storm Category: Medical Plan: 59-year-old female with a history of left toxic adenoma status post left lobectomy in May [address] Mccauley I to be with [facility] now here for follow up of right-sided thyroid nodules. She has not on any thyroid hormone replacement. Last thyroid labs from August 2024 were normal. No compressive symptoms. She has a history of right non small-cell lung cancer status post resection in 2020 as well as chemotherapy, did not require radiation therapy.US thyroid last done 10/31 right inferior 1,1 cm solid hypoechoic with echogenic foci Tr 5 category and another right inferior subcentimeter cyst , 09/02/2024: Underwent ultrasound of the thyroid which showed multiple subcentimeter right-sided cyst along with a dominant right lower pole 1 cm solid, isoechoic thyroid nodule with punctate echogenic calcifications. This remained stable in size compared to ultrasound in 2021. She has never had a biopsy of this thyroid nodule. Per TI-RADS guidelines it does not meet criteria for biopsy given its a TR 4 nodule, however per MELVA guidelines, this would be an intermediate suspicion nodule with a 20-50% risk of malignancy per the MELVA guidelines that are currently being worked on and would warrant a biopsy when it is between 1-2 cm. Today I discussed with him in detail both options that per TI-RADS guidelines while this nodule does not meet criteria for biopsy, per MELVA guidelines we could consider biopsying it given its 1 cm. Discussed that there is around a 20% risk of malignancy, but patient verbalized that at this time she feels comfortable with continuing to monitor it and I agree that given that this nodule has remained stable in size over the past 3 years we can just continue to watch it for now.. Plan: -ordered ultrasound of the thyroid to be done in 1 year in August 2025 prior to follow up in September 2025 -ordered TSH and free T4 to be done prior to follow up in 1 year -follow up in 1 year (2) Osteopenia: Code(s): M85.80 - Other specified disorders of bone density and structure, unspecified site Category: Medical Qualifiers: Osteopenia location: multiple sites Qualified Code(s): M85.89 - Other specified disorders of bone density and structure, multiple sites Plan: 59-year-old female with a history of normocalcemic but high normal calcium level with inappropriately normal PTH levels, who had history of osteoporosis diagnosed in 2019, status post 3 gland parathyroid resection in May 2022 with significant decline in PTH levels indicative of cure, who on most recent bone density done in December 2023 shows improvement in bone density in the spine and hip with significant accrual of bone. DEXA scan done in December 2023 showed osteopenia of the spine with T-score of-1.8 with 12.3% increase in bone density compared to 2019, showed osteopenia of the left femoral neck with T-score of- 2.2, osteopenia of the left femur total with T-score of-1.8 with 3.6% increase in bone density, as well as osteopenia of the left forearm with T-score of-2.1 with 5.7% decrease from baseline. Next bone density would be due December 2025. She is on 2000 units of vitamin-D daily, previously vitamin-D levels were noted to be elevated back in 2022, most recent vitamin-D elevated at 89. In August 2024. Otherwise normal calcium, PTH, albumin, phosphorus levels. she is on calcium citrate 500 mg twice daily. Discussed with her that vitamin-D should be ideally between 30-60, for now she can stop taking the vitamin-D 2000 units daily and just continue the vitamin-D with her calcium. Her PCP can repeat her vitamin-D labs in 4-5 months, and see if she needs more replacement. Plan: -stop vitamin-D 2000 units daily, primary care can repeat vitamin-D levels in 4- 5 months prior to her annual -continue calcium as it is for now -weight-bearing exercise -next bone density would be due December 2025 Plan I spent 30 minutes in reviewing the record, seeing the patient and documenting in the medical record. Orders: Orders US thyroid 08/24/25 E04.2 - Nontoxic multinodular goiter Thyroid Stimulating Hormone 1 Year E04.2 - Nontoxic multinodular goiter Free T4 (Free Thyroxine) 1 Year E04.2 - Nontoxic multinodular goiter Medications: Discontinued cholecalciferol (vitamin D3) Discontinued Reason: Doctor's Order 50 mcg PO DAILY 90 caps 3RF Patient Instructions: Do blood work a few days prior to your next appointment Do ultrasound thyroid a few weeks prior to your next appointment in 1 year , someone will call you to schedule this Have your primary care check vitamin D levels in 5 or so months No need to take vitamin D Coding Level of Care Code Est Pt Level 4 (09875) Diagnoses Toxic multinodular goiter E05.20 Osteopenia of multiple sites M85.89 Osteopenia location: multiple sites Time Spent (min) 30
--- OUTSIDE RECORDS SUMMARY | 2024-10-05 10:32 | XMS_ITS ---
Author Organization Yobani Villanueva III, MD Address [address] [place] [address] Care Team Providers Care Non Clinical Advisor Name Role Phone Tatiana Rhoades MD Primary Care Provider Yobani Saunders Unavailable [phone] Rousou do not use, DO NOT USE [...] Status W/U Status Risk Notes Problem Osteoporosis (28562686) Osteoporosis (M81.0) Active confirmed She has been [...] Provider Diagnosis Yobani Villanueva III, MD [address] [place] [address] [place] [address] 07/21/2024 Yobani Villanueva Underweight R63.6 ; Malignant [...] She is under the care of an custom studio coordinator. This problem has been addressed and she [...] OV Provider Name:Yobani Villanueva, 10/27/2024 11:00:00 AM, [address] [place] [address] , [address] [address], [place], [address], Progress Notes * ISABELLDorinda EDOB:1965 ( 59 yo F)Acc No.[id number]:07/21/2024 Progress Notes Patient:?Droinda FISCHER Provider:?Yobani Villanueva MD :1965???Age:59 Y???Sex:Female D ate:07/21/2024 Address:[address] [place] [address] [facility] [place] [id number] Pcp:Tatiana Rhoades MD Subjective: * Chief Complaints: [...] ???She was born and raised in [facility]. 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 She recently stopped smoking. She does not drink alcohol or take drugs. She is not currently working as she is recovering from the thoracotomy. Her two sons are grown and she lives alone. Her of cirrhosis of the liver at [facility] awaiting a transplant on January 31, 2021 one week before her lung cancer surgery. She continues to grieve. Josias is oldest and works at [employer], engaged to [employer]. Viktor works at [employer] making [employer] for [employer], [employer] with Kitty [employer]. * Medications:?TakingCalcium C itrate+D3 [...] She is under the care of an custom studio coordinator.? This problem has been addressed and she [...] Villanueva MD Date:?07/10 Generated for Essence berrios/Siri/Sabineitting on:?10/05/2024 10:32 AM EDT History and Physical Notes * [...]
== END 2024-10-05 10:22 | disposition home or self-care (01) ==
LOC: HO.ENCR 09:55
PROVIDERS: PCP Internal Medicine; Visit Provider Student in an Organized Health Care Education/Training Program
DX: E05.20 Thyrotoxicosis with toxic multinodular goiter without thyrotoxic crisis or storm (principal); M85.89 Other specified disorders of bone density and structure, multiple sites
CPT/HCPCS: 99214

== ENCOUNTER 2024-10-07 08:59 | Outpatient (REF) | payer MEDICARE, MEDICAID, SELFPAY ==
--- OUTSIDE RECORDS SUMMARY | 2024-10-07 09:22 | XMS_ITS ---
Author Organization Yobani Villanueva III, MD Address [address] [place] [address] Care Team Providers Care Newspaper Publisher Name Role Phone Tatiana Rhoades MD Primary Care Provider Yobani Saunders Unavailable [phone] Rousou do not use, DO NOT USE [...] Status W/U Status Risk Notes Problem Osteoporosis (45241609) Osteoporosis (M81.0) Active confirmed She has been [...] Date Provider Diagnosis Yobani Villanueva III, MD [address] [place] [address] [place] [address] 07/21/2024 Yobani Villanueva Underweight R63.6 ; Malignant [...] She is under the care of an tip length checker. This problem has been addressed and she [...] OV Provider Name:Yobani Villanueva, 10/27/2024 11:00:00 AM, [address] [place] [address] , [address] [address], [place], [address], Progress Notes * ISABELLDorinda EDOB:1965 ( 59 yo F)Acc No.[id number]:07/21/2024 Progress Notes Patient:?Dorinda FISCHER Provider:?Yobani Villanueva MD :1965???Age:59 Y???Sex:Female D ate:07/21/2024 Address:[address] [place] [address] [facility] [place] [id number] Pcp:Tatiana Rhoades MD Subjective: * Chief Complaints: [...] smoker ???She was born and raised in [facility]. 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 She recently stopped smoking. She does not drink alcohol or take drugs. She is not currently working as she is recovering from the thoracotomy. Her two sons are grown and she lives alone. Her of cirrhosis of the liver at [facility] awaiting a transplant on January 31, 2021 one week before her lung cancer surgery. She continues to grieve. Josias is oldest and works at [employer], engaged to [employer]. Viktor works at [employer] making [employer] for [employer], [employer] with Kitty [employer]FF. * Medications:?TakingCalcium C itrate+D3 [...] She is under the care of an tip length checker.? This problem has been addressed and she [...] Villanueva MD Date:?07/10 Generated for Essence berrios/Siri/Sabineitting on:?10/07/2024 09:22 AM EDT History and Physical Notes * [...]
== END 2024-10-07 09:00 | disposition home or self-care (01) ==
LOC: HO.MAMMO 08:59
PROVIDERS: PCP Internal Medicine; Visit Provider Internal Medicine
DX: Z12.31 Encounter for screening mammogram for malignant neoplasm of breast (principal)
CPT/HCPCS: 77063; 77067

== ENCOUNTER → 2024-10-07 09:15 | Outpatient (BNV) | payer MEDICARE, MEDICAID, SELFPAY | PROVIDERS: PCP Internal Medicine; Visit Provider Internal Medicine | DX: Z12.31 Encounter for screening mammogram for malignant neoplasm of breast (principal) | CPT/HCPCS: 77063; 77067 ==

== ENCOUNTER 2024-10-13 13:41 | Outpatient (REF) | payer MEDICARE, MEDICAID, SELFPAY ==
--- NOTE | ~2024-10-13 | CT_ITS ---
CLINICAL HISTORY: NEOPLASM OF UPPER LOBE CT chest with contrast Comparison: CT/SR - CT CHEST W IV CON - 03/15/24 10:[address]/REG/MI/SR - CT CHEST W IV CON - 09/09/23 08:27 EDT Findings: Stable post right upper lobectomy changes. Ovoid pleural-based right lower lobe nodule, axial 86, stable. Right lower lobe nodule on axial 56 somewhat less prominent on the current study. Moderate diffuse centrilobular emphysema and airway thickening. Faint focus of ground-glass density on axial 61 within the left lower lobe, similar to prior. No effusion. No pneumothorax. Small right thyroid nodule. The left thyroid lobe appears absent. No mediastinal adenopathy or pericardial effusion. The visualized upper abdomen is unremarkable. Impression: Stable posttreatment change and stable nodules and nodular densities. Additional chronic findings. This document has been electronically signed by: Daniel Rosales MD on 10/15/2024 09:57:13
--- OUTSIDE RECORDS SUMMARY | 2024-10-13 13:53 | XMS_ITS ---
Author Organization Yobani Villanueva III, MD Address [address] [place] [address] Care Team Providers Care President + Publisher Name Role Phone Tatiana Rhoades MD Primary Care Provider Yobani Saunders Unavailable [phone] Rousou do not use, DO NOT USE [...] Status W/U Status Risk Notes Problem Osteoporosis ([id number]) Osteoporosis (M81.0) Active confirmed She has been [...] Date Provider Diagnosis Yobani Villanueva III, MD [address] [place] [address] [place] [address] 07/21/2024 Yobani Villanueva Underweight R63.6 ; Malignant [...] She is under the care of an criminal intelligence specialist. This problem has been addressed and [...] OV Provider Name:Yobani Villanueva, 10/27/2024 11:00:00 AM, [address] [place] [address] , [address] [address], [place], [address], Progress Notes * ISABELLDorinda EDOB:1965 ( 59 yo F)Acc No.[id number]:07/21/2024 Progress Notes Patient:?Dorinda FISCHER Provider:?Yobani Villanueva MD :1965???Age:59 Y???Sex:Female D ate:07/21/2024 Address:[address] [place] [address] [facility] [place] [id number] Pcp:Tatiana Rhoades MD Subjective: * Chief Complaints: [...] ???She was born and raised in [facility]. 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 She recently stopped smoking. She does not drink alcohol or take drugs. She is not currently working as she is recovering from the thoracotomy. Her two sons are grown and she lives alone. Her of cirrhosis of the liver at [facility] awaiting a transplant on January 31, 2021 one week before her lung cancer surgery. She continues to grieve. Josias is oldest and works at [employer], engaged to [employer]. Viktor works at [employer] making [employer] for [employer], [employer] with Kitty [employer]FF. * Medications:?TakingCalcium C itrate+D3 [...] She is under the care of an criminal intelligence specialist.? This problem has been addressed and she [...] Villanueva MD Date:?07/10 Generated for Essence berrios/Siri/Sabineitting on:?10/13/2024 01:53 PM EDT History and Physical Notes * HPI [...]
[2024-10-13] MEDS: iohexoL 350 MG/ML 100 ML INFUS..BTL IV (14:51)
== END 2024-10-13 13:42 | disposition home or self-care (01) ==
LOC: HO.CT 13:41
PROVIDERS: PCP Internal Medicine; Visit Provider Internal Medicine Medical Oncology
DX: C34.11 Malignant neoplasm of upper lobe, right bronchus or lung (principal)
CPT/HCPCS: 71260; Q9967

== ENCOUNTER → 2024-10-13 14:31 | Outpatient (BNV) | payer MEDICARE, MEDICAID, SELFPAY | PROVIDERS: PCP Internal Medicine; Visit Provider Radiology Vascular & Interventional Radiology | DX: R91.8 Other nonspecific abnormal finding of lung field (principal) | CPT/HCPCS: 71260 ==

== ENCOUNTER 2024-10-25 06:05 | Outpatient (REF) | payer MEDICARE, MEDICAID, SELFPAY ==
[2024-10-25 10:24] LABS: MANUAL DIFF FLAG NO
[2024-10-25 10:30] LABS: Basophils Absolute Auto 0.1 X10*3/uL (0.0-0.2); Basophils Percent Auto 0.5 % (0-2); Eosinophils Absolute Auto 0.1 X10*3/uL (0.0-0.4); Eosinophils Percent Auto 1.2 % (0-4); Hematocrit 41.5 % (37.0-47.0); Imm Gran Abs Auto 0.03 X10*3/uL (0.00-0.03); Imm Gran Pct Auto 0.3 % (0.0-0.4); Lymphocytes Absolute Auto 3.1 X10*3/uL (1.2-4.9); Lymphocytes Percent Auto 26.7 % (20-40); Mean Corpuscular HGB Conc 33.7 g/dl (31.0-35.0); Mean Corpuscular Hemoglobin 30.6 pg (27.0-33.0); Mean Corpuscular Volume 90.8 fL (80.0-98.0); Mean Platelet Volume 10.3 fL (9.4-12.3); Monocytes Absolute Auto 0.7 X10*3/uL (0.1-1.2); Monocytes Percent Auto 6.1 % (2-11); Neutrophils Absolute Auto 7.5 x10*3/uL (2.0-8.3); Neutrophils Percent Auto 65.2 % (45-73); Platelet Count 358 X10*3/uL (160-400); Red Blood Count 4.57 X10*6/uL (4.20-5.50); Red Cell Distribution Width 13.9 % (11.0-16.0); White Blood Count 11.5 X10*3/uL (4.8-10.8)
[2024-10-25 10:54] LABS: Alanine Aminotransferase 19 U/L (0-31); Albumin Level 4.2 g/dL (3.5-5.0); Alkaline Phosphatase 76 U/L (39-117); Anion Gap 12 (12-20); Aspartate Amino Transferase 30 U/L (5-31); Bilirubin Total 0.2 mg/dL (0.0-1.0); Blood Urea Nitrogen 10 mg/dL (9-16); Calcium 9.1 mg/dL (8.4-10.2); Carbon Dioxide 27 mmol/L (22-29); Chloride 107 mmol/L (96-108); Cholesterol 255 mg/dL (<200); Estimated Glomerular Filt Rate > 60; Glucose Fasting 71 mg/dL (60-99); HDL Cholesterol 83 mg/dL (>40); LDL Cholesterol Calculated 154 mg/dL (<100); Potassium 4.3 mmol/L (3.3-5.1); Sodium 142 mmol/L (135-145); Total Protein 6.9 g/dL (6.5-8.0); Triglycerides 94 mg/dL (<150)
[2024-10-25 11:04] LABS: Parathyroid Hormone Intact 38.8 pg/mL (8.7-77.1)
== END 2024-10-25 06:06 | disposition home or self-care (01) ==
LOC: HO.HMGCLDS 06:05
PROVIDERS: PCP Internal Medicine; Visit Provider Internal Medicine Medical Oncology
DX: R63.6 Underweight (principal); E21.3 Hyperparathyroidism, unspecified; M81.0 Age-related osteoporosis without current pathological fracture
CPT/HCPCS: 36415; 80053; 80061; 82306; 83970; 85025

== ENCOUNTER 2025-01-31 07:05 | Outpatient (REF) | payer MEDICARE, MEDICAID, SELFPAY ==
--- OUTSIDE RECORDS SUMMARY | 2024-03-23 06:45 | XMS_ITS ---
Author Organization Yobani Villanueva III, MD Address [address] [place] [address] Care Team Providers Care Taker Out Name Role Phone Tatiana Rhoades MD Primary Care Provider Yobani Saunders Unavailable [phone] Rousou do not use, DO NOT USE Unavailable Allergies Allergen (clinical drug ingredient) Drug/Non Drug [...] Date Provider Diagnosis Yobani Villanueva III, MD [address] [place] [address] [address] [place], [place] [address] 03/23/2024 Yobani Villanueva Underweight R63.6 ; Malignant [...] Up: 4 Months, Reason: ov Provider Name:Yobani Villanueva, 02/08/2025 09:30:00 AM, [address] [place], [place] [address], [place], [address], Progress Notes * Dorinda FISCHER EDOB:1965 ( 58 yo F)Acc No.[id number]:03/23/2024 Progress Notes Patient: Dorinda SCHMITT Provider: Josephine Villanueva MD :1965 A ge:58 Y S ex:Female Date:03/23/2024 Address: [id number] Pcp:Tatiana Rhoades MD Subjective: * Chief Complaints: [...] and sluggishness. She has been seeing an church warden for this issue. The patient also reported having multiple spots on her skin, which she is concerned might be skin cancer. She is scheduled to see a burring machine operator for a full body examination. * ROS: [...] S he was born and raised in [place]. 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 She recently stopped smoking. She does not drink alcohol or take drugs. She is not currently working as she is recovering from the thoracotomy. Her two sons are grown and she lives alone. Her of cirrhosis of the liver at [facility] awaiting a transplant on January 31, 2021 one week before her lung cancer surgery. She continues to grieve. Josias is oldest and works at [employer], engaged to [employer]. Viktor works at [employer] making [employer] for [employer], [employer] with Kitty DUFF. * Medications: T akingCalcium [...] 06:47 AM 06:39 AM Order Date 03/09/2024 12/03/202308/2808/29/2023 White Blood Count 9.9 (Ref Range: 4.8-10.8 [...] 83 (Ref Range: >40 mg/dL) * Lab:[facility] * Collection Date 03/09/2024 [...] Date: 05/23/2023 Generated for Essence berrios/Siri/eTransmitting on: 0 01/31/2025 07:09 AM EDT History and Physical Notes * HPI (History of Present Illness) Category Sub-Category Detail Notes COVID-19 Screening Questions Have you had any new onset fever, chills, cough, congestion, sore throat, shortness of breath, muscle aches?: No Have you been exposed to the virus withi n the last 10 days?: No Have you travelled internationally in e last 10 days?: No Have you been [...]
--- OUTSIDE RECORDS SUMMARY | 2024-07-21 06:30 | XMS_ITS ---
Author Organization Yobani Villanueva III, MD Address [address] [place] [address] Care Team Providers Care Billing Clinician Name Role Phone Tatiana Rhoades MD Primary Care Provider Yobani Saunders Unavailable [phone] Rousou do not use, DO NOT USE [...] Status W/U Status Risk Notes Problem Osteoporosis (52722014) Osteoporosis (M81.0) Active confirmed She has significant [...] Date Provider Diagnosis Yobani Villanueva III, MD [address] [place] [address] [place] [address] 07/21/2024 Yobani Villanueva Underweight R63.6 ; Malignant [...] She is under the care of an rn neurology. This problem has been addressed and she [...] 62.5-25 MCG/ACT Inhalation Vitamin D3 50 MCG (1999 UT) TAKE [...] Up: 3 Months, Reason: OV Provider Name:Yobani Bernalrne, 02/08/2025 09:30:00 AM, [address] [place] [address] , [place] [address], [place], [address], Progress Notes * ISABELLDalih EDOB:1965 ( 59 yo F)Acc No.[id number]:07/21/2024 Progress Notes Patient: Dorinda SCHMITT Provider: Josephine Villanueva MD :1965 A ge:59 Y S ex:Female Date:07/21/2024 Address:[address] [place], [place] [id number] Pcp:Tatiana Rhoades MD Subjective: * Chief Complaints: [...] S he was born and raised in [facility]. 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 She recently stopped smoking. She does not drink alcohol or take drugs. She is not currently working as she is recovering from the thoracotomy. Her two sons are grown and she lives alone. Her of cirrhosis of the liver at [facility] awaiting a transplant on January 31, 2021 one week before her lung cancer surgery. She continues to grieve. Josias is oldest and works at [employer], engaged to [employer]. Viktor works at [employer] making [employer] for [employer], [employer] with Kitty DUFF. * Medications: T akingCalcium [...] She is under the care of an rn neurology. This problem has been addressed and she [...] C ontinue Vitamin D3 Capsule, 50 MCG (2000 UT), TAKE 1 CAPSULE BY MOUTH DAILY, [...] 0 07/21/2024 Generated for Essence berrios/Siri/eTransmitting on: 0 01/31/2025 07:08 AM EDT History and Physical Notes * [...]
--- OUTSIDE RECORDS SUMMARY | 2024-09-08 06:13 | XMS_ITS ---
Author Organization Yobani Villanueva III, MD Address [address] [place] [address] [place] [address] Care Team Providers Care Industrial Technology Education Teacher Name Role Phone Tatiana Rhoades MD Primary Care Provider Yobani Saunders Unavailable [phone] [employer] do not use, DO NOT USE Unavailable REASON FOR VISIT Labs for CT Contrast Social History Sex Assigned At : Social History Observation Description Sex Assigned At Female Encounters Encounter Location Date Provider Diagnosis Yobani Villanueva III, MD [address] [place] [address] [place] [address] 09/08/2024 Yobani Villanueva Underweight R63.6 ; Chronic [...] Creatinine 09/08/2024 Next Appt Details Provider Name:Yobani Villanueva, 02/08/2025 09:30:00 AM, [address] [place] [address] [place], [address], Progress Notes * Dorinda FISCHER EDOB:1965 ( 59 yo F)Acc No.[id number]:09/08/2024 Patient: Dorinda SCHMITT :1965 A ge:59 Y S ex:Female Address:[address] [place] [address], [id number] Subjective: * Chief Complaints: * L abs [...] * true * Date: Generated for Essence berrios/Siri/eTransmitting on: 0 01/31/2025 07:08 AM EDT
--- OUTSIDE RECORDS SUMMARY | 2024-10-27 07:00 | XMS_ITS ---
Author Organization Yobani Villanueva III, MD Address [address] [place] [address] Care Team Providers Care Patient Service Representative Name Role Phone Tatiana Rhoades MD Primary Care Provider Yobani Saunders Unavailable [phone] Rousou do not use, DO NOT USE [...] Problem Status W/U Status Risk Notes Problem [id number] Mixed hyperlipidemia (E78.2) Active confirmed She asked [...] Date Provider Diagnosis Yobani Villanueva III, MD [address] [place] [address] [place] [address] 10/27/2024 Yobani Villanueva Underweight R63.6 ; Malignant [...] 3 Months, Reason: OV Provider Name:Yobani Villanueva, 02/08/2025 09:30:00 AM, [address] [place] [address] [address] [facility] [place], [place], [address], Progress Notes * Dorinda FISCHER EDOB:1965 ( 59 yo F)Acc No.[id number]:10/27/2024 Progress Notes Patient: Dorinda SCHMITT Provider: Josephine [...] S he was born and raised in [facility]. She has been working in a [...] grieve. Josias is oldest and works at [employer], engaged to [employer]. Viktor works at [employer] making [employer] for [employer], [email or web address] with [employer]. * Medications: T akingCalcium [...] 78 (Ref Range: >40 mg/dL) * Lab:Comprehensive [place]. Pane l Fast * Collection Date 10/25/2024 [...] 0 10/27/2024 Generated for Yuei yash/Siri/eTransmitting on: 0 01/31/2025 07:09 AM EDT History [...]
--- OUTSIDE RECORDS SUMMARY | 2025-01-27 08:15 | XMS_ITS ---
Author Organization Yobani Villanueva III, MD Address [address] [place] [address] [place] [address] Care Team Providers Care Wind Turbine Mechanic Name Role Phone Tatiana Rhoades MD Primary Care Provider Yobani Saunders Unavailable [phone] Rousou do not use, DO NOT USE Unavailable [phone] REASON FOR VISIT FOLLOW UP Social History Sex Assigned At : Social History Observation Description Sex Assigned At Female Encounters Encounter Location Date Provider Diagnosis Yobani Villanueva III, MD [address] [place] [address] [place] [address] 01/27/2025 Yobani Villanueva Plan Of Treatment Next Appt Details Provider Name:Yobani Villanueva, 02/08/2025 09:30:00 AM, [address] [place] [address] [place], [address], Progress Notes * Dorinda FISCHER EDOB:1965 ( 59 yo F)Acc No.[id number]:01/27/2025 Progress Notes Patient: Dali SCHMITTcelsa Reyes Provider: Josephine Villanueva MD :1965 A ge:59 [...] Pending * Provider: Josephine Villanueva MD Date: 01/27/2025 Generated for Essence berrios/Siri/Sabineitting on: 01/31/2025 07:08 AM EDT
--- OUTSIDE RECORDS SUMMARY | 2025-01-31 07:08 | XMS_ITS | Clinical Summary ---
Author Organization [facility] Address [address] [place] [address] Phone Care Team Providers Care Echo Vasc Tech Name Role Phone Tatiana Rhoades MD Primary Care Provider Allergies Active Allergy Reactions Criticality Noted Date Comments Erythromycin Unknown 05/14/2023 Other Reaction(s): C Diff Medications calcium citrate-vitamin D3 (CITRACAL+D) 950 mg (200 mg elemental)-250 units Tab Oral Active gabapentin (NEURONTIN) 300 MG capsule Take 300 mg by mouth daily. 2 Active ANORO ELLIPTA 62.5-25 mcg/actuation diskus inhaler Inhalation Acti ve ipratropium-alb uteroL (COMBIVENT RESPIMAT) 20-100 mcg/actuation Mist Inhale 1 puff into the lungs 4 (four) times a day. Active Active Problems Problem Noted Date Diagnosed Date Neurothekeoma 05/14/2023 Family History Medical History Relation Comments COPD Father Cancer Mother Pancreatic cancer Mother Relation Status Comments Father Mother Social History Tobacco Use Types Packs/Day Years Used Date Smoking Tobacco: Former Cigarettes 0.5 30 1 992 - 2021 Smokeless Tobacco: Never Tobacco Cessation:Counseling Given: Not Answered Alcohol Use Standard Drinks/Week Comments Yes 0 (1 standard drink = 0.6 oz pur e alcohol) Education Answer Date Recorded Are you interested in more education? Not on odell e 04/23/2023 Are you concerned about learning? Not on file 04/23/2023 No 04/23/2023 No 04/23/2023 Digital Access Answer Date Recorded No 04/23/2023 No 04/23/2023 Reliable internet access at home? Not on file 04/23/2023 Device with a working camera? Not on file Comments Unknown Sex and Gender Information Value Date Recorded Sex Assigned at Not on file Legal Sex Female 9:56 AM EST Gender Identity Not on file Sexual Orientation Not on file Last Filed Vital Signs Vital Sign Reading Time Taken Comments Blood Pressure 101/67 05/14/2023 9:29 AM EST Pulse 74 05/14/2023 9:29 AM EST Temperature - - Respiratory Rate - - Oxygen Saturation - - Inhaled Oxygen Concentration - - Weight 50.7 kg (111 lb 12.8 oz) 05/14/2023 9:29 AM EST Height 158.1 cm (5' 2.25 ) 05/14/2023 9:29 AM ES T Body Mass Index 20.28 05/14/2023 9:29 AM EST Plan of Treatment Health Maintenance Due Date Last Done Comments Adult Td,Tdap Booster 1965 LIPID PANEL 1966 DEPRESSION SCREENING 1978 SMOKING Hx and SMOKELESS TOB ACCO SCREENING 1979 HEPATITIS C SCREENING 1984 HIV ONE-TIME SCREENING (18-6 5 YEARS) 1984 PAP SMEAR 1987 MAMMOGRAM 2006 COLOGUARD 2011 COLONOSCOPY 2011 COLORECTAL CANCER SCREENING 2011 FIT TEST 2011 FOBT 2011 SIGMOIDOSCOPY 2011 VIRTUAL COLONOSCOPY 2011 PNEUMOCOCCAL VACCINES (50+ y ears) (1 of 1 - PCV) 2016 ZOSTER VACCINES (1 of 2) 2016 INFLUENZA VACCINE (#1) 2024 COVID-19 VACCINE (1 - 2023-2 5 season) 2025 HEPATITIS A VACCINES Aged Out No long er eligible based on patient's age to complete this topic HIB VACCINES Aged Out No longer eligi ble based on patient's age to complete this topic MENINGOCOCCAL VACCINES (ACWY) Aged Out No longer eligible based on patient's age to complete this topic MENINGOCOCCAL VACCINES (B) Aged Out N o longer eligible based on patient's age to complete this topic Medical Devices Not on file Insurance [facility] Care Teams Echo Vasc Tech Relationship Specialty Start Date End Date Tatiana Rhoades MD [address] [facility] [place] [address] PCP - General Internal Medicine 04/23/23 Additional Source Comments The information contained in this document represents components of the legal health record. It is not the complete legal health record.[facility]
--- OUTSIDE RECORDS SUMMARY | 2025-01-31 07:08 | XMS_ITS | Patient Health Record ---
Author Organization [facility] Address [address] [place] [address] Care Team Providers Care Milling Machine Operator Gear Name Role Phone Verona CHEN, Tatiana Primary Care Provider Dakota Schneider Jr Unavailable Reason For Referral No Information Medications Medication SIG (Take, Route, Frequency, Duration) Notes Start Date End Date Status Multivitamin Adults - as directed Orally Active Vitamin D3 27251 UNIT TAKE ONE CAPSULE B Y MOUTH ONE TIME PER WEEK Oral for 28 Active Colyte with Flavor Packs 240 GM As directed Orally Over the specified time. for 1 day(s) 09/03/2018 Active Immunizations Vaccine Route Administration Date Status Comme nts Influenza Unknown 02/09/2018 Administered Social History Tobacco Use: Social History Observation Description Date Details (start date - stop date) Current Smoker NA - NA Tobacco Use/Smoking Question Answer Notes Patient is a current smoker How often do you smoke cigarettes? every day How many cigarettes a day do you smoke? 11-20 Alcohol Screen Question Answer Notes Did you have a drink contain ing alcohol in the past year? Yes How often did you have a dri nk containing alcohol in the past year? 2 to 4 times a month (2 points) How many drinks did you have on a typical day when you were drinking in the past year? 3 or 4 drinks (1 point) Points 3 Interpretation Positive Problems Problem Type SNOMED Code ICD Code Onset Dates Problem Status W/U Status Risk Notes Problem 691362224 Colon cancer screening (Z12.11) Active confirmed Problem 369549144 Encounter for other preprocedural examination (Z01.818) Active confirmed Plan Of Treatment Future Test Test Name Order Date COLONOSCOPY 09/03/2018 Insurance Providers Payer Name Payer Address Payer Phone Subscriber Number Group Number Insured Name Patient Relationship to Insured Coverage Start Date Coverage End Date [facility] [address] [place], [place] [id number] [id number] Self - patient is the insured Medical (General) History Medical History History ICD Code Denies [place],DM,CVA,Lung disease,renal dise ase goiter
--- OUTSIDE RECORDS SUMMARY | 2025-01-31 07:09 | XMS_ITS | Clinical Summary ---
Author Organization [facility] ity Address [address] [place] [address] Care Team Providers Care Automation Software Engineer Name Role Phone Tatiana Rhoades MD [...] 2) 2016 Colorectal Cancer Screening: Colonoscopy 04/13/2022 HIV Screening 04/13/2022 Hepatitis C Screening 04/13/2022 Social Influencers of Health Screening 04/13/2022 Depression Screening 05/12/2024 COVID-19 Vaccine (2023-2 5 season) 2025 Influenza Vaccine (#1) 2025 HIB Vaccines Aged Out No longer [...] age to complete this topic Care Teams Automation Software Engineer Relationship Specialty Start Date End Date Tatiana Rhoades MD [address] [place] [address] PCP - General Internal Medicine 08/28/21
--- OUTSIDE RECORDS SUMMARY | 2025-01-31 07:09 | XMS_ITS | Patient Health Record ---
Author Organization Yobani Villanueva III, MD Address [address] [place] [address] Care Team Providers Care Accounting System Expert Name Role Phone Verona CHEN, Tatiana Primary Care Provider Yobani Saunders Unavailable [phone] Rousou do not use, DO NOT USE Unavailable Allergies Allergen (clinical drug ingredient) Drug/Non Drug Allergy documented on EMR Reaction Allergy Type Onset Date Status erythromycin Erythromycin Unknown Drug Allergy A ctive Results Component Value Reference Range Notes Complete Blood Count Auto Di ff Reviewed date:03/15/2024 05:37:47 AM Interpretation: Performing Lab:[facility], [address] [place] [phone] Notes/Report: White Blood Count 9.9 4.8-10.8 X10*3/uL [...] 0.0-0.2 /100WBC Neutrophils Absolute Auto 5.9 2.0-8.3 x10*3/uL Imm Gran Abs Auto 0.02 0.00-0.03 X10*3/uL Lymphocytes Absolute Auto 3.2 1.2-4.9 X10*3/uL Monocytes Absolute Auto 0.7 0.1-1.2 X10*3/uL Eosinophils Absolute Auto 0.0 0.0-0.4 X10*3/uL Basophils Absolute Auto 0.1 0.0-0.2 X10*3/uL NRBC Abs Auto 0.000 0.0-0.012 X10*3/uL Comprehensive [place]. Panel Fa st Reviewed date:03/15/2024 05:37:47 AM Interpretation: Performing Lab:[facility], [address] [place] [phone] Notes/Report: Sodium 142 135-145 mmol/L Potassium 4.2 3.3-5.1 mmol/L Chloride 109 96-108 mmol/L Carbon Dioxide 26 22-29 mmol/L Anion Gap 11 12-20 Blood Urea Nitrogen 11 9-16 mg/dL Creatinine 0.88 0.5-1.4 mg/dL Estimated Glomerular Filt Rate > 60 NOTE: For -[place] individuals, multiply the result by 1.210. Chronic [...] Panel Reviewed date:03/15/2024 05:37:47 AM Interpretation: Performing Lab:[facility], [address] [place] [phone] Notes/Report: Triglycerides 136 <150 mg/dL Desirable Triglyceride: [...] Thyroxine) Reviewed date:03/15/2024 05:37:47 AM Interpretation: Performing Lab:[facility], [address] [place] [phone] Notes/Report: Free T4 (Free Thyroxine) 1.05 0.71-1.85 ng/dL Thyroid Stimulating Hormone Reviewed date:03/15/2024 05:37:47 AM Interpretation: Performing Lab:[facility], [address] [place] [phone] Notes/Report: Thyroid Stimulating Hormone 1.93 0.32-4.0 uIU/mL TSH 3rd Generation ([facility]) Blood Urea Nitrogen Reviewed date:10/05/2024 03:30:37 PM Interpretation: Performing Lab:[facility], [address] [place] [phone] Notes/Report: Blood Urea Nitrogen 8 9-16 mg/dL Creatinine Reviewed date:10/05/2024 03:30:37 PM Interpretation: Performing Lab:[facility], [address] [place] [phone] Notes/Report: Creatinine 0.73 0.5-1.4 mg/dL Estimated Glomerular Filt Rate > 60 Chronic Kidney Disease: Estimated GFR < 60 mL/min/1.73m2 Severe Kidney Disease: Estimated GFR < 15 mL/min/1.73m2 CT chest w con Reviewed date:10/27/2024 11:07:09 AM Interpretation: Performing Lab: Notes/Report: [address] [address] [address] Scan Report Signed Patient: Dorinda Fischer MR#: [id number] : 1965 Acct:[id number] Age/Sex: 59 / F ADM Date: 10/13/24 Loc: HO.CT Attending Dr: Yobani Villanueva MD Ordering Physician: Yobani Villanueva MD Date of Service: 10/13/24 Procedure(s): CT chest w IV con Accession Number(s): [id number] cc: Yobani Villanueva MD; Tatiana Rhoades MD Report Number: [id number]: Total DLP = 61.00 mGy-cm CLINICAL HISTORY: NEOPLASM OF UPPER LOBE CT chest with contrast Comparison: CT/SR - CT CHEST W IV CON - 03/15/24 10:[address]/REG/RI/SR - CT CHEST W IV CON - 09/09/23 08:27 EDT Findings: Stable post right upper lobectomy changes. Ovoid pleural-based right lower lobe nodule, axial 86, stable. Right lower lobe nodule on axial 56 somewhat less prominent on the current study. Moderate diffuse centrilobular emphysema and airway thickening. Faint focus of ground-glass density on axial 61 within the left lower lobe, similar to prior. No effusion. No pneumothorax. Small right thyroid nodule. The left thyroid lobe appears absent. No mediastinal adenopathy or pericardial effusion. The visualized upper abdomen is unremarkable. Impression: Stable posttreatment change and stable nodules and nodular densities. Additional chronic findings. This document has been electronically signed by: Daniel Rsoales MD on 10/15/2024 09:57:13 Dictated By: Daniel Rosales MD Signed By: <Electronically signed by Daniel Rosales MD in OV> 10/15/24957 DD/ 6 TD/TT: 10/15/24956 Hydrographer: [address] [address] [address] Scan Report Signed Patient: Dorinda Fischer MR#: [id number] : 1965 Acct:[id number] Age/Sex: 59 / F ADM Date: 10/13/24 Loc: HO.CT Attending Dr: Yobani Villanueva MD Ordering Physician: Yobani Villanueva MD Date of Service: 10/13/24 Procedure(s): CT [facility] w IV con Accession Number(s): [id number] cc: Yobani Villanueva MD; Tatiana Rhoades MD Report Number: [id number]: Total DLP = 61.00 mGy-cm CLINICAL HISTORY: NEOPLASM OF UPPER LOBE CT chest with contrast Comparison: CT/SR - CT CHEST W I V CON - 03/15/24 10:[address]/REG/RI/SR - CT CHEST W IV CON - 09/09/23 08:27 EDT Findings: Stable post right upper lobectomy changes. Ovoid pleural-based right lower lobe nodule, axial 86, stable. Right lower lobe nodule on axial 56 somewhat less prominent on the current study. Moderate diffuse centrilobular emphysema and airway thickening. Faint focus of ground-glass density on axial 61 within the left lower lobe, similar to prior. No effusion. No pneumothorax. Small right thyroid nodule. The left thyroid lobe appears absent. No mediastinal adenopathy or pericardial effusion. The visualized upper abdomen is unremarkable. Impression: Stable posttreatment change and stable nodules and nodular densities. Additional chronic findings. This document has be en electronically signed by: Daniel Rosales MD on 10/15/2024 09:57:13 Dictated By: Daniel Rosales MD Signed By: <Electronically signed by Daniel Rosales MD in OV> 10/15/2458 DD/ 6 TD/TT: 10/15/24956 Hydrographer: Complete Blood Count Auto Di ff Reviewed date:10/27/2024 11:07:08 AM Interpretation: Performing Lab:[facility], [address] [place] [phone] Notes/Report: White Blood Count 11.5 4.8-10.8 X10*3/uL Red Blood Count 4.57 4.20-5.50 X10*6/uL Hemoglobin 14.0 12.0-16.0 g/dl Hematocrit 41.5 37.0-47.0 % Mean Corpuscular Volume 90.8 80.0-98.0 fL Mean Corpuscular Hemoglobin 30.6 27.0-33.0 pg Mean Corpuscular HGB Conc 33.7 31.0-35.0 g/dl Red Cell Distribution Width 13.9 11.0-16.0 % Platelet Count 358 160-400 X10*3/uL Mean Platelet Volume 10.3 9.4-12.3 fL Neutrophils Percent Auto 65.2 45-73 % Imm Gran Pct Auto 0.3 0.0-0.4 % Lymphocytes Percent Auto 26.7 20-40 % Monocytes Percent Auto 6.1 2-11 % Eosinophils Percent Auto 1.2 0-4 % Basophils Percent Auto 0.5 0-2 % NRBC Pct Auto 0.0 0.0-0.2 /100WBC Neutrophils Absolute Auto 7.5 2.0-8.3 x10*3/uL Imm Gran Abs Auto 0.03 0.00-0.03 X10*3/uL Lymphocytes Absolute Auto 3.1 1.2-4.9 X10*3/uL Monocytes Absolute Auto 0.7 0.1-1.2 X10*3/uL Eosinophils Absolute Auto 0.1 0.0-0.4 X10*3/uL Basophils Absolute Auto 0.1 0.0-0.2 X10*3/uL NRBC Abs Auto 0.000 0.0-0.012 X10*3/uL Comprehensive [place]. Panel Fa st Reviewed date:10/27/2024 11:07:08 AM Interpretation: Performing Lab:[facility], [address] [place] [phone] Notes/Report: Sodium 142 135-145 mmol/L Potassium 4.3 3.3-5.1 mmol/L Chloride 107 96-108 mmol/L Carbon Dioxide 27 22-29 mmol/L Anion Gap 12 12-20 Blood Urea Nitrogen 10 9-16 mg/dL Creatinine 0.83 0.5-1.4 mg/dL Estimated Glomerular Filt Rate > 60 Chronic Kidney Disease: Estimated GFR < 60 mL/min/1.73m2 Severe Kidney Disease: Estimated GFR < 15 mL/min/1.73m2 Glucose Fasting 71 60-99 mg/dL Calcium 9.1 8.4-10.2 mg/dL Bilirubin Total 0.2 0.0-1.0 mg/dL Aspartate Amino Transferase 30 5-31 U/L Alanine Aminotransferase 19 0-31 U/L Total Protein 6.9 6.5-8.0 g/dL Albumin Level 4.2 3.5-5.0 g/dL Alkaline Phosphatase 76 39-117 U/L Lipid Panel Reviewed date:10/27/2024 11:07:09 AM Interpretation: Performing Lab:[address] [phone] Notes/Report: Triglycerides 94 <150 mg/dL Desirable Triglyceride: less than 150 mg/dL Borderline High Triglyceride 150-199 mg/dL High Triglyceride: 200-499 mg/dL Very High Triglyceride: greater than or equal to 5OO mg/dL Cholesterol 255 <200 mg/dL Desirable Cholesterol: less than 200 mg/dL Borderline High Cholesterol: 200-239 mg/dL High Cholesterol: greater than 239 mg/dL LDL Cholesterol Calculated 154 <100 mg/dL Desirable LDL: less than 100 mg/dL Near Optimal/Above Optimal LDL: 110-129 mg/dL Borderline High LDL: 130-159 mg/dL High LDL: 160-189 mg/dL Very High LDL: greater than or equal to 190 mg/dL HDL Cholesterol 83 >40 mg/dL Desirable HDL: greater than 40 mg/dL Note: This HDL assay may give artificially low results in patients with liver disease. Vitamin D 25-OH Total Reviewed date:10/27/2024 11:07:09 AM Interpretation: Performing Lab:[address] [address] Notes/Report: Vitamin D 25-OH Total 149.0 >30 ng/mL Health Based Reference Values* < 20 ng/mL Deficient 20-30 ng/mL Insufficient > 30 ng/mL Sufficient *Ori COELHO. N Engl J Med. 2007;357:266-280 There is no well-established upper level of normal vitamin D levels. Some laboratories use 50 ng/mL as an upper limit of normal. However, toxicity is patient-dependent and may occur at any level. Careful correlation with the patient's presentation is necessary and, if there is concern for vitamin D toxicity, treatment should be considered irrespective of the serum level. Care must be taken in interpreting Vitamin D results from different laboratories and methodologies. Published data demonstrated that results from patients undergoing hemodialysis may show a negative bias when tested with various automated 25-OH vitamin D assays when compared to LC-MS/MS. When testing samples from patients whose predominant form of Vitamin D is Vitamin D2, such as patients receiving Vitamin D2 supplementation, results that are subtherapeutic should be confirmed with another method such as LC-MS/MS. Parathyroid Hormone Intact Reviewed date:10/27/2024 11:07:09 AM Interpretation: Performing Lab:[facility], [address] [place] [phone] Notes/Report: Parathyroid Hormone Intact 38.8 8.7-77.1 pg/mL Reason For Referral No Information Medications Medication [...] capsule Orally Onc e a day Active Immunizations Vaccine Route Administration Date Status [...] Problem Status W/U Status Risk Notes Problem 9348903 Former smoker (Z87.891) Active confirmed She is highly motivated not to smoke. We discussed strategies for abstinence in times of stress and illness likely present. Problem 196527617 Underweight (R63.6) Active confirmed Her weight is stable with a body mass index of 18. Nutrition is not an issue. She appears to be euthyroid. 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 A CT scan will be done at six-month intervals one more time and then on a yearly basis. She is doing quite well. Problem 987330170 Mixed hyperlipid emia (E78.2) Active confirmed She asked me today as she has during other visits whether she should be on a statin medication. Her fasting total cholesterol is 255. I told her a case could be made for a statin medication. I instructed her to discuss this again with primary care. [facility] has apparently discussed this with primary care in the past. Problem 53662009 Other osteoporos is without current pathological fracture (M81.8) Active confirmed She has undergone a [place]-thyroidec holly. Her PTH level is now normal. Her calcium level is normal. Her thyroid functions are in the euthyroid range. Problem 14837271 Chronic obstruct phani pulmonary disease, unspecified COPD type (J44.9) Active confirmed She has stopped smoking and she is asymptomatic at this time after the lobectomy. There has been no recent exacerbation of dyspnea. Problem Osteoporosis (09301072) Osteoporosis (M81.0) Active confirmed She has significant osteoporosis and remained under the care of endocrinology. She has been compliant with her medications. Problem 72788827 Hyperparathyroid ism (E21.3) Active confirmed She has been surgically treated. Her calcium has returned to normal. Problem 88495358 Pulmonary emphys john, unspecified emphysema type (J43.9) Active confirmed This is a finding on the CT scan. She has stopped smoking and will be observed carefully. Problem 922444172 Multinodular goi ter (E04.2) Active confirmed She remains under the care of endocrinology and is up-to-date with her visits. She is compliant with her therapist. 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) Active confirmed The scar in the left neck is well healed and there is no sign of recurrence Vital Signs Heart Rate 88 /min 10/27/2024 Temperature 97.7 degrees Fahrenheit 10/27/2024 Blood pressure diastolic 77 mm Hg 10/27/2024 Height 63 in 10/27/2024 Blood pressure systolic 125 mm Hg 10/27/2024 Weight 106 lbs 10/27/2024 BMI 18.78 kg/m2 10/27/2024 Encounters Encounter Location Date Provider Diagnosis Yobani Villanueva III, MD [address] [place] [address] [place] [address] 03/23/2024 Yobani Villanueva Underweight R63.6 ; Malignant neoplasm of upper lobe, right bronchus or lung C34.11 ; Hyperparathyroidism E21.3 ; Chronic obstructive pulmonary disease, unspecified COPD type J44.9 ; Pulmonary emphysema, unspecified emphysema type J43.9 and Former smoker Z87.891 Yobani Villanueva III, MD [address] [place] [address] [place] [address] 07/21/2024 Yobani Villanueva Underweight R63.6 ; Malignant neoplasm of upper lobe, right bronchus or lung C34.11 ; Hyperparathyroidism E21.3 ; Osteoporosis M81.0 and Former smoker Z87.891 Yobani Villanueva III, MD [address] [place] [address] [place] [address] 10/27/2024 Yobani Villanueva Underweight R63.6 ; Malignant neoplasm of upper lobe, right bronchus or lung C34.11 ; Multinodular goiter E04.2 ; Hyperparathyroidism E21.3 ; Osteoporosis M81.0 ; Former smoker Z87.891 ; Pulmonary emphysema, unspecified emphysema type J43.9 ; Chronic obstructive pulmonary disease, unspecified COPD type J44.9 and Mixed hyperlipidemia E78.2 Yobani Villanueva III, MD [address] [place] [address] [place] [address] 09/08/2024 Yobani Villanueva Underweight R63.6 ; Chronic [...] basis. She is doing quite well. 10/27/2024 Underweight (ICD-10 - R63.6) Her weight [...] yearly basis. She is doing quite well. 09/08/2024 Underweight (ICD-10 - R63.6) 03/23/2024 Hyperparathyroidism (ICD-10 - E21.3) Her calcium level has been normal after her parathyroid surgery. 07/21/2024 Hyperparathyroidism (ICD-10 - E21.3) Her calcium remains normal. She is under the care of an prototype fabricator. This problem has been addressed and she is stable. 10/27/2024 Multinodular goiter (ICD-10 - E04.2) She remains under the care of endocrinology and is up-to-date with her visits. She is compliant with her therapist. 09/08/2024 Chronic obstructive pulmonary disease, unspecified COPD type (ICD-10 - J44.9) 03/23/2024 Chronic obstructive pulmonary disease, unspecified COPD type (ICD-10 - J44.9) She has stopped smoking and she is asymptomatic at this time after the lobectomy. There has been no recent exacerbation of dyspnea. 07/21/2024 Osteoporosis (ICD-10 - M81.0) She has been compliant with her medication patient. She denies any back pain. She is aware of the need for medications. 10/27/2024 Hyperparathyroidism (ICD-10 - E21.3) She has been surgically treated. Her calcium has returned to normal. 09/08/2024 Encounter for preprocedural laboratory examination (ICD-10 - Z01.812) 03/23/2024 Pulmonary emphysema, unspecified emphysema type (ICD-10 - J43.9) This is a finding on the CT scan. She has stopped smoking and will be observed carefully. 07/21/2024 Former smoker (ICD-1 0 - Z87.891) She is highly motivated not to smoke. We discussed strategies for abstinence in times of stress and illness likely present. 10/27/2024 Osteoporosis (ICD-10 - M81.0) She has significant osteoporosis and remained under the care of endocrinology. She has been compliant with her medications. 03/23/2024 Former smoker (ICD-1 0 - Z87.891) She is highly motivated not to smoke. We discussed strategies for abstinence in times of stress and illness likely present. 10/27/2024 Former smoker (ICD-1 0 - Z87.891) [...] to discuss this again with primary care. [facility] has apparently discussed this with primary care in the past. Plan Of Treatment Pending Test Test Name Order Date PROFILE, FASTING (COMPREHENSIVE METABOLI C) 04/21/2023 PROFILE, FASTING (COMPREHENSIVE METABOLI C) 08/22/2023 PROFILE, FASTING (COMPREHENSIVE METABOLI C) 12/10/2023 PROFILE, FASTING (COMPREHENSIVE METABOLI C) 07/21/2024 PROFILE, FASTING (COMPREHENSIVE METABOLI C) 10/27/2024 PROFILE, FASTING (COMPREHENSIVE METABOLI C) 09/16/2023 PROFILE, FASTING (COMPREHENSIVE METABOLI C) 11/07/2022 PROFILE, RANDOM (COMPREHENSIVE METABOLIC ) 04/16/2021 PROFILE, RANDOM (COMPREHENSIVE METABOLIC ) 05/07/2021 PROFILE, RANDOM (COMPREHENSIVE METABOLIC ) 12/20/2021 PROFILE, RANDOM (COMPREHENSIVE METABOLIC ) 06/14/2022 PROFILE, RANDOM (COMPREHENSIVE METABOLIC ) 08/14/2022 PROFILE, RANDOM (COMPREHENSIVE METABOLIC ) 07/13/2021 BUN 09/08/2024 LIPID PANEL 11/07/2022 FREE T4 (FT4) 08/14/2022 FREE T4 (FT4) 11/07/2022 FREE T4 (FT4) 04/21/2023 FREE T4 (FT4) 08/22/2023 TSH (THYROID STIMULATING HORMONE) 2022 TSH (THYROID STIMULATING HORMONE) 2022 TSH (THYROID STIMULATING HORMONE) 2023 TSH (THYROID STIMULATING HORMONE) 2022 TSH (THYROID STIMULATING HORMONE) 2023 TSH (THYROID STIMULATING HORMONE) 2024 TSH (THYROID STIMULATING HORMONE) 2021 CBC w DIFF 06/14/2022 CBC w DIFF 12/20/2021 CBC w DIFF 07/13/2021 CBC w DIFF 04/16/2021 CBC w DIFF 08/14/2022 CBC w DIFF 11/07/2022 CBC w DIFF 07/21/2024 CBC w DIFF 12/10/2023 CBC w DIFF 05/07/2021 CBC w DIFF 10/27/2024 SED RATE (ESR) 12/20/2021 SED RATE (ESR) 07/13/2021 SED RATE (ESR) 08/22/2023 FREE T3 (FT3) 08/22/2023 CT CHEST WITH CONTRAST 12/10/2023 CT CHEST WITH CONTRAST 07/21/2024 VITAMIN D 25-OH TOTAL 11/07/2022 PARATHYROID HORMONE INTACT 12/20/2021 PARATHYROID HORMONE INTACT 07/13/2021 PARATHYROID HORMONE INTACT 08/14/2022 PARATHYROID HORMONE INTACT 11/07/2022 CBC WITH AUTO DIFF 08/22/2023 CBC WITH AUTO DIFF 04/21/2023 CBC WITH AUTO DIFF 09/16/2023 Creatinine 09/08/2024 Calcium 08/22/2023 Lipid Panel 09/16/2023 Lipid Panel 10/27/2024 Lipid Panel 07/21/2024 Lipid Panel 12/10/2023 Lipid Panel 04/21/2023 Vitamin D 25-OH Total 10/27/2024 Vitamin D 25-OH Total 12/20/2021 Vitamin D 25-OH Total 07/21/2024 Free T4 (Free Thyroxine) 12/10/2023 Free T4 (Free Thyroxine) 10/27/2024 PTHI 08/22/2023 CT chest w con 04/21/2023 Parathyroid Hormone Intact 07/21/2024 Parathyroid Hormone Intact 10/27/2024 Next Appt Details Provider Name:Yobani Villanueva, 02/08/2025 09:30:00 AM, [address], [place], [address], Insurance Providers Payer Name Payer Address Payer Phone Subscriber Number Group Number Insured Name Patient Relationship to Insured Coverage Start Date Coverage End Date MEDICARE NGS [address] [facility] [place] [address] [id number] Dorinda Fischer Self - patient is the insured MED[place] [address] [place], [place] [id number] Dorinda Fischer Self - patient is the insured Medical (General) History Medical History History ICD Code Stage IB [id number] adenocarcinoma of the upper lobe right lung [...]
[2025-01-31 10:26] LABS: MANUAL DIFF FLAG NO
[2025-01-31 10:32] LABS: Hematocrit 41.5 % (37.0-47.0); Hemoglobin 13.9 g/dl (12.0-16.0); Imm Gran Abs Auto 0.02 X10*3/uL (0.00-0.03); Imm Gran Pct Auto 0.2 % (0.0-0.4); Lymphocytes Absolute Auto 3.1 X10*3/uL (1.2-4.9); Mean Corpuscular HGB Conc 33.5 g/dl (31.0-35.0); Mean Corpuscular Hemoglobin 30.6 pg (27.0-33.0); Mean Corpuscular Volume 91.4 fL (80.0-98.0); NRBC Abs Auto 0.000 X10*3/uL (0.0-0.012); NRBC Pct Auto 0.0 /100WBC (0.0-0.2); Platelet Count 391 X10*3/uL (160-400); Red Blood Count 4.54 X10*6/uL (4.20-5.50); White Blood Count 11.0 X10*3/uL (4.8-10.8)
[2025-01-31 10:55] LABS: Anion Gap 9 (12-20); Blood Urea Nitrogen 7 mg/dL (9-16); Carbon Dioxide 28 mmol/L (22-29); Chloride 107 mmol/L (96-108); Potassium 4.4 mmol/L (3.3-5.1); Sodium 140 mmol/L (135-145)
[2025-01-31 10:56] LABS: Alanine Aminotransferase 17 U/L (0-31); Albumin Level 4.3 g/dL (3.5-5.0); Alkaline Phosphatase 72 U/L (39-117); Aspartate Amino Transferase 24 U/L (5-31); Calcium 8.5 mg/dL (8.4-10.2); Cholesterol 206 mg/dL (<200); Estimated Glomerular Filt Rate > 60; HDL Cholesterol 72 mg/dL (>40); Total Protein 6.9 g/dL (6.5-8.0); Triglycerides 135 mg/dL (<150)
[2025-01-31 11:02] LABS: Free T4 (Free Thyroxine) 0.97 ng/dL (0.71-1.85); Thyroid Stimulating Hormone 1.71 uIU/mL (0.32-4.0)
[2025-01-31 11:17] LABS: Parathyroid Hormone Intact 51.7 pg/mL (8.7-77.1)
== END 2025-01-31 07:06 | disposition home or self-care (01) ==
LOC: HO.HMGCLDS 07:05
PROVIDERS: PCP Internal Medicine; Visit Provider Internal Medicine Medical Oncology
DX: Z13.6 Encounter for screening for cardiovascular disorders (principal); M81.0 Age-related osteoporosis without current pathological fracture; E21.3 Hyperparathyroidism, unspecified; E04.2 Nontoxic multinodular goiter; R63.6 Underweight
CPT/HCPCS: 36415; 80053; 80061; 82306; 83970; 84439; 84443; 85025

== ENCOUNTER 2025-03-17 09:53 | Outpatient (AMB) | payer MEDICARE, MEDICAID, SELFPAY ==
--- OUTSIDE RECORDS SUMMARY | 2023-09-16 06:15 | XMS_ITS ---
Author Organization Yobani Villanueva III, MD Address [address] [place] [address] [place] [address] Care Team Providers [facility] Clinical Supervisor Name Role Phone Tatiana Rhoades MD Primary Care Provider Dr. Yobani Saunders III Unavailable Oh Otero Unavailable [phone] Allergies Allergen (clinical drug ingredient) Drug/Non Drug Allergy documented on EMR Reaction Allergy Type Onset Date Status erythromycin Erythromycin Unknown Drug Allergy A ctive REASON FOR VISIT Stage IB carcinoma right upper lobe in remission, Hyperparathyroidism, Osteoporosis, Emphysema, COPD Medications Medication SIG (Take, Route, Frequency, Duration) Notes Start Date End Date Status Gabapentin 300 MG 1 capsule Orally Onc e a day Active [facility] Acetaminophen 325 MG TAKE 3 TABLETS BY MOUTH EVERY 6 HOURS Oral Active Calcium Citrate+D3 Petites 200-6.25 MG-MCG Oral Active Vitamin D3 50 MCG (2000 UT) TAKE 1 CAPSU LE BY MOUTH DAILY Oral Active Ventolin HFA 108 (90 Base) MCG/ACT Inhalation Active Anoro Ellipta 62.5-25 MCG/ACT Inhalation Active Social History Tobacco Use: Social History Observation Description Date Details (start date - stop date) Former Smoker NA - NA Sex Assigned At : Social History Observation Description Sex Assigned At Female Tobacco Use/Smoking Question Answer Notes Patient is a former smoker How long has it been since you last smoked? 1-5 years Additional Findings: Tobacco Non-User Ex-cigaret te smoker Vital Signs Temperature 98.6 degrees Fahrenheit 09/16/19 24 Blood pressure systolic 105 mm Hg 09/16/19 24 Blood pressure diastolic 67 mm Hg 024 Heart Rate 81 /min 09/16/2023 Height 63 in 09/16/2023 Weight 113 lbs 09/16/2023 BMI 20.01 kg/m2 09/16/2023 Encounters Encounter Location Date Provider Diagnosis Yobani Villanueva III, MD [address] [place] [address] [address] [place]ENN[address], [place] [address] 09/16/2023 Yobani Villanueva Underweight R63.6 ; Hyperparathyroidism E21.3 ; Former smoker Z87.891 ; Malignant neoplasm of upper lobe, right bronchus or lung C34.11 ; Multinodular goiter E04.2 ; Pulmonary emphysema, unspecified emphysema type J43.9 ; Chronic obstructive pulmonary disease, unspecified COPD type J44.9 and Other osteoporosis without current pathological fracture M81.8 Assessments Encounter Date Diagnosis (ICD Code) Assessment Notes Treatment Notes Treatment Clinical Notes 09/16/2023 Underweight (ICD-10 - R63.6) Her body mass index is now 20 and this problem has resolved. 09/16/2023 Hyperparathyroidism (ICD-10 - E21.3) Her calcium is now in the normal range. 09/16/2023 Former smoker (ICD-1 0 - Z87.891) She is highly motivated not to smoke. We discussed strategies for abstinence in times of stress and illness likely present. 09/16/2023 Malignant neoplasm o f upper lobe, right bronchus or lung (ICD-10 - C34.11) There is no sign of recurrent cancer at this time. There is no sign of a new primary. I will await the final reading of her CT scan. 09/16/2023 Multinodular goiter (ICD-10 - E04.2) She is under the care of an incident handler for hyperparathyroidism and a multinodular goiter. 09/16/2023 Pulmonary emphysema, unspecified emphysema type (ICD-10 - J43.9) This is a finding on the CT scan. She has stopped smoking and will be observed carefully. 09/16/2023 Chronic obstructive pulmonary disease, unspecified COPD type (ICD-10 - J44.9) She has stopped smoking and she is asymptomatic at this time after the lobectomy. There has been no recent exacerbation of dyspnea. 09/16/2023 Other osteoporosis without current pathological fracture (ICD-10 - M81.8) She has undergone a [place]-thyroidectomy. Her PTH level is now normal. Her calcium level is normal. Her thyroid functions are in the euthyroid range. Plan Of Treatment Medication Medication Name Sig Start Date Stop Date Notes Gabapentin 300 MG 1 capsule Orally Once a day [facility] Acetaminophen 325 MG TAKE 3 TABLETS BY MOUTH EVERY 6 HOURS Oral Calcium Citrate+D3 Petites 200-6.25 MG-MCG Oral Vitamin D3 50 MCG (2000 UT) TAKE 1 CAPSU LE BY MOUTH DAILY Oral Ventolin HFA 108 (90 Base) MCG/ACT Inhalation Anoro Ellipta 62.5-25 MCG/ACT Inhalation Pending Test Test Name Order Date PROFILE, FASTING (COMPREHENSIVE METABOLI C) 09/16/2023 CBC WITH AUTO DIFF 09/16/2023 Lipid Panel 09/16/2023 Next Appt Details Follow Up: 2 Months, Reason: OV Provider Name:Yobani Villanueva , 07/19/2025 10:00:00 AM, [address] [place] [address], [address], Progress Notes * Dorinda FISCHER EDOB:1965 ( 58 yo F)Acc No.[id number]:09/16/2023 Progress Notes Patient: Dorinda Oakes Provider: Josephine Villanueva MD :1965 A ge:58 Y S ex:Female Date:09/16/2023 Address:[address] [place], [place] [id number] Pcp:Tatiana Rhoades MD Subjective: * Chief Complaints: * S tage IB carcinoma right upper lobe in remissionHyperparathyroidismOsteoporosisEmphysemaCOPD * HPI: C OVID-19 Screening: She had a CT scan of the chest last week which is not yet read. We reviewed her previous CT sscan and the current CT scan. The appearance of the right upper lobe and nodules is stable and no new disease was seen. She is not smoking. Her COPD and emphysema are unchanged. She is short of breath with prolonged exertion. She has had no hemoptysis. She is compliant with all of her medications. Surveillance was continued. Questions H ave you experienced fever, chills, cough, sore throat, shortness of breath, difficulty breathing, muscle aches, loss of taste or smell? N o H ave you been exposed to the virus within the last 10 days? N o H ave you travelled internationally in the last 10 days? N o H ave you been exposed to COVID-19 in the past? N o * ROS: G eneral/Constitutional: pain I ncision right chest wall. C hills d enies.?Fatigue a dmits. F ever d enies. E NT: Decreased hearing d enies. R espiratory: Cough d enies. C ardiovascular: Chest pain with exertion d enies. D yspnea on exertion?with prolonged activity. S hortness of breath t hat is moderate. G astrointestinal: Constipation d enies. D ecreased appetite d enies.?Diarrhea d enies. H eartburn d enies. N ausea d enies. R ectal bleeding?denies. V omiting d enies. H ematology: bruising d enies. p etechiae d enies. S wollen glands n one have been noted. G enitourinary: Frequent urination a t night. M usculoskeletal: Muscle aches d enies. P ainful joints d enies. S ciatica d enies. W eakness d enies. S kin: Itching d enies. R tara d enies. S kin lesion(s)?denies. N eurologic: Difficulty speaking d enies. D izziness d enies.?Headache d enies. L ow back pain d enies. P sychiatric: Depressed mood d enies. * Medical History: * Surgical History: V ATS with Lobectomy Bronch 01/2021Front left lobe and 3 Parathyroid removed 06/05/2022Thyroidectomy removal 75% by Dr Desai 06/05/2022nodule under skin on neck excision benign results 05/13/2023 * Hospitalization/Major Diagno stic Procedure: l obectomy 01/2021Thyroidectomy 75 % remove 06/05/2022 * Family History: F ather: 62 yrs. M other: 76 yrs, diagnosed with Cancer. 1 brother(s) , 1 sister(s) - healthy. 2 son(s) - healthy. . Mother Dx with Cancer. Father unknown. patient has one brother and a sister well and healthy. Patient has 2 sons well and healthy. * Social History: T obacco Use: T obacco Use/Smoking P atient is a f ormer smoker H ow long has it been since you last smoked??1-5 years A dditional Findings: Tobacco Non-User E x-cigarette smoker S he was born and raised in [facility]. 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 She recently stopped smoking. She does not drink alcohol or take drugs. She is not currently working as she is recovering from the thoracotomy. Her two sons are grown and she lives alone. Her of cirrhosis of the liver at [facility] awaiting a transplant on January 31, 2021 one week before her lung cancer surgery. She continues to grieve. Josias is oldest and works at [employer], engaged to [employer]. Viktro works at [employer] for [employer], [employer] with [employer]. * Medications: T akingCalcium Citrate+D3 Petites 200-6.25 MG-MCG Tablet Oral Vitamin D3 50 MCG (2000 UT) Capsule TAKE 1 CAPSULE BY MOUTH DAILY Oral Ventolin HFA 108 (90 Base) MCG/ACT Aerosol Solution Inhalation Anoro Ellipta 62.5-25 MCG/ACT Aerosol Powder Breath Activated Inhalation Gabapentin 300 MG Capsule 1 capsule Orally Once a dayCVS Acetaminophen 325 MG Tablet TAKE 3 TABLETS BY MOUTH EVERY 6 HOURS Oral Taking Calcium Citrate+D3 Petites 200-6.25 MG-MCG Tablet Oral Taking Vitamin D3 50 MCG (2000 UT) Capsule TAKE 1 CAPSULE BY MOUTH DAILY Oral Taking Ventolin HFA 108 (90 Base) MCG/ACT Aerosol Solution Inhalation Taking Anoro Ellipta 62.5-25 MCG/ACT Aerosol Powder Breath Activated Inhalation Taking Gabapentin 300 MG Capsule 1 capsule Orally Once a dayTaking CVS Acetaminophen 325 MG Tablet TAKE 3 TABLETS BY MOUTH EVERY 6 HOURS Oral DiscontinuedBenzonatate 200 MG Capsule Oral Medication List reviewed and reconciled with the patientDiscontinued Benzonatate 200 MG Capsule Oral Medication List reviewed and reconciled with the patient * Allergies: E rythromycin: Allergyno[Allergies Verified] Objective: * Vitals: H t: 63, Wt:113, BMI:20.01, BP:105/67, HR:81, Temp:98.6. * P ast Orders: Lab:Free T4 (Free Thyroxine) * Order Date 08/29/2023 07/22/2023 01/23/2023 Free T4 (Free Thyroxine) 0.87 (Ref Range: 0.71-1.85 ng/dL) 0.87 (Ref Range: 0.71-1.85 ng/dL) 0.91 (Ref Range: 0.71-1.85 ng/dL) * Lab:Lipid Panel * Order Date 08/22/2023 07/22/2023 01/23/2023 Triglycerides 117 (Ref Range: <150 mg/dL) 92 (Ref Range: <150 mg/dL) 83 (Ref Range: <150 mg/dL) Cholesterol 254 H (Ref Range: <200 mg/dL) 246 H (Ref Range: <200 mg/dL) 248 H (Ref Range: <200 mg/dL) LDL Cholesterol Calculated 148 H (Ref Range: <100 mg/dL) 140 H (Ref Range: <100 mg/dL) 153 H (Ref Range: <100 mg/dL) HDL Cholesterol 83 (Ref Range: >40 mg/dL) 88 (Ref Range: >40 mg/dL) 79 (Ref Range: >40 mg/dL) * Lab:Comprehensive [place]. Pane l Fast * Order Date 08/29/2023 07/22/2023 01/23/2023 Sodium 143 (Ref Range: 135-145 mmol/L) 142 (Ref Range: 135-145 mmol/L) 140 (Ref Range: 135-145 mmol/L) Bilirubin Total 0.3 (Ref Range: 0.0-1.0 mg/dL) 0.3 (Ref Range: 0.0-1.0 mg/dL) 0.3 (Ref Range: 0.0-1.0 mg/dL) Aspartate Amino Transferase 21 (Ref Range: 5-31 U/L) 17 (Ref Range: 5-31 U/L) 17 (Ref Range: 5-31 U/L) Alanine Aminotransferase 19 (Ref Range: 0-31 U/L) 13 (Ref Range: 0-31 U/L) 12 (Ref Range: 0-31 U/L) Total Protein 7.2 (Ref Range: 6.5-8.0 g/dL) 7.0 (Ref Range: 6.5-8.0 g/dL) 7.0 (Ref Range: 6.5-8.0 g/dL) Albumin Level 4.2 (Ref Range: 3.5-5.0 g/dL) 4.1 (Ref Range: 3.5-5.0 g/dL) 4.1 (Ref Range: 3.5-5.0 g/dL) Alkaline Phosphatase 70 (Ref Range: 39-117 U/L) 68 (Ref Range: 39-117 U/L) 69 (Ref Range: 39-117 U/L) Potassium 4.4 (Ref Range: 3.3-5.1 mmol/L) 4.4 (Ref Range: 3.3-5.1 mmol/L) 4.4 (Ref Range: 3.3-5.1 mmol/L) Chloride 107 (Ref Range: 96-108 mmol/L) 107 (Ref Range: 96-108 mmol/L) 106 (Ref Range: 96-108 mmol/L) Carbon Dioxide 28 (Ref Range: 22-29 mmol/L) 28 (Ref Range: 22-29 mmol/L) 26 (Ref Range: 22-29 mmol/L) Anion Gap 12 (Ref Range: 12-20) 11 L (Ref Range: 12-20) 12 (Ref Range: 12-20) Blood Urea Nitrogen 10 (Ref Range: 9-16 mg/dL) 10 (Ref Range: 9-16 mg/dL) 10 (Ref Range: 9-16 mg/dL) Creatinine 0.81 (Ref Range: 0.5-1.4 mg/dL) 0.79 (Ref Range: 0.5-1.4 mg/dL) 0.77 (Ref Range: 0.5-1.4 mg/dL) Estimated Glomerular Filt Rate > 60 > 60 > 60 Glucose Fasting 98 (Ref Range: 60-99 mg/dL) 85 (Ref Range: 60-99 mg/dL) 92 (Ref Range: 60-99 mg/dL) Calcium 9.3 (Ref Range: 8.4-10.2 mg/dL) 8.9 (Ref Range: 8.4-10.2 mg/dL) 9.1 (Ref Range: 8.4-10.2 mg/dL) * Lab:Complete Blood Count Aut o Diff * Order Date 08/29/2023 07/22/2023 01/23/2023 White Blood Count 9.0 (Ref Range: 4.8-10.8 X10*3/uL) 8.7 (Ref Range: 4.8-10.8 X10*3/uL) 8.9 (Ref Range: 4.8-10.8 X10*3/uL) Red Blood Count 4.58 (Ref Range: 4.20-5.50 X10*6/uL) 4.53 (Ref Range: 4.20-5.50 X10*6/uL) 4.56 (Ref Range: 4.20-5.50 X10*6/uL) Hemoglobin 14.0 (Ref Range: 12.0-16.0 g/dl) 13.7 (Ref Range: 12.0-16.0 g/dl) 13.8 (Ref Range: 12.0-16.0 g/dl) Hematocrit 42.5 (Ref Range: 37.0-47.0 %) 41.3 (Ref Range: 37.0-47.0 %) 41.9 (Ref Range: 37.0-47.0 %) Mean Corpuscular Volume 92.8 (Ref Range: 80.0-98.0 fL) 91.2 (Ref Range: 80.0-98.0 fL) 91.9 (Ref Range: 80.0-98.0 fL) Mean Corpuscular Hemoglobin 30.6 (Ref Range: 27.0-33.0 pg) 30.2 (Ref Range: 27.0-33.0 pg) 30.3 (Ref Range: 27.0-33.0 pg) Mean Corpuscular HGB Conc 32.9 (Ref Range: 31.0-35.0 g/dl) 33.2 (Ref Range: 31.0-35.0 g/dl) 32.9 (Ref Range: 31.0-35.0 g/dl) Red Cell Distribution Width 14.0 (Ref Range: 11.0-16.0 %) 13.8 (Ref Range: 11.0-16.0 %) 13.7 (Ref Range: 11.0-16.0 %) Platelet Count 338 (Ref Range: 160-400 X10*3/uL) 344 (Ref Range: 160-400 X10*3/uL) 368 (Ref Range: 160-400 X10*3/uL) Mean Platelet Volume 11.1 (Ref Range: 9.4-12.3 fL) 10.8 (Ref Range: 9.4-12.3 fL) 10.6 (Ref Range: 9.4-12.3 fL) Neutrophils Percent Auto 60.2 (Ref Range: 45-73 %) 47.5 (Ref Range: 45-73 %) 54.3 (Ref Range: 45-73 %) Imm Gran Pct Auto 0.3 (Ref Range: 0.0-0.4 %) 0.2 (Ref Range: 0.0-0.4 %) 0.2 (Ref Range: 0.0-0.4 %) Lymphocytes Percent Auto 29.8 (Ref Range: 20-40 %) 40.7 H (Ref Range: 20-40 %) 33.6 (Ref Range: 20-40 %) Monocytes Percent Auto 6.2 (Ref Range: 2-11 %) 8.4 (Ref Range: 2-11 %) 8.1 (Ref Range: 2-11 %) Eosinophils Percent Auto 2.9 (Ref Range: 0-4 %) 2.3 (Ref Range: 0-4 %) 3.1 (Ref Range: 0-4 %) Basophils Percent Auto 0.6 (Ref Range: 0-2 %) 0.9 (Ref Range: 0-2 %) 0.7 (Ref Range: 0-2 %) NRBC Pct Auto 0.0 (Ref Range: 0.0-0.2 /100WBC) 0.0 (Ref Range: 0.0-0.2 /100WBC) 0.0 (Ref Range: 0.0-0.2 /100WBC) Neutrophils Absolute Auto 5.5 (Ref Range: 2.0-8.3 x10*3/uL) 4.2 (Ref Range: 2.0-8.3 x10*3/uL) 4.8 (Ref Range: 2.0-8.3 x10*3/uL) Imm Gran Abs Auto 0.03 (Ref Range: 0.00-0.03 X10*3/uL) 0.02 (Ref Range: 0.00-0.03 X10*3/uL) 0.02 (Ref Range: 0.00-0.03 X10*3/uL) Lymphocytes Absolute Auto 2.7 (Ref Range: 1.2-4.9 X10*3/uL) 3.6 (Ref Range: 1.2-4.9 X10*3/uL) 3.0 (Ref Range: 1.2-4.9 X10*3/uL) Monocytes Absolute Auto 0.6 (Ref Range: 0.1-1.2 X10*3/uL) 0.7 (Ref Range: 0.1-1.2 X10*3/uL) 0.7 (Ref Range: 0.1-1.2 X10*3/uL) Eosinophils Absolute Auto 0.3 (Ref Range: 0.0-0.4 X10*3/uL) 0.2 (Ref Range: 0.0-0.4 X10*3/uL) 0.3 (Ref Range: 0.0-0.4 X10*3/uL) Basophils Absolute Auto 0.1 (Ref Range: 0.0-0.2 X10*3/uL) 0.1 (Ref Range: 0.0-0.2 X10*3/uL) 0.1 (Ref Range: 0.0-0.2 X10*3/uL) NRBC Abs Auto 0.000 (Ref Range: 0.0-0.012 X10*3/uL) 0.000 (Ref Range: 0.0-0.012 X10*3/uL) 0.000 (Ref Range: 0.0-0.012 X10*3/uL) * Lab:Thyroid Stimulating Horm one * Order Date 08/29/2023 07/22/2023 01/23/2023 Thyroid Stimulating Hormone 1.39 (Ref Range: 0.32-4.0 uIU/mL) 2.55 (Ref Range: 0.32-4.0 uIU/mL) 1.58 (Ref Range: 0.32-4.0 uIU/mL) ???Lab:Triiodothyronine T3 Free (Order Date - 08/29/2023) (Collection Date - 08/29/2023)?ValueReference Range?Triiodothyronine T3 Free3.02.3- 4.2 - pg/mL ???Lab:Parathyroid Hormone Intact (Order Date - 08/29/2023) (Collection Date - 08/29/2023)?ValueReference Range?Parathyroid Hormone Pddnes54.6 8.7-77.1 - pg/mL * Lab:Erythrocyte Sedimentatio n Rate * Order Date 08/29/2023 01/28/2022 07/30/2021 Erythrocyte Sedimentation Rate 11 (Ref Range: 0-20 MM/HR) 10 (Ref Range: 0-20 MM/HR) 14 (Ref Range: 0-20 MM/HR) * Examination: G eneral Examination: GENERAL APPEARANCE: p leasant, well nourished, well developed, in no acute distress, calm and relaxed , woman. HEAD: a traumatic, normocephalic. EYES: e arturo, perrla, anicteric, conjugate. EARS: n ormal. NOSE: s eptum intact. ORAL CAVITY: n ormal, unremarkable. NECK/THYROID: n o jugular venous distention, no carotid bruit, thyroid normal. LYMPH NODES: n o enlarged lymph nodes,spleen normal. SKIN: n o suspicious lesions, anicteric. HEART: n o clicks, gallops, murmurs, or rubs, regular rhythm, S1, S2 normal, no s3, or vascular bruits. LUNGS: , diminished breath sounds throughout , no wheezes, rales, rhonchi , good air movement. BREASTS: n ot examined. ABDOMEN: b owel sounds normal, no ascites, no organomegaly, no mass. RECTAL EXAM: n ot examined. MUSCULOSKELETAL: e xtremities unremarkable, no clubbing, cyanosis or edema. PERIPHERAL PULSES: n ormal. NEUROLOGIC: a lert and oriented, cranial nerves 2-12 grossly intact, deep tendon reflexes 2+ symmetrical, motor strength normal upper and lower extremities, sensory exam intact. PSYCH: a lert, oriented. Assessment: * Assessment: 1. U nderweight - R63.6, Her body mass index is now 20 and this problem has resolved. 2 .?Hyperparathyroidism - E21.3, Her calcium is now in the normal range. 3 . F ormer smoker - Z87.891, She is highly motivated not to smoke. We discussed strategies for abstinence in times of stress and illness likely present. 4 . M alignant neoplasm of upper lobe, right bronchus or lung - C34.11, There is no sign of recurrent cancer at this time. There is no sign of a new primary. I will await the final reading of her CT scan. 5 . M ultinodular goiter - E04.2, She is under the care of an incident handler for hyperparathyroidism and a multinodular goiter. 6 . P ulmonary emphysema, unspecified emphysema type - J43.9, This is a finding on the CT scan. She has stopped smoking and will be observed carefully. 7 . C hronic obstructive pulmonary disease, unspecified COPD type - J44.9, She has stopped smoking and she is asymptomatic at this time after the lobectomy. There has been no recent exacerbation of dyspnea. 8 . O ther osteoporosis without current pathological fracture - M81.8, She has undergone a [place]-thyroidectomy. Her PTH level is now normal. Her calcium level is normal. Her thyroid functions are in the euthyroid range. Plan: * Treatment: 2. H yperparathyroidism L AB: PROFILE, FASTING (COMPREHENSIVE METABOLIC) L AB: CBC WITH AUTO DIFF L AB: Lipid Panel * Procedure Codes: * Preventive Medicine: Counseling: S moking/Tobacco Use Patient counseled on the dangers of tobacco use and urged to quit. 0 09/16/2023 COPD Care Plan: P atient Lifestyle Goals B e able to be more active with friends and family, Reduce number of ED and hospitalizations, Relieve symptoms and improve quality of life. T reatment Goals E at a nutritious diet and increase water consumption to 6-8 glasses a day, Exercise to help whole body, including lungs, Eat 4-5 small meals throughout the day. B arriers n o barriers. S elf-Managment Goals E at a healthy diet, Get an air purifier for the rooms you are in the most, Exercise at least 3xs per week for at least 30 mins.? * Follow Up: 2 Months (Reason: OV) * Images: * Sign off status: Completed true * Provider: Josephine Villanueva MD Date: 0 09/16/2023 Generated for Essence berrios/Siri/eTransmitting on: 05/17/2024 11:20 AM EST History and Physical Notes * HPI (History of Present Illness) Category Sub-Category Detail Notes COVID-19 Screening Questions Have you had any new onset fever, chills, cough, congestion, sore throat, shortness of breath, muscle aches?: No Have you been exposed to the virus withi n the last 10 days?: No Have you travelled internationally in [facility] last 10 days?: No Have you been exposed to COVID-19 in the past?: No Examination Category Sub-Category Detail Notes General Examination GENERAL APPEARANCE: pleasant , well nourished, well developed, in no acute distress, calm and relaxed , woman HEAD: atraumatic, normocep halic EYES: eomi, perrla, anicte camilo, conjugate EARS: normal NOSE: septum intact NECK/THYROID: no jugular venous di stention, no carotid bruit, thyroid normal HEART: no clicks, gallops, murmurs, or rubs, regular rhythm, S1, S2 normal, no s3, or vascular bruits LUNGS: , diminished breath sounds throughout , no wheezes, rales, rhonchi , good air movement ABDOMEN: bowel sounds normal, no ascites, no organomegaly, no mass NEUROLOGIC: alert and oriented, cranial nerves 2-12 grossly intact, deep tendon reflexes 2+ symmetrical, motor strength normal upper and lower extremities, sensory exam intact SKIN: no suspicious lesion s, anicteric PERIPHERAL PULSES: normal BREASTS: not examined MUSCULOSKELETAL: extremities unremark able, no clubbing, cyanosis or edema LYMPH NODES: no enlarged lymph no zulay,spleen normal RECTAL EXAM: not examined PSYCH: alert, oriented ORAL CAVITY: normal, unremarkable
--- OUTSIDE RECORDS SUMMARY | 2023-09-16 06:22 | XMS_ITS ---
Author Organization Yobani Villanueva III, MD Address [address] [place] [address] [place] [address] Care Team Providers Care Collision Technician Name Role Phone Tatiana Rhoades MD Primary Care Provider Dr. Yobani Saunders III Unavailable Oh Otero Unavailable [phone] scan of chest done at called for read Social History Sex Assigned At : Social History Observation Description Sex Assigned At Female Encounters Encounter Location Date Provider Diagnosis Yobani Villanueva III, MD [address] [place] [address] [place] [address] 09/16/2023 Yobani Villanueva Plan Of Treatment Next Appt Details Provider Name:oYbani Villanueva , 07/19/2025 10:00:00 AM, [address] [place] [address] [place], [address], Progress Notes * Dorinda FISCHER EDOB:1965 ( 58 yo F)Acc No.[id number]:09/16/2023 Patient: Pretty Dorinda moreno :1965 A ge:58 Y S ex:Female Address:[address] [place], [address] * true * Date: Generated for Printi ng/Faxing/eTransmitting on: 05/17/2024 11:20 AM EST
--- OUTSIDE RECORDS SUMMARY | 2023-12-10 05:00 | XMS_ITS ---
Author Organization Yobani Villanueva III, MD Address [address] [place] [address] Care Team Providers Care [employer] Principal Name Role Phone Tatiana Rhoades MD Primary Care Provider Dr. Yobani Saunders III Unavailable [phone] Oh Otero Unavailable [phone] Allergies Allergen (clinical drug ingredient) Drug/Non Drug [...] Date Provider Diagnosis Yobani Villanueva III, MD [address] [place] [address] [address] [place], [place] [address] 12/10/2023 Yobani Villanueva Underweight R63.6 ; Malignant [...] Provider Name:Yobani Villanueva , 07/19/2025 10:00:00 AM, [address] [place] [address] [address] [place] [address], [place], [phone], Progress Notes * ISABELL Dorinda EDOB:1965 ( 58 yo F)Acc No.[id number]:12/10/2023 Progress Notes Patient: Dorinda Oakes Provider: Josephine Villanueva MD :1965 A ge:58 Y S ex:Female Date:12/10/2023 Address:[address] [place] [address] [address] [place]ETT [id number] Pcp:Tatiana Rhoades MD Subjective: * Chief Complaints: [...] S he was born and raised in [facility]. 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 She recently stopped smoking. She does not drink alcohol or take drugs. She is not currently working as she is recovering from the thoracotomy. Her two sons are grown and she lives alone. Her of cirrhosis of the liver at [facility] awaiting a transplant on January 31, 2021 one week before her lung cancer surgery. She continues to grieve. Josias is oldest and works at [employer], engaged to [employer]. Paula works at [employer] making [email or web address] for [employer], [employer] with Kitty [employer]FF. * Medications: T akingCalcium [...] MD Date: 0 12/10/2023 Generated for Essence berrios/Siri/eTransmitting on: 1 05/17/2024 11:20 AM EST History and Physical Notes * HPI (History of Present Illness) Category Sub-Category Detail Notes COVID-19 Screening Questions Have you had any new onset fever, chills, cough, congestion, sore throat, shortness of breath, muscle aches?: No Have you been exposed to the virus with n the last 10 days?: No Have you travelled internationally in [facility] last 10 days?: No Have you [...]
--- OUTSIDE RECORDS SUMMARY | 2024-03-23 05:45 | XMS_ITS ---
Author Organization Yobani Villanueva III, MD Address [address] [place] [address] [place] [address] Care Team Providers Care Chief Ophthalmic Technician Name Role Phone Tatiana Rhoades MD Primary Care Provider Dr. Yobani Saunders III Unavailable Oh Otero Unavailable [phone] Allergies Allergen (clinical drug ingredient) Drug/Non Drug [...] Date Provider Diagnosis Yobani Villanueva III, MD [address] [place] [address] [address] CORNELL [place], [place] [address] 03/23/2024 Yobani Villanueva Underweight R63.6 ; Malignant [...] Provider Name:Yobani Villanueva , 07/19/2025 10:00:00 AM, [address] [place], [place] [address], [place], [address], Progress Notes * Dorinda FISCHER EDOB:1965 ( 58 yo F)Acc No.[id number]:03/23/2024 Progress Notes Patient: Dorinda SCHMITT Provider: Josephine Villanueva MD :1965 A ge:58 Y S ex:Female Date:03/23/2024 Address: [address] [id number] Pcp:Tatiana Rhoades MD Subjective: * Chief Complaints: [...] and sluggishness. She has been seeing an social worker clinical for this issue. The patient also reported having multiple spots on her skin, which she is concerned might be skin cancer. She is scheduled to see a hr systems analyst for a full body examination. * ROS: [...] S he was born and raised in [facility]. 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 She recently stopped smoking. She does not drink alcohol or take drugs. She is not currently working as she is recovering from the thoracotomy. Her two sons are grown and she lives alone. Her of cirrhosis of the liver at [facility] awaiting a transplant on January 31, 2021 one week before her lung cancer surgery. She continues to grieve. Josias is oldest and works at [employer], engaged to [employer]. Viktor works at [employer] making [employer] for [employer], [employer] with Kitty DUFF. * Medications: T akingCalcium [...] 83 (Ref Range: >40 mg/dL) * Lab:Comprehensive [place]. Pane l Fast * Collection Date 03/09/2024 [...] Date: 05/23/2023 Generated for Essence berrios/Siri/eTransmitting on: 05/17/2024 11:20 AM EST History and Physical Notes * HPI (History of Present Illness) Category Sub-Category Detail Notes COVID-19 Screening Questions Have you had any new onset fever, chills, cough, congestion, sore throat, shortness of breath, muscle aches?: No Have you been exposed to the virus withi n the last 10 days?: No Have you travelled internationally in [facility] last 10 days?: No Have you [...]
--- OUTSIDE RECORDS SUMMARY | 2024-07-21 05:30 | XMS_ITS ---
Author Organization Yobani Villanueva III, MD Address [address] [place] [address] Care Team Providers Care Sequins Winder Name Role Phone Tatiana Rhoades MD Primary Care Provider Dr. Yobani Saunders III Unavailable Oh Otero Unavailable [phone] Allergies Allergen (clinical drug ingredient) Drug/Non Drug [...] Status W/U Status Risk Notes Problem Osteoporosis (56739365) Osteoporosis (M81.0) Active confirmed She has significant [...] Date Provider Diagnosis Yobani Villanueva III, MD [address] [place] [address] [place] [address] 07/21/2024 Yobani Villanueva Underweight R63.6 ; Malignant [...] She is under the care of an family support specialist. This problem has been addressed and she [...] Name:Yobani Reyes Kay , 07/19/2025 10:00:00 AM, [address] [place] [address] DR, [place] [address], [place], [address], Progress Notes * Dorinda FISCHER EDOB:1965 ( 59 yo F)Acc No.[id number]:07/21/2024 Progress Notes Patient: Dorinda SCHMITT Provider: Josephine Villanueva MD :1965 A ge:59 Y S ex:Female Date:07/21/2024 Address:[address] [place] [address] [facility] [id number] Pcp:Tatiana Rhoades MD Subjective: * Chief Complaints: [...] S he was born and raised in [place]. 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 She recently stopped smoking. She does not drink alcohol or take drugs. She is not currently working as she is recovering from the thoracotomy. Her two sons are grown and she lives alone. Her of cirrhosis of the liver at [facility] awaiting a transplant on January 31, 2021 one week before her lung cancer surgery. She continues to grieve. Josias is oldest and works at [employer], engaged to [employer]. Viktor works at [employer] making [employer] for [employer], [employer] with Kitty DUFF. * Medications: T akingCalcium [...] She is under the care of an family support specialist. This problem has been addressed and she [...] MD Date: 0 07/21/2024 Generated for Essence berrios/Siri/eTransmitting on: 1 05/17/2024 [...]
--- OUTSIDE RECORDS SUMMARY | 2024-09-08 05:13 | XMS_ITS ---
Author Organization Yobani Villanueva III, MD Address [address] [place] [address] [place] [address] Care Team Providers Care Air Hammer Stripper Name Role Phone Tatiana Rhoades MD Primary Care Provider Dr. Yobani Saunders III Unavailable [phone] Oh Otero Unavailable [phone] REASON FOR VISIT Labs for CT Contrast Social History Sex Assigned At : Social History Observation Description Sex Assigned At Female Encounters Encounter Location Date Provider Diagnosis Yobani Villanueva III, MD [address] [place] [address] [place] [address] 09/08/2024 Yobani Villanueva Underweight R63.6 ; Chronic [...] Provider Name:Yobani Villanueva , 07/19/2025 10:00:00 AM, [address] [place] [address] [place], [address], Progress Notes * Dorinda FISCHER EDOB:1965 ( 59 yo F)Acc No.[id number]:09/08/2024 Patient: Dorinda SCHMITT :1965 A ge:59 Y S ex:Female Address:[address] [place] [address], [address] Subjective: * Chief Complaints: * L abs [...] Date: Generated for Essence berrios/Siri/eTdeepasmitting on: 1 05/17/2024 11:19 AM EST
--- OUTSIDE RECORDS SUMMARY | 2024-10-27 06:00 | XMS_ITS ---
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, Osteoporosis, COPD, Hyperparathyroidism, Multinodular goiter, Emphysema, Underweight Medications Medication SIG (Take, Route, Frequency, Duration) Notes Start Date End Date Status Ventolin HFA 108 (90 Base) MCG/ACT Inhalation Active Calcium Citrate+D3 Petites 200-6.25 MG-MCG Oral Active CVS Acetaminophen 325 MG TAKE 3 TABLETS BY MOUTH EVERY 6 HOURS Oral Active Anoro Ellipta 62.5-25 MCG/ACT Inhalation Active Gabapentin 300 MG 1 capsule Orally Onc e a day Active Social History Tobacco Use: Social History [...] Problem Status W/U Status Risk Notes Problem [id number] Mixed hyperlipidemia (E78.2) Active confirmed She asked me today as she has during other visits whether she should be on a statin medication. Her fasting total cholesterol is 255. I told her a case could be made for a statin medication. I instructed her to discuss this again with primary care. SShe has apparently discussed this with primary care in the past. Vital Signs Temperature 97.7 degrees Fahrenheit 10/28/19 25 Blood pressure systolic 125 mm Hg 10/28/19 25 Blood pressure diastolic 77 mm Hg 025 Heart Rate 88 /min 10/27/2024 Height 63 in 10/27/2024 Weight 106 lbs 10/27/2024 BMI 18.78 kg/m2 10/27/2024 Encounters Encounter Location Date Provider Diagnosis Yobani Villanueva III, MD [address] [place] [address] [place] [address] 10/27/2024 Yobani Villanueva Underweight R63.6 ; Malignant neoplasm of upper lobe, right bronchus or lung C34.11 ; Multinodular goiter E04.2 ; Hyperparathyroidism E21.3 ; Osteoporosis M81.0 ; Former smoker Z87.891 ; Pulmonary emphysema, unspecified emphysema type J43.9 ; Chronic obstructive pulmonary disease, unspecified COPD type J44.9 and Mixed hyperlipidemia E78.2 Assessments Encounter Date Diagnosis (ICD Code) Assessment Notes T reatment Notes Treatment Clinical Notes 10/27/2024 Underweight (ICD-10 - R63.6) Her weight is stable with a body mass index of 18. Nutrition is not an issue. She appears to be euthyroid. 10/27/2024 Malignant neoplasm o f upper lobe, right bronchus or lung (ICD-10 - C34.11) She remains in remission with no sign of relapse. A CT scan will be done at six-month intervals one more time and then on a yearly basis. She is doing quite well. 10/27/2024 Multinodular goiter (ICD-10 - E04.2) She remains under the care of endocrinology and is up-to-date with her visits. She is compliant with her therapist. 10/27/2024 Hyperparathyroidism (ICD-10 - E21.3) She has been surgically treated. Her calcium has returned to normal. 10/27/2024 Osteoporosis (ICD-10 - M81.0) She has significant osteoporosis and remained under the care of endocrinology. She has been compliant with her medications. 10/27/2024 Former smoker (ICD-1 0 - Z87.891) She is highly motivated not to smoke. We discussed strategies for abstinence in times of stress and illness likely present. 10/27/2024 Pulmonary emphysema, unspecified emphysema type (ICD-10 - J43.9) This is a finding on the CT scan. She has stopped smoking and will be observed carefully. 10/27/2024 Chronic obstructive pulmonary disease, unspecified COPD type (ICD-10 - J44.9) She has stopped smoking and she is asymptomatic at this time after the lobectomy. There has been no recent exacerbation of dyspnea. 10/27/2024 Mixed hyperlipidemia (ICD-10 - E78.2) She asked me today as she has during other visits whether she should be on a statin medication. Her fasting total cholesterol is 255. I told her a case could be made for a statin medication. I instructed her to discuss this again with primary care. SShe has apparently discussed this with primary care in the past. Plan Of Treatment Medication Medication Name Sig Start Date Stop Date Notes Ventolin HFA 108 (90 Base) MCG/ACT Inhalation Calcium Citrate+D3 Petites 200-6.25 MG-MCG Oral CVS Acetaminophen 325 MG TAKE 3 TABLETS BY MOUTH EVERY 6 HOURS Oral Anoro Ellipta 62.5-25 MCG/ACT Inhalation Gabapentin 300 MG 1 capsule Orally Once a day Pending Test Test Name Order Date PROFILE, FASTING (COMPREHENSIVE METABOLI C) 10/27/2024 TSH (THYROID STIMULATING HORMONE) 2024 CBC w DIFF 10/27/2024 Lipid Panel 10/27/2024 Vitamin D 25-OH Total 10/27/2024 Free T4 (Free Thyroxine) 10/27/2024 Parathyroid Hormone Intact 10/27/2024 Next Appt Details Follow Up: 3 Months, Reason: OV Provider Name:Yobani Villanueva , 07/19/2025 10:00:00 AM, [address] [place] [address] [address] [address], [place], [address], Progress Notes * Dorinda FISCHER EDOB:1965 ( 59 yo F)Acc No.[id number]:10/27/2024 Progress Notes Patient: Dali SCHMITTh Amy Provider: Josephine Villanueva MD :1965 A ge:59 Y S ex:Female Date:10/27/2024 Address:[address] [id number] Pcp:Tatiana Rhoades MD Subjective: * Chief Complaints: * N on-small cell carcinoma of the right lung in remissionOsteoporosisCOPDHyperparathyroidismMultinodular goiterEmphysemaUnderweight * HPI: C OVID-19 Screening: She returns for follow-up of a history of 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 She received adjuvant chemotherapy successfully. She has remained in remission since that time. She has COPD and emphysema. She has discontinued smoking and remains abstinent. We reviewed her recent CT scan of the chest which showed no change in her multiple pulmonary nodules compared to prior studies. There was no sign of recurrent lung cancer or of a new primary. She remains under the care of endocrinology. She has been compliant with all of her medications. Six-month follow-up was arranged. Questions H ave you had any new onset fever, chills, cough, congestion, sore throat, shortness of breath, muscle aches? N o * ROS: G eneral/Constitutional: pain S urgical incissions right thorax. C hills d enies. F atigue a dmits. F ever d enies. E NT: Decreased hearing d enies. R espiratory: Cough d enies. C ardiovascular: Chest pain with exertion d enies. D yspnea on exertion?with moderate activity. S hortness of breath w ith exertion. G astrointestinal: Constipation d enies. D ecreased [...] S he was born and raised in [facility]. She has been working in [...] grieve. Josias is oldest and works at [employer], engaged to [employer]. Viktor works at [employer] making [employer] for [employer], Last [employer] with [employer]. * Medications: T akingCalcium Citrate+D3 Petites 200-6.25 MG-MCG Tablet Oral Ventolin HFA 108 (90 Base) MCG/ACT Aerosol Solution Inhalation Anoro Ellipta 62.5-25 MCG/ACT Aerosol Powder Breath Activated Inhalation Gabapentin 300 MG Capsule 1 capsule Orally Once a day CVS Acetaminophen 325 MG Tablet TAKE 3 TABLETS BY MOUTH EVERY 6 HOURS Oral Taking Calcium Citrate+D3 Petites 200-6.25 MG-MCG Tablet Oral Taking Ventolin HFA 108 (90 Base) MCG/ACT Aerosol Solution Inhalation Taking Anoro Ellipta 62.5-25 MCG/ACT Aerosol Powder Breath Activated Inhalation Taking Gabapentin 300 MG Capsule 1 capsule Orally Once a day Taking CVS Acetaminophen 325 MG Tablet TAKE 3 TABLETS BY MOUTH EVERY 6 HOURS Oral DiscontinuedVitamin D3 50 MCG (1999 UT) Capsule TAKE 1 CAPSULE BY MOUTH DAILY Oral Medication List reviewed and reconciled with the patientDiscontinued Vitamin D3 50 MCG (2000 UT) Capsule TAKE 1 CAPSULE BY MOUTH DAILY Oral Medication List reviewed and reconciled with the patient * Allergies: E rythromycin: Allergyno[Allergies Verified] Objective: * Vitals: H t: 63, Wt: 106, BMI:18.78, BP: 125/77, HR: 88, Temp: 97.7, Wt-k.08. * P ast Orders: L ab:Creatinine (Order Date - 10/05/2024) (Collection Date & Time - 10/05/2024 10:47 AM) Value Reference Range Creatinine 0.73 0.5-1.4 - mg/dL Estimated Glomerular Filt Rate > 60 - L ab:Blood Urea Nitrogen (Order Date - 10/05/2024) (Collection Date & Time - 10/05/2024 10:47 AM) Value Reference Range Blood Urea Nitrogen 8 L 9-16 - mg/dL Imaging:CT chest w con * Performed Date 10/15/2024 01/30/2023 07/29/2022 09:57 AM 10:06 AM 09:18 AM Order Date 10/15/2024 01/30/2023 07/29/2022 * Lab:Vitamin D 25-OH Total * Collection Date 10/25/2024 01/23/2023 01/28/2022 Collection Time 06:18 AM 07:05 AM 11:15 AM Order Date 10/25/2024 01/23/2023 01/28/2022 Vitamin D 25-OH Total 149.0 (Ref Range: >30 ng/mL) 88.8 (Ref Range: >30 ng/mL) 36.4 (Ref Range: >30 ng/mL) * Lab:Lipid Panel * Collection Date 10/25/2024 03/09/2024 12/03/2023 Collection Time 06:18 AM 06:38 AM 06:47 AM Order Date 10/25/2024 03/09/2024 12/03/2023 Triglycerides 94 (Ref Range: <150 mg/dL) 136 (Ref Range: <150 mg/dL) 108 (Ref Range: <150 mg/dL) Cholesterol 255 H (Ref Range: <200 mg/dL) 244 H (Ref Range: <200 mg/dL) 233 H (Ref Range: <200 mg/dL) LDL Cholesterol Calculated 154 H (Ref Range: <100 mg/dL) 142 H (Ref Range: <100 mg/dL) 134 H (Ref Range: <100 mg/dL) HDL Cholesterol 83 (Ref Range: >40 mg/dL) 75 (Ref Range: >40 mg/dL) 78 (Ref Range: >40 mg/dL) * Lab:Comprehensive [place]. Pane l Fast * Collection Date 10/25/2024 03/09/2024 12/03/2023 Collection Time 06:18 AM 06:38 AM 06:47 AM Order Date 10/25/2024 03/09/2024 12/03/2023 Sodium 142 (Ref Range: 135-145 mmol/L) 142 (Ref Range: 135-145 mmol/L) 143 (Ref Range: 135-145 mmol/L) Bilirubin Total 0.2 (Ref Range: 0.0-1.0 mg/dL) 0.3 (Ref Range: 0.0-1.0 mg/dL) 0.3 (Ref Range: 0.0-1.0 mg/dL) Aspartate Amino Transferase 30 (Ref Range: 5-31 U/L) 32 H (Ref Range: 5-31 U/L) 23 (Ref Range: 5-31 U/L) Alanine Aminotransferase 19 (Ref Range: 0-31 U/L) 24 (Ref Range: 0-31 U/L) 19 (Ref Range: 0-31 U/L) Total Protein 6.9 (Ref Range: 6.5-8.0 g/dL) 6.8 (Ref Range: 6.5-8.0 g/dL) 6.8 (Ref Range: 6.5-8.0 g/dL) Albumin Level 4.2 (Ref Range: 3.5-5.0 g/dL) 4.0 (Ref Range: 3.5-5.0 g/dL) 4.1 (Ref Range: 3.5-5.0 g/dL) Alkaline Phosphatase 76 (Ref Range: 39-117 U/L) 64 (Ref Range: 39-117 U/L) 72 (Ref Range: 39-117 U/L) Potassium 4.3 (Ref Range: 3.3-5.1 mmol/L) 4.2 (Ref Range: 3.3-5.1 mmol/L) 4.8 (Ref Range: 3.3-5.1 mmol/L) Chloride 107 (Ref Range: 96-108 mmol/L) 109 H (Ref Range: 96-108 mmol/L) 110 H (Ref Range: 96-108 mmol/L) Carbon Dioxide 27 (Ref Range: 22-29 mmol/L) 26 (Ref Range: 22-29 mmol/L) 26 (Ref Range: 22-29 mmol/L) Anion Gap 12 (Ref Range: 12-20) 11 L (Ref Range: 12-20) 12 (Ref Range: 12-20) Blood Urea Nitrogen 10 (Ref Range: 9-16 mg/dL) 11 (Ref Range: 9-16 mg/dL) 7 L (Ref Range: 9-16 mg/dL) Creatinine 0.83 (Ref Range: 0.5-1.4 mg/dL) 0.88 (Ref Range: 0.5-1.4 mg/dL) 0.83 (Ref Range: 0.5-1.4 mg/dL) Estimated Glomerular Filt Rate > 60 > 60 > 60 Glucose Fasting 71 (Ref Range: 60-99 mg/dL) 93 (Ref Range: 60-99 mg/dL) 89 (Ref Range: 60-99 mg/dL) Calcium 9.1 (Ref Range: 8.4-10.2 mg/dL) 8.6 (Ref Range: 8.4-10.2 mg/dL) 9.1 (Ref Range: 8.4-10.2 mg/dL) * Lab:Complete Blood Count Aut o Diff * Collection Date 10/25/2024 03/09/2024 12/03/2023 Collection Time 06:18 AM 06:38 AM 06:47 AM Order Date 10/25/2024 03/09/2024 12/03/2023 White Blood Count 11.5 H (Ref Range: 4.8-10.8 X10*3/uL) 9.9 (Ref Range: 4.8-10.8 X10*3/uL) 9.9 (Ref Range: 4.8-10.8 X10*3/uL) Red Blood Count 4.57 (Ref Range: 4.20-5.50 X10*6/uL) 4.40 (Ref Range: 4.20-5.50 X10*6/uL) 4.57 (Ref Range: 4.20-5.50 X10*6/uL) Hemoglobin 14.0 (Ref Range: 12.0-16.0 g/dl) 13.7 (Ref Range: 12.0-16.0 g/dl) 14.1 (Ref Range: 12.0-16.0 g/dl) Hematocrit 41.5 (Ref Range: 37.0-47.0 %) 41.0 (Ref Range: 37.0-47.0 %) 42.2 (Ref Range: 37.0-47.0 %) Mean Corpuscular Volume 90.8 (Ref Range: 80.0-98.0 fL) 93.2 (Ref Range: 80.0-98.0 fL) 92.3 (Ref Range: 80.0-98.0 fL) Mean Corpuscular Hemoglobin 30.6 (Ref Range: 27.0-33.0 pg) 31.1 (Ref Range: 27.0-33.0 pg) 30.9 (Ref Range: 27.0-33.0 pg) Mean Corpuscular HGB Conc 33.7 (Ref Range: 31.0-35.0 g/dl) 33.4 (Ref Range: 31.0-35.0 g/dl) 33.4 (Ref Range: 31.0-35.0 g/dl) Red Cell Distribution Width 13.9 (Ref Range: 11.0-16.0 %) 13.7 (Ref Range: 11.0-16.0 %) 13.8 (Ref Range: 11.0-16.0 %) Platelet Count 358 (Ref Range: 160-400 X10*3/uL) 341 (Ref Range: 160-400 X10*3/uL) 343 (Ref Range: 160-400 X10*3/uL) Mean Platelet Volume 10.3 (Ref Range: 9.4-12.3 fL) 10.7 (Ref Range: 9.4-12.3 fL) 10.8 (Ref Range: 9.4-12.3 fL) Neutrophils Percent Auto 65.2 (Ref Range: 45-73 %) 59.6 (Ref Range: 45-73 %) 53.8 (Ref Range: 45-73 %) Imm Gran Pct Auto 0.3 (Ref Range: 0.0-0.4 %) 0.2 (Ref Range: 0.0-0.4 %) 0.4 (Ref Range: 0.0-0.4 %) Lymphocytes Percent Auto 26.7 (Ref Range: 20-40 %) 32.5 (Ref Range: 20-40 %) 34.8 (Ref Range: 20-40 %) Monocytes Percent Auto 6.1 (Ref Range: 2-11 %) 6.8 (Ref Range: 2-11 %) 7.7 (Ref Range: 2-11 %) Eosinophils Percent Auto 1.2 (Ref Range: 0-4 %) 0.2 (Ref Range: 0-4 %) 2.7 (Ref Range: 0-4 %) Basophils Percent Auto 0.5 (Ref Range: 0-2 %) 0.7 (Ref Range: 0-2 %) 0.6 (Ref Range: 0-2 %) NRBC Pct Auto 0.0 (Ref Range: 0.0-0.2 /100WBC) 0.0 (Ref Range: 0.0-0.2 /100WBC) 0.0 (Ref Range: 0.0-0.2 /100WBC) Neutrophils Absolute Auto 7.5 (Ref Range: 2.0-8.3 x10*3/uL) 5.9 (Ref Range: 2.0-8.3 x10*3/uL) 5.3 (Ref Range: 2.0-8.3 x10*3/uL) Imm Gran Abs Auto 0.03 (Ref Range: 0.00-0.03 X10*3/uL) 0.02 (Ref Range: 0.00-0.03 X10*3/uL) 0.04 H (Ref Range: 0.00-0.03 X10*3/uL) Lymphocytes Absolute Auto 3.1 (Ref Range: 1.2-4.9 X10*3/uL) 3.2 (Ref Range: 1.2-4.9 X10*3/uL) 3.4 (Ref Range: 1.2-4.9 X10*3/uL) Monocytes Absolute Auto 0.7 (Ref Range: 0.1-1.2 X10*3/uL) 0.7 (Ref Range: 0.1-1.2 X10*3/uL) 0.8 (Ref Range: 0.1-1.2 X10*3/uL) Eosinophils Absolute Auto 0.1 (Ref Range: 0.0-0.4 X10*3/uL) 0.0 (Ref Range: 0.0-0.4 X10*3/uL) 0.3 (Ref Range: 0.0-0.4 X10*3/uL) Basophils Absolute Auto 0.1 (Ref Range: 0.0-0.2 X10*3/uL) 0.1 (Ref Range: 0.0-0.2 X10*3/uL) 0.1 (Ref Range: 0.0-0.2 X10*3/uL) NRBC Abs Auto 0.000 (Ref Range: 0.0-0.012 X10*3/uL) 0.000 (Ref Range: 0.0-0.012 X10*3/uL) 0.000 (Ref Range: 0.0-0.012 X10*3/uL) * Lab:Parathyroid Hormone Inta ct * Collection Date 10/25/2024 08/29/2023 Collection Time 06:18 AM 06:39 AM Order Date 10/25/2024 08/29/2023 Parathyroid Hormone Intact 38.8 (Ref Range: 8.7-77.1 pg/mL) 38.6 (Ref Range: 8.7-77.1 pg/mL) * Examination: G eneral Examination: GENERAL APPEARANCE: [...] throughout, no wheezes, rales, rhonchi, good air movement, Thoracic surgical incisions are well-healed. BREASTS: N ot examined. ABDOMEN: b owel [...] a lert, oriented. Assessment: * Assessment: 1. M alignant neoplasm [...] stable with a body mass index of 18. Nutrition is not an issue. She appears to be euthyroid. 3 . M ultinodular goiter - E04.2 N otes :She remains under the care of endocrinology and is up-to-date with her visits. She is compliant with her therapist. 4 . H yperparathyroidism - E21.3 N otes :She has been surgically treated. Her calcium has returned to normal. 5 . O steoporosis - M81.0 N otes :She has significant osteoporosis and remained under the care of endocrinology. She has been compliant with her medications. 6 . F ormer smoker - Z87.891 N otes :She is highly motivated not to smoke. We discussed strategies for abstinence in times of stress and illness likely present. 7 . P ulmonary emphysema, unspecified emphysema type - J43.9 N otes :This is a finding on the CT scan. She has stopped smoking and will be observed carefully. 8 . C hronic obstructive pulmonary disease, unspecified COPD type - J44.9 N otes :She has stopped smoking and she is asymptomatic at this time after the lobectomy. There has been no recent exacerbation of dyspnea. 9 . M ixed hyperlipidemia - E78.2 N otes :She asked me today as she has during other visits whether she should be on a statin medication.? Her fasting total cholesterol is 255. I told her a case could be made for a statin medication. I instructed her to discuss this again with primary care. SShe has apparently discussed this with primary care in the past. Plan: * Treatment: 2. M ultinodular goiter L AB: PROFILE, FASTING (COMPREHENSIVE METABOLIC) L AB: TSH (THYROID STIMULATING HORMONE) L AB: CBC w DIFF L AB: Lipid Panel L AB: Vitamin D 25-OH Total L AB: Free T4 (Free Thyroxine) L AB: Parathyroid Hormone Intact 3. H yperparathyroidism L AB: PROFILE, FASTING (COMPREHENSIVE METABOLIC) L AB: TSH (THYROID STIMULATING HORMONE) L AB: CBC w DIFF L AB: Lipid Panel L AB: Vitamin D 25-OH Total L AB: Free T4 (Free Thyroxine) L AB: Parathyroid Hormone Intact 4. O steoporosis L AB: PROFILE, FASTING (COMPREHENSIVE METABOLIC) L AB: TSH (THYROID STIMULATING HORMONE) L AB: CBC w DIFF L AB: Lipid Panel L AB: Vitamin D 25-OH Total L AB: Free T4 (Free Thyroxine) L AB: Parathyroid Hormone Intact * Procedure Codes: * Preventive Medicine: Counseling: C are goal follow-up plan: Counseling for abnormal BMI given Y es Above Normal BMI Follow-up D ietary management education, guidance, and counseling S moking/Tobacco Use Patient counseled on the dangers of tobacco use and urged to quit. 0 10/27/2024 COPD Care Plan: P atient Lifestyle Goals R elieve symptoms and improve quality of life, Reduce number of ED and hospitalizations, Be able to be more active with friends and family. T reatment Goals E xercise to help whole body, including lungs, Eat a nutritious diet and increase water consumption to 6-8 glasses a day, Eat 4-5 small meals throughout the day. B arriers n o barriers. S elf-Managment Goals E at a healthy diet, Get an air purifier for the rooms you are in the most, Exercise at least 3xs per week for at least 30 mins.? * Follow Up: 3 Months (Reason: OV) * Images: * Sign off status: Completed true * Provider: Josephine Villanueva MD Date: 0 10/27/2024 Generated for Yuei yash/Siri/eTransmitting on: 05/17/2024 11:19 AM EST History and Physical Notes * [...] throughout, no wheezes, rales, rhonchi, good air movement, Thoracic surgical incisions are well-healed ABDOMEN: bowel sounds normal, no ascites, no [...]
--- OUTSIDE RECORDS SUMMARY | 2025-01-27 07:15 | XMS_ITS ---
Author Organization Yobani Villanueva III, MD Address [address] [place] [address] [place] [address] Care Team Providers Care Industrial Trainer Name Role Phone Tatiana Rhoades MD Primary Care Provider Dr. Yobani Saunders III Unavailable [phone] Oh Otero Unavailable [phone] REASON FOR VISIT FOLLOW UP Social History Sex Assigned At : Social History Observation Description Sex Assigned At Female Encounters Encounter Location Date Provider Diagnosis Yobani Villanueva III, MD [address] [place] [address] [place] [address] 01/27/2025 Yobani Villanueva Plan Of Treatment Next Appt Details Provider Name:Yobani Villanueva , 07/19/2025 10:00:00 AM, [address] [place] [address] [place], [address], Progress Notes * ISABELLDorinda Reyes EDOB:1965 ( 59 yo F)Acc No.[id number]:01/27/2025 Progress Notes Patient: Dorinda SCHMITT Provider: Josephine [...] 0 01/27/2025 Generated for Essence berrios/Siri/Mounika on: 05/17/2024 11:19 AM EST
--- OUTSIDE RECORDS SUMMARY | 2025-02-08 04:30 | XMS_ITS ---
Author Organization Yobani Villanueva III, MD Address [address] [place] [address] Care Team Providers Care Delivery Room Supervisor Name Role Phone Tatiana Rhoades MD Primary Care Provider Dr. Yobani Saunders III Unavailable Oh Otero Unavailable [phone] Allergies Allergen (clinical drug ingredient) Drug/Non Drug [...] Provider Diagnosis Yobani Villanueva III, MD [address] [place] [address] [place] [address] 02/08/2025 Yobani Villanueva Underweight R63.6 ; Malignant [...] Name:Yobani Villanueva , 07/19/2025 10:00:00 AM, [address] [place] [address] , [address], [address], Progress Notes * Dorinda FISCHER EDOB:1965 ( 59 yo F)Acc No.[id number]:02/08/2025 Progress Notes Patient: Dorinda SCHMITT Provider: Josephine Villanueva MD :1965 A ge:59 Y S ex:Female Date:02/08/2025 Address:[address] [place], [place] [id number] Pcp:Tatiana Rhoades MD Subjective: * Chief Complaints: [...] that in April of this year at [facility]. She will return to this office [...] S he was born and raised in [facility]. 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 She recently stopped smoking. She does not drink alcohol or take drugs. She is not currently working as she is recovering from the thoracotomy. Her two sons are grown and she lives alone. Her of cirrhosis of the liver at [facility] awaiting a transplant on January 31, 2021 one week before her lung cancer surgery. She continues to grieve. Josias is oldest and works at [employer], engaged to [employer]. Viktor works at [email or web address] making [employer] for [employer], [employer] with [employer]. * Medications: T akingCalcium [...] 0 02/08/2025 Generated for Printi ng/Faxing/eTransmitting on: 05/17/2024 11:21 AM EST History and Physical Notes * [...]
[2025-03-17 10:01] VITALS: BP 110/68; PULSE 66; O2SAT 98; BMI 19.2
--- NOTE | 2025-03-17 10:01 | A.OFFVIS_ITS ---
Vital Signs 03/17/25 10:01 Height 5 ft 2 in Weight 104 lb 11.513 oz BMI 19.2 BP 110/68 Blood Pressure Location Lt brachial Position Sitting Pulse 66 Pulse Source Pulse Oximeter Pulse Oximetry (%) 98 Oxygen Delivery Method Room Air Intake Visit Reasons: Dyspnea Health Care / Medical Job Titles Required: No Accompanied by: Self / Same As Patient Allergies erythromycin base Allergy (Severe, Verified 03/17/25 10:07) Diarrhea and C-Diff HPI Comments Details: The patient is a 59-year-old woman with the history of tobacco dependency in addition to a thyroid goiter followed closely by Endocrinology who apparently was in her usual state health until her 2nd dose of the COVID-19 vaccine. She s tarted developing worsening respiratory symptoms and cough. Ultimately she was evaluated in the emergency department where she did undergo a CT scan of the chest which demonstrated a 1 cm nodular density in the right upper lobe adjacent to emphysema. The nodule in the is concerning to to his size and her smoking history putting her at high risk for malignancy. While in the hospital the patient was given antibiotics. Unfortunately she did develop C diff colitis she was then seen back in the ER couple weeks later. Patient has had weight loss but she is not sure if it was from the vaccine or the C diff colitis. Patient does have a rescue inhaler which she does not require. 02/01/2021 the patient is here for a pulmonary follow-up visit. since we last spoke the patient did undergo her PET scan demonstrating an active right upper lobe nodular density concerning for cancer. She was referred to thoracic surgery and did undergo pulmonary function studies. Her DLCO is only 50%. Paulo parson, I reassured her that based on the fact that her emphysema is primarily in the upper lung zone that she should not lose too much lung capacity. However there may be a chance that she may need to rely on supplemental oxygen at least once she recovers. She is currently struggling because she just recently lost her who had been battling liver disease. He was transferred to [facility] but he was deemed not a candidate for transplant and he went on hospice home. She understands that her surgery is important in cannot be delayed in therefore is currently scheduled for next week. 04/30/2021 the patient is here for a pulmonary follow-up visit. The patient is status post lobectomy. The pathology was consistent with an invasive adenocarcinoma. The lymph nodes were negative. Unfortunately she appeared to have some pleural invasion. Therefore, the patient was started on chemotherapy and follows closely by her oncologist the patient has been tolerating the chemotherapy well. Patient knows to watch for any worsening respiratory symptoms. she still dealing with the parathyroid issue. Currently she is on medications for calcium. When she is better from her pulmonary issues she will looking to following up with her surgeon regarding her hyperparathyroidism. 08/01/2021 the patient is here for a pulmonary follow-up visit. She continues to do relatively well. She did complete her chemotherapy. She does have a CT scan scheduled for tomorrow. I will have her added to the tumor conference on Friday in order to review her pathology again and also to review her most recent CT scan. She continues to respond well to the gabapentin for the post thoracotomy syndrome and also helps her with sleep. She does well at 600 mg at nighttime. She would also benefit from a little bit in the morning in order to help her with post thoracotomy syndrome. I will resend a prescription to the pharmacy at this time. 01/30/2022 the patient is here for a pulmonary follow-up visit. The patient overall is doing little better. Her chest discomfort has improved with the use of gabapentin. She still struggling with the loss of her . The patient still has shortness of breath. She has been using a rescue inhaler. She would like to hold off on using additional maintenance therapies. We did review her PFTs from 2020 demonstrating COPD in addition to a moderate diffusion impairment. Now that she is status post lung resection and chemotherapy is likely that her respiratory status is a little bit worse. Will have her undergo pulmonary function studies. She does have issues with a thyroid goiter in addition to parathyroid disease. She has been eating up with surgery to figure out about having surgery for this condition. The patient right now will need to be evaluated for preoperative evaluation with pulmonary function studies prior to surgery. The patient is also looking to apply for disability. She is having significant shortness of breath and chest pain. She has a hard time performing her activities of daily living. Will have her undergo a pulmonary function study and 6 minute walk test during on the next month or so. In the meantime to the patient does have a CT scan of the chest from July 2021 demonstrating slight interval increase in the right lower lobe nodule. She does have a CT scan scheduled for the next week or so. She will follow-up with her surgeon after that CT scan. 08/14/2022 the patient is here for a pulmonary follow-up visit. Overall the patient is doing better. She is still grieving the loss of her . Her orozco ir is now working back after completing the chemotherapy. She recently had a CT scan of the chest demonstrating stable pulmonary nodules both measure about 4-5 mm in size. They have not changed from her previous although there suspicious in the need to be monitored closely. Therefore should have a repeat CT scan in 6 months time. The patient is having some shortness of breath. She is starting to exercise more regularly. She is using her rescue inhaler all too often. Will go ahead and start her on Anoro in order to provide her maintenance therapy in order for her to increase her exercise capacity and lung capacity. She still having neuropathic pain after having her surgery. She does respond good to the Neurontin. Will go ahead increase her dose a little bit more in order for her t o get adequate pain relief in that area. She understands that this may take a long time to recover from. 02/21/2023 the patient is here for hospital follow-up visit. She is feeling better. She was recently hospitalized at the [facility] with worsening respiratory symptoms. She was diagnosed with pneumonia and she was treated with antibiotics in addition to prednisone. The patient now is feeling better. She still has some wheezing on examination. The Anoro inhaler has been helpful. Her last CT scan of the chest was reassuring without any evidence of recurrent cancer. The patient also has pulmonary nodules are be monitor. Her last CT scan was back in November 2022 in therefore will have a CT scan 6 months from then. This is being arranged by thoracic surgeon. Otherwise we can order it if it gets delayed. He she also had a chest x-ray demonstrating postoperative changes no clear pneumonia although she did have a lower respiratory infection. The patient does have a cough which is congested in nature. Dhej-qz-trnqqxgn severity and the patient also has some rhonchi on examination. I do believe that she will benefit from more doxycycline. The patient is concerned about C diff colitis and she is had some in the past but I reassured her that she should be able to tolerate the doxycycline okay. 05/28/2023 the patient is here for pulmonary follow-up visit. Overall the patient is feeling better. Her cough is overall better. She completed the course of doxycycline. She continues use her respiratory medicines with good effect. The patient did have repeat chest x-ray demonstrating interval improvement of the airspace disease. She does have some postoperative changes. The patient also concerned about her weight gain. She did have a thyroid surgery. She is wondering her thyroid function is too low. Will go ahead and check her blood work specially since her white count had been elevated. Will go ahead and check her CBC her electrolytes and also her TSH. The patient does have a follow-up with endocrinology. The patient overall is doing very well today she will get her pneumonia vaccine. 09/10/2023 the patient is here for a pulmonary follow-up visit. She continues do well. She is starting to exercise more regularly. Her weight seems to be stable after her thyroid surgery. The patient did have a recent CT scan of the chest which I personally reviewed. It appears that her postoperative changes are stable on her right hemithorax. She does have some nodular densities over following. They appear stable when compared to her previous CT scan from the fall 2022. I do not see any significant changes. The with a history of lung cancer back in 2020 in her pulmonary nodules she will require CT scans every 6 months for the next 5 years. The patient will follow-up after next CT scan. 03/19/2024 the patient is here for a pulmonary follow-up visit. Overall she is doing very well. She is exercising regularly and eating well. She feels healthy. This is reassuring. She still has the neuropathy issue in the post thoracotomy syndrome pain on the right side. She does take gabapentin with good effect. She did recently have a CT scan of the chest in 03/15/2024 which I personally reviewed. Third nodular densities are stable. There appeared to be calcified suggesting potentially previous infection. Will go ahead and check her TB test. She can do that in next 6 months. Clinically she is doing well denies any coughing. She does use the Anoro daily. The rescue inhaler less than 2 times a week. She will continue getting CT scans every 6 months for 5 years after her cancer surgery and then after that she can have CT scans yearly. Will follow-up in a year's time. If she has any issues prior to that she will call for an earlier assessment. 03/17/2025 the patient is here for pulmonary follow-up visit. Overall the patient has been doing well. She has been using her inhalers regularly. She is concerned that her insurance now wants to switch her Anoro to something else. I did reassure her that Bevespi would be a good option for her. Also her respiratory exam is reasonable and stable and therefore I do not see any concerns about switching inhalers at that point. She did have a CT scan of the chest back in October 2024 which was without any acute disease. She does have stable pulmonary nodules and otherwise postoperative changes. She still complains of significant neuropathic pain due to her surgery and she does take gabapentin for that. I will increase the dose to help her with the discomfort. Otherwise the patient is without any other complaints if she has any issues she can always call for an earlier assessment. She is already scheduled for CAT scan sometime in April. She will call me when she never gets that done so I can review it as well. The patient will follow-up sometime in 6 months if she has any issues prior to this she can always call for further recommendations. 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) Right upper lobe pulmonary nodule Personal history of nicotine dependence Clostridium difficile colitis (~11/2020) Pulmonary nodules/lesions, multiple Emphysema of lung Osteoporosis (~2019) Hyperparathyroidism Vitamin D deficiency Surgical History Hx of partial thyroidectomy History of lobectomy of lung (~2020) S/P thyroid biopsy (~2017) History of colonoscopy (~2018) Family History Mother Pancreatic cancer Father COPD (chronic obstructive pulmonary disease) Social History Household Members: None Housing: House Do you presently have visiting nurse or other home services: No Alcohol intake: current Alcohol intake frequency: a few times a month Patient Tobacco Use Status: Former Tobacco user Years Smoked: 35 years e-Cigarette/Vaping Use: Never Used Second Hand Smoke Exposure: No Substance Use Type: Marijuana service: No Current occupational status: disabled Cognitive needs: No Hearing needs: No Vision needs: Yes Review of Systems Const Denies excessive sweating, Denies fatigue, Denies headache(s), Reports weight gain and Denies weight loss Eyes Denies blurry vision and Denies diplopia ENT Denies change in voice, Denies dysphagia, Denies headache(s) and Denies hoarseness Card Reports chest pain, Denies irregular heart rhythm, Denies dyspnea and Reports other Resp Denies cough, Reports pain on inspiration, Reports pain with cough and Denies dyspnea GI Denies abdominal pain, Denies change in bowel habits, Denies dysphagia, Denies diarrhea and Denies nausea Musc Denies myalgias, Denies muscle cramps, Denies numbness and Denies tingling Skin/Breast Denies hirsutism and Denies alopecia Neuro Denies headache(s), Denies numbness, Reports radicular pain and Denies tingling Psych Denies anxiety and Denies depression Endo Denies cold intolerance, Denies excessive sweating, Denies fatigue and Denies heat intolerance Vasu/Lymph Denies easy bruising Physical Exam Vital Signs: Last Vital Signs Pulse 66 03/17/25 10:01 BP 110/68 03/17/25 10:01 Pulse Ox 98 03/17/25 10:01 Oxygen Delivery Method Room Air 03/17/25 10:01 BMI result Body Mass Index 19.2 Const General: comfortable HEENT Head: Yes normocephalic Neck Neck: Yes supple Chest Chest palpation & inspection: normal inspection of the chest Resp Effort & Inspection: normal respiratory effort Auscultation: no rhonchi and diminished lung sounds Cardio Heart sounds: S1 normal heart sound present and S2 normal heart sound present GI Palpation (GI): Soft to palpation Skin General skin exam: no rashes or lesions noted Extrem General: Yes no clubbing, cyanosis or edema Assessment & Plan Assessment & Plan (1) Emphysema of lung: Code(s): J43.9 - Emphysema, unspecified Category: Medical Qualifiers: Emphysema type: centrilobular Qualified Code(s): J43.2 - Centrilobular emphysema (2) Multinodular thyroid: Code(s): E04.2 - Nontoxic multinodular goiter Category: Medical (3) Primary adenocarcinoma of right lung: Onset Date: ~2020 Comment: (Stage IB Adenocarcinoma - s/p RUL Lobectomy 02/06/21- s/p chemo compete 06/04/21) Code(s): C34.91 - Malignant neoplasm of unspecified part of right bronchus or lung Category: Medical (4) Post-thoracotomy pain syndrome: Code(s): G89.12 - Acute post-thoracotomy pain Category: Medical (5) Pulmonary nodules/lesions, multiple: Code(s): R91.8 - Other nonspecific abnormal finding of lung field Category: Medical Plan IRIS as needed CT chest in 6 months x5 yrs Gabapentin BID for post thoracic continue Anoro IRIS as needed follow-up in 8-12 months Medications: Changed From gabapentin 600 mg (2 x 300 mg) PO BEDTIME 30 days 60 caps 7RF To gabapentin Take 1 cap in the AM and 2 caps at night 270 caps 3RF 90 days Coding Level of Care Code Est Pt Level 4 (52933) Complex EM visit Add On G2211 Diagnoses Centrilobular emphysema J43.2 Emphysema type: centrilobular Multinodular thyroid E04.2 Primary adenocarcinoma of right lung C34.91 Post-thoracotomy pain syndrome G89.12 Pulmonary nodules/lesions, multiple R91.8 Time Spent (min) 17
--- OUTSIDE RECORDS SUMMARY | 2025-03-17 11:19 | XMS_ITS | Clinical Summary ---
Author Organization [facility] Address [address] [place] [id number] Phone Care Team Providers Care Leather Softener Name Role Phone Tatiana Rhoades MD Primary [...] 2016 INFLUENZA VACCINE (#1) 2024 COVID-19 VACCINE ( - 2024-2 6 season) 2025 RSV VACCINE (1 - 1-dose 75+ series) 2041 HEPATITIS A VACCINES Aged Out No long [...] topic Medical Devices Not on file Insurance [facility] [facility] [place] [facility] Care Teams Leather Softener Relationship Specialty Start Date End Date Tatiana Rhoades MD [address] [facility] [place] SHARDA PCP - General Internal Medicine 04/23/23 Additional Source Comments The information contained in this document represents components of the legal health record. It is not the complete legal health record.[facility]
--- OUTSIDE RECORDS SUMMARY | 2025-03-17 11:19 | XMS_ITS | Patient Health Record ---
Author Organization [facility] Address [address] [place] [address] Care Team Providers Care Building Energy Retrofit Technician Name Role Phone Verona CHEN, Tatiana Primary Care Provider Dakota Schneider Jr Unavailable [phone] Reason For Referral No Information Medications Medication SIG (Take, Route, Frequency, Duration) Notes Start Date End Date Status Multivitamin Adults - as directed Orally Active Vitamin D3 36967 UNIT TAKE ONE CAPSULE B Y MOUTH ONE TIME PER WEEK Oral; Duration: 28 Active Colyte with Flavor Packs 240 GM As directed Orally Over the specified time.; Duration: 1 day(s) 09/03/2018 Active Immunizations Vaccine Route [...] Problem Status W/U Status Risk Notes Problem Colon cancer screening (994831130) Colon cancer screening (Z12.11) Active confirmed Problem Pre-procedure evaluation check (900374839) Encounter for other preprocedural examination (Z01.818) Active confirmed Plan Of Treatment Future Test Test Name Order Date COLONOSCOPY 09/03/2018 Insurance Providers Payer Name Payer Address Payer Phone Subscriber Number Group Number Insured Name Patient Relationship to Insured Coverage Start Date Coverage End Date [facility] [address] [place], [place] [id number] [phone] [id number] ERA WHYTE Self - patient is the insured Medical (General) History Medical History History ICD Code Denies RI,DM,CVA,Lung disease,renal dise ase goiter
--- OUTSIDE RECORDS SUMMARY | 2025-03-17 11:21 | XMS_ITS | Clinical Summary ---
Author Organization [facility] Address [address] [place] [address] Care Team Providers Care Natural History Collections Curator Name Role Phone Tatiana Rhoades MD Primary [...] Last Done Comments Breast Cancer Screening 1966 Colorectal Cancer Screening: Colonoscopy 1966 DTaP,Tdap,and Td Vaccines (1 - Tdap) 1985 Hepatitis B Vaccines (1 of 3 - 19+ 3-dose series) 1985 Cervical Cancer Screening: P ap Smear 1987 Pneumococcal Vaccine: 50+ Ye ars (1 of 1 - PCV) 2016 Zoster Vaccines (1 of 2) 2016 HIV Screening 04/13/2022 Hepatitis C Screening 04/13/2022 Social Influencers of Health Screening 04/13/2022 Depression Screening 05/12/2024 COVID-19 Vaccine ( - 2023-2 5 season) 2025 Influenza Vaccine (#1) 2025 RSV Immunization Adult Patie nts (1 - 1-dose 75+ series) 2041 HIB Vaccines Aged Out No longer eligi [...] age to complete this topic Care Teams Natural History Collections Curator Relationship Specialty Start Date End Date Tatiana Rhoades MD [address] [facility] [place] [address] PCP - General Internal Medicine 08/28/21
--- OUTSIDE RECORDS SUMMARY | 2025-03-17 11:21 | XMS_ITS | Patient Health Record ---
Author Organization Yobani Villanueva III, MD Address [address] [place] [address] [address] [place] [address] Care Team Providers Care Intelligence Director Name Role Phone Verona CHEN, Tatiana Primary Care Provider Dr. Yobani Saunders III Unavailable Oh Otero Unavailable [phone] Allergies Allergen (clinical drug ingredient) Drug/Non Drug Allergy documented on EMR Reaction Allergy Type Onset Date Status erythromycin Erythromycin Unknown Drug Allergy A ctive Results Component Value Reference Range Notes Blood Urea Nitrogen Reviewed date:10/05/2024 03:30:37 PM Interpretation: Performing Lab:[facility], [address] [place] [phone] Notes/Report: Blood Urea Nitrogen 8 9-16 mg/dL Creatinine Reviewed date:10/05/2024 03:30:37 PM Interpretation: Performing Lab:[facility], [address] [place] [phone] Notes/Report: Creatinine 0.73 0.5-1.4 mg/dL Estimated Glomerular Filt Rate > 60 Chronic Kidney Disease: Estimated GFR < 60 mL/min/1.73m2 Severe Kidney Disease: Estimated GFR < 15 mL/min/1.73m2 CT chest w con Reviewed date:10/27/2024 11:07:09 AM Interpretation: Performing Lab: Notes/Report: [address] [address] [address] Scan Report Signed Patient: Dorinda Fischer MR#: [id number] : 1965 Acct:[id number] Age/Sex: 59 / F ADM Date: 10/13/24 Loc: HO.CT Attending Dr: Yobani Villanueva MD Ordering Physician: Yobani Villanueva MD Date of Service: 10/13/24 Procedure(s): CT chest w IV con Accession Number(s): [id number] cc: Yobani Villanueva MD; Tatiana Rhoades MD Report Number: [id number]: Total DLP = 61.00 mGy-cm CLINICAL HISTORY: NEOPLASM OF UPPER LOBE CT chest with contrast Comparison: CT/SR - CT CHEST W IV CON - 03/15/24 10:[address]/REG/NE/SR - CT CHEST W IV CON - [...] document has been electronically signed by: Daniel Rosales MD on 10/15/2024 09:57:13 Dictated By: Daniel Rosales MD Signed By: <Electronically signed by Daniel Rosales MD in OV> 10/15/24 0958 DD/ 6 TD/TT: 10/15/24956 Fourdrinier Machine Tender: [place] [address] CT Scan Report Signed Patient: Dorinda Fischer MR#: [id number] : 1965 Acct:[id number] Age/Sex: 59 / F ADM Date: 10/13/24 Loc: HO.CT Attending Dr: Yobani Villanueva MD Ordering Physician: Yobani Villanueva MD Date of Service: 10/13/24 Procedure(s): CT david st w IV con Accession Number(s): [id number] cc: Yobani Villanueva MD; Tatiana Rhoades MD Report Number: [id number]: Total DLP = 61.00 mGy-cm CLINICAL HISTORY: NEOPLASM OF UPPER LOBE CT chest with contrast Comparison: CT/SR - CT CHEST W I V CON - 03/15/24 10:[address]/REG/NE/SR - CT CHEST W IV CON - [...] in OV> 10/15/24957 DD/ 6 TD/TT: 10/15/24956 Fourdrinier Machine Tender: Complete Blood Count Auto Di ff Reviewed date:10/27/2024 11:07:08 AM Interpretation: Performing Lab:[facility], [address] [place] [phone] Notes/Report: White Blood Count 11.5 4.8-10.8 X10*3/uL [...] NRBC Abs Auto 0.000 0.0-0.012 X10*3/uL Comprehensive [place]. Panel Fa st Reviewed date:10/27/2024 11:07:08 AM Interpretation: Performing Lab:[facility], [address] [place] [phone] Notes/Report: Sodium 142 135-145 mmol/L Potassium 4.3 [...] Panel Reviewed date:10/27/2024 11:07:09 AM Interpretation: Performing Lab:[facility], [address] [place] [phone] Notes/Report: Triglycerides 94 <150 mg/dL Desirable Triglyceride: [...] Total Reviewed date:10/27/2024 11:07:09 AM Interpretation: Performing Lab:[facility], [address] [place] [phone] Notes/Report: Vitamin D 25-OH Total 149.0 >30 [...] Intact Reviewed date:10/27/2024 11:07:09 AM Interpretation: Performing Lab:[facility], [address] [place] [address], [place] [address] Notes/Report: Parathyroid Hormone Intact 38.8 8.7-77.1 pg/mL [...] Problem Status W/U Status Risk Notes Problem 9286772 Former smoker (Z87.891) Active confirmed She is highly motivated not to smoke. We discussed strategies for abstinence in times of stress and illness likely present. Problem 966732050 Underweight (R63.6) Active confirmed Her weight is stable with a body mass index of 18. Nutrition is not an issue. She appears to be euthyroid. Problem Malignant neoplasm of upper lobe, bronchus or lung (828757908) Malignant neoplasm of upper lobe, right bronchus or lung (C34.11) Active confirmed There is no sign of recurrent disease or of her new primary. A repeat surveillance CT scan will be done in April of this year. I will see her 6 month intervals. Problem 043213955 Mixed hyperlipid emia (E78.2) Active confirmed She asked me today as she has during other visits whether she should be on a statin medication. Her fasting total cholesterol is 255. I told her a case could be made for a statin medication. I instructed her to discuss this again with primary care. [facility] has apparently discussed this with primary care in the past. Problem 92720416 Other osteoporos is without current pathological fracture (M81.8) Active confirmed She has undergone a [place]-thyroidec holly. Her PTH level is now normal. Her calcium level is normal. Her thyroid functions are in the euthyroid range. Problem 51870229 Chronic obstruct phani pulmonary disease, unspecified COPD type (J44.9) Active confirmed She has stopped smoking and she is asymptomatic at this time after the lobectomy. There has been no recent exacerbation of dyspnea. Problem Osteoporosis (43556558) Osteoporosis (M81.0) Active confirmed She has significant osteoporosis and remained under the care of endocrinology. She has been compliant with her medications. Problem 83827065 Hyperparathyroid ism (E21.3) Active confirmed She has been surgically treated. Her calcium has returned to normal. Problem 64098801 Pulmonary emphys john, unspecified emphysema type (J43.9) Active confirmed She is comfortable at rest and wwith most activities. She becomes dyspneic with prolonged exertion but is no longer smoking cigarettes. Problem 257861274 Multinodular goi ter (E04.2) Active confirmed She remains under the care of endocrinology and is up-to-date with her visits. She is compliant with her therapist. Problem 244688444 Neurothekeoma (D36.10) Active confirmed The scar in the left neck is well healed and there is no sign of recurrence Vital Signs Heart Rate 69 /min 02/08/2025 Temperature 98.1 degrees Fahrenheit 02/08/2025 Blood pressure diastolic 71 mm Hg 02/08/2025 Height 63 in 02/08/2025 Blood pressure systolic 122 mm Hg 02/08/2025 Weight 105 lbs 02/08/2025 BMI 18.6 kg/m2 02/08/2025 Encounters Encounter Location Date Provider Diagnosis Yobani Villanueva III, MD [address] [place] [address] [place] [address] 03/23/2024 Yobani Villanueva Underweight R63.6 ; Malignant neoplasm of upper lobe, right bronchus or lung C34.11 ; Hyperparathyroidism E21.3 ; Chronic obstructive pulmonary disease, unspecified COPD type J44.9 ; Pulmonary emphysema, unspecified emphysema type J43.9 and Former smoker Z87.891 Yobani Villanueva III, MD [address] [place] [address] [place] [address] 07/21/2024 Yobani Villanueva Underweight R63.6 ; Malignant neoplasm of upper lobe, right bronchus or lung C34.11 ; Hyperparathyroidism E21.3 ; Osteoporosis M81.0 and Former smoker Z87.891 Yobani Villanueva III, MD [address] [place] [address] [place] [address] 10/27/2024 Yobani Villanueva Underweight R63.6 ; Malignant neoplasm of upper lobe, right bronchus or lung C34.11 ; Multinodular goiter E04.2 ; Hyperparathyroidism E21.3 ; Osteoporosis M81.0 ; Former smoker Z87.891 ; Pulmonary emphysema, unspecified emphysema type J43.9 ; Chronic obstructive pulmonary disease, unspecified COPD type J44.9 and Mixed hyperlipidemia E78.2 Yobani Villanueva III, MD [address] [place] [address] [place] [address] 02/08/2025 Yobani Villanueva Underweight R63.6 ; Malignant neoplasm of upper lobe, right bronchus or lung C34.11 ; Pulmonary emphysema, unspecified emphysema type J43.9 ; Former smoker Z87.891 ; Multinodular goiter E04.2 ; Chronic obstructive pulmonary disease, unspecified COPD type J44.9 ; Hyperparathyroidism E21.3 ; Other osteoporosis without current pathological fracture M81.8 and Osteoporosis M81.0 Yobani Villanueva III, MD [address] [place] [address] [place] [address] 09/08/2024 Yobani Villanueva Underweight R63.6 ; Chronic [...] yearly basis. She is doing quite well. 02/08/2025 Underweight (ICD-10 - R63.6) Her weight [...] I will see her 6 month intervals. 09/08/2024 Underweight (ICD-10 - R63.6) 03/23/2024 Hyperparathyroidism (ICD-10 - E21.3) Her calcium level has been normal after her parathyroid surgery. 07/21/2024 Hyperparathyroidism (ICD-10 - E21.3) Her calcium remains normal. 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 This problem has been addressed and she is stable. 10/27/2024 Multinodular goiter (ICD-10 - E04.2) She remains under the care of endocrinology and is up-to-date with her visits. She is compliant with her therapist. 02/08/2025 Pulmonary emphysema, unspecified emphysema type (ICD-10 - J43.9) She is comfortable at rest and wwith most activities. She becomes dyspneic with prolonged exertion but is no longer smoking cigarettes. 09/08/2024 Chronic obstructive pulmonary disease, unspecified COPD [...] Her calcium has returned to normal. 02/08/2025 Former smoker (ICD-1 0 - Z87.891) She is highly motivated not to smoke. We discussed strategies for abstinence in times of stress and illness likely present. 09/08/2024 Encounter for preprocedural laboratory examination (ICD-10 [...] She has been compliant with her medications. 02/08/2025 Multinodular goiter (ICD-10 - E04.2) She remains under the care of endocrinology and is up-to-date with her visits. She is compliant with her therapist. 03/23/2024 Former smoker (ICD-1 0 - Z87.891) She is highly motivated not to smoke. We discussed strategies for abstinence in times of stress and illness likely present. 10/27/2024 Former smoker (ICD-1 0 - Z87.891) She is highly motivated not to smoke. We discussed strategies for abstinence in times of stress and illness likely present. 02/08/2025 Chronic obstructive pulmonary disease, unspecified COPD type (ICD-10 - J44.9) She has stopped smoking and she is asymptomatic at this time after the lobectomy. There has been no recent exacerbation of dyspnea. 10/27/2024 Pulmonary emphysema, unspecified emphysema type (ICD-10 - J43.9) This is a finding on the CT scan. She has stopped smoking and will be observed carefully. 02/08/2025 Hyperparathyroidism (ICD-10 - E21.3) She has been surgically treated. Her calcium has returned to normal. 10/27/2024 Chronic obstructive pulmonary disease, unspecified COPD type (ICD-10 - J44.9) She has stopped smoking and she is asymptomatic at this time after the lobectomy. There has been no recent exacerbation of dyspnea. 02/08/2025 Other osteoporosis without current pathological fracture (ICD-10 - M81.8) She has undergone a [place]-thyroidectomy . Her PTH level is now normal. Her calcium level is normal. Her thyroid functions are in the euthyroid range. 10/27/2024 Mixed hyperlipidemia (ICD-10 - E78.2) She asked me today as she has during other visits whether she should be on a statin medication. Her fasting total cholesterol is 255. I told her a case could be made for a statin medication. I instructed her to discuss this again with primary care. [facility] has apparently discussed this with primary care in the past. 02/08/2025 Osteoporosis (ICD-10 - M81.0) She has significant osteoporosis and remained under the care of endocrinology. She has been compliant with her medications. Plan Of Treatment Pending Test Test Name [...] ) 12/20/2021 PROFILE, RANDOM (COMPREHENSIVE METABOLIC ) 02/08/2025 PROFILE, RANDOM (COMPREHENSIVE METABOLIC ) 08/14/2022 PROFILE, [...] (THYROID STIMULATING HORMONE) 2021 CBC w DIFF 02/08/2025 CBC w DIFF 12/20/2021 CBC w DIFF 07/13/2021 CBC w DIFF 04/16/2021 CBC w DIFF 08/14/2022 CBC w DIFF 11/07/2022 CBC w DIFF 07/21/2024 CBC w DIFF 06/14/2022 CBC w DIFF 12/10/2023 CBC w DIFF 05/07/2021 CBC w DIFF 10/27/2024 SED RATE (ESR) 12/20/2021 SED RATE (ESR) 07/13/2021 SED RATE (ESR) 08/22/2023 FREE T3 (FT3) 08/22/2023 CT CHEST WITH CONTRAST 12/10/2023 CT CHEST WITH CONTRAST 02/08/2025 CT CHEST WITH CONTRAST 07/21/2024 VITAMIN D [...] Intact 10/27/2024 Next Appt Details Provider Name:Yobani Reyes Kay , 07/19/2025 10:00:00 AM, [address] [place] [address] , [place] [address], [place], [address], Insurance Providers Payer Name Payer Address Payer Phone Subscriber Number Group Number Insured Name Patient Relationship to Insured Coverage Start Date Coverage End Date MEDICARE NGS [address] [place] [address] [id number] Dorinda Fischer Self - patient is the insured MED[place] [address] [place], [place] [id number] Dorinda Fischer Self - patient is the insured Medical (General) History Medical History History ICD Code Stage IB [id number] adenocarcinoma of the upper lobe right lung [...]
== END 2025-03-17 10:32 | disposition home or self-care (01) ==
LOC: HO.HPS 09:54
PROVIDERS: PCP Internal Medicine; Visit Provider Hospitalist
DX: J43.2 Centrilobular emphysema (principal); E04.2 Nontoxic multinodular goiter; C34.91 Malignant neoplasm of unspecified part of right bronchus or lung; G89.12 Acute post-thoracotomy pain; R91.8 Other nonspecific abnormal finding of lung field
CPT/HCPCS: 99214; G2211

== ENCOUNTER → 2025-03-17 09:53 | Outpatient (BNVA) | payer MEDICARE, MEDICAID, SELFPAY | PROVIDERS: PCP Internal Medicine; Visit Provider Hospitalist | DX: J43.2 Centrilobular emphysema (principal); R06.02 Shortness of breath; C34.11 Malignant neoplasm of upper lobe, right bronchus or lung; Z87.891 Personal history of nicotine dependence; R91.8 Other nonspecific abnormal finding of lung field; E04.2 Nontoxic multinodular goiter; G89.12 Acute post-thoracotomy pain; Z86.19 Personal history of other infectious and parasitic diseases | CPT/HCPCS: 99212 ==

== ENCOUNTER 2025-03-22 08:24 | Outpatient (AMB) | payer MEDICARE, MEDICAID, SELFPAY ==
--- OUTSIDE RECORDS SUMMARY | 2023-12-10 05:00 | XMS_ITS ---
Author Organization Yobani Villanueva III, MD Address [address] [place] [address] Care Team Providers Care Grain Picker Name Role Phone Tatiana Rhoades MD Primary Care Provider Dr. Yobani Saunders III Unavailable [phone] Oh Otero Unavailable [phone] Allergies Allergen (clinical drug ingredient) Drug/Non Drug Allergy documented on EMR Reaction Allergy Type Onset Date Status erythromycin Erythromycin Unknown Drug Allergy A ctive REASON FOR VISIT Adenocarcinoma of the right lung, Osteoporosis, Emphysema, COPD, Hyperparathyroidism Medications Medication SIG (Take, Route, Frequency, Duration) Notes Start Date End Date Status Ventolin HFA 108 (90 Base) MCG/ACT Inhalation Active Vitamin D3 50 MCG (1999 UT) TAKE 1 CAPSU LE BY MOUTH DAILY Oral Active Calcium Citrate+D3 Petites 200-6.25 MG-MCG Oral Active [facility] Acetaminophen 325 MG TAKE 3 TABLETS BY MOUTH EVERY 6 HOURS Oral Active Gabapentin 300 MG 1 capsule Orally Onc e a day Active Anoro Ellipta 62.5-25 MCG/ACT Inhalation Active [...] Non-User Ex-cigaret te smoker Vital Signs Temperature 97.6 degrees Fahrenheit 12/10/19 24 Blood pressure systolic 131 mm Hg 12/10/19 24 Blood pressure diastolic 69 mm Hg 024 Heart Rate 59 /min 12/10/2023 Height 63 in 12/10/2023 Weight 108 lbs 12/10/2023 BMI 19.13 kg/m2 12/10/2023 Encounters Encounter Location Date Provider Diagnosis Yobani Villanueva III, MD [address] [place] [address] DR [place], [place] [id number] 12/10/2023 Yobani Villanueva Underweight R63.6 ; Malignant neoplasm of upper lobe, right bronchus or lung C34.11 ; Multinodular goiter E04.2 ; Hyperparathyroidism E21.3 ; Thrombocytosis D75.839 ; Pulmonary emphysema, unspecified emphysema type J43.9 ; Chronic obstructive pulmonary disease, unspecified COPD type J44.9 ; Other osteoporosis without current pathological fracture M81.8 and Neurothekeoma D36.10 Assessments Encounter Date Diagnosis (ICD Code) Assessment Notes T reatment Notes Treatment Clinical Notes 12/10/2023 Underweight (ICD-10 - R63.6) She has lost 5 pounds in her body mass index is now underweight. Her nutritional status seems adequate. Her weight will be carefully followed. 12/10/2023 Malignant neoplasm o f upper lobe, right bronchus or lung (ICD-10 - C34.11) There is no sign of relapse over new primary today. Her next office visit and surveillance CT scan were arranged. 12/10/2023 Multinodular goiter (ICD-10 - E04.2) She remains under the care of Dr. Hinojosa change in her medication was necessary today. 12/10/2023 Hyperparathyroidism (ICD-10 - E21.3) Her calcium level has been normal after her parathyroid surgery. 12/10/2023 Thrombocytosis (ICD- 10 - D75.839) This was a reactive process and is no longer present. 12/10/2023 Pulmonary emphysema, unspecified emphysema type (ICD-10 - J43.9) This is a finding on the CT scan. She has stopped smoking and will be observed carefully. 12/10/2023 Chronic obstructive pulmonary disease, unspecified COPD type (ICD-10 - J44.9) She has stopped smoking and she is asymptomatic at this time after the lobectomy. There has been no recent exacerbation of dyspnea. 12/10/2023 Other osteoporosis without current pathological fracture (ICD-10 - M81.8) She has undergone a [place]-thyroidectom y. Her PTH level is now normal. Her calcium level is normal. Her thyroid functions are in the euthyroid range. 12/10/2023 Neurothekeoma (ICD-1 0 - D36.10) The scar in the left neck is well healed and there is no sign of recurrence Plan Of Treatment Medication Medication Name Sig Start Date Stop Date Notes Ventolin HFA 108 (90 Base) MCG/ACT Inhalation Vitamin D3 50 MCG (1999) TAKE 1 CAPSU LE BY MOUTH DAILY Oral Calcium Citrate+D3 Petites 200-6.25 MG-MCG Oral [facility] Acetaminophen 325 MG TAKE 3 TABLETS BY MOUTH EVERY 6 HOURS Oral Gabapentin 300 MG 1 capsule Orally Once a day Anoro Ellipta 62.5-25 MCG/ACT Inhalation Pending Test Test Name Order Date PROFILE, FASTING (COMPREHENSIVE METABOLI C) 12/10/2023 TSH (THYROID STIMULATING HORMONE) 2023 CBC w DIFF 12/10/2023 CT CHEST WITH CONTRAST 12/10/2023 Lipid Panel 12/10/2023 Free T4 (Free Thyroxine) 12/10/2023 Next Appt Details Follow Up: Mid February, on: ov review labs and ct scan chest Provider Name:Yobani Villanueva , 07/19/2025 10:00:00 AM, [address] [place] [address] [address] [place] [address], [place], [phone], Progress Notes * ISABELL Dorinda EDOB:1965 ( 58 yo F)Acc No.[id number]:12/10/2023 Progress Notes Patient: Dorinda Oakes Provider: Josephine Villanueva MD :1965 A ge:58 Y S ex:Female Date:12/10/2023 Address:[address] [place] [address] [address] [place]ETT [id number] Pcp:Tatiana Rhoades MD Subjective: * Chief Complaints: * A denocarcinoma of the right lungOsteoporosisEmphysemaCOPDHyperparathyroidism * HPI: C OVID-19 Screening: insurance changed, medicare a and b, confusing, 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 She returns for ongoing follow-up in remission from an adenocarcinoma of the right upper lobe of the lung treated with surgery followed by chemotherapy. She is known to have emphysema and COPD and is no longer smoking tobacco. Her breathing has been comfortable. Appetite is good. Her weight is stable. The most recent chest x-ray in August 2023 showed no sign of recurrence. Scarring in the right upper lobe was stable. She is due for another CT scan in February. Questions H ave you experienced fever, chills, [...] N o * ROS: G eneral/Constitutional: pain o nly normal aches and pains. C hills d enies.?Fatigue a dmits. F ever d enies. E NT: Decreased hearing d enies. R espiratory: Cough d enies. C ardiovascular: Chest pain with exertion d enies. D yspnea on exertion?with prolonged activity. S hortness of breath t hat is moderate. G astrointestinal: Constipation o ccasional. D ecreased appetite d enies. D iarrhea d enies. H eartburn d enies. N ausea d enies. R ectal bleeding d enies. V omiting d enies. H ematology: bruising [...] S he was born and raised in [facility]. 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 She recently stopped smoking. She does not drink alcohol or take drugs. She is not currently working as she is recovering from the thoracotomy. Her two sons are grown and she lives alone. Her of cirrhosis of the liver at [facility] awaiting a transplant on January 31, 2021 one week before her lung cancer surgery. She continues to grieve. Josias is oldest and works at [employer] engaged to [employer]. Paula works at [employer] making [employer] for [employer], [employer] with Kitty DUFF. * Medications: T akingCalcium Citrate+D3 Petites 200-6.25 MG-MCG Tablet Oral Vitamin D3 50 MCG (1999 UT) Capsule TAKE 1 CAPSULE BY MOUTH DAILY Oral Ventolin HFA 108 (90 Base) MCG/ACT Aerosol Solution Inhalation Anoro Ellipta 62.5-25 MCG/ACT Aerosol Powder Breath Activated Inhalation Gabapentin 300 MG Capsule 1 capsule Orally Once a dayCVS Acetaminophen 325 MG Tablet TAKE 3 TABLETS BY MOUTH EVERY 6 HOURS Oral Medication List reviewed and reconciled with the patientTaking Calcium Citrate+D3 Petites 200-6.25 MG-MCG Tablet Oral Taking Vitamin D3 50 MCG (1999 UT) Capsule TAKE 1 CAPSULE BY MOUTH DAILY Oral Taking Ventolin HFA 108 (90 Base) MCG/ACT Aerosol Solution Inhalation Taking Anoro Ellipta 62.5-25 MCG/ACT Aerosol Powder Breath Activated Inhalation Taking Gabapentin 300 MG Capsule 1 capsule Orally Once a dayTaking CVS Acetaminophen 325 MG Tablet TAKE 3 TABLETS BY MOUTH EVERY 6 HOURS Oral Medication List reviewed and reconciled with the patient * Allergies: E rythromycin: Allergyno[Allergies Verified] Objective: * Vitals: H t: 63, Wt: 108, BMI:19.13, BP: 131/69, HR: 59, Temp: 97.6, Wt-k.99. * P ast Orders: Lab:[facility]. Nguyen hernandez Fast * Order Date 12/03/2023 08/29/2023 07/22/2023 Sodium 143 (Ref Range: 135-145 mmol/L) 143 (Ref Range: 135-145 mmol/L) 142 (Ref Range: 135-145 mmol/L) Bilirubin Total 0.3 (Ref Range: 0.0-1.0 mg/dL) 0.3 (Ref Range: 0.0-1.0 mg/dL) 0.3 (Ref Range: 0.0-1.0 mg/dL) Aspartate Amino Transferase 23 (Ref Range: 5-31 U/L) 21 (Ref Range: 5-31 U/L) 17 (Ref Range: 5-31 U/L) Alanine Aminotransferase 19 (Ref Range: 0-31 U/L) 19 (Ref Range: 0-31 U/L) 13 (Ref Range: 0-31 U/L) Total Protein 6.8 (Ref Range: 6.5-8.0 g/dL) 7.2 (Ref Range: 6.5-8.0 g/dL) 7.0 (Ref Range: 6.5-8.0 g/dL) Albumin Level 4.1 (Ref Range: 3.5-5.0 g/dL) 4.2 (Ref Range: 3.5-5.0 g/dL) 4.1 (Ref Range: 3.5-5.0 g/dL) Alkaline Phosphatase 72 (Ref Range: 39-117 U/L) 70 (Ref Range: 39-117 U/L) 68 (Ref Range: 39-117 U/L) Potassium 4.8 (Ref Range: 3.3-5.1 mmol/L) 4.4 (Ref Range: 3.3-5.1 mmol/L) 4.4 (Ref Range: 3.3-5.1 mmol/L) Chloride 110 H (Ref Range: 96-108 mmol/L) 107 (Ref Range: 96-108 mmol/L) 107 (Ref Range: 96-108 mmol/L) Carbon Dioxide 26 (Ref Range: 22-29 mmol/L) 28 (Ref Range: 22-29 mmol/L) 28 (Ref Range: 22-29 mmol/L) Anion Gap 12 (Ref Range: 12-20) 12 (Ref Range: 12-20) 11 L (Ref Range: 12-20) Blood Urea Nitrogen 7 L (Ref Range: 9-16 mg/dL) 10 (Ref Range: 9-16 mg/dL) 10 (Ref Range: 9-16 mg/dL) Creatinine 0.83 (Ref Range: 0.5-1.4 mg/dL) 0.81 (Ref Range: 0.5-1.4 mg/dL) 0.79 (Ref Range: 0.5-1.4 mg/dL) Estimated Glomerular Filt Rate > 60 > 60 > 60 Glucose Fasting 89 (Ref Range: 60-99 mg/dL) 98 (Ref Range: 60-99 mg/dL) 85 (Ref Range: 60-99 mg/dL) Calcium 9.1 (Ref Range: 8.4-10.2 mg/dL) 9.3 (Ref Range: 8.4-10.2 mg/dL) 8.9 (Ref Range: 8.4-10.2 mg/dL) * Lab:Complete Blood Count Aut o Diff * Order Date 12/03/2023 08/29/2023 07/22/2023 White Blood Count 9.9 (Ref Range: 4.8-10.8 X10*3/uL) 9.0 (Ref Range: 4.8-10.8 X10*3/uL) 8.7 (Ref Range: 4.8-10.8 X10*3/uL) Red Blood Count 4.57 (Ref Range: 4.20-5.50 X10*6/uL) 4.58 (Ref Range: 4.20-5.50 X10*6/uL) 4.53 (Ref Range: 4.20-5.50 X10*6/uL) Hemoglobin 14.1 (Ref Range: 12.0-16.0 g/dl) 14.0 (Ref Range: 12.0-16.0 g/dl) 13.7 (Ref Range: 12.0-16.0 g/dl) Hematocrit 42.2 (Ref Range: 37.0-47.0 %) 42.5 (Ref Range: 37.0-47.0 %) 41.3 (Ref Range: 37.0-47.0 %) Mean Corpuscular Volume 92.3 (Ref Range: 80.0-98.0 fL) 92.8 (Ref Range: 80.0-98.0 fL) 91.2 (Ref Range: 80.0-98.0 fL) Mean Corpuscular Hemoglobin 30.9 (Ref Range: 27.0-33.0 pg) 30.6 (Ref Range: 27.0-33.0 pg) 30.2 (Ref Range: 27.0-33.0 pg) Mean Corpuscular HGB Conc 33.4 (Ref Range: 31.0-35.0 g/dl) 32.9 (Ref Range: 31.0-35.0 g/dl) 33.2 (Ref Range: 31.0-35.0 g/dl) Red Cell Distribution Width 13.8 (Ref Range: 11.0-16.0 %) 14.0 (Ref Range: 11.0-16.0 %) 13.8 (Ref Range: 11.0-16.0 %) Platelet Count 343 (Ref Range: 160-400 X10*3/uL) 338 (Ref Range: 160-400 X10*3/uL) 344 (Ref Range: 160-400 X10*3/uL) Mean Platelet Volume 10.8 (Ref Range: 9.4-12.3 fL) 11.1 (Ref Range: 9.4-12.3 fL) 10.8 (Ref Range: 9.4-12.3 fL) Neutrophils Percent Auto 53.8 (Ref Range: 45-73 %) 60.2 (Ref Range: 45-73 %) 47.5 (Ref Range: 45-73 %) Imm Gran Pct Auto 0.4 (Ref Range: 0.0-0.4 %) 0.3 (Ref Range: 0.0-0.4 %) 0.2 (Ref Range: 0.0-0.4 %) Lymphocytes Percent Auto 34.8 (Ref Range: 20-40 %) 29.8 (Ref Range: 20-40 %) 40.7 H (Ref Range: 20-40 %) Monocytes Percent Auto 7.7 (Ref Range: 2-11 %) 6.2 (Ref Range: 2-11 %) 8.4 (Ref Range: 2-11 %) Eosinophils Percent Auto 2.7 (Ref Range: 0-4 %) 2.9 (Ref Range: 0-4 %) 2.3 (Ref Range: 0-4 %) Basophils Percent Auto 0.6 (Ref Range: 0-2 %) 0.6 (Ref Range: 0-2 %) 0.9 (Ref Range: 0-2 %) NRBC Pct Auto 0.0 (Ref Range: 0.0-0.2 /100WBC) 0.0 (Ref Range: 0.0-0.2 /100WBC) 0.0 (Ref Range: 0.0-0.2 /100WBC) Neutrophils Absolute Auto 5.3 (Ref Range: 2.0-8.3 x10*3/uL) 5.5 (Ref Range: 2.0-8.3 x10*3/uL) 4.2 (Ref Range: 2.0-8.3 x10*3/uL) Imm Gran Abs Auto 0.04 H (Ref Range: 0.00-0.03 X10*3/uL) 0.03 (Ref Range: 0.00-0.03 X10*3/uL) 0.02 (Ref Range: 0.00-0.03 X10*3/uL) Lymphocytes Absolute Auto 3.4 (Ref Range: 1.2-4.9 X10*3/uL) 2.7 (Ref Range: 1.2-4.9 X10*3/uL) 3.6 (Ref Range: 1.2-4.9 X10*3/uL) Monocytes Absolute Auto 0.8 (Ref Range: 0.1-1.2 X10*3/uL) 0.6 (Ref Range: 0.1-1.2 X10*3/uL) 0.7 (Ref Range: 0.1-1.2 X10*3/uL) Eosinophils Absolute Auto 0.3 (Ref Range: 0.0-0.4 X10*3/uL) 0.3 (Ref Range: 0.0-0.4 X10*3/uL) 0.2 (Ref Range: 0.0-0.4 X10*3/uL) Basophils Absolute Auto 0.1 (Ref Range: 0.0-0.2 X10*3/uL) 0.1 (Ref Range: 0.0-0.2 X10*3/uL) 0.1 (Ref Range: 0.0-0.2 X10*3/uL) NRBC Abs Auto 0.000 (Ref Range: 0.0-0.012 X10*3/uL) 0.000 (Ref Range: 0.0-0.012 X10*3/uL) 0.000 (Ref Range: 0.0-0.012 X10*3/uL) * Lab:Lipid Panel * Order Date 12/03/2023 08/22/2023 07/22/2023 Triglycerides 108 (Ref Range: <150 mg/dL) 117 (Ref Range: <150 mg/dL) 92 (Ref Range: <150 mg/dL) Cholesterol 233 H (Ref Range: <200 mg/dL) 254 H (Ref Range: <200 mg/dL) 246 H (Ref Range: <200 mg/dL) LDL Cholesterol Calculated 134 H (Ref Range: <100 mg/dL) 148 H (Ref Range: <100 mg/dL) 140 H (Ref Range: <100 mg/dL) HDL Cholesterol 78 (Ref Range: >40 mg/dL) 83 (Ref Range: >40 mg/dL) 88 (Ref Range: >40 mg/dL) * Examination: G eneral Examination: GENERAL APPEARANCE: p leasant, well nourished, well developed, in no acute distress, calm and relaxed , underweight , woman. HEAD: a traumatic, normocephalic. EYES: [...] Assessment: * Assessment: 1. U nderweight - R63.6 (Primary), She has lost 5 pounds in her body mass index is now underweight. Her nutritional status seems adequate. Her weight will be carefully followed. 2 . M alignant neoplasm of upper lobe, right bronchus or lung - C34.11, There is no sign of relapse over new primary today. Her next office visit and surveillance CT scan were arranged. 3 . M ultinodular goiter - E04.2, She remains under the care of Dr. Hinojosa change in her medication was necessary today. 4 . H yperparathyroidism - E21.3, Her calcium level has been normal after her parathyroid surgery. 5 . T hrombocytosis - D75.839, This was a reactive process and is no longer present. 6 . P ulmonary emphysema, unspecified emphysema [...] thyroid functions are in the euthyroid range. 9 . N eurothekeoma - D36.10, The scar in the left neck is well healed and there is no sign of recurrence Plan: * Treatment: 2. M alignant neoplasm of upper lobe, right bronchus or lung L AB: PROFILE, FASTING (COMPREHENSIVE METABOLIC) L AB: TSH (THYROID STIMULATING HORMONE) L AB: CBC w DIFF L AB: Lipid Panel L AB: Free T4 (Free Thyroxine) I maging: CT CHEST WITH CONTRAST 3. M ultinodular goiter L AB: PROFILE, FASTING (COMPREHENSIVE METABOLIC) L AB: TSH (THYROID STIMULATING HORMONE) L AB: CBC w DIFF L AB: Lipid Panel L AB: Free T4 (Free Thyroxine) 4. H yperparathyroidism L AB: PROFILE, FASTING (COMPREHENSIVE METABOLIC) L AB: TSH (THYROID STIMULATING HORMONE) L AB: CBC w DIFF L AB: Lipid Panel L AB: Free T4 (Free Thyroxine) 5. T hrombocytosis L AB: PROFILE, FASTING (COMPREHENSIVE METABOLIC) L AB: TSH (THYROID STIMULATING HORMONE) L AB: CBC w DIFF L AB: Lipid Panel L AB: Free T4 (Free Thyroxine) * Procedure Codes: * Preventive Medicine: Counseling: C are goal follow-up plan: Counseling for abnormal BMI given Y es Below Normal BMI Follow-up D ietary education for weight gain S moking/Tobacco Use Patient counseled on the dangers of tobacco use and urged to quit. 0 12/10/2023 COPD Care Plan: P atient Lifestyle Goals B e able to be more active with friends and family, Reduce number of ED and hospitalizations, Relieve symptoms and improve quality of life. T reatment Goals E at a nutritious diet and increase water consumption to 6-8 glasses a day, Eat 4- 5 small meals throughout the day, Exercise to help whole body, including lungs. B arriers n o barriers. S elf-Managment Goals G et an air purifier for the rooms you are in the most, Eat a healthy diet, Exercise at least 3xs per week for at least 30 mins.? * Follow Up: M id February (Reason: ov review labs and ct scan chest) * Images: * Sign off status: Completed true * Provider: Josephine Villanueva MD Date: 0 12/10/2023 Generated for Essence berrios/Siri/Sussyransmitting on: 05/22/2024 08:30 AM EST History and Physical Notes * HPI (History of Present Illness) Category Sub-Category Detail Notes COVID-19 Screening Questions Have you had any new onset fever, chills, cough, congestion, sore throat, shortness of breath, muscle aches?: No Have you been exposed to the virus with n the last 10 days?: No Have you travelled internationally in [facility] last 10 days?: No Have you been exposed to COVID-19 in the past?: No Examination Category Sub-Category Detail Notes General Examination GENERAL APPEARANCE: pleasant , well nourished, well developed, in no acute distress, calm and relaxed , underweight , woman HEAD: atraumatic, normocep halic EYES: [...]
--- OUTSIDE RECORDS SUMMARY | 2024-03-23 05:45 | XMS_ITS ---
Author Organization Yobani Villanueva III, MD Address [address] [address] [place] [address] Care Team Providers Care Supermarket Manager Name Role Phone Tatiana Rhoades MD Primary Care Provider Dr. Yobani Saunders III Unavailable Oh Otero Unavailable [phone] Allergies Allergen (clinical drug ingredient) Drug/Non Drug [...] Encounters Encounter Location Date Provider Diagnosis Yobani Villanueav III, MD [address] [place] [address] [address] CORNE[address] [place], [place] [address] 03/23/2024 Yobani Villanueva Underweight R63.6 ; Malignant [...] Provider Name:Yobani Villanueva , 07/19/2025 10:00:00 AM, [address] [facility] [place], [place] [address], [place], [address], Progress Notes * Dorinda FISCHER EDOB:1965 ( 58 yo F)Acc No.[id number]:03/23/2024 Progress Notes Patient: Dorinda SCHMITT Provider: Josephine Villanueva MD :1965 A ge:58 Y S ex:Female Date:03/23/2024 Address: [address] [id number] Pcp:Tatiana Rhoades MD Subjective: * Chief Complaints: [...] and sluggishness. She has been seeing an ceo [place] for this issue. The patient also reported having multiple spots on her skin, which she is concerned might be skin cancer. She is scheduled to see a newspaper publisher for a full body examination. * ROS: [...] S he was born and raised in [facility]. 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 She recently stopped smoking. She does not drink alcohol or take drugs. She is not currently working as she is recovering from the thoracotomy. Her two sons are grown and she lives alone. Her of cirrhosis of the liver at [facility] awaiting a transplant on January 31, 2021 one week before her lung cancer surgery. She continues to grieve. Josias is oldest and works at [employer], engaged to [employer]. Viktor works at [employer] making [employer] for [employer] with Kitty DUFF. * Medications: T akingCalcium [...] 83 (Ref Range: >40 mg/dL) * Lab:Comprehensive [place]. Pane l Fast * Collection Date 03/09/2024 [...] Date: 05/23/2023 Generated for Essence berrios/Siri/eTransmitting on: 05/22/2024 08:32 AM EST History and Physical Notes * HPI (History of Present Illness) Category Sub-Category Detail Notes COVID-19 Screening Questions Have you had any new onset fever, chills, cough, congestion, sore throat, shortness of breath, muscle aches?: No Have you been exposed to the virus withi n the last 10 days?: No Have you travelled internationally in [facility] last 10 days?: No Have you been [...]
--- OUTSIDE RECORDS SUMMARY | 2024-07-21 05:30 | XMS_ITS ---
Author Organization Yobani Villanueva III, MD Address [address] [place] [address] Care Team Providers Care Botany Professor Name Role Phone Tatiana Rhoades MD Primary Care Provider Dr. Yobani Saunders III Unavailable Oh Otero Unavailable [phone] Allergies Allergen (clinical drug ingredient) Drug/Non Drug [...] Status W/U Status Risk Notes Problem Osteoporosis (42456111) Osteoporosis (M81.0) Active confirmed She has significant [...] Date Provider Diagnosis Yobani Villanueva III, MD [address] [place] [address] [place] [address] 07/21/2024 Yobani Villanueva Underweight R63.6 ; Malignant [...] She is under the care of an pantry goods worker. This problem has been addressed and she [...] Name:Yobani Reyes Kay , 07/19/2025 10:00:00 AM, [address] [place] [address] DR, [place] [address], [place], [address], Progress Notes * Dorinda FISCHER EDOB:1965 ( 59 yo F)Acc No.[id number]:07/21/2024 Progress Notes Patient: Dorinda SCHMITT Provider: Josephine Villanueva MD :1965 A ge:59 Y S ex:Female Date:07/21/2024 Address:[address] [place] [address] [facility] [id number] Pcp:Tatiana Rhoades MD Subjective: * Chief Complaints: [...] S he was born and raised in [facility] [place] [facility]. She has been working in a [...] grieve. Josias is oldest and works at [employer], engaged to [employer]. Viktor works at [employer] making [employer] for [employer], [employer] with Kitty DUFF. * Medications: T akingCalcium [...] She is under the care of an pantry goods worker. This problem has been addressed and she [...] 07/21/2024 Generated for Essence berrios/Siri/eTransmitting on: 1 05/22/2024 08:31 AM EST History and Physical Notes * [...]
--- OUTSIDE RECORDS SUMMARY | 2024-09-08 05:13 | XMS_ITS ---
Author Organization Yobani Villanueva III, MD Address [address] [place] [address] [place] [address] Care Team Providers Care Firmware Test Engineer Name Role Phone Tatiana Rhoades MD Primary Care Provider Dr. Yobani Saunders III Unavailable [phone] Oh Otero Unavailable [phone] REASON FOR VISIT Labs for CT Contrast Social History Sex Assigned At : Social History Observation Description Sex Assigned At Female Encounters Encounter Location Date Provider Diagnosis Yobani Villanueva III, MD [address] [place] [address] [place] [address] 09/08/2024 Yobani Villanueva Underweight R63.6 ; Chronic obstructive pulmonary disease, unspecified COPD type J44.9 and Encounter for preprocedural laboratory examination Z01.812 Assessments Encounter Date Diagnosis (ICD Code) Assessment Notes Treat ment Notes Treatment Clinical Notes 09/08/2024 Underweight (ICD-10 - R63.6) 09/08/2024 Chronic obstructive pulmonary disease, unspecified COPD type (ICD-10 - J44.9) 09/08/2024 Encounter for preprocedural laboratory examination (ICD-10 - Z01.812) Plan Of Treatment Pending Test Test Name Order Date BUN 09/08/2024 Creatinine 09/08/2024 Next Appt Details Provider Name:Yobani Villanueva , 07/19/2025 10:00:00 AM, [address] [place] [address] [place], [address], Progress Notes * Dorinda FISCHER EDOB:1965 ( 59 yo F)Acc No.[id number]:09/08/2024 Patient: Dorinda SCHMITT :1965 A ge:59 Y S ex:Female Address:[address] [place] [address], [phone] Subjective: * Chief Complaints: * L abs for CT Contrast * Medical History: * Surgical History: * Hospitalization/Major Diagno stic Procedure: * Medications: Objective: * Vitals: * Physical Examination: Assessment: * Assessment: 1. U nderweight - R63.6 2 . C hronic obstructive pulmonary disease, unspecified COPD type - J44.9 3 . E ncounter for preprocedural laboratory examination - Z01.812 Plan: * Treatment: 2. C hronic obstructive pulmonary disease, unspecified COPD type L AB: BUN L AB: Creatinine 3. E ncounter for preprocedural laboratory examination L AB: BUN L AB: Creatinine * Procedure Codes: * true * Date: Generated for Essence berrios/Siri/eTdeepasmitting on: 05/22/2024 08:31 AM EST
--- OUTSIDE RECORDS SUMMARY | 2024-10-27 06:00 | XMS_ITS ---
Author Organization Yobani Villanueva III, MD Address [address] [place] [address] [place] [address] Care Team Providers Care Customer Account Manager Name Role Phone Tatiana Rhoades MD Primary Care Provider Dr. Yobani Saunders III Unavailable Oh Otero Unavailable [phone] Allergies Allergen (clinical drug ingredient) Drug/Non Drug [...] Problem Status W/U Status Risk Notes Problem [id number] Mixed hyperlipidemia (E78.2) Active confirmed She asked [...] Provider Diagnosis Yobani Villanueva III, MD [address] [place] [address] [place] [address] 10/27/2024 Yobani Villanueva Underweight R63.6 ; Malignant [...] Provider Name:Yobani Villanueva , 07/19/2025 10:00:00 AM, [address] [place] [address] [address] [address], [place], [address], Progress Notes * Dorinda FISCHER EDOB:1965 ( 59 yo F)Acc No.[id number]:10/27/2024 Progress Notes Patient: Dali SCHMITTh Amy Provider: [...] S he was born and raised in [facility]. 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 She recently stopped smoking. She does not drink alcohol or take drugs. She is not currently working as she is recovering from the thoracotomy. Her two sons are grown and she lives alone. Her of cirrhosis of the liver at [facility] awaiting a transplant on January 31, 2021 one week before her lung cancer surgery. She continues to grieve. Josias is oldest and works at [employer], engaged to [email or web address]. Viktor works at [employer] making [employer] for [employer], [employer] with [employer]. * Medications: T akingCalcium [...] 78 (Ref Range: >40 mg/dL) * Lab:Comprehensive [place]. Pane l Fast * Collection Date 10/25/2024 [...] 0 10/27/2024 Generated for Yuei yash/Siri/eTransmitting on: 05/22/2024 08:32 AM EST History and [...]
--- OUTSIDE RECORDS SUMMARY | 2025-01-27 07:15 | XMS_ITS ---
Author Organization Yobani Villanueva III, MD Address [address] [place] [address] [place] [address] Care Team Providers Care Cardiac Nurse Name Role Phone Tatiana Rhoades MD Primary Care Provider Dr. Yobani Saunders III Unavailable Oh Otero Unavailable [phone] REASON FOR VISIT FOLLOW UP Social History Sex Assigned At : Social History Observation Description Sex Assigned At Female Encounters Encounter Location Date Provider Diagnosis Yobani Villanueva III, MD [address] [place] [address] [place] [address] 01/27/2025 Yobani Villanueva Plan Of Treatment Next Appt Details Provider Name:Yobani Villanueva , 07/19/2025 10:00:00 AM, [address] [place] [address] [place], [address], Progress Notes * ISABELLDorinda Reyes EDOB:1965 ( 59 yo F)Acc No.[id number]:01/27/2025 Progress Notes Patient: Dorinda SCHMITT Provider: Josephine Villanueva MD :1965 A ge:59 Y S ex:Female Date:01/27/2025 Address: [id number] Pcp:Tatiana Rhoades MD Subjective: * Chief Complaints: * 1 . FOLLOW UP. * Medical History: Objective: * Vitals: Assessment: Plan: * Treatment: * Images: * The named appointment provid er may or may not be the originator of this progress note, and it is not deemed complete until electronically signed by the appointment provider. Sign off status: Pending * Provider: Josephine Villanueva MD Date: 0 01/27/2025 Generated for Essence berrios/Siri/Mounika on: 05/22/2024 08:31 AM EST
--- OUTSIDE RECORDS SUMMARY | 2025-02-08 04:30 | XMS_ITS ---
Author Organization Yobani Villanueva III, MD Address [address] [place] [address] Care Team Providers Care Grape Grower Name Role Phone Tatiana Rhoades MD Primary Care Provider Dr. Yobani Saunders III Unavailable Oh Otero Unavailable [phone] Allergies Allergen (clinical drug ingredient) Drug/Non Drug [...] Date Provider Diagnosis Yobani Villanueva III, MD [address] [place] [address] [place] [address] 02/08/2025 Yobani Villanueva Underweight R63.6 ; Malignant [...] Provider Name:Yobani Villanueva , 07/19/2025 10:00:00 AM, [address] [place] [address] , [address], [address], Progress Notes * Dorinda FISCHER EDOB:1965 ( 59 yo F)Acc No.[id number]:02/08/2025 Progress Notes Patient: Dorinda SCHMITT Provider: Josephine Villanueva MD :1965 A ge:59 Y S ex:Female Date:02/08/2025 Address:[address] [place], [place] [id number] Pcp:Tatiana Rhoades MD Subjective: * Chief Complaints: [...] that in April of this year at [facility]. She will return to this office [...] S he was born and raised in [facility]. She has been working in a [...] grieve. Josias is oldest and works at [employer], engaged to [employer]. Viktor works at [employer] making [employer] for [employer], [employer] with Kitty DUFF. * Medications: T akingCalcium [...] 0 02/08/2025 Generated for Printi ng/Faxing/eTransmitting on: 05/22/2024 08:32 AM EST History and [...]
--- OUTSIDE RECORDS SUMMARY | 2025-03-22 08:31 | XMS_ITS | Patient Health Record ---
Author Organization [facility] Address [address] [place] [address] Care Team Providers Care Senior Telecommunications Specialist Name Role Phone Verona CHEN, Tatiana Primary Care Provider Dakota Schneider Jr Unavailable Reason For Referral No Information Medications Medication SIG (Take, Route, Frequency, Duration) Notes Start Date End Date Status Multivitamin Adults - as directed Orally Active Vitamin D3 49948 UNIT TAKE ONE CAPSULE B Y MOUTH [...] Status Risk Notes Problem Colon cancer screening (626410176) Colon cancer screening (Z12.11) Active confirmed Problem Pre-procedure evaluation check (018812506) Encounter for other preprocedural examination (Z01.818) Active confirmed Plan Of Treatment Future Test Test Name Order Date COLONOSCOPY 09/03/2018 Insurance Providers Payer Name Payer Address Payer Phone Subscriber Number Group Number Insured Name Patient Relationship to Insured Coverage Start Date Coverage End Date [facility] [address] [place], [place] [phone] [id number] Self - patient is the insured Medical (General) History Medical History History ICD Code Denies VA,DM,CVA,Lung disease,renal dise ase goiter
--- OUTSIDE RECORDS SUMMARY | 2025-03-22 08:31 | XMS_ITS | Clinical Summary ---
Author Organization [facility] Address [address] [place] [phone] Phone Care Team Providers Care Supervisor Of Officials Name Role Phone Tatiana Rhoades MD Primary [...] patient's age to complete this topic IPV VACCINES Aged Out No longer eligi ble based on patient's age to complete this topic MENINGOCOCCAL VACCINES (ACWY) Aged Out No longer eligible based on patient's age to complete this topic MENINGOCOCCAL VACCINES (B) Aged Out N o longer eligible based on patient's age to complete this topic Medical Devices Not on file Insurance [facility] [facility] Care Teams Supervisor Of Officials Relationship Specialty Start Date End Date Tatiana Rhoades MD [facility] [address] [place] [address] PCP - General Internal Medicine 04/23/23 Additional Source Comments The information contained in this document represents components of the legal health record. It is not the complete legal health record.[facility]
--- OUTSIDE RECORDS SUMMARY | 2025-03-22 08:32 | XMS_ITS | Clinical Summary ---
Author Organization [facility] Address [address] [place] [address] Care Team Providers Care Program Administrator Name Role Phone Tatiana Rhoades MD Primary [...] Screening 04/13/2022 Depression Screening 05/12/2024 COVID-19 Vaccine (1 - 2024-2 6 season) 2025 Influenza Vaccine (#1) 2025 RSV [...] age to complete this topic Care Teams Program Administrator Relationship Specialty Start Date End Date Tatiana Rhoades MD [address] [place] [address] PCP - General Internal Medicine 08/28/21
--- OUTSIDE RECORDS SUMMARY | 2025-03-22 08:32 | XMS_ITS | Patient Health Record ---
Author Organization Yobani Villanueva III, MD Address [address] [place] [address] [address] [place] [address] Care Team Providers Care Learning Consultant Name Role Phone Verona CHEN, Tatiana Primary Care Provider Dr. Yobani Saunders III Unavailable [phone] Unavailable [phone] Allergies Allergen (clinical drug ingredient) Drug/Non Drug Allergy documented on EMR Reaction Allergy Type Onset Date Status erythromycin Erythromycin Unknown Drug Allergy A ctive Results Component Value Reference Range Notes Blood Urea Nitrogen Reviewed date:10/05/2024 03:30:37 PM Interpretation: Performing Lab:[facility], [address] [place] [phone] Notes/Report: Blood Urea Nitrogen 8 9-16 mg/dL Creatinine Reviewed date:10/05/2024 03:30:37 PM Interpretation: Performing Lab:[facility], [address] [place] [phone] Notes/Report: Creatinine 0.73 0.5-1.4 mg/dL Estimated Glomerular Filt Rate > 60 Chronic Kidney Disease: Estimated GFR < 60 mL/min/1.73m2 Severe Kidney Disease: Estimated GFR < 15 mL/min/1.73m2 CT chest w con Reviewed date:10/27/2024 11:07:09 AM Interpretation: Performing Lab: Notes/Report: [address] [address] [address] Scan Report Signed Patient: Dorinda Fischer MR#: [id number] : 1965 Acct:[id number] Age/Sex: 59 / F ADM Date: 10/13/24 Loc: HO.CT Attending Dr: Yoabni Villanueva MD Ordering Physician: Yobani Villanueva MD Date of Service: 10/13/24 Procedure(s): CT chest w IV con Accession Number(s): [id number] cc: Yobani Villanueva MD; Tatiana Rhoades MD Report Number: [id number]: Total DLP = 61.00 mGy-cm CLINICAL HISTORY: NEOPLASM OF UPPER LOBE CT chest with contrast Comparison: CT/SR - CT CHEST W IV CON - 03/15/24 10:[address]/REG/MN/SR - CT CHEST W IV CON - [...] OV> 10/15/24 0958 DD/ 6 TD/TT: 10/15/24956 Mobile Lounge Driver Or Operator: [place] [id number] CT Scan Report Signed Patient: Dorinda Fischer MR#: [id number] : 1965 Acct:[id number] Age/Sex: 59 / F ADM Date: 10/13/24 Loc: HO.CT Attending Dr: Yobani Villanueva MD Ordering Physician: Yobani Villanueva MD Date of Service: 10/13/24 Procedure(s): CT david st w IV con Accession Number(s): [id number] cc: Yobani Villanueva MD; Tatiana Rhoades MD Report Number: [id number]: Total DLP = 61.00 mGy-cm CLINICAL HISTORY: NEOPLASM OF UPPER LOBE CT chest with contrast Comparison: CT/SR - CT CHEST W I V CON - 03/15/24 10:[address]/REG/MN/SR - CT CHEST W IV CON - [...] in OV> 10/15/24957 DD/ 6 TD/TT: 10/15/24956 Mobile Lounge Driver Or Operator: Complete Blood Count Auto Di ff Reviewed date:10/27/2024 11:07:08 AM Interpretation: Performing Lab:[facility], [address] [place] [phone] Notes/Report: White Blood Count 11.5 4.8-10.8 X10*3/uL [...] NRBC Abs Auto 0.000 0.0-0.012 X10*3/uL Comprehensive Warren. Panel Fa st Reviewed date:10/27/2024 11:07:08 AM Interpretation: Performing Lab:[facility], [address] [place] [phone] Notes/Report: Sodium 142 135-145 mmol/L Potassium 4.3 [...] Panel Reviewed date:10/27/2024 11:07:09 AM Interpretation: Performing Lab:[facility], [address] [place] [phone] Notes/Report: Triglycerides 94 <150 mg/dL Desirable Triglyceride: [...] Total Reviewed date:10/27/2024 11:07:09 AM Interpretation: Performing Lab:[facility], [address] [place] [phone] Notes/Report: Vitamin D 25-OH Total 149.0 >30 [...] Intact Reviewed date:10/27/2024 11:07:09 AM Interpretation: Performing Lab:[facility], [address] [place] [address], [place] [address] Notes/Report: Parathyroid Hormone Intact 38.8 8.7-77.1 pg/mL [...] Problem Status W/U Status Risk Notes Problem 5277223 Former smoker (Z87.891) Active confirmed She is highly motivated not to smoke. We discussed strategies for abstinence in times of stress and illness likely present. Problem 658214561 Underweight (R63.6) Active confirmed Her weight is stable with a body mass index of 18. Nutrition is not an issue. She appears to be euthyroid. Problem Malignant neoplasm of upper lobe, bronchus or lung (361919997) Malignant neoplasm of upper lobe, right bronchus or lung (C34.11) Active confirmed There is no sign of recurrent disease or of her new primary. A repeat surveillance CT scan will be done in April of this year. I will see her 6 month intervals. Problem 618970452 Mixed hyperlipid emia (E78.2) Active confirmed She [...] with primary care in the past. Problem 69387255 Other osteoporos is without current pathological fracture (M81.8) Active confirmed She has undergone a charlotte-thyroidec holly. Her PTH level is now normal. Her calcium level is normal. Her thyroid functions are in the euthyroid range. Problem 90016962 Chronic obstruct phani pulmonary disease, unspecified COPD type (J44.9) Active confirmed She has stopped smoking and she is asymptomatic at this time after the lobectomy. There has been no recent exacerbation of dyspnea. Problem Osteoporosis (82762040) Osteoporosis (M81.0) Active confirmed She has significant osteoporosis and remained under the care of endocrinology. She has been compliant with her medications. Problem 87519362 Hyperparathyroid ism (E21.3) Active confirmed She has been surgically treated. Her calcium has returned to normal. Problem 25640002 Pulmonary emphys john, unspecified emphysema type (J43.9) Active confirmed She is comfortable at rest and wwith most activities. She becomes dyspneic with prolonged exertion but is no longer smoking cigarettes. Problem 999737893 Multinodular goi ter (E04.2) Active confirmed She remains under the care of endocrinology and is up-to-date with her visits. She is compliant with her therapist. Problem 542473840 Neurothekeoma (D36.10) Active confirmed The scar in [...] Date Provider Diagnosis Yobani Villanueva III, MD [address] [place] [address] [place] [address] 03/23/2024 Yobani Villanueva Underweight R63.6 ; Malignant neoplasm of upper lobe, right bronchus or lung C34.11 ; Hyperparathyroidism E21.3 ; Chronic obstructive pulmonary disease, unspecified COPD type J44.9 ; Pulmonary emphysema, unspecified emphysema type J43.9 and Former smoker Z87.891 Yobani Villanueva III, MD [address] [place] [address] [place] [address] 07/21/2024 Yobani Villanueva Underweight R63.6 ; Malignant neoplasm of upper lobe, right bronchus or lung C34.11 ; Hyperparathyroidism E21.3 ; Osteoporosis M81.0 and Former smoker Z87.891 Yobani Villanueva III, MD [address] [place] [address] [place] [address] 10/27/2024 Yobani Villanueva Underweight R63.6 ; Malignant neoplasm of upper lobe, right bronchus or lung C34.11 ; Multinodular goiter E04.2 ; Hyperparathyroidism E21.3 ; Osteoporosis M81.0 ; Former smoker Z87.891 ; Pulmonary emphysema, unspecified emphysema type J43.9 ; Chronic obstructive pulmonary disease, unspecified COPD type J44.9 and Mixed hyperlipidemia E78.2 Yobani Villanueva III, MD [address] [place] [address] [place] [address] 02/08/2025 Yobani Villanueva Underweight R63.6 ; Malignant neoplasm of upper lobe, right bronchus or lung C34.11 ; Pulmonary emphysema, unspecified emphysema type J43.9 ; Former smoker Z87.891 ; Multinodular goiter E04.2 ; Chronic obstructive pulmonary disease, unspecified COPD type J44.9 ; Hyperparathyroidism E21.3 ; Other osteoporosis without current pathological fracture M81.8 and Osteoporosis M81.0 Yobani Villanueva III, MD [address] [place] [address] [place] [address] 09/08/2024 Yobani Villanueva Underweight R63.6 ; Chronic [...] 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 This problem has been addressed and she [...] to discuss this again with primary care. [facility] has apparently discussed this with primary [...] Name:Yobani Reyes Kay , 07/19/2025 10:00:00 AM, [address] [place] [address] , [place], [place], [address], Insurance Providers Payer Name Payer Address Payer Phone Subscriber Number Group Number Insured Name Patient Relationship to Insured Coverage Start Date Coverage End Date MEDICARE NGS [address] [place] [address] [id number] Dorinda Fischer Self - patient is the insured MEDICAID [place] [address] [place], [place] [id number] Dorinda Fischer Self - patient is the insured Medical (General) History Medical History History ICD Code Stage IB [id number] adenocarcinoma of the upper lobe right lung [...]
[2025-03-22 08:50] VITALS: BP 102/62; PULSE 65; RESP 16; TEMP 36.8; O2SAT 98; BMI 19.2
--- NOTE | 2025-03-22 08:50 | A.OFFPC_ITS ---
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: No Allergies erythromycin base Allergy (Severe, Verified 03/22/25 09:39) Diarrhea and C-Diff Medication List - Last Reconciled 03/22/25 by Tatiana Rhoades MD acetaminophen 650 mg PO QID PRN calcium citrate-vitamin D3 200 mg-6.25 mcg (250 unit) 2 tabs PO BID gabapentin Take 1 cap in the AM and 2 caps at night 90 days umeclidinium-vilanterol 62.5-25 mcg/actuation (Anoro Ellipta) 1 inh inhalation DAILY Ventolin HFA 90 mcg/actuation (albuterol sulfate) 2 puffs inhalation Q6H PRN NS Tobacco use date assessed: 03/22/25 Dental Screening Dental Screen Date: 03/22/25 Did you have a dental visit in the last 12 months?: Yes Did you have a dental problem in the last 6 months where you did not have access to dental care?: No Was dental information given to patient?: Patient has dentist [facility] Medical History (Updated 03/22/25 @ 09:43 by Tatiana Rhoades MD) History of Clostridioides difficile colitis History of osteoporosis History of toxic multinodular goiter History of hyperparathyroidism Osteopenia Pulmonary nodule Leukocytosis Hyperlipidemia Annual visit for general adult medical examination with abnormal findings Post-thoracotomy pain syndrome Primary adenocarcinoma of right lung (~2020) Right upper lobe pulmonary nodule Personal history of nicotine dependence Pulmonary nodules/lesions, multiple Emphysema of lung Surgical History Hx of partial thyroidectomy History of lobectomy of lung (~2020) S/P thyroid biopsy (~2018) History of colonoscopy (~2019) Family History Mother Pancreatic cancer Father COPD (chronic obstructive pulmonary disease) Social History Household Members: None Housing: House Do you presently have visiting nurse or other home services: No Alcohol intake: current Alcohol intake frequency: a few times a month Patient Tobacco Use Status: Former Tobacco user Years Smoked: 35 years e-Cigarette/Vaping Use: Never Used Second Hand Smoke Exposure: No Substance Use Type: Marijuana service: No Current occupational status: disabled Cognitive needs: No Hearing needs: No Vision needs: Yes Questionnaire PHQ-9 Over the last 2 weeks, how often have you been bothered by any of the following problems? 1. Little interest or pleasure in doing things: not at all 2. Feeling down, depressed, or hopeless: not at all 3. Trouble falling or staying asleep, or sleeping too much: several days 4. Feeling tired or having little energy: several days 5. Poor appetite or overeating: not at all 6. Feeling bad about yourself - or that you are a failure or have let yourself or your family down: not at all 7. Trouble concentrating on things, such as reading the newspaper or watching television: not at all 8. Moving or speaking so slowly that other people could have noticed. Or the opposite - being so fidgety or restless that you have been moving around a lot more than usual: not at all 9. Thoughts that you would be better off or of hurting yourself in some way: not at all Total score: 2 Depression Screening Interpretation: Negative Depression Screening Done: Yes 14484 - PHQ-9 Billing: Yes Source: Developed by Drs. Yobani Cordero, Joelle Ojeda, Jeremías Caldwell and colleagues, with an educational leonela from [employer]. Thrive Questionnaire Date Thrive assessed: 03/22/25 I am a: Patient What is your living situation today?: I have a steady place to live Within the past 12 months, did the food you bought not last and you didn't have the money to get more?: Sometimes True Within the past 12 months, did you worry whether your food would run out before you got money to buy more?: Sometimes True Do you have trouble paying for medicines?: No Do you have trouble getting transportation to medical appointments?: No Do you have trouble paying your heating and electricity bill?: No Do you have trouble taking care of your child, family member or friend?: No Do you have trouble with day-to-day activities such as bathing, preparing meals, shopping, managing finances, etc.?: No Are you currently unemployed and looking for a job?: No Are you interested in more education?: No Please select the resources that you would like help with: None Currently or been in a relationship where the following occur: No concerns reported THRIVE Score: 2 AUDIT C Alcohol Use Questionnaire (AUDIT-C) 1. How often do you have a drink containing alcohol?: 2-4 times a month 2. How many drinks containing alcohol do you have on a typical day when you are drinking?: 1 or 2 3. How often do you have six or more drinks on one occasion?: Never Total Score: 2 Score Reviewed/Action Taken: Yes SUSAN-7 AMB Questionnaire SUSAN-7 Date SUSAN - 7 assessed: 03/22/25 Feeling nervous, anxious, or on edge: 1 = Several days Not being able to stop or control worryin = Not at all Worrying too much about different things: 0 = Not at all Trouble relaxin = Several days Being so restless that it is hard to sit still: 1 = Several days Becoming easily annoyed or irritable: 1 = Several days Feeling afraid as if something awful might happen: 0 = Not at all Total SUSAN-7 score (0-4 normal; 5-9 mild; 10-14 moderate; 15-21 severe): 4 Source: Developed by Drs. Yobani Cordero, Joelle Ojeda, Jeremías Caldwell and colleagues, with an educational leonela from [employer]. SUSAN-7 Assessment Billing SUSAN-7 Assessment Tool: SUSAN-7 Assessment 83003 Review of Systems Eyes Details: Was seen by Dr. Haddad Reports no additional complaints GI Details: Up-to-date with screening colonoscopy done 2019, done by Dr. Medrano with normal findings Reports no additional complaints Skin/Breast Details: Sees Dr. Giraldo Vasu/Lymph Details: Currently followed by Dr. Villanueva Physical exam (Primary Care) Vital Signs: Last Vital Signs Temp 98.3 F 03/22/25 08:50 Pulse 65 03/22/25 08:50 Resp 16 03/22/25 08:50 BP 102/62 03/22/25 08:50 Pulse Ox 98 03/22/25 08:50 Oxygen Delivery Method Room Air 03/22/25 08:50 BMI result Body Mass Index 19.2 Tobacco/Smoking Status: Tobacco use Status Tobacco use date assessed 03/22/25 03/22/25 08:51 Patient Tobacco Use Status Former Tobacco user 03/22/25 08:51 Tobacco use type 02/09/24 10:57 e-Cigarette/Vaping Use Never Used 03/22/25 08:51 PHQ-9: PHQ-9 Score PHQ-9: Total score 2 03/22/25 09:06 Depression Screening Interpretation: Negative Thrive Assessment: Date of Thrive Assessment Date Thrive assessed 03/22/25 03/22/25 09:06 Currently or been in a relationship where the following occur: No concerns repo rted Office Procedures Flu Questionnaire Does the patient have a severe egg allergy?: No Does the patient have severe life threatening allergies?: No Does the patient have a fever or illness today?: No Has the patient ever had Guillain-Littleton Syndrome?: No Has the patient ever had any past reaction to a flu shot?: No Immunizations Fluarix [id number] (PF) 45 mcg (15 mcg x 3)/0.5 mL IM syringe Performing Provider: Tatiana Rhoades MD Performing Location: [facility] Administered by: Raisa Robledo CMA on 03/22/25 09:11 Dose Route Admin Location Dispensed Lot Number Expiration Date [facility] Skirt Trimmer 0.5 mL IM Right Deltoid 0.5 mL [id number] 11/08/25 77816-496-80 [employer]SM[employer] VIS Given Date VIS Provided VIS Publication Date 03/22/25 Single Vaccine 24 Eligibility Eligibility Date Funding Source Not [facility] Eligible 03/22/25 Private Results Reviewed Results Reviewed: Name: Dorinda Fischer Age/Sex: 59/F : 1965 Unit#: [id number] Attend Dr: Yobani Villanueva MD Re01/31/25 Status: DEP REF Location: [facility] Disch: SPEC : [id number] RUI: 01/31/25 STATUS: COMP REQ : [id number] RECD: 01/31/25-[address] [facility] [address]: Yobani Villanueva MD COMP: 01/31/25 ENTERED: 01/31/25 [facility] DR: Tatiana Rhoades MD ORDERED: CMP Fast, Lipid Panel, Vitamin D 25-OH, Free T4, TSH Test Result Flag Reference Sodium 140 135-145 mmol/L Potassium 4.4 3.3-5.1 mmol/L CL 107 96-108 mmol/L CO2 28 22-29 mmol/L Gap 9 L 12-20 BUN 7 L 9-16 mg/dL Creat 0.80 0.5-1.4 mg/dL eGFR > 60 Chronic Kidney Disease: Estimated GFR < 60 mL/min/1.73m2 Severe Kidney Disease: Estimated GFR < 15 mL/min/1.73m2 FBS 87 60-99 mg/dL CA 8.5 # 8.4-10.2 mg/dL Total Bili 0.4 0.0-1.0 mg/dL AST (GOT) 24 5-31 U/L ALT (GPT) 17 0-31 U/L Protein, Total 6.9 6.5-8.0 g/dL Alb 4.3 3.5-5.0 g/dL Triglyceride 135 <150 mg/dL Desirable Triglyceride: less than 150 mg/dL Borderline High Triglyceride 150-199 mg/dL High Triglyceride: 200-499 mg/dL Very High Triglyceride: greater than or equal to 5OO mg/dL Cholesterol 206 H <200 mg/dL Desirable Cholesterol: less than 200 mg/dL Borderline High Cholesterol: 200-239 mg/dL High Cholesterol: greater than 239 mg/dL LDL Calculated 107 H <100 mg/dL Desirable LDL: less than 100 mg/dL Near Optimal/Above Optimal LDL: 110-129 mg/dL Borderline High LDL: 130-159 mg/dL High LDL: 160-189 mg/dL Very High LDL: greater than or equal to 190 mg/dL HDL 72 >40 mg/dL Desirable HDL: greater than 40 mg/dL Note: This HDL assay may give artificially low results in patients with liver disease. Alk Phos 72 39-117 U/L Vitamin D 25-OH 94.4 >30 ng/mL Health Based Reference Values* < 20 ng/mL Deficient 20-30 ng/mL Insufficient > 30 ng/mL Sufficient *Holick MF. N Engl J Med. 2007;357:266-280 There is no well-established upper level of normal vitamin D levels. Some laboratories use 50 ng/mL as an upper limit of normal. However, toxicity is patient-dependent and may occur at any level. Careful correlation with the patient's presentation is necessary and, if there is concern for vitamin D toxicity, treatment should be considered irrespective of the serum level. Care must be taken in interpreting Vitamin D results from different laboratories and methodologies. Published data demonstrated that results from patients undergoing hemodialysis may show a negative bias when tested with various automated 25-OH vitamin D assays when compared to LC-MS/MS. When testing samples from patients whose predominant form of Vitamin D is Vitamin D2, such as patients receiving Vitamin D2 supplementation, results that are subtherapeutic should be confirmed with another method such as LC-MS/MS. Free T4 0.97 0.71-1.85 ng/dL TSH 3rd Gen. 1.71 0.32-4.0 uIU/mL TSH 3rd Generation ([facility]) ramu: Dorinda Fischer Age/Sex: 59/F : 1965 Unit#: [id number] Attend Dr: Yobani Villanueva MD Re01/31/25 Status: DEP REF Location: [facility] Disch: SPEC : [id number] RUI: 01/31/25 STATUS: COMP REQ : [id number] RECD: 01/31/[address] [facility] [address]: Yobani Villanueva MD COMP: 01/31/25 ENTERED: 01/31/25 [facility] DR: Tatiana Rhoades MD ORDERED: CBC Auto Diff Test Result Flag Reference WBC 11.0 H 4.8-10.8 X10*3/uL RBC 4.54 4.20-5.50 X10*6/uL HGB 13.9 12.0-16.0 g/dl HCT 41.5 37.0-47.0 % MCV 91.4 80.0-98.0 fL MCH 30.6 27.0-33.0 pg MCHC 33.5 31.0-35.0 g/dl RDW 13.9 11.0-16.0 % PLT 391 160-400 X10*3/uL MPV 10.8 9.4-12.3 fL Neut Pct Auto 65.0 45-73 % ImGran Pct Auto 0.2 0.0-0.4 % Lymp Pct Auto 28.1 20-40 % Lasalle Pct Auto 5.9 2-11 % Eos Pct Auto 0.2 0-4 % Baso Pct Auto 0.6 0-2 % NRBC Pct Auto 0.0 0.0-0.2 /100WBC ANC Neut Abs # 7.1 2.0-8.3 x10*3/uL ImGran Abs Auto 0.02 0.00-0.03 X10*3/uL Lymph Abs Auto 3.1 1.2-4.9 X10*3/uL Lasalle Abs Auto 0.7 0.1-1.2 X10*3/uL Eos Abs Auto 0.0 0.0-0.4 X10*3/uL Baso Abs Auto 0.1 0.0-0.2 X10*3/uL NRBC Abs Auto 0.000 0.0-0.012 X10*3/uL Coding Level of Care Code Est Pt Prev Care 40-64y(90493) Diagnoses Hyperlipidemia E78.5 Osteopenia of multiple sites M85.89 Osteopenia location: multiple sites Centrilobular emphysema J43.2 Emphysema type: centrilobular Pulmonary nodule R91.1 Post-thoracotomy pain syndrome G89.12 Annual visit for general adult medical examination with abnormal findings Z00.01 Additional Codes SUSAN-7 Assessment Billing - SUSAN-7 Assessment Tool: SUSAN-7 Assessment 02024 ([id number]) PHQ-9 - 12760 - PHQ-9 Billing: Yes ([id number]) Assessment & Plan Assessment & Plan (1) Hyperlipidemia: Code(s): E78.5 - Hyperlipidemia, unspecified Category: Medical (2) Osteopenia: Code(s): M85.80 - Other specified disorders of bone density and structure, unspecified site Category: Medical Qualifiers: Osteopenia location: multiple sites Qualified Code(s): M85.89 - Other specified disorders of bone density and structure, multiple sites (3) Emphysema of lung: Code(s): J43.9 - Emphysema, unspecified Category: Medical Qualifiers: Emphysema type: centrilobular Qualified Code(s): J43.2 - Centrilobular emphysema (4) Pulmonary nodule: Code(s): R91.1 - Solitary pulmonary nodule Category: Medical (5) Post-thoracotomy pain syndrome: Code(s): G89.12 - Acute post-thoracotomy pain Category: Medical (6) Annual visit for general adult medical examination with abnormal findings: Code(s): Z00.01 - Encounter for general adult medical examination with abnormal findings Category: Medical Orders: Orders Influenza [id number] Immunization Today Z23 - Encounter for immunization
== END 2025-03-22 09:41 | disposition home or self-care (01) ==
LOC: HO.HMCC 08:24
PROVIDERS: PCP Internal Medicine; Visit Provider Internal Medicine
DX: Z23 Encounter for immunization (principal)

== ENCOUNTER → 2025-03-22 08:24 | Outpatient (BNVA) | payer MEDICARE, MEDICAID, SELFPAY | PROVIDERS: PCP Internal Medicine; Visit Provider Internal Medicine | DX: Z00.01 Encounter for general adult medical examination with abnormal findings (principal); R91.1 Solitary pulmonary nodule; G89.12 Acute post-thoracotomy pain; M85.89 Other specified disorders of bone density and structure, multiple sites; J43.2 Centrilobular emphysema; Z13.31 Encounter for screening for depression; Z13.39 Encounter for screening examination for other mental health and behavioral disorders; Z23 Encounter for immunization | CPT/HCPCS: 90471; 90656; 96127; 99396 ==

== ENCOUNTER 2025-04-11 06:18 | Outpatient (REF) | payer MEDICARE, MEDICAID, SELFPAY ==
--- OUTSIDE RECORDS SUMMARY | 2023-12-10 05:00 | XMS_ITS ---
Author Organization Yobani Villanueva III, MD Address [address] [place] [address] Care Team Providers Care Wheelage Clerk Name Role Phone Tatiana Rhoades MD Primary Care Provider Dr. Yobani Saunders III Unavailable Oh Otero Unavailable [phone] Allergies Allergen (clinical drug ingredient) Drug/Non Drug [...] Date Provider Diagnosis Yobani Villanueva III, MD [address] [place] [address] DR [place], [place] [id number] 12/10/2023 Yobani Villanueva Underweight R63.6 ; Malignant [...] Provider Name:Yobani Villanueva , 07/19/2025 10:00:00 AM, [address] [place] [address] [address] [place] [address], [place], [id number], Progress Notes * ISABELL Dorinda EDOB:1965 ( 58 yo F)Acc No.[id number]:12/10/2023 Progress Notes Patient: Dorinda Oakes Provider: Josephine Villanueva MD :1965 A ge:58 Y S ex:Female Date:12/10/2023 Address:[address] [place] [address] J[address] JETT [id number] Pcp:Tatiana Rhoades MD Subjective: * Chief Complaints: [...] S he was born and raised in [facility]. 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 She recently stopped smoking. She does not drink alcohol or take drugs. She is not currently working as she is recovering from the thoracotomy. Her two sons are grown and she lives alone. Her of cirrhosis of the liver at [facility] awaiting a transplant on January 31, 2021 one week before her lung cancer surgery. She continues to grieve. Josias is oldest and works at [employer], engaged to [employer]. Paula works at [employer] making [employer] for [employer] with Kitty DUFF. * Medications: T akingCalcium [...] 0 12/10/2023 Generated for Essence berrios/Siri/Sussyransmitting on: 1 06/12/2024 06:21 AM EST History and Physical Notes * HPI (History of Present Illness) Category Sub-Category Detail Notes COVID-19 Screening Questions Have you had any new onset fever, chills, cough, congestion, sore throat, shortness of breath, muscle aches?: No Have you been exposed to the virus with n the last 10 days?: No Have you travelled internationally in [facility] last 10 days?: No Have you [...]
--- OUTSIDE RECORDS SUMMARY | 2024-03-23 05:45 | XMS_ITS ---
Author Organization Yobani Villanueva III, MD Address [address] [address] [place] [address] Care Team Providers Care Merchant Banker Name Role Phone Tatiana Rhoades MD Primary Care Provider Dr. Yobani Saunders III Unavailable [phone] [address]ter[address] Unavailable [phone] Allergies Allergen (clinical drug ingredient) Drug/Non Drug Allergy documented on EMR Reaction Allergy Type Onset Date Status erythromycin Erythromycin Unknown Drug Allergy A ctive REASON FOR VISIT Adenocarcinoma of the right lung in remission, Osteoporosis, Hyperparathyroidism, COPD, Emphysema Medications Medication SIG (Take, Route, Frequency, Duration) Notes Start Date End Date Status Vitamin D3 50 MCG (1999) TAKE 1 CAPSU LE BY MOUTH DAILY Oral Active Ventolin HFA 108 (90 Base) MCG/ACT Inhalation Active Anoro Ellipta 62.5-25 MCG/ACT Inhalation Active Gabapentin 300 MG 1 capsule Orally Onc e a day Active Calcium Citrate+D3 Petites 200-6.25 MG-MCG Oral Active [facility] Acetaminophen 325 MG TAKE 3 TABLETS BY MOUTH EVERY 6 HOURS Oral Active Social History Tobacco Use: Social History [...] Non-User Ex-cigaret te smoker Vital Signs Temperature 97.0 degrees Fahrenheit 03/23/20 24 Blood pressure systolic 110 mm Hg 03/23/20 24 Blood pressure diastolic 75 mm Hg 024 Heart Rate 79 /min 03/23/2024 Height 63 in 03/23/2024 Weight 106 lbs 03/23/2024 BMI 18.78 kg/m2 03/23/2024 Encounters Encounter Location Date Provider Diagnosis Yobani Villanueva III, MD [address] [place] [address] [address] CORNELL [place], [place] [address] 03/23/2024 Yobani Villanueva Underweight R63.6 ; Malignant neoplasm of upper lobe, right bronchus or lung C34.11 ; Hyperparathyroidism E21.3 ; Chronic obstructive pulmonary disease, unspecified COPD type J44.9 ; Pulmonary emphysema, unspecified emphysema type J43.9 and Former smoker Z87.891 Assessments Encounter Date Diagnosis (ICD Code) Assessment Notes T reatment Notes Treatment Clinical Notes 03/23/2024 Underweight (ICD-10 - R63.6) She has lost 5 pounds in her body mass index is now underweight. Her nutritional status seems adequate. Her weight will be carefully followed. 03/23/2024 Malignant neoplasm o f upper lobe, right bronchus or lung (ICD-10 - C34.11) There is no sign of relapse over new primary today. Her next office visit and surveillance CT scan were arranged. 03/23/2024 Hyperparathyroidism (ICD-10 - E21.3) Her calcium level has been normal after her parathyroid surgery. 03/23/2024 Chronic obstructive pulmonary disease, unspecified COPD type (ICD-10 - J44.9) She has stopped smoking and she is asymptomatic at this time after the lobectomy. There has been no recent exacerbation of dyspnea. 03/23/2024 Pulmonary emphysema, unspecified emphysema type (ICD-10 - J43.9) This is a finding on the CT scan. She has stopped smoking and will be observed carefully. 03/23/2024 Former smoker (ICD-1 0 - Z87.891) She is highly motivated not to smoke. We discussed strategies for abstinence in times of stress and illness likely present. Plan Of Treatment Medication Medication Name Sig Start Date Stop Date Notes Vitamin D3 50 MCG (1999) TAKE 1 CAPSU LE BY MOUTH DAILY Oral Ventolin HFA 108 (90 Base) MCG/ACT Inhalation Anoro Ellipta 62.5-25 MCG/ACT Inhalation Gabapentin 300 MG 1 capsule Orally Once a day Calcium Citrate+D3 Petites 200-6.25 MG-MCG Oral CVS Acetaminophen 325 MG TAKE 3 TABLETS BY MOUTH EVERY 6 HOURS Oral Next Appt Details Follow Up: 4 Months, Reason: ov Provider Name:Yobani Villanueva , 07/19/2025 10:00:00 AM, [address] [place], [place] [address], [place], [address], Progress Notes * Dorinda FISCHER EDOB:1965 ( 58 yo F)Acc No.[id number]:03/23/2024 Progress Notes Patient: Dorinda SCHMITT Provider: Josephine Villanueva MD :1965 A ge:58 Y S ex:Female Date:03/23/2024 Address: [address] [id number] Pcp:Tatiana Rhoades MD Subjective: * Chief Complaints: * A denocarcinoma of the right lung in remissionOsteoporosisHyperparathyroidismCOPDEmphysema * HPI: C OVID-19 Screening: Questions H ave you experienced fever, chills, [...] COVID-19 in the past? N o * : The patient, a 58-year-old female, presented with a history of right upper lobectomy due to lung cancer, which occurred in January 2021. She has been having regular CT scans every six months for monitoring. The patient also reported experiencing neuropathy, which is not constant but intermittent, and sometimes feels numb. She has been taking gabapentin for the nerve pain. The patient also mentioned having had a thyroid storm last year, which led to weight gain and sluggishness. She has been seeing an ux design lead for this issue. The patient also reported having multiple spots on her skin, which she is concerned might be skin cancer. She is scheduled to see a operations mgr for a full body examination. * ROS: G eneral/Constitutional: pain R ight thoracic chest wall incisions. C hills d enies. F atigue a dmits. F ever d enies. E NT: Decreased hearing d enies. R espiratory: Cough n on-productive. C ardiovascular: Chest pain with exertion d enies. D yspnea on exertion?denies. S hortness of breath d enies. G astrointestinal: Constipation d enies. D ecreased [...] under skin on neck excision benign results 4Right upper lobectomy in january 2021 due to lung cancer. 01/2021 * Hospitalization/Major Diagno stic Procedure: l obectomy 01/2021Thyroidectomy 75 % remove 06/05/2022No history * Family History: F ather: 62 yrs. [...] S he was born and raised in [facility]. 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 She recently stopped smoking. She does not drink alcohol or take drugs. She is not currently working as she is recovering from the thoracotomy. Her two sons are grown and she lives alone. Her of cirrhosis of the liver at [facility] awaiting a transplant on January 31, 2021 one week before her lung cancer surgery. She continues to grieve. Josias is oldest and works at [employer], engaged to [employer]. Viktor works at [employer] making [employer] for [employer], [employer] with Kitty DUFF. * Medications: T akingCalcium Citrate+D3 Petites 200-6.25 MG-MCG Tablet Oral Vitamin D3 50 MCG (2000 UT) Capsule TAKE 1 CAPSULE BY MOUTH DAILY Oral Ventolin HFA 108 (90 Base) MCG/ACT Aerosol Solution Inhalation Anoro Ellipta 62.5-25 MCG/ACT Aerosol Powder Breath Activated Inhalation Gabapentin 300 MG Capsule 1 capsule Orally Once a day CVS Acetaminophen 325 MG Tablet TAKE 3 [...] MG Capsule 1 capsule Orally Once a day Taking CVS Acetaminophen 325 MG Tablet TAKE 3 TABLETS BY MOUTH EVERY 6 HOURS Oral Medication List reviewed and reconciled with the patient * Allergies: E rythromycin: Allergyno[Allergies Verified] Objective: * Vitals: H t: 63, Wt: 106, BMI:18.78, BP: 110/75, HR: 79, Temp: 97.0, Wt-k.08. * P ast Orders: Lab:Complete Blood Count Aut o Diff * Collection Date 03/09/2024 12/03/2023 08/29/2023 Collection Time 06:38 AM 06:47 AM 06:39 AM Order Date 03/09/2024 12/03/202308/29/2023 White Blood Count 9.9 (Ref Range: 4.8-10.8 X10*3/uL) 9.9 (Ref Range: 4.8-10.8 X10*3/uL) 9.0 (Ref Range: 4.8-10.8 X10*3/uL) Red Blood Count 4.40 (Ref Range: 4.20-5.50 X10*6/uL) 4.57 (Ref Range: 4.20-5.50 X10*6/uL) 4.58 (Ref Range: 4.20-5.50 X10*6/uL) Hemoglobin 13.7 (Ref Range: 12.0-16.0 g/dl) 14.1 (Ref Range: 12.0-16.0 g/dl) 14.0 (Ref Range: 12.0-16.0 g/dl) Hematocrit 41.0 (Ref Range: 37.0-47.0 %) 42.2 (Ref Range: 37.0-47.0 %) 42.5 (Ref Range: 37.0-47.0 %) Mean Corpuscular Volume 93.2 (Ref Range: 80.0-98.0 fL) 92.3 (Ref Range: 80.0-98.0 fL) 92.8 (Ref Range: 80.0-98.0 fL) Mean Corpuscular Hemoglobin 31.1 (Ref Range: 27.0-33.0 pg) 30.9 (Ref Range: 27.0-33.0 pg) 30.6 (Ref Range: 27.0-33.0 pg) Mean Corpuscular HGB Conc 33.4 (Ref Range: 31.0-35.0 g/dl) 33.4 (Ref Range: 31.0-35.0 g/dl) 32.9 (Ref Range: 31.0-35.0 g/dl) Red Cell Distribution Width 13.7 (Ref Range: 11.0-16.0 %) 13.8 (Ref Range: 11.0-16.0 %) 14.0 (Ref Range: 11.0-16.0 %) Platelet Count 341 (Ref Range: 160-400 X10*3/uL) 343 (Ref Range: 160-400 X10*3/uL) 338 (Ref Range: 160-400 X10*3/uL) Mean Platelet Volume 10.7 (Ref Range: 9.4-12.3 fL) 10.8 (Ref Range: 9.4-12.3 fL) 11.1 (Ref Range: 9.4-12.3 fL) Neutrophils Percent Auto 59.6 (Ref Range: 45-73 %) 53.8 (Ref Range: 45-73 %) 60.2 (Ref Range: 45-73 %) Imm Gran Pct Auto 0.2 (Ref Range: 0.0-0.4 %) 0.4 (Ref Range: 0.0-0.4 %) 0.3 (Ref Range: 0.0-0.4 %) Lymphocytes Percent Auto 32.5 (Ref Range: 20-40 %) 34.8 (Ref Range: 20-40 %) 29.8 (Ref Range: 20-40 %) Monocytes Percent Auto 6.8 (Ref Range: 2-11 %) 7.7 (Ref Range: 2-11 %) 6.2 (Ref Range: 2-11 %) Eosinophils Percent Auto 0.2 (Ref Range: 0-4 %) 2.7 (Ref Range: 0-4 %) 2.9 (Ref Range: 0-4 %) Basophils Percent Auto 0.7 (Ref Range: 0-2 %) 0.6 (Ref Range: 0-2 %) 0.6 (Ref Range: 0-2 %) NRBC Pct Auto 0.0 (Ref Range: 0.0-0.2 /100WBC) 0.0 (Ref Range: 0.0-0.2 /100WBC) 0.0 (Ref Range: 0.0-0.2 /100WBC) Neutrophils Absolute Auto 5.9 (Ref Range: 2.0-8.3 x10*3/uL) 5.3 (Ref Range: 2.0-8.3 x10*3/uL) 5.5 (Ref Range: 2.0-8.3 x10*3/uL) Imm Gran Abs Auto 0.02 (Ref Range: 0.00-0.03 X10*3/uL) 0.04 H (Ref Range: 0.00-0.03 X10*3/uL) 0.03 (Ref Range: 0.00-0.03 X10*3/uL) Lymphocytes Absolute Auto 3.2 (Ref Range: 1.2-4.9 X10*3/uL) 3.4 (Ref Range: 1.2-4.9 X10*3/uL) 2.7 (Ref Range: 1.2-4.9 X10*3/uL) Monocytes Absolute Auto 0.7 (Ref Range: 0.1-1.2 X10*3/uL) 0.8 (Ref Range: 0.1-1.2 X10*3/uL) 0.6 (Ref Range: 0.1-1.2 X10*3/uL) Eosinophils Absolute Auto 0.0 (Ref Range: 0.0-0.4 X10*3/uL) 0.3 (Ref Range: 0.0-0.4 X10*3/uL) 0.3 (Ref Range: 0.0-0.4 X10*3/uL) Basophils Absolute Auto 0.1 (Ref Range: 0.0-0.2 X10*3/uL) 0.1 (Ref Range: 0.0-0.2 X10*3/uL) 0.1 (Ref Range: 0.0-0.2 X10*3/uL) NRBC Abs Auto 0.000 (Ref Range: 0.0-0.012 X10*3/uL) 0.000 (Ref Range: 0.0-0.012 X10*3/uL) 0.000 (Ref Range: 0.0-0.012 X10*3/uL) * Lab:Thyroid Stimulating Horm one * Collection Date 03/09/2024 08/29/2023 07/22/2023 Collection Time 06:38 AM 06:39 AM 06:40 AM Order Date 03/09/2024 08/29/2023 07/22/2023 Thyroid Stimulating Hormone 1.93 (Ref Range: 0.32-4.0 uIU/mL) 1.39 (Ref Range: 0.32-4.0 uIU/mL) 2.55 (Ref Range: 0.32-4.0 uIU/mL) * Lab:Free T4 (Free Thyroxine) * Collection Date 03/09/2024 08/29/2023 07/22/2023 Collection Time 06:38 AM 06:39 AM 06:40 AM Order Date 03/09/2024 08/29/2023 07/22/2023 Free T4 (Free Thyroxine) 1.05 (Ref Range: 0.71-1.85 ng/dL) 0.87 (Ref Range: 0.71-1.85 ng/dL) 0.87 (Ref Range: 0.71-1.85 ng/dL) * Lab:Lipid Panel * Collection Date 03/09/2024 12/03/2023 08/29/2023 Collection Time 06:38 AM 06:47 AM 06:39 AM Order Date 03/09/2024 12/03/2023 08/22/2023 Triglycerides 136 (Ref Range: <150 mg/dL) 108 (Ref Range: <150 mg/dL) 117 (Ref Range: <150 mg/dL) Cholesterol 244 H (Ref Range: <200 mg/dL) 233 H (Ref Range: <200 mg/dL) 254 H (Ref Range: <200 mg/dL) LDL Cholesterol Calculated 142 H (Ref Range: <100 mg/dL) 134 H (Ref Range: <100 mg/dL) 148 H (Ref Range: <100 mg/dL) HDL Cholesterol 75 (Ref Range: >40 mg/dL) 78 (Ref Range: >40 mg/dL) 83 (Ref Range: >40 mg/dL) * Lab:Comprehensive [place]. Pane l Fast * Collection Date 03/09/2024 12/03/2023 08/29/2023 Collection Time 06:38 AM 06:47 AM 06:39 AM Order Date 03/09/2024 12/03/2023 08/29/2023 Sodium 142 (Ref Range: 135-145 mmol/L) 143 (Ref Range: 135-145 mmol/L) 143 (Ref Range: 135-145 mmol/L) Bilirubin Total 0.3 (Ref Range: 0.0-1.0 mg/dL) 0.3 (Ref Range: 0.0-1.0 mg/dL) 0.3 (Ref Range: 0.0-1.0 mg/dL) Aspartate Amino Transferase 32 H (Ref Range: 5-31 U/L) 23 (Ref Range: 5-31 U/L) 21 (Ref Range: 5-31 U/L) Alanine Aminotransferase 24 (Ref Range: 0-31 U/L) 19 (Ref Range: 0-31 U/L) 19 (Ref Range: 0-31 U/L) Total Protein 6.8 (Ref Range: 6.5-8.0 g/dL) 6.8 (Ref Range: 6.5-8.0 g/dL) 7.2 (Ref Range: 6.5-8.0 g/dL) Albumin Level 4.0 (Ref Range: 3.5-5.0 g/dL) 4.1 (Ref Range: 3.5-5.0 g/dL) 4.2 (Ref Range: 3.5-5.0 g/dL) Alkaline Phosphatase 64 (Ref Range: 39-117 U/L) 72 (Ref Range: 39-117 U/L) 70 (Ref Range: 39-117 U/L) Potassium 4.2 (Ref Range: 3.3-5.1 mmol/L) 4.8 (Ref Range: 3.3-5.1 mmol/L) 4.4 (Ref Range: 3.3-5.1 mmol/L) Chloride 109 H (Ref Range: 96-108 mmol/L) 110 H (Ref Range: 96-108 mmol/L) 107 (Ref Range: 96-108 mmol/L) Carbon Dioxide 26 (Ref Range: 22-29 mmol/L) 26 (Ref Range: 22-29 mmol/L) 28 (Ref Range: 22-29 mmol/L) Anion Gap 11 L (Ref Range: 12-20) 12 (Ref Range: 12-20) 12 (Ref Range: 12-20) Blood Urea Nitrogen 11 (Ref Range: 9-16 mg/dL) 7 L (Ref Range: 9-16 mg/dL) 10 (Ref Range: 9-16 mg/dL) Creatinine 0.88 (Ref Range: 0.5-1.4 mg/dL) 0.83 (Ref Range: 0.5-1.4 mg/dL) 0.81 (Ref Range: 0.5-1.4 mg/dL) Estimated Glomerular Filt Rate > 60 > 60 > 60 Glucose Fasting 93 (Ref Range: 60-99 mg/dL) 89 (Ref Range: 60-99 mg/dL) 98 (Ref Range: 60-99 mg/dL) Calcium 8.6 (Ref Range: 8.4-10.2 mg/dL) 9.1 (Ref Range: 8.4-10.2 mg/dL) 9.3 (Ref Range: 8.4-10.2 mg/dL) * Examination: G eneral Examination: GENERAL APPEARANCE: p leasant, well nourished, well developed, in no acute distress, calm and relaxed, underweight, woman. HEAD: a traumatic, normocephalic. EYES: e arturo, perrla, anicteric, conjugate. EARS: n ormal. NOSE: s eptum intact. ORAL CAVITY: n ormal, unremarkable. NECK/THYROID: n o jugular venous distention, no carotid bruit, thyroid normal, h emithyroidectomy scar. LYMPH NODES: n o enlarged lymph nodes,spleen normal. SKIN: n o suspicious lesions, anicteric. HEART: n o clicks, gallops, murmurs, or rubs, regular rhythm, S1, S2 normal, no s3, or vascular bruits. LUNGS: , diminished breath sounds throughout, no wheezes, rales, rhonchi, good air movement. BREASTS: N ot examined. ABDOMEN: b owel sounds normal, no ascites, no organomegaly, no mass, Underweight. RECTAL EXAM: n ot examined. MUSCULOSKELETAL: e xtremities unremarkable, no clubbing, cyanosis or edema. PERIPHERAL PULSES: n ormal. NEUROLOGIC: a lert and oriented, cranial nerves 2-12 grossly intact, deep tendon reflexes 2+ symmetrical, motor strength normal upper and lower extremities, sensory exam intact. PSYCH: a lert, oriented, thought process logical, goal directed, speech clear, cognitive function intact, good eye contact. Assessment: * Assessment: 1. M alignant neoplasm of upper lobe, right bronchus or lung - C34.11 (Primary) ?Notes :There is no sign of relapse over new primary today. Her next office visit and surveillance CT scan were arranged. 2 . U nderweight - R63.6 N otes :She has lost 5 pounds in her body mass index is now underweight. Her nutritional status seems adequate. Her weight will be carefully followed. 3 . H yperparathyroidism - E21.3 N otes :Her calcium level has been normal after her parathyroid surgery. 4 . C hronic obstructive pulmonary disease, unspecified COPD type - J44.9 N otes :She has stopped smoking and she is asymptomatic at this time after the lobectomy. There has been no recent exacerbation of dyspnea. 5 . P ulmonary emphysema, unspecified emphysema type - J43.9 N otes :This is a finding on the CT scan. She has stopped smoking and will be observed carefully. 6 . F tranmer smoker - Z87.891 N otes :She is highly motivated not to smoke. We discussed strategies for abstinence in times of stress and illness likely present. Plan: * Treatment: * Procedure Codes: * Preventive Medicine: Counseling: C are goal follow-up plan: Counseling for abnormal BMI given Y es Below Normal BMI Follow-up D ietary education for weight gain S moking/Tobacco Use Patient counseled on the dangers of tobacco use and urged to quit. 1 05/23/2023 COPD Care Plan: P atient Lifestyle Goals R educe number of ED and hospitalizations, Relieve symptoms and improve quality of life, Be able to be more active with friends and family. T reatment Goals E at a nutritious diet and increase water consumption to 6-8 glasses a day, Eat 4- 5 small meals throughout the day, Exercise to help whole body, including lungs. B arriers n o barriers. S elf-Managment Goals G et an air purifier for the rooms you are in the most, Eat a healthy diet. * Follow Up: 4 Months (Reason: ov) * Images: * Sign off status: Completed true * Provider: Josephine Villanueva MD Date: 05/23/2023 Generated for Essence berrios/Siri/eTransmitting on: 06/12/2024 06:21 AM EST History and Physical Notes * HPI (History of Present Illness) Category Sub-Category Detail Notes COVID-19 Screening Questions Have you had any new onset fever, chills, cough, congestion, sore throat, shortness of breath, muscle aches?: No Have you been exposed to the virus withi n the last 10 days?: No Have you travelled internationally in [facility] last 10 days?: No Have you been exposed to COVID-19 in the past?: No Examination Category Sub-Category Detail Notes General Examination GENERAL APPEARANCE: pleasant , well nourished, well developed, in no acute distress, calm and relaxed, underweight, woman HEAD: atraumatic, normocep halic EYES: eomi, perrla, anicte camilo, conjugate EARS: normal NOSE: septum intact NECK/THYROID: no jugular venous di stention, no carotid bruit, thyroid normal, hemithyroidectomy scar HEART: no clicks, gallops, murmurs, or rubs, regular rhythm, S1, S2 normal, no s3, or vascular bruits LUNGS: , diminished breath sounds throughout, no wheezes, rales, rhonchi, good air movement ABDOMEN: bowel sounds normal, no ascites, no organomegaly, no mass, Underweight NEUROLOGIC: alert and oriented, cranial nerves 2-12 grossly intact, deep tendon reflexes 2+ symmetrical, motor strength normal upper and lower extremities, sensory exam intact SKIN: no suspicious lesion s, anicteric PERIPHERAL PULSES: normal BREASTS: Not examined MUSCULOSKELETAL: extremities unremark able, no clubbing, cyanosis or edema LYMPH NODES: no enlarged lymph no zulay,spleen normal RECTAL EXAM: not examined PSYCH: alert, oriented, tho ught process logical, goal directed, speech clear, cognitive function intact, good eye contact ORAL CAVITY: normal, unremarkable
--- OUTSIDE RECORDS SUMMARY | 2024-07-21 05:30 | XMS_ITS ---
Author Organization Yobani Villanueva III, MD Address [address] [place] [address] Care Team Providers Care Bellhop Name Role Phone Tatiana Rhoades MD Primary Care Provider Dr. 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, Multinodular goiter, COPD, Emphysema, Hyperparathyroidism, Osteoporosis Medications Medication SIG (Take, Route, Frequency, Duration) Notes Start Date End Date Status Gabapentin 300 MG 1 capsule Orally Onc e a day Active [facility] Acetaminophen 325 MG TAKE 3 TABLETS BY MOUTH EVERY 6 HOURS Oral Active Anoro Ellipta 62.5-25 MCG/ACT Inhalation Active Vitamin D3 50 MCG (1999) TAKE 1 CAPSU LE BY MOUTH DAILY Oral Active Calcium Citrate+D3 Petites 200-6.25 MG-MCG Oral Active Ventolin HFA 108 (90 Base) MCG/ACT Inhalation Active Social History Tobacco Use: Social History Observation Description Date Details (start date - stop date) Former Smoker NA - NA Sex Assigned At : Social History Observation Description Sex Assigned At Female Tobacco Use/Smoking Question Answer Notes Patient is a former smoker How long has it been since you last smoked? 1-5 years Additional Findings: Tobacco Non-User Ex-cigaret te smoker Problems Problem Type SNOMED Code ICD Code Onset Dates Problem Status W/U Status Risk Notes Problem Osteoporosis (94746336) Osteoporosis (M81.0) Active confirmed She has significant osteoporosis and remained under the care of endocrinology. She has been compliant with her medications. Vital Signs Temperature 98.1 degrees Fahrenheit 07/22/19 25 Blood pressure systolic 113 mm Hg 07/22/19 25 Blood pressure diastolic 66 mm Hg 025 Heart Rate 68 /min 07/21/2024 Height 63 in 07/21/2024 Weight 108 lbs 07/21/2024 BMI 19.13 kg/m2 07/21/2024 Encounters Encounter Location Date Provider Diagnosis Yobani Villanueva III, MD [address] [place] [address] [place] [address] 07/21/2024 Yobani Villanueva Underweight R63.6 ; Malignant neoplasm of upper lobe, right bronchus or lung C34.11 ; Hyperparathyroidism E21.3 ; Osteoporosis M81.0 and Former smoker Z87.891 Assessments Encounter Date Diagnosis (ICD Code) Assessment Notes Treat ment Notes Treatment Clinical Notes 07/21/2024 Underweight (ICD-10 - R63.6) Her weight is stable with a body mass index of 19. Nutrition is not an issue. She appears to be euthyroid. 07/21/2024 Malignant neoplasm o f upper lobe, right bronchus or lung (ICD-10 - C34.11) She remains in remission with no sign of relapse. A CT scan will be done at six-month intervals one more time and then on a yearly basis. She is doing quite well. 07/21/2024 Hyperparathyroidism (ICD-10 - E21.3) Her calcium remains normal. She is under the care of an instructional assistant. This problem has been addressed and she is stable. 07/21/2024 Osteoporosis (ICD-10 - M81.0) She has been compliant with her medication patient. She denies any back pain. She is aware of the need for medications. 07/21/2024 Former smoker (ICD-1 0 - Z87.891) She is highly motivated not to smoke. We discussed strategies for abstinence in times of stress and illness likely present. Plan Of Treatment Medication Medication Name Sig Start Date Stop Date Notes Gabapentin 300 MG 1 capsule Orally Once a day CVS Acetaminophen 325 MG TAKE 3 TABLETS BY MOUTH EVERY 6 HOURS Oral Anoro Ellipta 62.5-25 MCG/ACT Inhalation Vitamin D3 50 MCG (2000 UT) TAKE 1 CAPSU LE BY MOUTH DAILY Oral Calcium Citrate+D3 Petites 200-6.25 MG-MCG Oral Ventolin HFA 108 (90 Base) MCG/ACT Inhalation Pending Test Test Name Order Date PROFILE, FASTING (COMPREHENSIVE METABOLI C) 07/21/2024 CBC w DIFF 07/21/2024 CT CHEST WITH CONTRAST 07/21/2024 Lipid Panel 07/21/2024 Vitamin D 25-OH Total 07/21/2024 Parathyroid Hormone Intact 07/21/2024 Next Appt Details Follow Up: 3 Months, Reason: OV Provider Name:Yobani Reyes Kay , 07/19/2025 10:00:00 AM, [address] [place] [address] DR, [place] [address], [place], [address], Progress Notes * Dorinda FISCHER EDOB:1965 ( 59 yo F)Acc No.[id number]:07/21/2024 Progress Notes Patient: Dorinda SCHMITT Provider: Josephine Villanueva MD :1965 A ge:59 Y S ex:Female Date:07/21/2024 Address:[address] [place] [address] [facility] [id number] Pcp:Tatiana Rhoades MD Subjective: * Chief Complaints: * N on-small cell carcinoma right upper lobe of lungMultinodular goiterCOPDEmphysemaHyperparathyroidismOsteoporosis * HPI: C OVID-19 Screening: She returns for ongoing surveillance after surgery and chemotherapy for a stage I non-small cell carcinoma the right upper lobe. Her breathing is stable if she does not exert herself. Her appetite is good. She has gained weight. Her most recent CT imaging shows remission continues. She has been compliant with her medication for thyroid ddisease osteoporosis and hyperparathyroidism. She remains under the care of endocrinology. She is up-to-date with mammography and gynecology. Questions H ave you had any new onset fever, chills, cough, congestion, sore throat, shortness of breath, muscle aches? N o * ROS: G eneral/Constitutional: pain o nly normal aches and pains. C hills d enies.?Fatigue a dmits. F ever d enies. E NT: Decreased hearing d enies. R espiratory: Cough d enies. C ardiovascular: Chest pain with exertion d enies. D yspnea on exertion?denies. S hortness of breath w ith exertion. G astrointestinal: Constipation o ccasional. D ecreased appetite d enies. D iarrhea d enies. H eartburn d enies. N ausea d enies. R ectal bleeding d enies. V omiting d enies. H ematology: bruising d enies. p etechiae d enies. S wollen glands n one have been noted. G enitourinary: Frequent urination d enies. M usculoskeletal: Muscle aches d enies. P [...] S he was born and raised in [facility]. 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 She recently stopped smoking. She does not drink alcohol or take drugs. She is not currently working as she is recovering from the thoracotomy. Her two sons are grown and she lives alone. Her of cirrhosis of the liver at [facility] awaiting a transplant on January 31, 2021 one week before her lung cancer surgery. She continues to grieve. Josias is oldest and works at [employer], engaged to [employer]. Viktor works at [employer] making [employer] for [employer], [employer] with Kitty DUFF. * Medications: T akingCalcium [...] H t: 63, Wt: 108, BMI:19.13, BP: 113/66, HR: 68, Temp: 98.1, Wt-k.99. * Examination: G eneral Examination: GENERAL APPEARANCE: [...] normal, no s3, or vascular bruits. LUNGS: c lear to auscultation, Small thoracotomy scar is well-healed right chest. BREASTS: no masses palpable bilaterally. ABDOMEN: b owel sounds normal, no ascites, no organomegaly, no mass. RECTAL EXAM: n ot examined. MUSCULOSKELETAL: e xtremities unremarkable, no clubbing, cyanosis or edema. PERIPHERAL PULSES: n ormal. NEUROLOGIC: a lert and oriented, cranial nerves 2-12 grossly intact, deep tendon reflexes 2+ symmetrical, motor strength normal upper and lower extremities, sensory exam intact. PSYCH: a lert, oriented, cognitive function intact, cooperative with exam, good eye contact, speech clear, thought process logical, goal directed. ? Assessment: * Assessment: 1. M alignant neoplasm of upper lobe, right bronchus or lung - C34.11 (Primary) ?Notes :She remains in remission with no sign of relapse. A CT scan will be done at six-month intervals one more time and then on a yearly basis. She is doing quite well. 2 . U nderweight - R63.6 N otes :Her weight is stable with a body mass index of 19. Nutrition is not an issue. She appears to be euthyroid. 3 . H yperparathyroidism - E21.3 N otes :Her calcium remains normal. She is under the care of an instructional assistant. This problem has been addressed and she is stable. 4 . O steoporosis - M81.0 N otes :She has been compliant with her medication patient. She denies any back pain. She is aware of the need for medications. 5 . F ormer smoker - Z87.891 N otes :She is highly motivated not to smoke. We discussed strategies for abstinence in times of stress and illness likely present. Plan: * Treatment: 2. U nderweight Continue Calcium Citrate+D3 Petites Tablet, 200-6.25 MG-MCG, Oral; C ontinue Vitamin D3 Capsule, 50 MCG (1999 UT), TAKE 1 CAPSULE BY MOUTH DAILY, Oral; C ontinue Ventolin HFA Aerosol Solution, 108 (90 Base) MCG/ACT, Inhalation; C ontinue Anoro Ellipta Aerosol Powder Breath Activated, 62.5-25 MCG/ACT, Inhalation; C ontinue Gabapentin Capsule, 300 MG, 1 capsule, Orally, Once a day; Continue CVS Acetaminophen Tablet, 325 MG, TAKE 3 TABLETS BY MOUTH EVERY 6 HOURS, Oral. ? L AB: PROFILE, FASTING (COMPREHENSIVE METABOLIC) L AB: CBC w DIFF L AB: Lipid Panel L AB: Vitamin D 25-OH Total L AB: Parathyroid Hormone Intact 3. H yperparathyroidism L AB: PROFILE, FASTING (COMPREHENSIVE METABOLIC) L AB: CBC w DIFF L AB: Lipid Panel L AB: Vitamin D 25-OH Total L AB: Parathyroid Hormone Intact 4. O steoporosis L AB: PROFILE, FASTING (COMPREHENSIVE METABOLIC) L AB: CBC w DIFF L AB: Lipid Panel L AB: Vitamin D 25-OH Total L AB: Parathyroid Hormone Intact * Procedure Codes: * Preventive Medicine: Counseling: C are goal follow-up plan: Counseling for abnormal BMI given Y es Below Normal BMI Follow-up D ietary education for weight gain, Dietary management education, guidance, and counseling S moking/Tobacco Use Patient counseled on the dangers of tobacco use and urged to quit. 0 07/21/2024 COPD Care Plan: P atient Lifestyle Goals [...] Eat a healthy diet. * Follow Up: 3 Months (Reason: OV) * Images: * Sign off status: Completed true * Provider: Josephine Villanueva MD Date: 0 07/21/2024 Generated for Essence berrios/Siri/Sussyransmitting on: 06/12/2024 06:21 AM EST History and Physical Notes * HPI (History of Present Illness) Category Sub-Category Detail Notes COVID-19 Screening Questions Have you had any new onset fever, chills, cough, congestion, sore throat, shortness of breath, muscle aches?: No Examination Category Sub-Category Detail Notes General [...] normal, no s3, or vascular bruits LUNGS: clear to auscultatio n, Small thoracotomy scar is well-healed right chest ABDOMEN: bowel sounds normal, no ascites, no organomegaly, no mass NEUROLOGIC: alert and oriented, cranial nerves 2-12 grossly intact, deep tendon reflexes 2+ symmetrical, motor strength normal upper and lower extremities, sensory exam intact SKIN: no suspicious lesion s, anicteric PERIPHERAL PULSES: normal BREASTS: no masses palpable b ilaterally MUSCULOSKELETAL: extremities unremark able, no clubbing, cyanosis or edema LYMPH NODES: no enlarged lymph no zulay,spleen normal RECTAL EXAM: not examined PSYCH: alert, oriented, cog nitive function intact, cooperative with exam, good eye contact, speech clear, thought process logical, goal directed ORAL CAVITY: normal, unremarkable
--- OUTSIDE RECORDS SUMMARY | 2024-09-08 05:13 | XMS_ITS ---
Author Organization Yobani Villanueva III, MD Address [address] [place] [address] [place] [address] Care Team Providers Care Peanut Butter Maker Name Role Phone Tatiana Rhoades MD Primary Care Provider Dr. Yobani Saunders III Unavailable Oh Otero Unavailable [phone] REASON FOR VISIT Labs for CT Contrast Social History Sex Assigned At : Social History Observation Description Sex Assigned At Female Encounters Encounter Location Date Provider Diagnosis Yobani Villanueva III, MD [address] [place] [address] [place] [address] 09/08/2024 Yobani Villanueva Underweight R63.6 ; Chronic [...] Provider Name:Yobani Villanueva , 07/19/2025 10:00:00 AM, [address] [place] [address] [place], [address], Progress Notes * Dorinda FISCHER EDOB:1965 ( 59 yo F)Acc No.[id number]:09/08/2024 Patient: Dorinda SCHMITT :1965 A ge:59 Y S ex:Female Address:[address] [place] [address], [phone] Subjective: * Chief Complaints: * L abs [...] * Date: Generated for Essence berrios/Siri/eTdeepasmitting on: 1 06/12/2024 06:20 AM EST
--- OUTSIDE RECORDS SUMMARY | 2024-10-27 06:00 | XMS_ITS ---
Author Organization Yobani Villanueva III, MD Address [address] [place] [address] [place] [address] Care Team Providers Care Laboratory Equipment Installer Name Role Phone Tatiana Rhoades MD Primary Care Provider Dr. Yobani Saunders III Unavailable Oh Otero Unavailable [phone] Allergies Allergen (clinical drug ingredient) Drug/Non Drug [...] Problem Status W/U Status Risk Notes Problem [id number] Mixed hyperlipidemia (E78.2) Active confirmed She asked [...] Date Provider Diagnosis Yobani Villanueva III, MD [address] [place] [address] [place] [address] 10/27/2024 Yobani Villanueva Underweight R63.6 ; Malignant [...] Provider Name:Yobani Villanueva , 07/19/2025 10:00:00 AM, [address] [place] [address] [address] [address], [place], [address], Progress Notes * Dorinda FISCHER EDOB:1965 ( 59 yo F)Acc No.[id number]:10/27/2024 Progress Notes Patient: Dali SCHMITTh Amy Provider: [...] S he was born and raised in [facility]. She has been working in a [...] grieve. Josias is oldest and works at [employer], engaged to [employer]. Viktor works at [employer] making [employer] for [employer], [employer] with [employer]. * Medications: T akingCalcium [...] 78 (Ref Range: >40 mg/dL) * Lab:Comprehensive [place]. Pane l Fast * Collection Date 10/25/2024 [...] MD Date: 0 10/27/2024 Generated for Yuei yash/Siri/Sussyransmitting on: 06/12/2024 06:21 AM EST History and [...] edema LYMPH NODES: no enlarged lymph no zualy,spleen normal RECTAL EXAM: not examined PSYCH: alert, oriented ORAL CAVITY: normal, unremarkable
--- OUTSIDE RECORDS SUMMARY | 2025-01-27 07:15 | XMS_ITS ---
Author Organization Yobani Villanueva III, MD Address [address] [place] [address] [place] [address] Care Team Providers Care Rigging Up Man Name Role Phone Tatiana Rhoades MD Primary Care Provider Dr. Yobani Saunders III Unavailable [phone] Oh Otero Unavailable [phone] REASON FOR VISIT FOLLOW UP Social History Sex Assigned At : Social History Observation Description Sex Assigned At Female Encounters Encounter Location Date Provider Diagnosis Yobani Villanueva III, MD [address] [place] [address] [place] [address] 01/27/2025 Yobani Villanueva Plan Of Treatment Next Appt Details Provider Name:Yobani Villanueva , 07/19/2025 10:00:00 AM, [address] [place] [address] [place], [address], Progress Notes * Dorinda FISCHER EDOB:1965 ( 59 yo F)Acc No.[id number]:01/27/2025 Progress Notes Patient: Dorinda SCHMITT Provider: Josephine [...] 0 01/27/2025 Generated for Essence berrios/Siri/Mounika on: 06/12/2024 06:20 AM EST
--- OUTSIDE RECORDS SUMMARY | 2025-02-08 04:30 | XMS_ITS ---
Author Organization Yobani Villanueva III, MD Address [address] [place] [address] Care Team Providers Care Associate Account Executive Name Role Phone Tatiana Rhoades MD Primary Care Provider Dr. Yobani Saunders III Unavailable Oh Otero Unavailable [phone] Allergies Allergen (clinical drug ingredient) Drug/Non Drug Allergy documented on EMR Reaction Allergy Type Onset Date Status erythromycin Erythromycin Unknown Drug Allergy A ctive REASON FOR VISIT Non-small cell carcinoma of the lung in remission, Hyperparathyroidism, Underweight, Emphysema, COPD, Osteoporosis Medications Medication SIG (Take, Route, Frequency, Duration) Notes Start Date End Date Status Gabapentin 300 MG 1 capsule Orally Onc e a day Active [facility] Acetaminophen 325 MG TAKE 3 TABLETS BY MOUTH EVERY 6 HOURS Oral Active Ventolin HFA 108 (90 Base) MCG/ACT Inhalation Active Anoro Ellipta 62.5-25 MCG/ACT Inhalation Active Calcium Citrate+D3 Petites 200-6.25 MG-MCG Oral Active Social History Tobacco Use: Social [...] Non-User Ex-cigaret te smoker Vital Signs Temperature 98.1 degrees Fahrenheit 02/09/20 25 Blood pressure systolic 122 mm Hg 02/09/20 25 Blood pressure diastolic 71 mm Hg 025 Heart Rate 69 /min 02/08/2025 Height 63 in 02/08/2025 Weight 105 lbs 02/08/2025 BMI 18.6 kg/m2 02/08/2025 Encounters Encounter Location Date Provider Diagnosis Yobani Villanueva III, MD [address] [place] [address] [place] [address] 02/08/2025 Yobani Villanueva Underweight R63.6 ; Malignant neoplasm of upper lobe, right bronchus or lung C34.11 ; Pulmonary emphysema, unspecified emphysema type J43.9 ; Former smoker Z87.891 ; Multinodular goiter E04.2 ; Chronic obstructive pulmonary disease, unspecified COPD type J44.9 ; Hyperparathyroidism E21.3 ; Other osteoporosis without current pathological fracture M81.8 and Osteoporosis M81.0 Assessments Encounter Date Diagnosis (ICD Code) Assessment Notes T reatment Notes Treatment Clinical Notes 02/08/2025 Underweight (ICD-10 - R63.6) Her weight is stable with a body mass index of 18. Nutrition is not an issue. She appears to be euthyroid. 02/08/2025 Malignant neoplasm o f upper lobe, right bronchus or lung (ICD-10 - C34.11) There is no sign of recurrent disease or of her new primary. A repeat surveillance CT scan will be done in April of this year. I will see her 6 month intervals. 02/08/2025 Pulmonary emphysema, unspecified emphysema type (ICD-10 - J43.9) She is comfortable at rest and wwith most activities. She becomes dyspneic with prolonged exertion but is no longer smoking cigarettes. 02/08/2025 Former smoker (ICD-1 0 - Z87.891) She is highly motivated not to smoke. We discussed strategies for abstinence in times of stress and illness likely present. 02/08/2025 Multinodular goiter (ICD-10 - E04.2) She remains under the care of endocrinology and is up-to-date with her visits. She is compliant with her therapist. 02/08/2025 Chronic obstructive pulmonary disease, unspecified COPD type (ICD-10 - J44.9) She has stopped smoking and she is asymptomatic at this time after the lobectomy. There has been no recent exacerbation of dyspnea. 02/08/2025 Hyperparathyroidism (ICD-10 - E21.3) She has been surgically treated. Her calcium has returned to normal. 02/08/2025 Other osteoporosis without current pathological fracture (ICD-10 - M81.8) She has undergone a [place]-thyroidectomy . Her PTH level is now normal. Her calcium level is normal. Her thyroid functions are in the euthyroid range. 02/08/2025 Osteoporosis (ICD-10 - M81.0) She has significant osteoporosis and remained under the care of endocrinology. She has been compliant with her medications. Plan Of Treatment Medication Medication Name Sig Start Date Stop Date Notes Gabapentin 300 MG 1 capsule Orally Once a day [facility] Acetaminophen 325 MG TAKE 3 TABLETS BY MOUTH EVERY 6 HOURS Oral Ventolin HFA 108 (90 Base) MCG/ACT Inhalation Anoro Ellipta 62.5-25 MCG/ACT Inhalation Calcium Citrate+D3 Petites 200-6.25 MG-MCG Oral Pending Test Test Name Order Date PROFILE, RANDOM (COMPREHENSIVE METABOLIC ) 02/08/2025 CBC w DIFF 02/08/2025 CT CHEST WITH CONTRAST 02/08/2025 Next Appt Details Follow Up: 6 Months,follow u p, Reason: lung cancer Provider Name:Yobani Villanueva , 07/19/2025 10:00:00 AM, [address] [place] [address] , [address], [address], Progress Notes * Dorinda FISCHER EDOB:1965 ( 59 yo F)Acc No.[id number]:02/08/2025 Progress Notes Patient: Dorinda SCHMITT Provider: Josephine Villanueva MD :1965 A ge:59 Y S ex:Female Date:02/08/2025 Address:[address] [place], [place] [id number] Pcp:Tatiana Rhoades MD Subjective: * Chief Complaints: * N on-small cell carcinoma of the lung in remissionHyperparathyroidismUnderweightEmphysemaCOPDOsteoporosis * HPI: C OVID-19 Screening: S he returns periodically for surveillance after surgery and chemotherapy for 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 She has remained in remission until this time. 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 The pain is mild. CT scan in October 2024 of the chest showed no sign of recurrence or new primary. Her next CT scan has been scheduled 6 months after that in April of this year at [facility]. She will return to this office in 6 months. Questions H ave you had any new onset fever, chills, cough, congestion, sore throat, shortness of breath, muscle aches? N o * ROS: G eneral/Constitutional: pain R ight chest wall incision, otherwise only normal aches and pains. C hills d enies. F atigue a dmits. F ever d enies. ? E NT: Decreased hearing d enies. R [...] S he was born and raised in [facility]. 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 She recently stopped smoking. She does not drink alcohol or take drugs. She is not currently working as she is recovering from the thoracotomy. Her two sons are grown and she lives alone. Her of cirrhosis of the liver at [facility] awaiting a transplant on January 31, 2021 one week before her lung cancer surgery. She continues to grieve. Josias is oldest and works at [employer], engaged to [employer]. Viktor works at [employer] making [employer] for [employer], [employer] with Kitty [employer]FF. * Medications: T akingCalcium [...] Objective: * Vitals: H t: 63, Wt: 105, BMI:18.6, BP: 122/71, HR: 69, Temp: 98.1, Wt-k.63. * Examination: G eneral Examination: GENERAL APPEARANCE: p leasant, well nourished, well developed, in no acute distress, calm and relaxed: underweight: woman. HEAD: a traumatic, normocephalic. EYES: e arturo, perrla, anicteric, conjugate. EARS: n ormal. NOSE: s eptum intact. ORAL CAVITY: n ormal, unremarkable. NECK/THYROID: n o jugular venous distention, no carotid bruit, thyroid not palpated. LYMPH NODES: n o enlarged lymph nodes,spleen normal. SKIN: n o suspicious lesions, anicteric. HEART: n o clicks, gallops, murmurs, or rubs, regular rhythm, S1, S2 normal, no s3, or vascular bruits. LUNGS: : diminished breath sounds throughout: no wheezes, rales, rhonchi. BREASTS: : Not examined. ABDOMEN: b owel sounds normal, no [...] (Primary) ?Notes :There is no sign of recurrent disease or of her new primary. A repeat surveillance CT scan will be done in April of this year. I will see her 6 month intervals. 2 . U nderweight - R63.6 N otes :Her weight is stable with a body mass index of 18. Nutrition is not an issue. She appears to be euthyroid. 3 . P ulmonary emphysema, unspecified emphysema type - J43.9 N otes :She is comfortable at rest and wwith most activities. She becomes dyspneic with prolonged exertion but is no longer smoking cigarettes. 4 . F ormer smoker - Z87.891 N otes :She is highly motivated not to smoke. We discussed strategies for abstinence in times of stress and illness likely present. 5 . M ultinodular goiter - E04.2 N otes :She remains under the care of endocrinology and is up-to-date with her visits. She is compliant with her therapist. 6 . C hronic obstructive pulmonary disease, unspecified COPD type - J44.9 N otes :She has stopped smoking and she is asymptomatic at this time after the lobectomy. There has been no recent exacerbation of dyspnea. 7 . H yperparathyroidism - E21.3 N otes :She has been surgically treated. Her calcium has returned to normal. 8 . O ther osteoporosis without current pathological fracture - M81.8 ? N otes :She has undergone a [place]-thyroidectomy. Her PTH level is now normal. Her calcium level is normal. Her thyroid functions are in the euthyroid range. 9 . O steoporosis - M81.0 N otes :She has significant osteoporosis and remained under the care of endocrinology. She has been compliant with her medications. Plan: * Treatment: 2. U nderweight Continue Calcium Citrate+D3 Petites Tablet, 200-6.25 MG-MCG, Oral; C ontinue Ventolin HFA Aerosol Solution, 108 (90 Base) MCG/ACT, Inhalation; C ontinue Anoro Ellipta Aerosol Powder Breath Activated, 62.5-25 MCG/ACT, Inhalation; C ontinue Gabapentin Capsule, 300 MG, 1 capsule, Orally, Once a day; C ontinue [facility]S Acetaminophen Tablet, 325 MG, TAKE 3 TABLETS BY MOUTH EVERY 6 HOURS, Oral. L AB: PROFILE, RANDOM (COMPREHENSIVE METABOLIC) L AB: CBC w DIFF 3. P ulmonary emphysema, unspecified emphysema type L AB: PROFILE, RANDOM (COMPREHENSIVE METABOLIC) L AB: CBC w DIFF * Procedure Codes: * Preventive Medicine: Counseling: C are goal follow-up plan: Counseling for abnormal BMI given Y es Below Normal BMI Follow-up D ietary education for weight gain, Dietary management education, guidance, and counseling COPD Care Plan: P atient Lifestyle Goals [...] Eat a healthy diet. * Follow Up: 6 Months,follow up (Reason: lung cancer) * Images: * Sign off status: Completed true * Provider: Josephine Villanueva MD Date: 0 02/08/2025 Generated for Printi ng/Faxing/eTransmitting on: 06/12/2024 06:21 AM EST History and Physical Notes * HPI (History of Present Illness) Category Sub-Category Detail Notes COVID-19 Screening Questions Have you had any new onset fever, chills, cough, congestion, sore throat, shortness of breath, muscle aches?: No Examination Category Sub-Category Detail Notes General Examination GENERAL APPEARANCE: pleasant , well nourished, well developed, in no acute distress, calm and relaxed: underweight: woman HEAD: atraumatic, normocep halic EYES: eomi, perrla, anicte camilo, conjugate EARS: normal NOSE: septum intact NECK/THYROID: no jugular venous di stention, no carotid bruit, thyroid not palpated HEART: no clicks, gallops, murmurs, or rubs, regular rhythm, S1, S2 normal, no s3, or vascular bruits LUNGS: : diminished breath sounds throughout: no wheezes, rales, rhonchi ABDOMEN: bowel sounds normal, no ascites, no organomegaly, no mass NEUROLOGIC: alert and oriented, cranial nerves 2-12 grossly intact, deep tendon reflexes 2+ symmetrical, motor strength normal upper and lower extremities, sensory exam intact SKIN: no suspicious lesion s, anicteric PERIPHERAL PULSES: normal BREASTS: : Not examined MUSCULOSKELETAL: extremities unremark able, no clubbing, cyanosis or edema LYMPH NODES: no enlarged lymph no zulay,spleen normal RECTAL EXAM: not examined PSYCH: alert, oriented ORAL CAVITY: normal, unremarkable
--- OUTSIDE RECORDS SUMMARY | 2025-04-11 06:20 | XMS_ITS | Clinical Summary ---
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 Name Role Phone Tatiana Rhoades MD Primary [...] topic Medical Devices Not on file Insurance [facility] [place] [facility] ACO [facility] ACO Care Teams Structural Metal Fabricator Apprentice Relationship Specialty Start Date End Date Tatiana Rhoades MD [address] [place] SHARDA PCP - General Internal Medicine 04/23/23 Additional Source Comments The information contained in this document represents components of the legal health record. It is not the complete legal health record.[facility]
--- OUTSIDE RECORDS SUMMARY | 2025-04-11 06:20 | XMS_ITS | Patient Health Record ---
Author Organization [facility] Address [address] [place] [address] Care Team Providers Care Boiler Coverer Helper Name Role Phone Verona CHEN, Tatiana Primary Care Provider Dakota Schneider Jr Unavailable Reason For Referral No Information Medications Medication SIG (Take, Route, Frequency, Duration) Notes Start Date End Date Status Multivitamin Adults - Tablet as directed Orally Active Vitamin D3 74955 UNIT Capsule TAKE ONE CAPSULE BY MOUTH ONE TIME PER WEEK Oral; Duration: 28 Active Colyte with Flavor Packs 240 GM Solution Reconstituted As directed Orally Over the specified time.; Duration: 1 day(s) 09/03/2018 Active Immunizations Vaccine Route Administration Date Status Comme nts Influenza Unknown 02/09/2018 Administered Social History Tobacco Use: Social History Observation Description Date Details (start date - stop date) Current Smoker NA - NA Social History Drugs/Alcohol: Social Info Question Answer Notes Alcohol Screen Did you have a drink containing alcohol in the past year? Yes How often did you have a drink containing alcohol in the past year? 2 to 4 times a month (2 points) How many drinks did you have on a typical day when you were drinking in the past year? 3 or 4 drinks (1 point) Points 3 Interpretation Positive Tobacco Use: Social Info Question Answer Notes Tobacco Use/Smoking Patient is a current smoker How often do you smoke cigarettes? every day How many cigarettes a day do you smoke? 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 [address] [place], [place] [id number] Self - patient is the insured Medical (General) History Medical History History ICD Code Denies CT,DM,CVA,Lung disease,renal dise ase goiter
--- OUTSIDE RECORDS SUMMARY | 2025-04-11 06:22 | XMS_ITS | Patient Health Record ---
Author Organization Yobani Villanueva III, MD Address [address] [place] [address] [address] [place] [address] Care Team Providers Care Reliability Technologist Name Role Phone Verona CHEN, Tatiana Primary Care Provider Dr. Yobani Saunders III Unavailable [phone] hO Otero Unavailable [phone] Allergies Allergen (clinical drug ingredient) Drug/Non Drug Allergy documented on EMR Reaction Allergy Type Onset Date Status erythromycin Erythromycin Unknown Drug Allergy A ctive Results Component Value Reference Range Notes Blood Urea Nitrogen Reviewed date:10/05/2024 03:30:37 PM Interpretation: Performing Lab:[facility], [address] [place] [phone] Notes/Report: Blood Urea Nitrogen 8 9-16 mg/dL Creatinine Reviewed date:10/05/2024 03:30:37 PM Interpretation: Performing Lab:[facility], [address] [place] [phone] Notes/Report: Creatinine 0.73 0.5-1.4 mg/dL Estimated Glomerular Filt Rate > 60 Chronic Kidney Disease: Estimated GFR < 60 mL/min/1.73m2 Severe Kidney Disease: Estimated GFR < 15 mL/min/1.73m2 CT chest w con Reviewed date:10/27/2024 11:07:09 AM Interpretation: Performing Lab: Notes/Report: [address] [address] [address] Scan Report Signed Patient: Dorinda Fischer MR#: [id number] : 1965 Acct:[id number] Age/Sex: 59 / F ADM Date: 10/13/24 Loc: HO.CT Attending Dr: Yobani Villanueva MD Ordering Physician: Yobani Villanueva MD Date of Service: 10/13/24 Procedure(s): CT chest w IV con Accession Number(s): [id number] cc: Yobani Villanueva MD; Tatiana Rhoades MD Report Number: [id number]: Total DLP = 61.00 mGy-cm CLINICAL HISTORY: NEOPLASM OF UPPER LOBE CT chest with contrast Comparison: CT/SR - CT CHEST W IV CON - 03/15/24 10:[address]/REG/ID/SR - CT CHEST W IV CON - [...] OV> 10/15/24 0958 DD/ 6 TD/TT: 10/15/24956 Slitter Helper: [place] [address] CT Scan Report Signed Patient: Dorinda Fischer MR#: [id number] : 1965 Acct:[id number] Age/Sex: 59 / F ADM Date: 10/13/24 Loc: HO.CT Attending Dr: Yobani Villanueva MD Ordering Physician: Yobani Villanueva MD Date of Service: 10/13/24 Procedure(s): CT david st w IV con Accession Number(s): [id number] cc: Yobani Villanueva MD; Tatiana Rhoades MD Report Number: [id number]: Total DLP = 61.00 mGy-cm CLINICAL HISTORY: NEOPLASM OF UPPER LOBE CT chest with contrast Comparison: CT/SR - CT CHEST W I V CON - 03/15/24 10:[address]/REG/ID/SR - CT CHEST W IV CON - [...] in OV> 10/15/24957 DD/ 6 TD/TT: 10/15/24956 Slitter Helper: Complete Blood Count Auto Di ff Reviewed date:10/27/2024 11:07:08 AM Interpretation: Performing Lab:[facility], [address] [place] [phone] Notes/Report: White Blood Count 11.5 4.8-10.8 X10*3/uL [...] NRBC Abs Auto 0.000 0.0-0.012 X10*3/uL Comprehensive [place]. Panel Fa st Reviewed date:10/27/2024 11:07:08 AM Interpretation: Performing Lab:[facility], [address] [place] [phone] Notes/Report: Sodium 142 135-145 mmol/L Potassium 4.3 [...] Panel Reviewed date:10/27/2024 11:07:09 AM Interpretation: Performing Lab:[facility], [address] [place] [phone] Notes/Report: Triglycerides 94 <150 mg/dL Desirable Triglyceride: [...] Total Reviewed date:10/27/2024 11:07:09 AM Interpretation: Performing Lab:[facility], [address] [place] [phone] Notes/Report: Vitamin D 25-OH Total 149.0 >30 [...] Intact Reviewed date:10/27/2024 11:07:09 AM Interpretation: Performing Lab:[facility], [address] [place] [address], [place] [address] Notes/Report: Parathyroid Hormone Intact 38.8 8.7-77.1 pg/mL [...] Problem Status W/U Status Risk Notes Problem 0812939 Former smoker (Z87.891) Active confirmed She is highly motivated not to smoke. We discussed strategies for abstinence in times of stress and illness likely present. Problem 325352456 Underweight (R63.6) Active confirmed Her weight is stable with a body mass index of 18. Nutrition is not an issue. She appears to be euthyroid. Problem Malignant neoplasm of upper lobe, bronchus or lung (224515542) Malignant neoplasm of upper lobe, right bronchus or lung (C34.11) Active confirmed There is no sign of recurrent disease or of her new primary. A repeat surveillance CT scan will be done in April of this year. I will see her 6 month intervals. Problem 730321613 Mixed hyperlipid emia (E78.2) Active confirmed She [...] with primary care in the past. Problem 11746550 Other osteoporos is without current pathological fracture (M81.8) Active confirmed She has undergone a [place]-thyroidec holly. Her PTH level is now normal. Her calcium level is normal. Her thyroid functions are in the euthyroid range. Problem 10833113 Chronic obstruct phani pulmonary disease, unspecified COPD type (J44.9) Active confirmed She has stopped smoking and she is asymptomatic at this time after the lobectomy. There has been no recent exacerbation of dyspnea. Problem Osteoporosis (22662040) Osteoporosis (M81.0) Active confirmed She has significant osteoporosis and remained under the care of endocrinology. She has been compliant with her medications. Problem 50409393 Hyperparathyroid ism (E21.3) Active confirmed She has been surgically treated. Her calcium has returned to normal. Problem 95125540 Pulmonary emphys john, unspecified emphysema type (J43.9) Active confirmed She is comfortable at rest and wwith most activities. She becomes dyspneic with prolonged exertion but is no longer smoking cigarettes. Problem 708367408 Multinodular goi ter (E04.2) Active confirmed She remains under the care of endocrinology and is up-to-date with her visits. She is compliant with her therapist. Problem 062995526 Neurothekeoma (D36.10) Active confirmed The scar in [...] Provider Diagnosis Yobani Villanueva III, MD [address] [place] [address] [place] [address] 07/21/2024 Yobani Villanueva Underweight R63.6 ; Malignant neoplasm of upper lobe, right bronchus or lung C34.11 ; Hyperparathyroidism E21.3 ; Osteoporosis M81.0 and Former smoker Z87.891 Yobani Villanueva III, MD [address] [place] [address] [place] [address] 10/27/2024 Yobani Villanueva Underweight R63.6 ; Malignant neoplasm of upper lobe, right bronchus or lung C34.11 ; Multinodular goiter E04.2 ; Hyperparathyroidism E21.3 ; Osteoporosis M81.0 ; Former smoker Z87.891 ; Pulmonary emphysema, unspecified emphysema type J43.9 ; Chronic obstructive pulmonary disease, unspecified COPD type J44.9 and Mixed hyperlipidemia E78.2 Yobani Villanueva III, MD [address] [place] [address] [place] [address] 02/08/2025 Yobani Villanueva Underweight R63.6 ; Malignant neoplasm of upper lobe, right bronchus or lung C34.11 ; Pulmonary emphysema, unspecified emphysema type J43.9 ; Former smoker Z87.891 ; Multinodular goiter E04.2 ; Chronic obstructive pulmonary disease, unspecified COPD type J44.9 ; Hyperparathyroidism E21.3 ; Other osteoporosis without current pathological fracture M81.8 and Osteoporosis M81.0 Yobani Villanueva III, MD [address] [place] [address] [place] [address] 09/08/2024 Yobani Villanueva Underweight R63.6 ; Chronic obstructive pulmonary disease, unspecified COPD type J44.9 and Encounter for preprocedural laboratory examination Z01.812 Assessments Encounter Date Diagnosis (ICD Code) Assessment Notes T reatment Notes Treatment Clinical Notes 07/21/2024 Underweight (ICD-10 [...] month intervals. 09/08/2024 Underweight (ICD-10 - R63.6) 07/21/2024 Hyperparathyroidism (ICD-10 - E21.3) Her calcium remains normal. 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 This problem has been addressed and [...] disease, unspecified COPD type (ICD-10 - J44.9) 07/21/2024 Osteoporosis (ICD-10 - M81.0) She has [...] for preprocedural laboratory examination (ICD-10 - Z01.812) 07/21/2024 Former smoker (ICD-1 0 - Z87.891) [...] She is compliant with her therapist. 10/27/2024 Former smoker (ICD-1 0 - Z87.891) [...] Intact 10/27/2024 Next Appt Details Provider Name:Yobani Machadone , 07/19/2025 10:00:00 AM, [address] [place] [address] [address], [place], [address], Insurance Providers Payer Name Payer Address Payer Phone Subscriber Number Group Number Insured Name Patient Relationship to Insured Coverage Start Date Coverage End Date MEDICARE NGS [address] [facility] [address] [id number] Dorinda Fischer Self - patient is the insured MED[place] [address] [place], [place] [id number] [phone] [id number] Dorinda Fischer Self - patient is the insured Medical (General) History Medical History History ICD Code Stage IB [id number] adenocarcinoma of the upper lobe right lung [...]
[2025-04-11 10:48] LABS: MANUAL DIFF FLAG NO
[2025-04-11 11:10] LABS: Hematocrit 38.6 % (37.0-47.0); Hemoglobin 12.8 g/dl (12.0-16.0); Imm Gran Abs Auto 0.02 X10*3/uL (0.00-0.03); Imm Gran Pct Auto 0.2 % (0.0-0.4); Lymphocytes Absolute Auto 2.7 X10*3/uL (1.2-4.9); Mean Corpuscular HGB Conc 33.2 g/dl (31.0-35.0); Mean Corpuscular Hemoglobin 30.6 pg (27.0-33.0); Mean Corpuscular Volume 92.3 fL (80.0-98.0); NRBC Abs Auto 0.000 X10*3/uL (0.0-0.012); NRBC Pct Auto 0.0 /100WBC (0.0-0.2); Platelet Count 343 X10*3/uL (160-400); Red Blood Count 4.18 X10*6/uL (4.20-5.50); White Blood Count 10.0 X10*3/uL (4.8-10.8)
[2025-04-11 11:23] LABS: Alanine Aminotransferase 18 U/L (0-31); Albumin Level 4.1 g/dL (3.5-5.0); Alkaline Phosphatase 82 U/L (39-117); Anion Gap 11 (12-20); Aspartate Amino Transferase 25 U/L (5-31); Blood Urea Nitrogen 13 mg/dL (9-16); Calcium 8.3 mg/dL (8.4-10.2); Carbon Dioxide 26 mmol/L (22-29); Chloride 110 mmol/L (96-108); Estimated Glomerular Filt Rate > 60; Potassium 4.2 mmol/L (3.3-5.1); Sodium 143 mmol/L (135-145); Total Protein 6.4 g/dL (6.5-8.0)
== END 2025-04-11 06:19 | disposition home or self-care (01) ==
LOC: HO.HMGCLDS 06:18
PROVIDERS: PCP Internal Medicine; Visit Provider Internal Medicine Medical Oncology
DX: J43.9 Emphysema, unspecified (principal); R63.6 Underweight; C34.11 Malignant neoplasm of upper lobe, right bronchus or lung
CPT/HCPCS: 36415; 80053; 85025

== ENCOUNTER 2025-04-19 07:49 | Outpatient (REF) | payer MEDICARE, MEDICAID, SELFPAY ==
--- NOTE | ~2025-04-19 | CT_ITS ---
EXAMINATION: CT CHEST WITH IV CONTRAST INDICATION: malignant neoplasm of lung COMPARISON: Comparison is made with the prior examination dated 10/13/2024. TECHNIQUE: Helical CT scan of the chest was performed following administration of intravenous contrast. Coronal and sagittal reformatted images were generated and reviewed. This CT exam was performed with one or more of the following dose reduction techniques: automated exposure control, adjustment of the mA and/or kV according to patient size, use of iterative reconstruction technique. DLP: 81 mGy-cm CHEST: THYROID: The thyroid is unremarkable. LUNGS: There is moderate emphysema. The patient is again noted to be status post right upper lobectomy. An ovoid nodule in the right lower lobe (series 5, image 54) is stable. Again seen is a 7 x 4 mm subpleural nodule in the right lower lobe (series 5, image 86). An ill-defined groundglass opacity in the superior segment of the left lower lobe (series 5, image 58) is also stable. MEDIASTINUM: There is no mediastinal lymphadenopathy. ANDRE: There is no hilar lymphadenopathy. CARDIOVASCULATURE: The heart is normal in size. There is no pericardial effusion. The thoracic aorta is normal in caliber. DEGREE OF CORONARY CALCIFICATION: none PLEURA: There is no pleural effusion. No pneumothorax. MAIN AIRWAYS: The mainstem bronchi and proximal branches are patent. AXILLA: There is no axillary lymphadenopathy. BONES AND SOFT TISSUES: Unremarkable UPPER ABDOMEN: The visualized portions of the liver, spleen, and adrenals are unremarkable. CT/CT chest w IV con IMPRESSION: Status post right upper lobectomy. Stable right lower lobe nodules and ill-defined groundglass opacity in the left lower lobe. Continued follow-up is recommended. Electronically signed by: Yobani Stanton MD 04/19/2025 08:44 AM EST
--- OUTSIDE RECORDS SUMMARY | 2025-04-19 08:17 | XMS_ITS | Clinical Summary ---
Author Organization [facility] Address [address] [place] [address] Care Team Providers Care Laundry Pricing Clerk Name Role Phone Tatiana Rhoades MD [...] age to complete this topic Care Teams Laundry Pricing Clerk Relationship Specialty Start Date End Date Tatiana Rhoades MD [address] [place] [address] PCP - General Internal Medicine 08/28/21
[2025-04-19] MEDS: iohexoL 350 MG/ML 100 ML INFUS..BTL 65 ML IV (08:35)
== END 2025-04-19 07:50 | disposition home or self-care (01) ==
LOC: HO.CT 07:49
PROVIDERS: PCP Internal Medicine; Visit Provider Internal Medicine Medical Oncology
DX: C34.11 Malignant neoplasm of upper lobe, right bronchus or lung (principal)
CPT/HCPCS: 71260; Q9967

== ENCOUNTER → 2025-04-19 07:51 | Outpatient (BNV) | payer MEDICARE, MEDICAID, SELFPAY | PROVIDERS: PCP Internal Medicine; Visit Provider Radiology Diagnostic Radiology | DX: C34.00 Malignant neoplasm of unspecified main bronchus (principal); R91.8 Other nonspecific abnormal finding of lung field | CPT/HCPCS: 71260 ==